=== PATIENT | male | born 1965 | race African-American/Black ===

== ENCOUNTER 2020-03-08 07:54 | Inpatient (IN) | payer OTHER ==
[~2020-03-08] VITALS: Ht 188 cm; Wt 72.5 kg
[2020-03-08] VITALS (10 sets, daily range): BP systolic 83–122; BP diastolic 55–94
--- NOTE | 2020-03-08 04:00 | NUR ---
WOUND CARE CONSULT 54 YO MALE HX OF TBI, UTI, HYPONATREMIA, DECUBITUS ULCER. PT ASSESSED IN ER HOLD; PT WILL BE TRANSFERED TO ICU. BARBARA 6 ON STRICT PUP STATUS AND INTERVENTIONS LABS: WBC- 19.61 HGB- 9.1 GLUCOSE 90 SKIN ASSESSMENT COMPLETE PATIENT PRESENTS WITH: 1) STAGE IV PRESSURE ULCER TO RIGHT AND LEFT SACRUM MEASURES 9.5CM X8CMX 2.5 CM AND 3.5 CM UNDERMAINING MEASURING 12OCLOCK TO 12 OCLOCK. BONE PALPABLE, 30 %NECROTIC TISSUE AND 45% YELLOW SLOUGH COVERING WOUND BASE AND 25% PINK GRANULATION TISSUE. RED SLOW BLANCHABLE ALSO MIXED DENUDED AREA R/T LOOSE STOOL; ODOR PRESENT. SEROSANGUINEOUS DRAINAGE PRESENT. 2)STAGE III PRESSURE ULCER TO LEFT LOWER BUTTOCK; 20% PINK GRANULATION PRESENT AND 80% YELLOW SLOUGH; ODOR PRESENT. SEROUSSANGUINEOUS DRAINAGE PRESENT. 3)STAGE IV PRESSURE ULCER TO LEFT LATERAL ANKLE, BONE PALPABLE; MEASURING 4CM X 3 CM X 0.8 CM; UNDERMINING PRESENT MEASURING 0.5 CM FROM 6 OCLOCK TO 11 OCLOCK. \ 4)RIGHT 5TH DORSAL METARSAL HEAD CALLUS MEASURING 2 CM X 2CM 5)RIGHT PROXIMAL LOWER LEG ABRASION; MEASURING 1 CM X 1 CM X 0.1 CM; 90 % RED GRANULATION 10 % HEALING SCAB. 6)RIGHT LATERAL LOWER LEG ABRASION; MEASURING 4 CM X 3CMX 0.1 CM; SKIN ABRATION; 100% PINK. 7)RIGHT DISTAL LATERAL LOWER LEG BLISTER; 2 CM X 1 CM FILLED WITH SEROUS FLUID. 8)LEFT MEDIAL LOWER LEG ABRASION MEASURING 1 CM X 1 CM X 0.1 CM; 100% PINK GRANULATION. 9)RED BLANCHABLE REDNESS PRESENT TO PERINEAL AREA. DURING ER HOLD THE FOLLOWING RECOMMEDATIONS WERE GIVEN TO SHORT ROOF PLUMBER; ORDER ANEROBIC AND AEROBIC CULTURE FOR RIGHT ANKLE AND TO ORDER ANEROBIC AND AEROBIC CULTURE FOR SACRUM; X-RAY TO SACRUM AREA TO R/O OSTEOMYELITIS. X-RAY TO LEFT ANKLE TO R/O OSTEOMYELITIS. INSTRUCTED BY Dr. White CONTINUE TO F/U WITH Dr. Henry. This nurse spoke to ROOF PLUMBER from Dr.Killam Butcher about recommendations; instructed continue with consults once pt is stable. RECOMMENDATIONS: X-RAY TO SACRUM AREA TO R/O OSTEOMYELITIS. X-RAY TO LEFT ANKLE TO R/O OSTEOMYELITIS. SURGICAL CONSULT FOR STAGE IV SACRUM ULCERATION TO REMOVE UNDERMINING AND POSSIBLE NEGATIVE PRESSURE THERAPY POST SURGICAL INTERVENTION; ONCE PATIENT IS STABLE; CONSULT WITH DR. RON BARCENAS. PODIATRY CONSULT FOR STAGE IV ULCER PRESET TO RIGHT ANKLE; ONCE PT IS STABLE. CONSULT WITH DR. RON BARCENAS. NURSING CLEAN STAGE IV ULCER TO RIGHT ANKLE WITH NORMAL SALINE, PAT DRY WITH 4X4 GAUZE, APPLY MAXORB AG, AND COVER WITH ALLEVYN FOAM DAILY. NURSING TO CLEAN STAGE IV SACRUM ULCER WITH NORMAL SALINE, PAT DRY WITH 4X4 GAUZE, APPLY SANTYL TO WOUND BASE, COVER WITH LIGHTLY MOISTENED SALINE GAUZE AND COVER WITH ALLEVYN FOAM DAILY. NURSING TO CLEAN STAGE III ULCER TO LEFT LOWER BUTTOCK WITH NORMAL SALINE, PAT DRY WITH 4X4 GAUZE, APPLY SANTYL AND COVER WITH ALLEVYN FOAM DAILY. NURSING TO OBTAIN ANEROBIC AND AEROBIC CULTURE FOR RIGHT ANKLE. NURSING TO OBTAIN ANEROBIC AND AEROBIC CULTURE FOR SACRUM. NURSING TO CLEAN RIGHT 5TH DORSAL METARSAL HEAD CALLUS WITH NORMAL SALINE, PAT DRY WITH 4X4 GAUZE AND PAINT WITH BETADINE; LEAVE OPEN TO AIR DAILY. NURSING TO CLEAN RIGHT PROXIMAL LOWER LEG ABRASION, RIGHT LATERAL LOWER LEG ABRASION, RIGHT DISTAL LATERAL LOWER LEG BLISTER AND LEFT MEDIAL LOWER LEG ABRASION WITH NORMAL SALINE, PAT DRY WITH 4X4 GAUZE, AND PAINT WITH BETADINE; LET IT DRY AND LEAVE OPEN TO AIR, DAILY. NURSING TO APPLY REMEDY CALAZIME OINTMENT TO PERINEAL AREA DAILY. NURSING TO CONTINUE TO MONITOR PATIENT AND KEEP SKIN CLEAN AND FREE FROM LOOSE STOOL OR IRRITATING MOISTURE AND CONTINUE TO FOLLOW STRICT PUP INTERVENTION DAILY. NURSING TO CONTINUE REPOSITION PT SIDE TO SIDE EVERY TWO HOURS. NURSING TO APPLY AN AIR PRESSURE MATTRESS. NURSING TO CONTINUE TO OFFLOAD FEET AND HEELS AT ALL TIMES WITH PILLOW SUSPENSION WHEN IN BED. NURSING TO APPLY BILATERAL HEEL PROTECTORS AT ALL TIMES WHILE IN BED. NURSIGN TO CONTINUE TO ASSIST PT NUTRITONAL SUPPLEMENTS TO ENSURE PROPER REQUIREMENTS FOR HEALING. NURSING TO RE- CONSULT WOUND CARE NEEDED. Addendum: 03/08/20 at 1956 by Soni Shine RN Amended: Links added.
[2020-03-08] MEDS ORDERED: SODIUM CHLORIDE 0.9% 1000ML 1,000 ML IV STA ×2 (08:05→08:42)
[2020-03-08] MEDS ORDERED: DIATRIZOATE MEGL/DIATRIZOA SOD 30 ML BTL PO ONE (08:31)
[2020-03-08] MEDS ORDERED: ACETAMINOPHEN 650 MG SUPP PR ONE (08:32)
[2020-03-08] MEDS ORDERED: SODIUM CHLORIDE 0.9% 1000ML 1,000 ML ONE ×2 (08:32→09:52)
--- NOTE | 2020-03-08 08:50 | NUR ---
PT MOVED TO ROOM ONE AND MASKED AND PLACED ON COVID PRECAUTIONS. SWAB OBTAINED PER PROTOCOL.
[2020-03-08 08:59] LABS: BASOPHILS # (AUTO) 0.1 (0.0-0.1); BASOPHILS % 0.3 % (0.0-1.0); EOSINOPHILS % 0.1 % (0.0-6.0); HEMATOCRIT 27.7 % (38.2-49.6); HEMOGLOBIN 9.1 g/dL (14.0-18.0); LYMPHOCYTES # (AUTO) 1.4 (1.0-3.2); MEAN CORPUSCULAR HEMOGLOBIN 25.9 pg (28-32); MEAN CORPUSCULAR HGB CONC 32.9 g/dL (31-35); MEAN CORPUSCULAR VOLUME 78.7 fL (81-99); MONOCYTES # (AUTO) 1.2 (0.2-0.8); MONOCYTES % 6.3 % (4.4-11.3); NEUTROPHILS # (AUTO) 16.7 (2.1-6.9); NEUTROPHILS % 84.8 % (38.7-80.0); PLATELET COUNT 487 x10e3/uL (140-360); RED BLOOD COUNT 3.52 x10e6/uL (4.3-5.7); RED CELL DISTRIBUTION WIDTH 17.2 % (11.7-14.4)
[2020-03-08] MEDS ORDERED: ONDANSETRON HCL INJ 2MG/ML 2ML 2 MG/ML VIAL IV STA (09:08)
[2020-03-08] MEDS ORDERED: ACETAMINOPHEN 325 MG SUPP PR ONE (09:15)
[2020-03-08] MEDS ORDERED: VANCOMYCIN 1GM/NS 250 ML 250 ML IV ONE (09:15)
--- NOTE | 2020-03-08 09:19 | NUR ---
PT ARRIVED WITH INDWELLING MACKEY WITH SEDIMENT AND DARK URINE/STRAW. PER MD ORDER, MACKEY REMOVED AND NEW FOLELY PLACED PER PROTOCOL/PROCEDURES WITHOUT INCIDENT. DRAINGING TO GRAVITY. TOLERATED FAIRLY WELL. NOT ENOUGH URINE TO OBTAIN SAMPLE AT TIME OF PLACEMENT, WILL MONITOR Q 1 HRS AND RE-EVALUATE. MD NOTIFIED.
[2020-03-08 09:20] LABS: B-TYPE NATRIURETIC PEPTIDE2 18.3 pg/mL (0-100)
[2020-03-08 09:22] LABS: ALANINE AMINOTRANSFERASE 17 IU/L (0-55); ALBUMIN 1.9 g/dL (3.5-5.0); ALBUMIN/GLOBULIN RATIO 0.3 (0.8-2.0); ALKALINE PHOSPHATASE 103 IU/L (40-150); ANION GAP 17.2 mmol/L (8-16); BLOOD UREA NITROGEN 39 mg/dL (7-26); BUN/CREATININE RATIO 30 (6-25); CARBON DIOXIDE 15 mmol/L (22-29); CHLORIDE 90 mmol/L (98-107); CREATININE, SERUM 1.32 mg/dL (0.72-1.25); EST GLOMERULAR FILTRATION RATE > 60 ML/MIN (60-); GLUCOSE 110 mg/dL (74-118); MAGNESIUM 1.8 MG/DL (1.3-2.1); POTASSIUM 4.2 mmol/L (3.5-5.1)
[2020-03-08 09:27] LABS: SODIUM 118 mmol/L (136-145)
[2020-03-08 09:29] LABS: INR 1.23; PROTHROMBIN TIME 16.3 seconds (11.9-14.5)
[2020-03-08 09:30] LABS: PARTIAL THROMBOPLASTIN TIME 32.9 seconds (23.8-35.5)
--- NOTE | 2020-03-08 09:34 | NUR ---
PT ARRIVED, PT WAS CLEANED, ALL SHELTER BELONGINGS BAGGED AND LABELLED, NEW GOWN, OLD LINEN REMOVED WELL. D/C'D INDWELLING MACKEY PT ARRIVED WITH ALL PER MD ORDER. PT IN FRESH, CLEAN GOWN, NEW MACKEY TO GRAVITY, BILATERAL EJ'S, EKG, RECTAL TEMP, MEDICATED ALL PER MD ORDERS. PT MORE AWAKE NOW ARE MOVING UPPER EXTREMITIES SOMEWHAT AND SPEAKS WITH UNDERSTANDABLE MINIMAL WORDS. ST/SR NO ECTOPY, ABG DONE BY RT LOPEZ PER MD, IVF'S RUNNING, PLACED INTO COVID ISOLATION R/O, WOUND CARE CONSULT BY MD FOR MULTIPLE BREAKDOWN ISSUES (EXCORIATED UNDER SCROTOM, BILATERAL FEET/ANKLES, SACRAL WOUND STAGE 4 AND LEFT CALF MEDIAL DIME SIZE STAGE 2)
[2020-03-08] MEDS ORDERED: ROPINIROLE HCL0.5 MG (09:40)
[2020-03-08] MEDS ORDERED: ENULOSE10 GM/15 M (09:40)
[2020-03-08] MEDS ORDERED: LIDOCAINE HCL20 ML (09:40)
[2020-03-08] MEDS ORDERED: QUETIAPINE FUM100 MG (09:40)
[2020-03-08] MEDS ORDERED: TIZANIDINE HCL2 M1 (09:40)
[2020-03-08] MEDS ORDERED: IPRAT-ALBUT 0.5-3 ML (09:40)
[2020-03-08] MEDS ORDERED: LOPRESSOR25 MG (09:40)
[2020-03-08] MEDS ORDERED: FAMOTIDINE20 MG (09:40)
[2020-03-08] MEDS ORDERED: DULOXETINE HCL40 MG (09:40)
[2020-03-08] MEDS ORDERED: LACTULOSE10 GM/151 (09:40)
[2020-03-08] MEDS ORDERED: BACLOFEN10 MG (09:40)
[2020-03-08] MEDS ORDERED: HYDROCODON-ACE1 EAC9 (09:40)
[2020-03-08] MEDS ORDERED: QUETIAPINE FUM200 MG (09:40)
[2020-03-08] MEDS ORDERED: KRISTALOSE20 GM (09:40)
[2020-03-08] MEDS ORDERED: CEFTRIAXONE1 GM (09:40)
[2020-03-08] MEDS ORDERED: TRAZODONE HCL50 MG (09:40)
[2020-03-08 09:54] LABS: CREATINE KINASE 58 IU/L (30-200)
[2020-03-08] MEDS: ONDANSETRON HCL INJ 2MG/ML 2ML 2 MG/ML VIAL IV PRN (10:00)
[2020-03-08] MEDS ORDERED: PIPER-TAZ 3.375 GM 50 ML IV ONE (10:00)
[2020-03-08] MEDS: SODIUM CHLORIDE 0.9% 1000ML 1,000 ML IV SCH ×2 (10:01→20:44)
--- NOTE | 2020-03-08 10:05 | NUR ---
GREEN SHEET ON CHART PER [facility] PROTOCOL. 2ND LACTIC DRAWN AND SENT TO LAB
--- NOTE | 2020-03-08 10:23 | NUR ---
BP DROP, MD NOTIFIED AND ORDERED NS 500CC BOLUS. BOLUS RUNNING. RADIOLOGY HERE FOR PT, NOTIFIED MD/PT TO WAIT FOR RADIOLOGY UNTIL BP UP. PICC LINE ORDERED. WILL BE EMERGENT.
--- OUTSIDE RECORDS SUMMARY | 2020-03-08 10:43 | XMS REPORT | Summary of Care ---
Author Author [facility] Organization [facility] Address Unknown Phone Unavailable Encounter HQ Kelsey(MAIDA) [id number] Date(s): 04/14/16 - 04/15/16 [facility] [address] provided by [employer] [place] [address]- Discharge Diagnosis: Suicidal ideation Discharge Disposition: Home Attending Physician: Yola Brambila MD Vital Signs 1 2 3 Most recent to oldest [Reference Range]: 182.88 cm (04/14/16 12:19 PM) Height 98.5 DegF (04/15/16 12:04 AM) 98.4 DegF (04/14/16 10:15 PM) 98 DegF (04/14/16 8:15 PM) Temperature Oral [96.4-99.1 DegF] 159/80 mmHg *HI* (04/15/16 2:00 AM) 141/94 mmHg *HI* (04/15/16 12:04 AM) 141/94 mmHg *HI* (04/14/16 10:15 PM) Blood Pressure [90-140/60-90 mmHg] 18 BRMIN (04/15/16 2:00 AM) 18 BRMIN (04/15/16 12:04 AM) 18 BRMIN (04/14/16 10:15 PM) Respiratory Rate [14-20 BRMIN] 65 bpm (04/15/16 2:00 AM) 57 bpm *LOW* (04/15/16 12:04 AM) 65 bpm (04/14/16 10:15 PM) Peripheral Pulse Rate [60-100 bpm] 100 kg (04/14/16 12:19 PM) Weight 29.9 m2 (04/14/16 12:19 PM) Body Mass Index Problem List Condition Effective Dates Status Health Status Informan t Bipolar(Confirmed) Resolved Depression(Confirmed Active ) Schizophrenia(Confir Resolved med) Allergies, Adverse Reactions, Alerts Substance Reaction Severity Status Haldol Active Prolixal Haldol Active Medications No data available for this section Results ELECTROLYTES Most recent to 1 oldest [Reference Range]: Sodium Lvl [135-145 144 mEq/L mEq/L] (04/14/16 12:30 PM) Potassium Lvl 3.7 mEq/L [3.5-5.1 mEq/L] (04/14/16 12:30 PM) Chloride Lvl [95-109 109 mEq/L mEq/L] (04/14/16 12:30 PM) CO2 [24-32 mEq/L] 27 mEq/L (04/14/16 12:30 PM) AGAP [10.0-20.0 11.7 mEq/L mEq/L] (04/14/16 12:30 PM) CHEM PANEL Most recent to 1 oldest [Reference Range]: Creatinine Lvl 1.04 mg/dL [0.50-1.40 mg/dL] (04/14/16 12:30 PM) eGFR 96 mL/min/1.73m2 1 *NA* (04/14/16 12:30 PM) BUN [7-22 mg/dL] 12 mg/dL (04/14/16 12:30 PM) Glucose Lvl [70-99 95 mg/dL mg/dL] (04/14/16 12:30 PM) Calcium Lvl 9.0 mg/dL [8.5-10.5 mg/dL] (04/14/16 12:30 PM) 1Result Comment: The eGFR is calculated using the CKD-EPI formula. In most young, healthy individuals the eGFR will be >90 mL/min/1.73m2. The eGFR declines with age. An eGFR of 60-89 may be normal in some populations, particularly the elderly, for whom the CKD-EPI formula has not been extensively validated. Use of the eGFR is not recommended in the following populations: Individuals with unstable creatinine concentrations, including patients and those with serious co-morbid conditions. Patients with extremes in muscle mass or diet. The data above are obtained from the National Kidney Disease Education Program ( NKDEP) which additionally recommends that when the eGFR is used in patients with extremes of body mass index for purposes of drug dosing, the eGFR should be mul tiplied by the estimated BMI. DRUG SCREEN Most recent to 1 oldest [Reference Range]: U Amph Scr Negative [Negative] *NA* (04/14/16 12:30 PM) U Dianelys Scr Negative [Negative] *NA* (04/14/16 12:30 PM) U Benzodia Scr Negative [Negative] *NA* (04/14/16 12:30 PM) U Cocaine Scr Negative [Negative] *NA* (04/14/16 12:30 PM) U Opiate Scr Negative [Negative] *NA* (04/14/16 12:30 PM) U Phencyc Scr Negative [Negative] *NA* (04/14/16 12:30 PM) U Cannab Scr Negative [Negative] *NA* (04/14/16 12:30 PM) UDS Note See Note *NA* (04/14/16 12:30 PM) TOXICOLOGY Most recent to 1 oldest [Reference Range]: Acetaminoph Lvl <2 [10-20] (04/14/16 12:30 PM) Salicylate Lvl 5.7 mg/dL [0.0-30.0 mg/dL] (04/14/16 12:30 PM) Etoh (%) <.003 % *NA* (04/14/16 12:30 PM) Ethanol Lvl <3 mg/dL *NA* (04/14/16 12:30 PM) URINE AND STOOL Most recent to 1 oldest [Reference Range]: UA Turbidity [Clear] Slight Cloudy (04/14/16 12:30 PM) UA Color [Yellow] Yellow *NA* (04/14/16 12:30 PM) UA pH [5.0-8.0] 6.0 (04/14/16 12:30 PM) UA Spec Grav 1.028 [<=1.030] (04/14/16 12:30 PM) UA Glucose Negative [Negative] (04/14/16 12:30 PM) UA Blood [Negative] Negative (04/14/16 12:30 PM) UA Ketones Negative [Negative] *NA* (04/14/16 12:30 PM) UA Protein Negative [Negative] (04/14/16 12:30 PM) UA Urobilinogen 0.2 EU/dL [0.1-1.0 EU/dL] (04/14/16 12:30 PM) UA Bili [Negative] Small *ABN* (04/14/16 12:30 PM) UA Leuk Est Negative [Negative] (04/14/16 12:30 PM) UA Nitrite Negative [Negative] (04/14/16 12:30 PM) UA WBC [None Seen 0-2 /HPF /HPF] (04/14/16 12:30 PM) UA RBC [0-2 /HPF] 3-5 /HPF *ABN* (04/14/16 12:30 PM) UA Bacteria [None Occasional /HPF Seen /HPF] (04/14/16 12:30 PM) UA Sq Epi [Few /LPF] Rare /LPF (04/14/16 12:30 PM) UA Mucus [None Seen Few /LPF /LPF] (04/14/16 12:30 PM) Micro? Performed (04/14/16 12:30 PM) HEMATOLOGY Most recent to 1 oldest [Reference Range]: WBC [3.7-10.4 K/CMM] 6.9 K/CMM (04/14/16 12:30 PM) RBC [4.70-6.10 4.61 M/CMM M/CMM] *LOW* (04/14/16 12:30 PM) Hgb [14.0-18.0 g/dL] 13.4 g/dL *LOW* (04/14/16 12:30 PM) Hct [42.0-54.0 %] 42.1 % (04/14/16 12:30 PM) MCV [80.0-94.0 fL] 91.3 fL (04/14/16 12:30 PM) MCH [27.0-31.0 pg] 29.1 pg (04/14/16 12:30 PM) MCHC [32.0-36.0 31.9 g/dL g/dL] *LOW* (04/14/16 12:30 PM) RDW [11.5-14.5 %] 15.4 % *HI* (04/14/16 12:30 PM) Platelet [133-450 286 K/CMM K/CMM] (04/14/16 12:30 PM) MPV [7.4-10.4 fL] 7.7 fL (04/14/16 12:30 PM) Segs [45.0-75.0 %] 65.4 % (04/14/16 12:30 PM) Lymphocytes 23.1 % [20.0-40.0 %] (04/14/16 12:30 PM) Monocytes [2.0-12.0 10.0 % %] (04/14/16 12:30 PM) Eosinophils [0.0-4.0 1.1 % %] (04/14/16 12:30 PM) Basophils [0.0-1.0 0.4 % %] (04/14/16 12:30 PM) Segs-Bands # 4.5 K/CMM [1.5-8.1 K/CMM] (04/14/16 12:30 PM) Lymphocytes # 1.6 K/CMM [1.0-5.5 K/CMM] (04/14/16 12:30 PM) Monocytes # [0.0-0.8 0.7 K/CMM K/CMM] (04/14/16 12:30 PM) Eosinophils # 0.1 K/CMM [0.0-0.5 K/CMM] (04/14/16 12:30 PM) PT [12.0-14.7 13.2 seconds seconds] (04/14/16 12:30 PM) INR [0.85-1.17] 0.97 (04/14/16 12:30 PM) PTT [22.9-35.8 30.2 seconds seconds] (04/14/16 12:30 PM) Immunizations No data available for this section Procedures Procedure Date Related Diagnosis Body Dye Blender up1 1metal plate in head Social History Social History Type Response Smoking Status Former smoker; Type: Cigare ttes; Exposure to Tobacco Smoke None; Cigarette Smoking Last 365 Days Yes; Reg Smoking Cessation Counseling No Assessment and Plan No data available for this section
--- OUTSIDE RECORDS SUMMARY | 2020-03-08 10:43 | XMS REPORT | Summary of Care ---
Author Author [facility] Organization [facility] Address Unknown Phone Unavailable Encounter MARCELL Cole(MAIDA) [id number] Date(s): 10/03/17 - 10/03/17 [facility] [address] provided by [employer] [place] [address]- Discharge Diagnosis: Visit for suture removal Discharge Disposition: Home or Self Care Attending Physician: Evan Matias MD Vital Signs Most recent to 1 oldest [Reference Range]: Height 182.88 cm (10/03/17 10:52 AM) Temperature Oral 98.6 DegF [96.4-99.1 DegF] (10/03/17 10:52 AM) Blood Pressure 135/88 mmHg [90-140/60-90 mmHg] (10/03/17 10:52 AM) Respiratory Rate 18 BRMIN [14-20 BRMIN] (10/03/17 10:52 AM) Peripheral Pulse 94 bpm Rate [60-100 bpm] (10/03/17 10:52 AM) Weight 90 kg (10/03/17 10:52 AM) Body Mass Index 26.91 m2 (10/03/17 10:52 AM) Problem List Condition Effective Dates Status Health Status Informan t Bipolar(Confirmed) Resolved Depression(Confirmed Active ) Schizophrenia(Confir Resolved med) Suicidal Resolved thoughts(Confirmed) Allergies, Adverse Reactions, Alerts Substance Reaction Severity Status Prolixal Haldol Active Haldol Active Medications No data available for this section Results No data available for this section Immunizations No data available for this section Procedures Procedure Date Related Diagnosis Body Quality Checker up1 1metal plate in head Social History Social History Type Response Smoking Status Current some day smoker; Ty pe: Cigarettes; Exposure to Tobacco Smoke None; Cigarette Smoking Last 365 Days Yes; Re g Smoking Cessation Counseling Yes Assessment and Plan No data available for this section
--- OUTSIDE RECORDS SUMMARY | 2020-03-08 10:43 | XMS REPORT ---
Author Author Tete, Claudio Rojas [facility] [place] [facility] [place] [address] [address] Phone Allergies, Adverse Reactions, Alerts Allergy Name Reaction Description Start Date Severity Status Pr ovidjosué FAROOQL Critical Active Marquis Shafer MD Conditions or Problems Problem Name Problem Code Onset Date Status Entry Date Provider Comment Standard Description Annotate Noncompliance with medications - opioid misuse V15.81 Active Marquis Sahfer MD Personal history of noncompliance with medical treatment, presenting hazards to health UDS neg for prescribed hydrocodone and positive for cocaine Nephrolithiasis 592.0 Active Marquis Shafer MD Calculus of kidney Colorectal screening V76.51 Active Marquis Cameron Screening for malignant neoplasms of colon Shoulder pain, left 719.41 Active Marquis Shafer MD Pain in joint involving shoulder region SEBORRHEIC DERMATITIS 690.10 Active Marquis Shafer MD Seborheic dermatitis, unspecified HYPERTENSION 401.1 Active Marquis Shafer MD Benign essential hypertension SCHIZOPHRENIA 295.90 Active Marquis Shafer MD Unspecified schizophrenia, unspecified state INFLUENZA, VACCINATION AGAINST V04.81 Active 08/20 Marquis Shafer MD Need for prophylactic vaccination and in oculation against influenza HEPATITIS C 070.51 Active Marquis Shafer MD Acute hepatitis C without mention of hepatic coma CHRONIC BACK PAIN 724.5 Active Marquis Shafer MD Backache, unspecified GERD 530.81 Active Marquis Shafer MD Eso phageal reflux History of NEPHROLITHIASIS 592.0 Active Marquis Ferreira MD Calculus of kidney TINEA CORPORIS 110.5 Active Marquis Shafer MD Dermatophytosis of the body Tobacco user 305.1 Active Moycalderon Garcia OJ Tobacco use disorder OBESITY ICD-278.00 Inactive Marquis Shafer MD 05/05 GENERAL PHYSICAL EXAM V70.0 Inactive Marquis Shafer MD Routine general medical examination at a health care facility GENERAL PHYSICAL EXAM ICD-V70.0 Inactive Marquis Shafer MD OBESITY 278.00 Resolved Marquis Shafer MD Ob esity, unspecified Medication List Medication Instructions Start Date Stop Date Generic Name NDC Status Provider Patient Instruction TRIAMCINOLONE ACETONIDE 0.1 % EXTERNAL CREAM apply to affected area three times a day as needed TRIAMCINOLONE ACETONIDE 20182712023 Active Marquis Shafer MD Active FLOMAX 0.4 MG ORAL CAPSULE 1 by mouth every day TAMSULOSIN HCL 87886087031 Active Marquis Shafer MD Active AMLODIPINE BESYLATE 5 MG ORAL TABLET 1 tab by mouth daily 3 AMLODIPINE BESYLATE 39960871883 Active Marquis Shafer MD Active KETOCONAZOLE 2 % EXTERNAL SHAMPOO apply to scalp in shower weekly 2 KETOCONAZOLE 98095744803 Active Marquis Shafer MD Active NORCO 10-325 MG ORAL TABLET 1 By Mouth every six hours as ne eded for pain HYDROCODONE-ACETAMINOPHEN 67260294449 Active Marquis Shafer MD Active AMBIEN TABLET ZOLPIDEM TARTRATE TABS 94989971 131 Active Marquis Shafer MD Active SEROQUEL TABLET QUETIAPINE FUMARATE TABS 0031 5718378 Active Marquis Shafer MD Active TOLNAFTATE 1 % EXTERNAL CREAM apply to affected area Twice a Day 13/10/27 TOLNAFTATE 57109336095 Active Marquis Shafer MD Active HYDROCORTISONE 2.5 % EXTERNAL CREAM apply to affected area t wice a day HYDROCORTISONE 75069655049 Active Marquis Shafer MD Active MICONAZOLE NITRATE 2 % EXTERNAL CREAM apply to affected area at bedtime MICONAZOLE NITRATE 81371238361 Active Marquis Shafer MD Active PEPCID 20 MG ORAL TABLET 1 By Mouth once a day FAMOTIDINE 22793225702 Active Marquis Shafer MD Active Advance Directives Directive Description Start Date DISCUSSED - NO DECISION MADE Immunizations Vaccine Administration Date Value Standard Aaron cription influenza immunization (Flu Vax) has been administered 0 given influenza virus vaccine, unspecified formulation influenza immunization (Flu Vax) has been administered 0 given influenza virus vaccine, unspecified formulation Vital Signs Date Name Value Unit Range Description blood pressure, diastolic 102 mm[Hg] BP beauchamp blood pressure, systolic 157 mm[Hg] BP sys height E&M 73 [in_us] Bdy height pulse rate E&M 92 /min Heart rate temperature E&M 96.5 [degF] Body temp erature weight E&M 198 [lb_av] Weight Measure d blood pressure, diastolic 77 mm[Hg] BP beauchamp blood pressure, systolic 125 mm[Hg] BP sys height E&M 73 [in_us] Bdy height pulse rate E&M 93 /min Heart rate temperature E&M 98.3 [degF] Body temp erature weight E&M 198 [lb_av] Weight Measure d blood pressure, diastolic 90 mm[Hg] BP beauchamp blood pressure, systolic 137 mm[Hg] BP sys height E&M 73 [in_us] Bdy height pulse rate E&M 80 /min Heart rate temperature E&M 97.7 [degF] Body temp erature weight E&M 200 [lb_av] Weight Measure d blood pressure, diastolic 95 mm[Hg] BP beauchamp blood pressure, systolic 134 mm[Hg] BP sys height E&M 73 [in_us] Bdy height pulse rate E&M 130 /min Heart rate temperature E&M 98.7 [degF] Body temp erature weight E&M 196 [lb_av] Weight Measure d blood pressure, diastolic 89 mm[Hg] BP beauchamp blood pressure, systolic 145 mm[Hg] BP sys height E&M 73 [in_us] Bdy height pulse rate E&M 76 /min Heart rate temperature E&M 98.7 [degF] Body temp erature weight E&M 202 [lb_av] Weight Measure d blood pressure, diastolic 82 mm[Hg] BP beauchamp blood pressure, systolic 139 mm[Hg] BP sys height E&M 73 [in_us] Bdy height pulse rate E&M 80 /min Heart rate temperature E&M 99.0 [degF] Body temp erature weight E&M 199 [lb_av] Weight Measure d Diagnostic Results Date Name Value Unit Range Description Lab Report: CBC With Differential/Platel et, Comp. Metabolic Panel (14), ... - Serology hepatitis C antibody, serum >11.0 0.0-0.9 Lab Report: CBC With Differential/Platel et, Comp. Metabolic Panel (14), ... - Hematology lymphocyte count, blood, automated 1.5 X10E3/UL 10*3/mm3 0.7-3.1 Lab Report: UA/M w/rflx Culture, Routine , Microscopic Examination, UA/M ... - Urinalysis epithelial cells, urine 0-10 /[LPF] 0 - 10 Lab Report: [id number] 8+Oxycodone+Technical Artist-Unbun d, Cocaine Metabolite (GC/MS), U ... - Urinalysis pH, urine, semiquantitative 5.8 4.5-8.9 Lab Report: CBC With Differential/Platel et, Comp. Metabolic Panel (14), ... - Chemistry urea nitrogen, blood 11 mg/dL 6-24 Lab Report: UA/M w/rflx Culture, Routine , Microscopic Examination, UA/M ... - Urinalysis bilirubin, urine Negative Negative Lab Report: Iron and TIBC, PT and PTT, R heumatoid Arthritis Factor, SWAPNA ... - Chemistry ferritin, serum 300 ng/mL 30-400 Lab Report: Iron and TIBC, PT and PTT, R heumatoid Arthritis Factor, SWAPNA ... - Serology rheumatoid factor 43.1 [iU]/mL 0.0-13.9 Lab Report: CBC With Differential/Platel et, Comp. Metabolic Panel (14), ... - Chemistry creatinine, serum 0.66 mg/dL 0.76-1.27 Lab Report: CBC With Differential/Platel et, Comp. Metabolic Panel (14), ... - Hematology mean corpuscular volume, RBC 89 fL 79-97 Lab Report: CBC With Differential/Platel et, Comp. Metabolic Panel (14), ... - Chemistry chloride, serum 104 mmol/L 96-106 triglyceride, serum, fasting 133 mg/dL 0-149 Lab Report: CBC With Differential/Platel et, Comp. Metabolic Panel (14), ... - Hematology erythrocyte (RBC) count 4.33 X10E6/UL 10*6/mm3 4.14-5.80 Lab Report: CBC With Differential/Platel et, Comp. Metabolic Panel (14), ... - Chemistry Estimated Glomerular Filtration Rate (calc) 111 mL/ min/1.73m2 >59 Lab Report: CBC With Differential/Platel et, Comp. Metabolic Panel (14), ... - Hematology platelet count 244 X10E3/UL 10*3/mm3 150-379 Lab Report: UA/M w/rflx Culture, Routine , Microscopic Examination, UA/M ... - Urinalysis appearance, urine Clear Clear Lab Report: CBC With Differential/Platel et, Comp. Metabolic Panel (14), ... - Serology HIV-1/HIV-2 Ab, serum Non Reactive Non Reactive Lab Report: CBC With Differential/Platel et, Comp. Metabolic Panel (14), ... - Hematology red blood cell distribution width 14.0 % 12 .3-15.4 Lab Report: HCV RNA by PCR, Qn Rfx Desirae, Hepatitis C Genotype - Serology Hepatitis C virus (HCV) RNA, PCR, quantitative [id number] [iU]/mL Lab Report: CBC With Differential/Platel et, Comp. Metabolic Panel (14), ... - Chemistry protein, total, serum 6.8 g/dL 6.0-8.5 HDL cholesterol, serum 34 mg/dL >39 Lab Report: Iron and TIBC, PT and PTT, R heumatoid Arthritis Factor, SWAPNA ... - Serology antinuclear antibody Negative Negative Lab Report: UA/M w/rflx Culture, Routine , Microscopic Examination, UA/M ... - Urinalysis mucus on urinalysis Present Not Estab. Lab Report: UA/M w/rflx Culture, Routine , Microscopic Examination, UA/M ... - Chemistry specific gravity, body fluid 1.029 1.005-1 .030 Lab Report: CBC With Differential/Platel et, Comp. Metabolic Panel (14), ... - Hematology eosinophils as percent of blood leukocytes 5 % Lab Report: UA/M w/rflx Culture, Routine , Microscopic Examination, UA/M ... - Urinalysis glucose, urine, semiquantitative Negative Neg ative Lab Report: CBC With Differential/Platel et, Comp. Metabolic Panel (14), ... - Chemistry albumin/globulin ratio, serum 1.7 1.1-2. 5 Absolute Neutrophils 2.3 X10E3/UL 10*3/uL 1.4-7.0 Lab Report: CBC With Differential/Platel et, Comp. Metabolic Panel (14), ... - Hematology basophil count, absolute 0.0 x10E3/uL 0.0-0.2 Lab Report: [id number] Drug-Bund, Hydrocod one + Metabolites, U - Toxicology amphetamine screen, urine Negative Iscyci=236 0 Lab Report: CBC With Differential/Platel et, Comp. Metabolic Panel (14), ... - Chemistry hepatitis B surface antigen Negative Negative Lab Report: Iron and TIBC, PT and PTT, R heumatoid Arthritis Factor, SWAPNA ... - Chemistry iron saturation percent, serum 27 % 15-55 Lab Report: CBC With Differential/Platel et, Comp. Metabolic Panel (14), ... - Chemistry alanine aminotransferase (SGPT), serum 26 U/L 0-44 LDL cholesterol, serum 88 mg/dL 0-99 Lab Report: CBC With Differential/Platel et, Comp. Metabolic Panel (14), ... - Hematology monocytes as percent of blood leukocytes 7 % Lab Report: [id number] Drug-Bund, Hydrocod one + Metabolites, U - Toxicology phencyclidine screen, urine Negative ng/mL Cutoff=2 5 opiate screen, urine Negative Wneegw=792 Lab Report: CBC With Differential/Platel et, Comp. Metabolic Panel (14), ... - Chemistry cholesterol, serum 149 mg/dL 100-199 Lab Report: UA/M w/rflx Culture, Routine , Microscopic Examination, UA/M ... - Basic Occult Blood, urine 3+ Negative Lab Report: CBC With Differential/Platel et, Comp. Metabolic Panel (14), ... - Hematology mean corpuscular hemoglobin concentration, RBC 33.2 G/DL % 31.5-35.7 hemoglobin, blood 12.7 g/dL 12.6-17.7 Lab Report: UA/M w/rflx Culture, Routine , Microscopic Examination, UA/M ... - Urinalysis leukocyte esterase, urine, by dipstick Negative Negative urinalysis, microscopic examination See below: Lab Report: CBC With Differential/Platel et, Comp. Metabolic Panel (14), ... - Hematology leukocyte count, blood 4.4 X10E3/UL 10*3/mm3 3.4-10.8 Lab Report: UA/M w/rflx Culture, Routine , Microscopic Examination, UA/M ... - Urinalysis protein, urine, semiquantitative (dipstick) Trace Negative/Trace Crystal Type, Urine Calcium Oxalate N/A Lab Report: CBC With Differential/Platel et, Comp. Metabolic Panel (14), ... - Hematology hematocrit, blood 38.3 % 37.5-51.0 Lab Report: CBC With Differential/Platel et, Comp. Metabolic Panel (14), ... - Chemistry globulin, serum 2.5 1.5-4.5 Lab Report: UA/M w/rflx Culture, Routine , Microscopic Examination, UA/M ... - Urinalysis bacteria, urine microscopy None seen None seen /Few Lab Report: [id number] 8+Oxycodone+Technical Artist-Unbun d, Cocaine Metabolite (GC/MS), U ... - Toxicology barbiturates screen, urine Negative Cutoff=30 0 Lab Report: UA/M w/rflx Culture, Routine , Microscopic Examination, UA/M ... - Urinalysis urine crystals, microscopic Present /[HPF] N/A Lab Report: CBC With Differential/Platel et, Comp. Metabolic Panel (14), ... - Chemistry thyroid stimulating hormone, serum 2.480 u[iU]/mL 0 .450-4.500 albumin, serum 4.3 g/dL 3.5-5.5 Lab Report: HCV RNA by PCR, Qn Rfx Desirae, Hepatitis C Genotype - Genetics/fertility Hepatitis C virus genotype, PCR (Polymerase Chain Reac tion) 3 See Note Internal Correspondence: Pre-Visit Plann ing/Confirmed - Other List of providers caring for patient Dr. Marquis Shafer, Vu Jorge PA, Tony West RN, Yue Rothman MA,Kelley Arechiga MA, Mally Smith MA, [facility], [place] GARSIA, Dr. Kennedy Lab Report: CBC With Differential/Platel et, Comp. Metabolic Panel (14), ... - Chemistry very low density lipoproteins 27 mg/dL 5-40 Lab Report: UA/M w/rflx Culture, Routine , Microscopic Examination, UA/M ... - Urinalysis urobilinogen, urine, semiquantitative (dipstick) 0.2 0.2-1.0 Lab Report: CBC With Differential/Platel et, Comp. Metabolic Panel (14), ... - Hematology basophils as percent of blood leukocytes 1 % Lab Report: CBC With Differential/Platel et, Comp. Metabolic Panel (14), ... - Chemistry calcium, serum 9.5 mg/dL 8.7-10.2 Lab Report: CBC With Differential/Platel et, Comp. Metabolic Panel (14), ... - Hematology monocyte count, blood, automated 0.3 X10E3/UL 10*3/uL 0 .1-0.9 Lab Report: CBC With Differential/Platel et, Comp. Metabolic Panel (14), ... - Chemistry immature granulocytes, percentage of total cells, blood 0 % urea nitrogen/creatinine ratio, serum 17 9-20 Lab Report: Iron and TIBC, PT and PTT, R heumatoid Arthritis Factor, SWAPNA ... - Chemistry iron, serum 98 ug/dL 40-155 Lab Report: CBC With Differential/Platel et, Comp. Metabolic Panel (14), ... - Genetics/fertility eGFR if 129 mL/min/1.73m2 >59 Lab Report: Iron and TIBC, PT and PTT, R heumatoid Arthritis Factor, SWAPNA ... - Chemistry iron binding capacity, total 362 ug/dL 250-450 Lab Report: UA/M w/rflx Culture, Routine , Microscopic Examination, UA/M ... - Urinalysis WBC urine on microscopy 0-5 /hpf {Cells}/[HPF] 0 - 5 Lab Report: CBC With Differential/Platel et, Comp. Metabolic Panel (14), ... - Hematology lymphocytes as percent of blood leukocytes 34 % Lab Report: UA/M w/rflx Culture, Routine , Microscopic Examination, UA/M ... - Chemistry RBC, Urine >30 /hpf /[HPF] 0 - 2 Lab Report: CBC With Differential/Platel et, Comp. Metabolic Panel (14), ... - Chemistry carbon dioxide, venous blood 26 mmol/L 18-29 Lab Report: CBC With Differential/Platel et, Comp. Metabolic Panel (14), ... - Serology rapid plasma reagin antibody, serum Non Reactive Non Reactive Lab Report: CBC With Differential/Platel et, Comp. Metabolic Panel (14), ... - Lab chlamydia DNA probe Negative Negative Lab Report: CBC With Differential/Platel et, Comp. Metabolic Panel (14), ... - Microbiology Neisseria gonorrhoeae DNA probe Negative Nega tive Lab Report: CBC With Differential/Platel et, Comp. Metabolic Panel (14), ... - Chemistry sodium, serum 144 mmol/L 134-144 Lab Report: Iron and TIBC, PT and PTT, R heumatoid Arthritis Factor, SWAPNA ... - Hematology activated partial thromboplastin time (aPTT) 32 s 24-33 erythrocyte sedimentation rate 31 mm/h 0-15 Lab Report: CBC With Differential/Platel et, Comp. Metabolic Panel (14), ... - Chemistry hemoglobin A1C, blood, as % of total hemoglobin 5.7 % 4.8-5.6 Lab Report: Iron and TIBC, PT and PTT, R heumatoid Arthritis Factor, SWAPNA ... - Chemistry iron binding capacity, unsaturated 264 ug/dL 1 50-375 Lab Report: CBC With Differential/Platel et, Comp. Metabolic Panel (14), ... - Chemistry alkaline phosphatase, serum 73 U/L 39-117 Lab Report: UA/M w/rflx Culture, Routine , Microscopic Examination, UA/M ... - Urinalysis ketones, urine, by test strip Negative Negati ve Lab Report: CBC With Differential/Platel et, Comp. Metabolic Panel (14), ... - Hematology Eosinophil Absolute Count 0.2 X10E3/UL 10*3/uL 0.0-0.4 Lab Report: Iron and TIBC, PT and PTT, R heumatoid Arthritis Factor, SWAPNA ... - Coagulation prothrombin time (patient) 11.2 s 9.1-12.0 Lab Report: [id number] Drug-Bund, Hydrocod one + Metabolites, U - Toxicology benzodiazepine screen, urine Negative Cutoff= 300 cannabinoid screen, urine Negative ng/mL Cutoff=50 Lab Report: CBC With Differential/Platel et, Comp. Metabolic Panel (14), ... - Hematology mean corpuscular hemoglobin, RBC 29.3 pg 26. 6-33.0 Lab Report: [id number] 8+Oxycodone+Technical Artist-Unbun d, Cocaine Metabolite (GC/MS), U ... - Chemistry creatinine, random, urine 27.4 mg/dL 20.0-300.0 Lab Report: CBC With Differential/Platel et, Comp. Metabolic Panel (14), ... - Chemistry bilirubin, serum, total <0.2 mg/dL mg/dL 0.0-1.2 Lab Report: CBC With Differential/Platel et, Comp. Metabolic Panel (14), ... - Hematology neutrophils as percent of blood leukocytes 53 % Lab Report: UA/M w/rflx Culture, Routine , Microscopic Examination, UA/M ... - Chemistry nitrate, urine Negative Negative Lab Report: Iron and TIBC, PT and PTT, R heumatoid Arthritis Factor, SWAPNA ... - Coagulation international normalized ratio (INR) 1.0 0.8-1.2 Lab Report: CBC With Differential/Platel et, Comp. Metabolic Panel (14), ... - Chemistry blood glucose, random 106 mg/dL 65-99 potassium, serum 3.9 mmol/L 3.5-5.2 aspartate aminotransferase (SGOT), serum 27 U/L 0-40 Lab Report: UA/M w/rflx Culture, Routine , Microscopic Examination, UA/M ... - Urinalysis urine color Yellow Yellow Encounters Date Encounter Provider Code Facility 10:56:10 [facility] [employer] Est Patient Exp Problem - 70677 Marquis maynard MD CPT-38131 [facility] [place] 11:11:27 CDT Est Patient Detailed - 79790 Marquis Shafer MD CPT-83414 [facility] [place] [facility] 14:49:44 CDT Est Patient Detailed - 07180 Marquis Shafer MD CPT-63108 [facility] [place] [facility] 13:58:34 CDT Est Patient Exp Problem - 53935 Marquis maynard MD CPT-41037 [facility] [place] [facility] 19:23:30 CDT Est Patient Detailed - 97120 Marquis Shafer MD CPT-04595 [facility] 14:32:40 CDT Est Patient Detailed - 35352 Marquis Shafer MD CPT-27119 [facility] 14:40:57 P[employer] ARTIST Est Patient Detailed - 81157 Marquis Shafer MD CPT-00492 [facility] [place] [facility] 10:34:25 P[employer] ARTIST Est Patient Detailed - 90889 Marquis Shafer MD CPT-79247 [facility] [place] [facility] 09:22:18 CDT Est Patient Detailed - 13408 Marquis Shafer MD CPT-04118 [facility] [place] [facility] 14:08:12 CDT Est Patient Exp Problem - 02439 Marquis maynard MD CPT-49360 [facility] [place] [facility] 08:30:50 P[employer] ARTIST Est Patient Exp Problem - 05117 Marquis maynard MD CPT-69905 [facility] [place] [facility] 09:30:08 CDT Est Patient Exp Problem - 17155 Marquis maynard MD CPT-89768 [facility] [place] [facility] [place] [facility] 09:34:46 CDT Est Patient Problem Focus - 73485 Jennyfer Garcia APRN CPT-[address] [facility] 09:26:12 CDT Ofc Vst, Est Level III Marquis Shafer MD CPT-9 9213 [facility] [place] [facility] 09:48:38 CDT Ofc Vst, Est Level III Marquis Shafer MD CPT-9 9213 [facility] 21:44:01 CDT Ofc Vst, Est Level III Marquis Shafer MD CPT-9 9213 [facility] 17:11:23 CDT Ofc Vst, Est Level IV Marquis Shafer MD CPT-99 214 [facility] 15:53:45 CDT Ofc Vst, Est Level III Marquis Shafer MD CPT-9 9213 [facility] 11:12:52 P[employer] ARTIST Ofc Vst, Est Level III Marquis Shafer MD CPT-9 9213 [facility] 09:38:30 CDT Ofc Vst, Est Level III Marquis Shafer MD CPT-9 9213 [facility] 11:03:54 CDT Ofc Vst, Est Level III Marquis Shafer MD CPT-9 9213 [facility] 11:27:11 CDT Ofc Vst, New Level II Marquis Shafer MD CPT-99 202 [facility] Procedures Code Procedure Name Date Entry Date Standard Desc ription CPT-71346 INFLUENZA VACCINE QUADRIVALENT 3 YRS PLUS IM 201 05/10/20 14:49:44 CDT CPT-70170 Admin of Vaccine - Injection - 1 14:49:44 C DT CPT-05346 Influenza - Adult - Injection 09:38:30 CD T CPT-31962 Venipuncture 11:27:11 CDT
--- OUTSIDE RECORDS SUMMARY | 2020-03-08 10:43 | XMS REPORT | Clinical Summary ---
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 Assessment: Cameron Wolff MD, Phone: [phone] Performing Organization Address [facility] one Number [facility] [address] [place] [address] * XRAY CHEST 1 VIEW (08/17/2019 1:50 AM CDT) Only the most recent of 6 results within the time period is included. Specimen Impressions Performed At IMPRESSION: SMS 1. Unchanged diffuse bilateral opacit ies which likely represent a combination of interstitial edema and a telectasis, although atypical pneumonia can have a similar appearance . 2. Enlarged cardiac silhouette. Dictated By: Nathanael Up MD, 08/17/20 19 7:17 AM I have reviewed the study and agree wit h the findings in this report. Signed By: Pardeep Carey MD, 08/17/2019 10:34 AM Narrative Performed At EXAMINATION: XRAY CHEST 1 VIEW SMS INDICATION: febrile, concern for pneumo maya COMPARISON: Chest radiograph 08/15/20 FINDINGS: TUBES and LINES: Stable LUE PICC with t ip projecting over the SVC. LUNGS: Lungs are well inflated. Diffu se interstitial and airspace opacities. PLEURA: No pleural effusion or pneumo thorax. HEART AND MEDIASTINUM: The cardiac si lhouette is borderline enlarged. BONES AND SOFT TISSUES: No acute osse ous lesion. Soft tissues are unremarkable. UPPER ABDOMEN: No free air under the di aphragm. Partially visualized distended loops of bowel. Procedure Note Interface, Rad/Mammog In - 08/17/2019 10:39 AM CDT EXAMINATION: XRAY CHEST 1 VIEW INDICATION: febrile, concern for pneumonia COMPARISON: Chest radiograph 08/15/2019 FINDINGS: TUBES and LINES: Stable LUE PICC with tip projecting over the SVC. LUNGS: Lungs are well inflated. Diffuse interstitial and airspace opacities. PLEURA: No pleural effusion or pneumothorax. HEART AND MEDIASTINUM: The cardiac silhouette is borderline enlarged. BONES AND SOFT TISSUES: No acute osseous lesion. Soft tissues are unremarkable. UPPER ABDOMEN: No free air under the diaphragm. Partially visualized distended loops of bowel. IMPRESSION IMPRESSION: 1. Unchanged diffuse bilateral opacitie s which likely represent a combination of interstitial edema and atelectasis, although atypical pneumonia can have a similar appearance. 2. Enlarged cardiac silhouette. Dictated By: Nathanael Up MD, 08/17/2019 7:17 AM I have reviewed the study and agree with the findings in this report. Signed By: Pardeep Carey MD, 08/17/2019 10:34 AM Performing Organization Address City/[facility] Ph one Number SMS * Blood Culture X2 - 2 non-specific sites (08/16/2019 9:42 PM CDT) Only the most recent of 2 results within the time period is included. Blood Culture No growth 5 days [facility] Specimen Blood - Arm, right Narrative Performed At The specimen volume collected is too low for optimal organism recovery. [facility] Suboptimal volume inoculation of bottle s can result in significant delays in organism recovery or false negative res ults. Performing Organization Address City/State/[facility] one Number [facility] [address] [place] [address] * Lower Respiratory Culture and Gram Stain (08/16/2019 9:18 PM CDT) Lower 4+ Normal mitzy [facility] Culture Gram Stain 1+ WBCs [facility] Gram Stain Mixed bacterial morphtypes [facility] seen [facility] Specimen Sputum - Induced Performing Organization Address [facility] one Number [facility] [address] [place] [address] [phone] * Urinalysis (08/16/2019 7:31 PM CDT) Only the most recent of 2 results within the time period is included. Color Straw Colorless, Straw, [facility] Yellow [facility] Clarity Clear Clear [facility] Spec [place], 1.009 1.001 - 1.035 [facility] pH, Ur 7.0 5.0 - 8.0 [facility] Protein, Ur Negative Negative mg/dL [facility] Glucose, Ur Negative Negative mg/dL [facility] Ketone, Ur Negative Negative mg/dL [facility] Bilirubin, Ur Negative Negative mg/dL [facility] Nitrite, Ur Negative Negative [facility] Leukocyte Negative Negative mg/dL [facility] Blood, Ur Negative Negative mg/dL [facility] Urobilinogen, <1.0 <1.0 EU/dL [facility] Specimen Urine Performing Organization Address [facility] one Number [facility] [address] [place] [address] * Urine Culture (08/16/2019 7:31 PM CDT) Only the most recent of 2 results within the time period is included. Urine Culture No growth 2 days [facility] Specimen Urine - Straight catheter Performing Organization Address [facility] one Number [facility] [address] [place], [place] [id number] * DUPLEX DOPPLER UPPER EXTREMITY VENOUS, BILATERAL (08/15/2019 4:52 PM CDT) Specimen Impressions Performed At IMPRESSION: SMS 1. No evidence of venous thrombosis o f the visualized bilateral upper extremities or subclavian veins. 2. Bilateral internal jugular veins n ot visualized due to overlying cervical collar. Dictated By: Nick Nolan MD, 08/15/2019 5:37 PM I have reviewed the study and agree wit h the findings in this report. Signed By: Akbar Hubbard, 08/15/2019 7:39 PM Narrative Performed At EXAM: Bilateral Upper Extremity Venous Duplex Ultraso und SMS INDICATION: chronic immobilization, fever work-up COMPARISON: None TECHNIQUE: Grayscale, color Doppler and spectral waveform analysis of the bilateral upper extremity venous sy stem and internal jugular vein were performed. FINDINGS: Suboptimal evaluation of the internal j ugular veins due to overlying cervical collar. Incomplete evaluation of the peripheral left brachial and basilic veins due to overlying band ages. Right Upper Extremity: Internal Jugular: Fully compressible with normal sp ontaneous waveforms Subclavian: Normal spontaneous waveforms Axillary: Fully compressible with normal sp ontaneous waveforms Brachial: Fully compressible with normal sp ontaneous waveforms Basilic: Fully compressible with normal sp ontaneous waveforms Cephalic: Fully compressible with normal sp ontaneous waveforms Left Upper Extremity: Internal Jugular: Fully compressible with normal sp ontaneous waveforms Subclavian: Normal spontaneous waveforms Axillary: Fully compressible with normal sp ontaneous waveforms Brachial: Fully compressible with normal sp ontaneous waveforms in the visualized portions. Basilic: Fully compressible with normal sp ontaneous waveforms in the visualized portions. Cephalic: Not seen. Procedure Note Interface, Rad/Mammog In - 08/15/2019 7:44 PM CDT EXAM: Bilateral Upper Extremity Venous Duplex Ultrasound INDICATION: chronic immobilization, fever work-up COMPARISON: None TECHNIQUE: Grayscale, color Doppler and spectral waveform analysis of the bilateral upper extremity venous system and internal jugular vein were performed. FINDINGS: Suboptimal evaluation of the internal jugular veins due to overlying cervical collar. Incomplete evaluation of the peripheral left brachial and basilic veins due to overlying bandages. Right Upper Extremity: Internal Jugular: Fully compressible with normal spontaneous waveforms Subclavian: Normal spontaneous waveforms Axillary: Fully compressible with normal spontaneous waveforms Brachial: Fully compressible with normal spontaneous waveforms Basilic: Fully compressible with normal spontaneous waveforms Cephalic: Fully compressible with normal spontaneous waveforms Left Upper Extremity: Internal Jugular: Fully compressible with normal spontaneous waveforms Subclavian: Normal spontaneous waveforms Axillary: Fully compressible with normal spontaneous waveforms Brachial: Fully compressible with normal spontaneous waveforms in the visualized portions. Basilic: Fully compressible with normal spontaneous waveforms in the visualized portions. Cephalic: Not seen. IMPRESSION IMPRESSION: 1. No evidence of venous thrombosis of the visualized bilateral upper extremities or subclavian veins. 2. Bilateral internal jugular veins not visualized due to overlying cervical collar. Dictated By: Nick Nolan MD, 08/15/2019 5:37 PM I have reviewed the study and agree with the findings in this report. Signed By: Akbar Hubbard, 08/15/2019 7:39 PM Performing Organization Address City/State/Zipcode Ph one Number SMS * DUPLEX DOPPLER LOWER EXTREMITY VENOUS, BILATERAL (08/15/2019 4:20 PM CDT) Specimen Impressions Performed At IMPRESSION: SMS No evidence of deep venous thrombosis a diann the calves. Dictated By: Nick Nolan MD, 08/15/2019 5:33 PM I have reviewed the study and agree wit h the findings in this report. Signed By: Akbar Hubbard, 08/15/2019 7:38 PM Narrative Performed At EXAM: Bilateral Lower Extremity Venous Duplex Ultraso und SMS INDICATION: chronic immobilization, fever work-up COMPARISON: None TECHNIQUE: Lemon scale, color Doppler an d spectral waveform analysis of the bilateral lower extremity deep veno us systems was performed. FINDINGS: Right Lower Extremity: Common Femoral: Fully compressible with normal sp ontaneous waveforms. Proximal Greater Saphenous: Fully compressible. Femoral: Fully compressible with normal sp ontaneous waveforms. Normal response to augmentation. Proximal Deep Femoral: Normal spontaneous waveforms. Popliteal: Fully compressible with normal sp ontaneous waveforms. Left Lower Extremity: Common Femoral: Fully compressible with normal sp ontaneous waveforms. Proximal Greater Saphenous: Fully compressible. Femoral: Fully compressible with normal spontaneous waveforms. Normal response to augmentation. Proximal Deep Femoral: Normal spontaneous waveforms. Popliteal: Fully compressible with normal spontaneous waveforms. Procedure Note Interface, Rad/Mammog In - 08/15/2019 7:43 PM CDT EXAM: Bilateral Lower Extremity Venous Duplex Ultrasound INDICATION: chronic immobilization, fever work-up COMPARISON: None TECHNIQUE: Lemon scale, color Doppler and spectral waveform analysis of the bilateral lower extremity deep venous systems was performed. FINDINGS: Right Lower Extremity: Common Femoral: Fully compressible with normal spontaneous waveforms. Proximal Greater Saphenous: Fully compressible. Femoral: Fully compressible with normal spontaneous waveforms. Normal response to augmentation. Proximal Deep Femoral: Normal spontaneous waveforms. Popliteal: Fully compressible with normal spontaneous waveforms. Left Lower Extremity: Common Femoral: Fully compressible with normal spontaneous waveforms. Proximal Greater Saphenous: Fully compressible. Femoral: Fully compressible with normal spontaneous waveforms. Normal response to augmentation. Proximal Deep Femoral: Normal spontaneous waveforms. Popliteal: Fully compressible with normal spontaneous waveforms. IMPRESSION IMPRESSION: No evidence of deep venous thrombosis above the calves. Dictated By: Nick Nolan MD, 08/15/2019 5:33 PM I have reviewed the study and agree with the findings in this report. Signed By: Akbar Hubbard, 08/15/2019 7:38 PM Performing Organization Address [facility] one Number SMS * POCT GLUCOSE POC docked device (08/14/2019 8:53 PM CDT) Only the most recent of 18 results within the time period is included. Pathologist [facility] [place] Glucose POC 103 74 - 106 mg/dL [facility] Specimen Blood Performing Organization Address [facility] one Number [facility] [address] [place] [address] * PT/INR/PTT (08/14/2019 8:47 AM CDT) Pathologist [facility] PT 13.8 11.8 - 15.0 Seconds [facility] INR 1.1 Refer to INR ranges [facility] Comment: LABORATORY 2.0 - 3.0 for moderate intensity anticoagulation 2.5 - 3.5 for high intensity anticoagulation PTT 28.8 23.6 - 36.4 Seconds [facility] Comment: LAB[facility] The recommended therapuetic range is an APTT 61-103 seconds which corresponds to 0.3-0.7 anti Xa u/ml. Specimen Blood Performing Organization Address [facility] one Number [facility] [address] [place] [address] * POCT ABG POC docked device (08/11/2019 12:59 AM CDT) Only the most recent of 2 results within the time period is included. pH, Art POC 7.45 7.35 - 7.45 [facility] pCO2, Arterial 34.5 32 - 45 mmHg [facility] pO2, Arterial 67 (L) 72 - 104 mmHg [facility] Base Excss Art 0 mmol/L [facility] HCO3, Arterial 24 22 - 26 mmol/L [facility] % Sat, Art POC 94 % [facility] TCO2, ART POC 25 21 - 32 mmol/L [facility] Lactic Acid POC 0.48 0.40 - 2.00 mmol/L [facility] Davey's Test SHERINE [facility] Sample Type IART [facility] Site [place] [facility] FiO2 21 [facility] O2 Delivery ROOMAIComment: --- [facility] Device [facility] ETCO2 [facility] Specimen Blood, arterial Performing Organization Address [facility] one Number [facility] [address] [place] [address] [phone] * PTT (08/10/2019 1:18 AM CDT) PTT 28.1 23.6 - 36.4 Seconds [facility] Comment: LABORAT[facility] The recommended therapuetic range is an APTT 61-103 seconds which corresponds to 0.3-0.7 anti Xa u/ml. Specimen Blood Performing Organization Address [facility] one Number [facility] [address] [place] [address] * PT/INR (08/10/2019 1:18 AM CDT) PT 14.1 11.8 - 15.0 Seconds [facility] INR 1.1 Refer to INR ranges [facility] Comment: LABORATORY 2.0 - 3.0 for moderate intensity anticoagulation 2.5 - 3.5 for high intensity anticoagulation Specimen Blood Performing Organization Address [facility] one Number [facility] [address] [place] [address] * Liver Profile (08/10/2019 1:18 AM CDT) Total Protein 6.7 6.0 - 8.3 g/dL [facility] Bilirubin, 0.6 0.2 - 1.2 mg/dL [facility] Total [facility] Alkaline 60 34 - 104 U/L [facility] Phosphatase [facility] AST 83 (H) 13 - 39 U/L [facility] Direct 0.2 0.0 - 0.2 mg/dL [facility] Bilirubin [facility] ALT 70 (H) 7 - 52 U/L [facility] Albumin 3.7 (L) 4.2 - 5.5 g/dL [facility] Specimen Blood Performing Organization Address [facility] one Number [facility] [address] [place] [address] * Type and Screen (08/10/2019 1:17 AM CDT) Specimen 08/13/2019 23:59 [facility] Expiration ABO/RH A POS [facility] Antibody Screen NEG [facility] Specimen Blood Performing Organization Address [facility] one Number [facility] [address] [place] [address] * ABO/RH CONFIRMATION (08/10/2019 1:17 AM CDT) ABO/RH A POS [facility] Specimen Blood Performing Organization Address [facility] one Number [facility] [address] [place] [address] * MRI CERVICAL SPINE W/O CONTRAST (08/09/2019 11:37 PM CDT) Specimen Impressions Performed At IMPRESSION: [facility] Cervical and thoracic spines: Exam limited by motion artifacts. In sp ite of limitations: 1. Cord contusion with cord edema fro m C4 to C6. Possible small cord hemorrhage at C4-C5. No significant can al stenosis. 2. Acute fractures : Anterior inferio r C2 endplate, bilateral C5 articular pillars and lamina, left C5 p ars interarticularis, and anterior superior C6 endplate. 3. Disrupted interspinous ligament at C5-C6 with interspinous edema from C3 to C5 edema, along the supraspi nous ligament from C2 to C6 and along the ligamentum flavum from C4 to C6 indicative of ligamentous injury. Traumatic capsular injury of the C5-C6 facet without facet dislocation. Evaluation of the ALL and PLL are limited by artifacts. 4. 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 Dictated By: Simone Osorio MD, 08/10/20 19 2:38 AM I have reviewed the study and agree wit h the findings in this report. Signed By: Adrien Greer MD, 08/10/2019 8:00 AM Narrative Performed At Exam: Cervical and thoracic spine MRIs without contra st [facility] History: C-spine trauma, high clinical risk (NEXUS/CCR) Comparison studies: C-spine CT dated 08/09/2019 Technique: Sagittal T1, T2, Gradient echo and inve rsion recovery, axial T2 and gradient echo. Thoracic: Sagittal and axial T2, Sagitt al T1 and IR, axial T2 Contrast: None Complications: None FINDINGS: Exam is moderately limited by artifact related to patient motion. Prevertebral soft tissues: Prevertebral soft tissue edema and flui d extending from C2 to T1. Dorsal paraspinal soft tissues. Edema present throughout the dorsal cer vical paraspinal soft tissues and left upper thoracic dorsal paraspinal s oft tissues. Fractures: Acute fractures which are better visual ized on the same day cervical spine CT include the following: * Nondisplaced avulsion fracture of t he anterior inferior C2 endplate. * Nondisplaced bilateral C5 articular pillar, lamina and left pars interarticularis fractures with widenin g of the C5-C6 facet joints. * Fracture through the anterior super ior C6 endplate with minimal depression of the endplate and anterior ly. Alignment: Mild cervical kyphosis. Normal thoracic kyphosis. Convex left thoracic curvature is nonsp ecific. The C5-C6 facet joints are widened and there is increased T2 signal within the facets indicative of capsula r injury without interfacet dislocation. Due to patient per signal changes at the adjacent facets are limited by artifacts. The interspin ous C4-C5 and C5-C6 interspinous spaces are also widened. Ligaments: The tectal membrane and cruciate comple x are grossly intact. Evaluation of the anterior longitudinal ligament a nd posterior longitudinal ligament are limited by motion artifact s. Increased signal within the ligamentum flavum from C4 to C6 indicat lizandro of ligamentous injury. Interspinous ligament disrupted at C5-C 6 and there is increased signal from the interspinous spaces from C3 to C5 indicative of intraspinous injury. Increased signal along the supr aspinous ligament and indicative of ligamentous injury from C2 to C6. In creased T2 signal also present between the posterior arches of C1 and C2. Cervicomedullary junction: Patent foramen magnum. No Chiari one ma lformation. Spinal canal:Patent. Spinal cord: Edematous cord with increased T2/STIR s ignal changes from C4 to C6 compatible indicative of cord contusion . Evaluation for cord hemorrhage is limited by artifacts. Focal decrease d T2/STIR signal in the cord at C4-C5 may be small intermittent hemorrh age or be artifactual. The remaining spinal cord is normal in size and signal intensity. The tip of the conus terminates at L1-L2. Cervical degenerative changes: Disc degeneration and, mild from C2 to C4, moderate at C5-C6 and C6-C7 and severe at C7-T1. The C4 and C5 disc space and vertebral bodies are fused and there is partial fusion of th e bilateral C4-C5 facets. No significant degenerative canal stenosis . Multilevel uncovertebral and facet arthrosis result in multilevel fo raminal stenosis, severe bilaterally at C3-C4 moderate left and mild right at C4-C5 severe right and moderate left at C5-C6, severe bila terally at C6-C7 and moderate bilaterally at C7-T1. Thoracic degenerative changes: Mild multilevel disc degeneration and w ithin the upper and mid thoracic spine. Small disc bulge at T8-T9 result s in mild bilateral frontal stenosis. No significant thoracic canal stenosis. Procedure Note Interface, Rad/Mammog In - 08/10/2019 8:05 AM CDT Exam: Cervical and thoracic spine MRIs without contrast History: C-spine trauma, high clinical risk (NEXUS/CCR) Comparison studies: C-spine CT dated 08/09/2019 Technique: Sagittal T1, T2, Gradient echo and inversion recovery, axial T2 and gradient echo. Thoracic: Sagittal and axial T2, Sagittal T1 and IR, axial T2 Contrast: None Complications: None FINDINGS: Exam is moderately limited by artifact related to patient motion. Prevertebral soft tissues: Prevertebral soft tissue edema and fluid extending from C2 to T1. Dorsal paraspinal soft tissues. Edema present throughout the dorsal cervical paraspinal soft tissues and left upper thoracic dorsal paraspinal soft tissues. Fractures: Acute fractures which are better visualized on the same day cervical spine CT include the following: * Nondisplaced avulsion fracture of the anterior inferior C2 endplate. * Nondisplaced bilateral C5 articular pillar, lamina and left pars interarticularis fractures with widening of the C5-C6 facet joints. * Fracture through the anterior superior C6 endplate with minimal depression of the endplate and anteriorly. Alignment: Mild cervical kyphosis. Normal thoracic kyphosis. Convex left thoracic curvature is nonspecific. The C5-C6 facet joints are widened and there is increased T2 signal within the facets indicative of capsular injury without interfacet dislocation. Due to patient per signal changes at the adjacent facets are limited by artifacts. The interspinous C4-C5 and C5-C6 interspinous spaces are also widened. Ligaments: The tectal membrane and cruciate complex are grossly intact. Evaluation of the anterior longitudinal ligament and posterior longitudinal ligament are limited by motion artifacts. Increased signal within the ligamentum flavum from C4 to C6 indicative of ligamentous injury. Interspinous ligament disrupted at C5-C6 and there is increased signal from the interspinous spaces from C3 to C5 indicative of intraspinous injury. Increased signal along the supraspinous ligament and indicative of ligamentous injury from C2 to C6. Increased T2 signal also present between the posterior arches of C1 and C2. Cervicomedullary junction: Patent foramen magnum. No Chiari one malformation. Spinal canal:Patent. Spinal cord: Edematous cord with increased T2/STIR signal changes from C4 to C6 compatible indicative of cord contusion. Evaluation for cord hemorrhage is limited by artifacts. Focal decreased T2/STIR signal in the cord at C4-C5 may be small intermittent hemorrhage or be artifactual. The remaining spinal cord is normal in size and signal intensity. The tip of the conus terminates at L1-L2. Cervical degenerative changes: Disc degeneration and, mild from C2 to C4, moderate at C5-C6 and C6-C7 and severe at C7-T1. The C4 and C5 disc space and vertebral bodies are fused and there is partial fusion of the bilateral C4-C5 facets. No significant degenerative canal stenosis. Multilevel uncovertebral and facet arthrosis result in multilevel foraminal stenosis, severe bilaterally at C3-C4 moderate left and mild right at C4-C5 severe right and moderate left at C5-C6, severe bilaterally at C6-C7 and moderate bilaterally at C7-T1. Thoracic degenerative changes: Mild multilevel disc degeneration and within the upper and mid thoracic spine. Small disc bulge at T8-T9 results in mild bilateral frontal stenosis. No significant thoracic canal stenosis. IMPRESSION IMPRESSION: Cervical and thoracic spines: Exam limited by motion artifacts. In spite of limitations: 1. Cord contusion with cord edema from C4 to C6. Possible small cord hemorrhage at C4-C5. No significant canal stenosis. 2. Acute fractures : Anterior inferior C2 endplate, bilateral C5 articular pillars and lamina, left C5 pars interarticularis, and anterior superior C6 endplate. 3. Disrupted interspinous ligament at C 5-C6 with interspinous edema from C3 to C5 edema, along the supraspinous ligament from C2 to C6 and along the ligamentum flavum from C4 to C6 indicative of ligamentous injury. Traumatic capsular injury of the C5-C6 facet without facet dislocation. Evaluation of the ALL and PLL are limited by artifacts. 4. Fused C4-C5 vertebrae and degenerati ve changes as described. Dictated By: Simone Osorio MD, 08/10/2019 2:38 AM I have reviewed the study and agree with the findings in this report. Signed By: Adrien Greer MD, 08/10/2019 8:00 AM Performing Organization Address City/State/Zipcode Ph one Number SMS * MRI THORACIC SPINE W/O CONTRAST (08/09/2019 11:36 PM CDT) Specimen Impressions Performed At IMPRESSION: [facility] [place] Cervical and thoracic spines: Exam limited by motion artifacts. In sp ite of limitations: 1. Cord contusion with cord edema fro m C4 to C6. Possible small cord hemorrhage at C4-C5. No significant can al stenosis. 2. Acute fractures : Anterior inferio r C2 endplate, bilateral C5 articular pillars and lamina, left C5 p ars interarticularis, and anterior superior C6 endplate. 3. Disrupted interspinous ligament at C5-C6 with interspinous edema from C3 to C5 edema, along the supraspi nous ligament from C2 to C6 and along the ligamentum flavum from C4 to C6 indicative of ligamentous injury. Traumatic capsular injury of the C5-C6 facet without facet dislocation. Evaluation of the ALL and PLL are limited by artifacts. 4. 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 Dictated By: Simone Osorio MD, 08/10/20 19 2:38 AM I have reviewed the study and agree wit h the findings in this report. Signed By: Adrien Greer MD, 08/10/2019 8:00 AM Narrative Performed At Exam: Cervical and thoracic spine MRIs without contra st [facility] [place] History: C-spine trauma, high clinical risk (NEXUS/CCR) Comparison studies: C-spine CT dated 08/09/2019 Technique: Sagittal T1, T2, Gradient echo and inve rsion recovery, axial T2 and gradient echo. Thoracic: Sagittal and axial T2, Sagitt al T1 and IR, axial T2 Contrast: None Complications: None FINDINGS: Exam is moderately limited by artifact related to patient motion. Prevertebral soft tissues: Prevertebral soft tissue edema and flui d extending from C2 to T1. Dorsal paraspinal soft tissues. Edema present throughout the dorsal cer vical paraspinal soft tissues and left upper thoracic dorsal paraspinal s oft tissues. Fractures: Acute fractures which are better visual ized on the same day cervical spine CT include the following: * Nondisplaced avulsion fracture of t he anterior inferior C2 endplate. * Nondisplaced bilateral C5 articular pillar, lamina and left pars interarticularis fractures with widenin g of the C5-C6 facet joints. * Fracture through the anterior super ior C6 endplate with minimal depression of the endplate and anterior ly. Alignment: Mild cervical kyphosis. Normal thoracic kyphosis. Convex left thoracic curvature is nonsp ecific. The C5-C6 facet joints are widened and there is increased T2 signal within the facets indicative of capsula r injury without interfacet dislocation. Due to patient per signal changes at the adjacent facets are limited by artifacts. The interspin ous C4-C5 and C5-C6 interspinous spaces are also widened. Ligaments: The tectal membrane and cruciate comple x are grossly intact. Evaluation of the anterior longitudinal ligament a nd posterior longitudinal ligament are limited by motion artifact s. Increased signal within the ligamentum flavum from C4 to C6 indicat lizandro of ligamentous injury. Interspinous ligament disrupted at C5-C 6 and there is increased signal from the interspinous spaces from C3 to C5 indicative of intraspinous injury. Increased signal along the supr aspinous ligament and indicative of ligamentous injury from C2 to C6. In creased T2 signal also present between the posterior arches of C1 and C2. Cervicomedullary junction: Patent foramen magnum. No Chiari one ma lformation. Spinal canal:Patent. Spinal cord: Edematous cord with increased T2/STIR s ignal changes from C4 to C6 compatible indicative of cord contusion . Evaluation for cord hemorrhage is limited by artifacts. Focal decrease d T2/STIR signal in the cord at C4-C5 may be small intermittent hemorrh age or be artifactual. The remaining spinal cord is normal in size and signal intensity. The tip of the conus terminates at L1-L2. Cervical degenerative changes: Disc degeneration and, mild from C2 to C4, moderate at C5-C6 and C6-C7 and severe at C7-T1. The C4 and C5 disc space and vertebral bodies are fused and there is partial fusion of th e bilateral C4-C5 facets. No significant degenerative canal stenosis . Multilevel uncovertebral and facet arthrosis result in multilevel fo raminal stenosis, severe bilaterally at C3-C4 moderate left and mild right at C4-C5 severe right and moderate left at C5-C6, severe bila terally at C6-C7 and moderate bilaterally at C7-T1. Thoracic degenerative changes: Mild multilevel disc degeneration and w ithin the upper and mid thoracic spine. Small disc bulge at T8-T9 result s in mild bilateral frontal stenosis. No significant thoracic canal stenosis. Procedure Note Interface, Rad/Mammog In - 08/10/2019 8:05 AM CDT Exam: Cervical and thoracic spine MRIs without contrast History: C-spine trauma, high clinical risk (NEXUS/CCR) Comparison studies: C-spine CT dated 08/09/2019 Technique: Sagittal T1, T2, Gradient echo and inversion recovery, axial T2 and gradient echo. Thoracic: Sagittal and axial T2, Sagittal T1 and IR, axial T2 Contrast: None Complications: None FINDINGS: Exam is moderately limited by artifact related to patient motion. Prevertebral soft tissues: Prevertebral soft tissue edema and fluid extending from C2 to T1. Dorsal paraspinal soft tissues. Edema present throughout the dorsal cervical paraspinal soft tissues and left upper thoracic dorsal paraspinal soft tissues. Fractures: Acute fractures which are better visualized on the same day cervical spine CT include the following: * Nondisplaced avulsion fracture of the anterior inferior C2 endplate. * Nondisplaced bilateral C5 articular pillar, lamina and left pars interarticularis fractures with widening of the C5-C6 facet joints. * Fracture through the anterior superior C6 endplate with minimal depression of the endplate and anteriorly. Alignment: Mild cervical kyphosis. Normal thoracic kyphosis. Convex left thoracic curvature is nonspecific. The C5-C6 facet joints are widened and there is increased T2 signal within the facets indicative of capsular injury without interfacet dislocation. Due to patient per signal changes at the adjacent facets are limited by artifacts. The interspinous C4-C5 and C5-C6 interspinous spaces are also widened. Ligaments: The tectal membrane and cruciate complex are grossly intact. Evaluation of the anterior longitudinal ligament and posterior longitudinal ligament are limited by motion artifacts. Increased signal within the ligamentum flavum from C4 to C6 indicative of ligamentous injury. Interspinous ligament disrupted at C5-C6 and there is increased signal from the interspinous spaces from C3 to C5 indicative of intraspinous injury. Increased signal along the supraspinous ligament and indicative of ligamentous injury from C2 to C6. Increased T2 signal also present between the posterior arches of C1 and C2. Cervicomedullary junction: Patent foramen magnum. No Chiari one malformation. Spinal canal:Patent. Spinal cord: Edematous cord with increased T2/STIR signal changes from C4 to C6 compatible indicative of cord contusion. Evaluation for cord hemorrhage is limited by artifacts. Focal decreased T2/STIR signal in the cord at C4-C5 may be small intermittent hemorrhage or be artifactual. The remaining spinal cord is normal in size and signal intensity. The tip of the conus terminates at L1-L2. Cervical degenerative changes: Disc degeneration and, mild from C2 to C4, moderate at C5-C6 and C6-C7 and severe at C7-T1. The C4 and C5 disc space and vertebral bodies are fused and there is partial fusion of the bilateral C4-C5 facets. No significant degenerative canal stenosis. Multilevel uncovertebral and facet arthrosis result in multilevel foraminal stenosis, severe bilaterally at C3-C4 moderate left and mild right at C4-C5 severe right and moderate left at C5-C6, severe bilaterally at C6-C7 and moderate bilaterally at C7-T1. Thoracic degenerative changes: Mild multilevel disc degeneration and within the upper and mid thoracic spine. Small disc bulge at T8-T9 results in mild bilateral frontal stenosis. No significant thoracic canal stenosis. IMPRESSION IMPRESSION: Cervical and thoracic spines: Exam limited by motion artifacts. In spite of limitations: 1. Cord contusion with cord edema from C4 to C6. Possible small cord hemorrhage at C4-C5. No significant canal stenosis. 2. Acute fractures : Anterior inferior C2 endplate, bilateral C5 articular pillars and lamina, left C5 pars interarticularis, and anterior superior C6 endplate. 3. Disrupted interspinous ligament at C 5-C6 with interspinous edema from C3 to C5 edema, along the supraspinous ligament from C2 to C6 and along the ligamentum flavum from C4 to C6 indicative of ligamentous injury. Traumatic capsular injury of the C5-C6 facet without facet dislocation. Evaluation of the ALL and PLL are limited by artifacts. 4. Fused C4-C5 vertebrae and degenerati ve changes as described. Dictated By: Simone Osorio MD, 08/10/2019 2:38 AM I have reviewed the study and agree with the findings in this report. Signed By: Adrien Greer MD, 08/10/2019 8:00 AM Performing Organization Address City/State/[facility] Ph one Number SMS * 12 LEAD EKG (08/09/2019 9:20 PM CDT) [address] 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 Measurements Intervals [place] Rate: 50 P: 81 [place]: 187 QRS: 70 QRSD: 104 T: 75 QT: 542 QTc: 498 Interpretive Statements SINUS BRADYCARDIA PROLONGED QT INTERVAL Electronically Signed On 08-10-2019 3:55:47 CDT by Serge Diaz M.D. Specimen Performing Organization Address [facility] one Number [facility] [place] * POCT TROPONIN I POC docked device (08/09/2019 9:10 PM CDT) Troponin POC 0.00 0.00 - 0.08 ng/mL [facility] Specimen Blood, venous Performing Organization Address [facility] one Number [facility] [address] [place] [address] * POCT VBG POC docked device (08/09/2019 9:06 PM CDT) pH, Kemar POC 7.34 7.33 - 7.43 [facility] HCO3, Kemar POC 27 (H) 22 - 26 mmol/L [facility] TCO2 POC 29 21 - 32 mmol/L [facility] PO2, Venous POC 49 (L) 50 - 75 mm Hg [facility] ([facility] pCO2,Kemar POC 50.4 (H) 38 - 50 mmHg [facility] Base Excess Kemar 1 mmol/L [facility] Sample Type IVENComment: Physician [facility] TRUJILL[facility] Notified [facility] Lactic Acid POC 0.76 0.40 - 2.00 mmol/L [facility] % Sat, Kemar POC 81 % [facility] Specimen Blood, venous Performing Organization Address [facility] one Number [facility] [address] [place] [address] [phone] * POCT BMP POC docked device (08/09/2019 9:06 PM CDT) Sodium POC 139 136 - 145 mmol/L [facility] Potassium POC 4.1 3.5 - 5.1 mmol/L [facility] Chloride POC 104 98 - 107 mmol/L [facility] TCO2 POC 27 21 - 32 mmol/L [facility] Urea Nitrogen 17 7 - 18 mg/dL [facility] Creatinine POC 0.5 (L) 0.6 - 1.3 mg/dL [facility] Glucose POC 91 74 - 106 mg/dL [facility] Ionized Calcium 1.13 (L) 1.15 - 1.29 mmol/L [facility] eGFR If Africn >90 >=90 mL/min/1.73 m2 [facility] GFR, Estimated >90 >=90 mL/min/1.73 m2 [facility] Hemoglobin POC 15.0Comment: Physician 12 - 16 g/dL [facility] B [facility] Hematocrit POC 44.0 37.0 - 47.0 % [facility] Specimen Blood, venous Performing Organization Address [facility] one Number [facility] [address] [place] [address] [phone] * Urine Drug Screen (08/09/2019 8:57 PM CDT) Opiate, Ur Negative Negative [facility] Comment: [facility] Calibrated Standard: Morphine Positive if urine level > or = 300 ng/dL Amphetamine Negative Negative [facility] Comment: [facility] Calibrated Standard: D-Methamphetamine Positive if urine level > or = 1000 ng/mL Barbiturate Negative Negative [facility] Comment: [facility] Calibrated Standard: Secobarbital Positive if urine level is > or = 200 ng/mL Benzodiazepine Negative Negative [facility] Comment: [facility] Calibrated Standard: Lormethazepam Positive if urine level is > or = 200 ng/mL Cocaine Negative Negative [facility] Comment: [facility] Calibrated Standard: Benzoylecgonine Positive if urine level > or = 300 ng/dL PCP Negative Negative [facility] Comment: [facility] Calibrated Standard: Phencyclidine Positive if urine level > or = 25 ng/dL Cannabinoid Negative Negative [facility] Comment: [facility] Calibrated Standard: 11 nor-delta(9)-THC carboxylic acid Positive if urine level > or = 50 ng/mL Specimen Urine - Voided, urine Performing Organization Address [facility] one Number [facility] [address] [place] [address] [phone] * Salicylate (08/09/2019 8:57 PM CDT) Salicylate <2.5 (L) 2.8 - 30 mg/dL [facility] Specimen Blood Performing Organization Address [facility] one Number [facility] [address] [place] [address] * Alcohol, Medical Use Only (08/09/2019 8:57 PM CDT) ALCOHOL, SERUM <0.01 <0.10 g/dL [facility] ([facility] Specimen Blood Performing Organization Address [facility] one Number [facility] [address] [place] [address] * Acetaminophen (08/09/2019 8:57 PM CDT) Acetaminophen <10.00 (L) 10.00 - 30.00 ug/mL [facility] Comment: [facility] Please refer to acetaminophen nomogram. Specimen Blood Performing Organization Address [facility] one Number [facility] [address] [place] [address] * CT CHEST W/O CONTRAST ROUTINE (08/09/2019 8:22 PM CDT) Specimen Impressions Performed At IMPRESSION: [facility] 1. Right lower lobe patchy consolidat ion, likely aspiration in the setting of trauma. 2. Otherwise, no acute findings in e chest, abdomen and pelvis. 3. Chronic, healed fractures of the r ibs. 4. Cardiomegaly. Dictated By: Simone Osorio MD, 9 9:22 PM I have reviewed the study and agree wit h the findings in this report. Signed By: Dougie Wilson MD, 08/10/2019 1:05 AM Narrative Performed At EXAM: CT Chest, Abdomen and Pelvis WITHOUT contrast SMS INDICATION: Abd trauma, blunt, stable COMPARISON: None available TECHNIQUE: Chest, abdomen and pelvis we re scanned utilizing a multidetector helical scanner from the lung apex to the pubic symphysis without administration of IV contrast. Absence of intravenous contrast decreases sensitivity for detection of focal lesions and vascular pathology. Coronal and sagittal reforma tions were obtained. Routine protocol was performed. IV CONTRAST: None ORAL CONTRAST: None COMPLICATIONS: None RADIATION DOSE: Total DLP: 622 mGy*cm Estimated effective dose: (DLP x 0.015 x size factor) mSv CTDIvol has been reviewed. It is below the limits set by the Radiation Protocol Committee (RPC). FINDINGS: LINES and TUBES: Kim catheter is in p lace within the urinary bladder. LUNGS AND AIRWAYS: Paraseptal and nicho trilobular emphysema in both lung apices. Patchy nodular opacities in the subpleural right lower lung, likely aspiration. Airways are normal. PLEURA: The pleural spaces are clear. HEART AND MEDIASTINUM: The thyroid glan d is normal. No mediastinal, hilar or axillary lymphadenopathy. Th e heart is enlarged. There are atherosclerotic calcifications of the l eft anterior descending coronary artery.. There is no pericardial effusi on. HEPATOBILIARY: No focal hepatic lesions. No biliary ductal dilation. GALLBLADDER: No radio-opaque stones or sludge. No wall thickening. SPLEEN: No splenomegaly. PANCREAS: No focal masses or ductal dil atation. ADRENALS: No adrenal nodules KIDNEYS/URETERS: No hydronephrosis. 1.2 cm cyst in the inferior pole of the right kidney and interpolar region of the left kidney. No stones. GI TRACT: No abnormal distention, wall thickening, or evidence of bowel obstruction. The appendix is n ot definitely identified. PELVIC ORGANS/BLADDER: The bladder is c ollapsed around a Kim catheter. LYMPH NODES: No lymphadenopathy. VESSELS: Scattered atherosclerotic calc ifications of the abdominal aorta and branch vessels. PERITONEUM / RETROPERITONEUM: No free a ir or fluid. BONES: Healed fracture of the third rig ht anterior rib, the left posterior 10th through 12th ribs. Scatt ered degenerative changes of the thoracic lumbar spine. No acute fractur es are identified in the chest, abdomen, or pelvis. Please see separate CT neck report for discussion of cervical findings. SOFT TISSUES: Diffuse subcutaneous gabriel a is present. Procedure Note Interface, Rad/Mammog In - 08/10/2019 1:10 AM CDT EXAM: CT Chest, Abdomen and Pelvis WITHOUT contrast INDICATION: Abd trauma, blunt, stable COMPARISON: None available TECHNIQUE: Chest, abdomen and pelvis were scanned utilizing a multidetector helical scanner from the lung apex to the pubic symphysis without administration of IV contrast. Absence of intravenous contrast decreases sensitivity for detection of focal lesions and vascular pathology. Coronal and sagittal reformations were obtained. Routine protocol was performed. IV CONTRAST: None ORAL CONTRAST: None COMPLICATIONS: None RADIATION DOSE: Total DLP: 622 mGy*cm Estimated effective dose: (DLP x 0.015 x size factor) mSv CTDIvol has been reviewed. It is below the limits set by the Radiation Protocol Committee (RPC). FINDINGS: LINES and TUBES: Kim catheter is in place within the urinary bladder. LUNGS AND AIRWAYS: Paraseptal and centrilobular emphysema in both lung apices. Patchy nodular opacities in the subpleural right lower lung, likely aspiration. Airways are normal. PLEURA: The pleural spaces are clear. HEART AND MEDIASTINUM: The thyroid gland is normal. No mediastinal, hilar or axillary lymphadenopathy. The heart is enlarged. There are atherosclerotic calcifications of the left anterior descending coronary artery.. There is no pericardial effusion. HEPATOBILIARY: No focal hepatic lesions. No biliary ductal dilation. GALLBLADDER: No radio-opaque stones or sludge. No wall thickening. SPLEEN: No splenomegaly. PANCREAS: No focal masses or ductal dilatation. ADRENALS: No adrenal nodules KIDNEYS/URETERS: No hydronephrosis. 1.2 cm cyst in the inferior pole of the right kidney and interpolar region of the left kidney. No stones. GI TRACT: No abnormal distention, wall thickening, or evidence of bowel obstruction. The appendix is not definitely identified. PELVIC ORGANS/BLADDER: The bladder is collapsed around a Kim catheter. LYMPH NODES: No lymphadenopathy. VESSELS: Scattered atherosclerotic calcifications of the abdominal aorta and branch vessels. PERITONEUM / RETROPERITONEUM: No free air or fluid. BONES: Healed fracture of the third right anterior rib, the left posterior 10th through 12th ribs. Scattered degenerative changes of the thoracic lumbar spine. No acute fractures are identified in the chest, abdomen, or pelvis. Please see separate CT neck report for discussion of cervical findings. SOFT TISSUES: Diffuse subcutaneous edema is present. IMPRESSION IMPRESSION: 1. Right lower lobe patchy consolidatio n, likely aspiration in the setting of trauma. 2. Otherwise, no acute findings in the chest, abdomen and pelvis. 3. Chronic, healed fractures of the rib s. 4. Cardiomegaly. Dictated By: Simone Osorio MD, 08/09/2019 9:22 PM I have reviewed the study and agree with the findings in this report. Signed By: Dougie Wilson MD, 08/10/2019 1:05 AM Performing Organization Address City/State/Zipcode Ph one Number SMS * COMPUTED TOMOGRAPHY ABDOMEN AND PELVIS WITHOUT CONTRAST (08/09/2019 8:22 PM CDT) Specimen Impressions Performed At IMPRESSION: [facility] 1. Right lower lobe patchy consolidat ion, likely aspiration in the setting of trauma. 2. Otherwise, no acute findings in th e chest, abdomen and pelvis. 3. Chronic, healed fractures of the r ibs. 4. Cardiomegaly. Dictated By: Simone Osorio MD, 9 9:22 PM I have reviewed the study and agree wit h the findings in this report. Signed By: Dougie Wilson MD, 08/10/2019 1:05 AM Narrative Performed At EXAM: CT Chest, Abdomen and Pelvis WITHOUT contrast SMS INDICATION: Abd trauma, blunt, stable COMPARISON: None available TECHNIQUE: Chest, abdomen and pelvis we re scanned utilizing a multidetector helical scanner from the lung apex to the pubic symphysis without administration of IV contrast. Absence of intravenous contrast decreases sensitivity for detection of focal lesions and vascular pathology. Coronal and sagittal reforma tions were obtained. Routine protocol was performed. IV CONTRAST: None ORAL CONTRAST: None COMPLICATIONS: None RADIATION DOSE: Total DLP: 622 mGy*cm Estimated effective dose: (DLP x 0.015 x size factor) mSv CTDIvol has been reviewed. It is below the limits set by the Radiation Protocol Committee (RPC). FINDINGS: LINES and TUBES: Kim catheter is in p lace within the urinary bladder. LUNGS AND AIRWAYS: Paraseptal and nicho trilobular emphysema in both lung apices. Patchy nodular opacities in the subpleural right lower lung, likely aspiration. Airways are normal. PLEURA: The pleural spaces are clear. HEART AND MEDIASTINUM: The thyroid glan d is normal. No mediastinal, hilar or axillary lymphadenopathy. Th e heart is enlarged. There are atherosclerotic calcifications of the l eft anterior descending coronary artery.. There is no pericardial effusi on. HEPATOBILIARY: No focal hepatic lesions. No biliary ductal dilation. GALLBLADDER: No radio-opaque stones or sludge. No wall thickening. SPLEEN: No splenomegaly. PANCREAS: No focal masses or ductal dil atation. ADRENALS: No adrenal nodules KIDNEYS/URETERS: No hydronephrosis. 1.2 cm cyst in the inferior pole of the right kidney and interpolar region of the left kidney. No stones. GI TRACT: No abnormal distention, wall thickening, or evidence of bowel obstruction. The appendix is n ot definitely identified. PELVIC ORGANS/BLADDER: The bladder is c ollapsed around a Kim catheter. LYMPH NODES: No lymphadenopathy. VESSELS: Scattered atherosclerotic calc ifications of the abdominal aorta and branch vessels. PERITONEUM / RETROPERITONEUM: No free a ir or fluid. BONES: Healed fracture of the third rig ht anterior rib, the left posterior 10th through 12th ribs. Scatt ered degenerative changes of the thoracic lumbar spine. No acute fractur es are identified in the chest, abdomen, or pelvis. Please see separate CT neck report for discussion of cervical findings. SOFT TISSUES: Diffuse subcutaneous gabriel a is present. Procedure Note Interface, Rad/Mammog In - 08/10/2019 1:10 AM CDT EXAM: CT Chest, Abdomen and Pelvis WITHOUT contrast INDICATION: Abd trauma, blunt, stable COMPARISON: None available TECHNIQUE: Chest, abdomen and pelvis were scanned utilizing a multidetector helical scanner from the lung apex to the pubic symphysis without administration of IV contrast. Absence of intravenous contrast decreases sensitivity for detection of focal lesions and vascular pathology. Coronal and sagittal reformations were obtained. Routine protocol was performed. IV CONTRAST: None ORAL CONTRAST: None COMPLICATIONS: None RADIATION DOSE: Total DLP: 622 mGy*cm Estimated effective dose: (DLP x 0.015 x size factor) mSv CTDIvol has been reviewed. It is below the limits set by the Radiation Protocol Committee (RPC). FINDINGS: LINES and TUBES: Kim catheter is in place within the urinary bladder. LUNGS AND AIRWAYS: Paraseptal and centrilobular emphysema in both lung apices. Patchy nodular opacities in the subpleural right lower lung, likely aspiration. Airways are normal. PLEURA: The pleural spaces are clear. HEART AND MEDIASTINUM: The thyroid gland is normal. No mediastinal, hilar or axillary lymphadenopathy. The heart is enlarged. There are atherosclerotic calcifications of the left anterior descending coronary artery.. There is no pericardial effusion. HEPATOBILIARY: No focal hepatic lesions. No biliary ductal dilation. GALLBLADDER: No radio-opaque stones or sludge. No wall thickening. SPLEEN: No splenomegaly. PANCREAS: No focal masses or ductal dilatation. ADRENALS: No adrenal nodules KIDNEYS/URETERS: No hydronephrosis. 1.2 cm cyst in the inferior pole of the right kidney and interpolar region of the left kidney. No stones. GI TRACT: No abnormal distention, wall thickening, or evidence of bowel obstruction. The appendix is not definitely identified. PELVIC ORGANS/BLADDER: The bladder is collapsed around a Kim catheter. LYMPH NODES: No lymphadenopathy. VESSELS: Scattered atherosclerotic calcifications of the abdominal aorta and branch vessels. PERITONEUM / RETROPERITONEUM: No free air or fluid. BONES: Healed fracture of the third right anterior rib, the left posterior 10th through 12th ribs. Scattered degenerative changes of the thoracic lumbar spine. No acute fractures are identified in the chest, abdomen, or pelvis. Please see separate CT neck report for discussion of cervical findings. SOFT TISSUES: Diffuse subcutaneous edema is present. IMPRESSION IMPRESSION: 1. Right lower lobe patchy consolidatio n, likely aspiration in the setting of trauma. 2. Otherwise, no acute findings in the chest, abdomen and pelvis. 3. Chronic, healed fractures of the rib s. 4. Cardiomegaly. Dictated By: Simone Osorio MD, 08/09/2019 9:22 PM I have reviewed the study and agree with the findings in this report. Signed By: Dougie Wilson MD, 08/10/2019 1:05 AM Performing Organization Address City/State/Zipcode Ph one Number SMS * CT C-SPINE W/O CONTRAST (08/09/2019 8:22 PM CDT) Specimen Impressions Performed At IMPRESSION: [facility] [place] Head CT: No acute intracranial abnormalities. Cervical Spine: 1. Acute corner fractures of the C2 and C6 vertebral bodies. Age-indeterminate C7 corner fracture vs anterior osteophyte fracture. 2. Acute bilateral C5 inferior articula r pillar fractures that extend to the laminae, facet and spinous process. 3. Abnormal alignment with widening of interspinous space at level C5-C6, left C5-C6 facet joint space and right C4-C5 interfacet joint space. Recommend cervical spine MRI for furthe r evaluation. 4. Ligament, spinal cord and/or vascula r abnormalities cannot be excluded on the basis of this examinati on. Findings discussed with Dr. Robbins by Dr. Cassidy on 08/09/2019 9:25 PM via telephone. Dictated By: Anu Cassidy DO, 08/09/20 9:29 PM I have reviewed the study and agree wit h the findings in this report. Signed By: Gladis Syed MD, 10:37 PM Narrative Performed At Exam: Head and Cervical Spine CT's without contrast SMS History: Head trauma, minor, GCS>=13, h igh clinical risk, initial exam Comparison studies: Head CT 01/05/2017. Technique: Axial scans obtained from skull base to the vertex, face and cervical regions. Coronal and sagittal reconstructions ob tained from the axial data. IV Contrast: None Complications: None Radiation Dose: Total DLP: 1962 mGy*cm FINDINGS: Head CT: Scalp/Skull: Status post plate and screw fixation of right inferior orbital rim. Chronic fracture deformity of left zygo matic arch. Brain sulci: Appropriate for patient's age. Ventricles: Normal in size and configur ation. No hydrocephalus. Extra-axial spaces: No masses or fluid collections. Parenchyma: No abnormal densities. No masses, hemorrhage or acute or chron ic cortical insults Dural sinuses: No abnormal densities. Sellar/Suprasellar region: Intact. Skull base and Craniocervical junction: Intact . Cervical spine CT: Fractures: Acute anterior inferior corner fracture of the C2 vertebral body (series 11, image 47). Acute bilateral C5 inferior articular p illar fractures, which extend to the laminae, facets and spinous process (series 3, images 120 through 132). Acute anterior and posterior superior c orner fractures of the C6 vertebral body (series 11, image 47 and 50). Craniocervical junction: Patent foramen magnum. No Chiari 1 malformation. Alignment:Abnormal alignment with widen ing of the left C5-C6 and right C4-C5 interfacet joint spaces. No ely d or jumped facet. Mild asymmetric widening of interspinous dis tance at level C5-C6, raises concern for underlying ligament injury. .No scoliosis.No subluxations. Posterior longitudinal ligament: Not os sified. Soft tissues: Marked prevertebral soft tissue swelling Vertebrae: No infection or neoplasm . Diffuse osseous demineralization. Degenerative changes: Partial fusion of the C4-C5 vertebral b odies. Osseous fragment at the superior anteri or endplate of the C7 vertebral body, likely an age-indeterminate anter ior vertebral osteophyte fracture; an acute corner fracture is a less likely possibility. C3-C4: Posterior disc osteophyte comple x results in mild canal stenosis. Severe bilateral foraminal stenosis due to facet and uncovertebral arthrosis. C4-C5: Mild bilateral foraminal stenosi s due to uncovertebral arthrosis. C5-C6: Posterior disc osteophyte comple x results in mild canal stenosis. Severe right and moderate left foramina l stenosis due to facet and uncovertebral arthrosis. C6-C7: Severe degenerative disc disease . Posterior disc osteophyte complex resul ts in mild canal stenosis. Severe bilateral foraminal stenosis due to facet and uncovertebral arthrosis. C7-T1: Severe degenerative disc disease . Severe bilateral foraminal stenosis fac et and uncovertebral arthrosis.. Procedure Note Interface, Rad/Mammog In - 08/09/2019 10:42 PM CDT Exam: Head and Cervical Spine CT's without contrast History: Head trauma, minor, GCS>=13, high clinical risk, initial exam Comparison studies: Head CT 01/05/2017. Technique: Axial scans obtained from skull base to the vertex, face and cervical regions. Coronal and sagittal reconstructions obtained from the axial data. IV Contrast: None Complications: None Radiation Dose: Total DLP: 1962 mGy*cm FINDINGS: Head CT: Scalp/Skull: Status post plate and screw fixation of right inferior orbital rim. Chronic fracture deformity of left zygomatic arch. Brain sulci: Appropriate for patient's age. Ventricles: Normal in size and configuration. No hydrocephalus. Extra-axial spaces: No masses or fluid collections. Parenchyma: No abnormal densities. No masses, hemorrhage or acute or chronic cortical insults Dural sinuses: No abnormal densities. Sellar/Suprasellar region: Intact. Skull base and Craniocervical junction: Intact . Cervical spine CT: Fractures: Acute anterior inferior corner fracture of the C2 vertebral body (series 11, image 47). Acute bilateral C5 inferior articular pillar fractures, which extend to the laminae, facets and spinous process (series 3, images 120 through 132). Acute anterior and posterior superior corner fractures of the C6 vertebral body (series 11, image 47 and 50). Craniocervical junction: Patent foramen magnum. No Chiari 1 malformation. Alignment:Abnormal alignment with widening of the left C5-C6 and right C4-C5 interfacet joint spaces. No locked or jumped facet. Mild asymmetric widening of interspinous distance at level C5-C6, raises concern for underlying ligament injury. .No scoliosis.No subluxations. Posterior longitudinal ligament: Not ossified. Soft tissues: Marked prevertebral soft tissue swelling Vertebrae: No infection or neoplasm . Diffuse osseous demineralization. Degenerative changes: Partial fusion of the C4-C5 vertebral bodies. Osseous fragment at the superior anterior endplate of the C7 vertebral body, likely an age-indeterminate anterior vertebral osteophyte fracture; an acute corner fracture is a less likely possibility. C3-C4: Posterior disc osteophyte complex results in mild canal stenosis. Severe bilateral foraminal stenosis due to facet and uncovertebral arthrosis. C4-C5: Mild bilateral foraminal stenosis due to uncovertebral arthrosis. C5-C6: Posterior disc osteophyte complex results in mild canal stenosis. Severe right and moderate left foraminal stenosis due to facet and uncovertebral arthrosis. C6-C7: Severe degenerative disc disease. Posterior disc osteophyte complex results in mild canal stenosis. Severe bilateral foraminal stenosis due to facet and uncovertebral arthrosis. C7-T1: Severe degenerative disc disease. Severe bilateral foraminal stenosis facet and uncovertebral arthrosis.. IMPRESSION IMPRESSION: Head CT: No acute intracranial abnormalities. Cervical Spine: 1. Acute corner fractures of the C2 and C6 vertebral bodies. Age-indeterminate C7 corner fracture vs anterior osteophyte fracture. 2. Acute bilateral C5 inferior articular pillar fractures that extend to the laminae, facet and spinous process. 3. Abnormal alignment with widening of i nterspinous space at level C5-C6, left C5-C6 facet joint space and right C4-C5 interfacet joint space. Recommend cervical spine MRI for further evaluation. 4. Ligament, spinal cord and/or vascular abnormalities cannot be excluded on the basis of this examination. Findings discussed with Dr. Robbins by Dr. Cassidy on 08/09/2019 9:25 PM via telephone. Dictated By: Anu Cassidy DO, 08/09/2019 9:29 PM I have reviewed the study and agree with the findings in this report. Signed By: Gladis Syed MD, 08/09/2019 10:37 PM Performing Organization Address City/State/Zipcode Ph one Number SMS * CT HEAD W/O CONTRAST (08/09/2019 8:22 PM CDT) Specimen Impressions Performed At IMPRESSION: [facility] [place] Head CT: No acute intracranial abnormalities. Cervical Spine: 1. Acute corner fractures of the C2 and C6 vertebral bodies. Age-indeterminate C7 corner fracture vs anterior osteophyte fracture. 2. Acute bilateral C5 inferior articula r pillar fractures that extend to the laminae, facet and spinous process. 3. Abnormal alignment with widening of interspinous space at level C5-C6, left C5-C6 facet joint space and right C4-C5 interfacet joint space. Recommend cervical spine MRI for furthe r evaluation. 4. Ligament, spinal cord and/or vascula r abnormalities cannot be excluded on the basis of this examinati on. Findings discussed with Dr. Robbins by Dr. Cassidy on 08/09/2019 9:25 PM via telephone. Dictated By: Anu Cassidy DO, 08/09/20 9:29 PM I have reviewed the study and agree wit h the findings in this report. Signed By: Gladis Syed MD, 10:37 PM Narrative Performed At Exam: Head and Cervical Spine CT's without contrast SMS History: Head trauma, minor, GCS>=13, h igh clinical risk, initial exam Comparison studies: Head CT 01/05/2017. Technique: Axial scans obtained from skull base to the vertex, face and cervical regions. Coronal and sagittal reconstructions ob tained from the axial data. IV Contrast: None Complications: None Radiation Dose: Total DLP: 1962 mGy*cm FINDINGS: Head CT: Scalp/Skull: Status post plate and screw fixation of right inferior orbital rim. Chronic fracture deformity of left zygo matic arch. Brain sulci: Appropriate for patient's age. Ventricles: Normal in size and configur ation. No hydrocephalus. Extra-axial spaces: No masses or fluid collections. Parenchyma: No abnormal densities. No masses, hemorrhage or acute or chron ic cortical insults Dural sinuses: No abnormal densities. Sellar/Suprasellar region: Intact. Skull base and Craniocervical junction: Intact . Cervical spine CT: Fractures: Acute anterior inferior corner fracture of the C2 vertebral body (series 11, image 47). Acute bilateral C5 inferior articular p illar fractures, which extend to the laminae, facets and spinous process (series 3, images 120 through 132). Acute anterior and posterior superior c orner fractures of the C6 vertebral body (series 11, image 47 and 50). Craniocervical junction: Patent foramen magnum. No Chiari 1 malformation. Alignment:Abnormal alignment with widen ing of the left C5-C6 and right C4-C5 interfacet joint spaces. No ely d or jumped facet. Mild asymmetric widening of interspinous dis tance at level C5-C6, raises concern for underlying ligament injury. .No scoliosis.No subluxations. Posterior longitudinal ligament: Not os sified. Soft tissues: Marked prevertebral soft tissue swelling Vertebrae: No infection or neoplasm . Diffuse osseous demineralization. Degenerative changes: Partial fusion of the C4-C5 vertebral b odies. Osseous fragment at the superior anteri or endplate of the C7 vertebral body, likely an age-indeterminate anter ior vertebral osteophyte fracture; an acute corner fracture is a less likely possibility. C3-C4: Posterior disc osteophyte comple x results in mild canal stenosis. Severe bilateral foraminal stenosis due to facet and uncovertebral arthrosis. C4-C5: Mild bilateral foraminal stenosi s due to uncovertebral arthrosis. C5-C6: Posterior disc osteophyte comple x results in mild canal stenosis. Severe right and moderate left foramina l stenosis due to facet and uncovertebral arthrosis. C6-C7: Severe degenerative disc disease . Posterior disc osteophyte complex resul ts in mild canal stenosis. Severe bilateral foraminal stenosis due to facet and uncovertebral arthrosis. C7-T1: Severe degenerative disc disease . Severe bilateral foraminal stenosis fac et and uncovertebral arthrosis.. Procedure Note Interface, Rad/Mammog In - 08/09/2019 10:42 PM CDT Exam: Head and Cervical Spine CT's without contrast History: Head trauma, minor, GCS>=13, high clinical risk, initial exam Comparison studies: Head CT 01/05/2017. Technique: Axial scans obtained from skull base to the vertex, face and cervical regions. Coronal and sagittal reconstructions obtained from the axial data. IV Contrast: None Complications: None Radiation Dose: Total DLP: 1962 mGy*cm FINDINGS: Head CT: Scalp/Skull: Status post plate and screw fixation of right inferior orbital rim. Chronic fracture deformity of left zygomatic arch. Brain sulci: Appropriate for patient's age. Ventricles: Normal in size and configuration. No hydrocephalus. Extra-axial spaces: No masses or fluid collections. Parenchyma: No abnormal densities. No masses, hemorrhage or acute or chronic cortical insults Dural sinuses: No abnormal densities. Sellar/Suprasellar region: Intact. Skull base and Craniocervical junction: Intact . Cervical spine CT: Fractures: Acute anterior inferior corner fracture of the C2 vertebral body (series 11, image 47). Acute bilateral C5 inferior articular pillar fractures, which extend to the laminae, facets and spinous process (series 3, images 120 through 132). Acute anterior and posterior superior corner fractures of the C6 vertebral body (series 11, image 47 and 50). Craniocervical junction: Patent foramen magnum. No Chiari 1 malformation. Alignment:Abnormal alignment with widening of the left C5-C6 and right C4-C5 interfacet joint spaces. No locked or jumped facet. Mild asymmetric widening of interspinous distance at level C5-C6, raises concern for underlying ligament injury. .No scoliosis.No subluxations. Posterior longitudinal ligament: Not ossified. Soft tissues: Marked prevertebral soft tissue swelling Vertebrae: No infection or neoplasm . Diffuse osseous demineralization. Degenerative changes: Partial fusion of the C4-C5 vertebral bodies. Osseous fragment at the superior anterior endplate of the C7 vertebral body, likely an age-indeterminate anterior vertebral osteophyte fracture; an acute corner fracture is a less likely possibility. C3-C4: Posterior disc osteophyte complex results in mild canal stenosis. Severe bilateral foraminal stenosis due to facet and uncovertebral arthrosis. C4-C5: Mild bilateral foraminal stenosis due to uncovertebral arthrosis. C5-C6: Posterior disc osteophyte complex results in mild canal stenosis. Severe right and moderate left foraminal stenosis due to facet and uncovertebral arthrosis. C6-C7: Severe degenerative disc disease. Posterior disc osteophyte complex results in mild canal stenosis. Severe bilateral foraminal stenosis due to facet and uncovertebral arthrosis. C7-T1: Severe degenerative disc disease. Severe bilateral foraminal stenosis facet and uncovertebral arthrosis.. IMPRESSION IMPRESSION: Head CT: No acute intracranial abnormalities. Cervical Spine: 1. Acute corner fractures of the C2 and C6 vertebral bodies. Age-indeterminate C7 corner fracture vs anterior osteophyte fracture. 2. Acute bilateral C5 inferior articular pillar fractures that extend to the laminae, facet and spinous process. 3. Abnormal alignment with widening of i nterspinous space at level C5-C6, left C5-C6 facet joint space and right C4-C5 interfacet joint space. Recommend cervical spine MRI for further evaluation. 4. Ligament, spinal cord and/or vascular abnormalities cannot be excluded on the basis of this examination. Findings discussed with Dr. Robbins by Dr. Cassidy on 08/09/2019 9:25 PM via telephone. Dictated By: Anu Cassidy DO, 08/09/2019 9:29 PM I have reviewed the study and agree with the findings in this report. Signed By: Gladis Syed MD, 08/09/2019 10:37 PM Performing Organization Address City/State/Zipcode Ph one Number SMS after 03/08/2019 Insurance Type Payer Benefit Subscriber ID Effective Phone Address Plan / Dates Group [employer] HMO [employer] xxxxxxxxx 2013-P [address] [id number] [place] [address] Guarantor Name Account Relation to Date of Phone Billin g Address Type Patient Maxim Swartz Personal/F Self [address] (Home) [place] [address] [employer] Personal/F Self 1965 [address] (Home) [place] [address] Maxim Swartz Psych Self [id number] (Home) [place] [address] Advance Directives Date Inactivated Comments Code Status Date Activated 08/25/2019 11:12 PM Full Code 08/10/2019 1:01 AM
--- OUTSIDE RECORDS SUMMARY | 2020-03-08 10:43 | XMS REPORT | Continuity of Care Document ---
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 SUICIDAL IDEATION Active 10/09/[address] [facility] BLADDER PAIN Active 07/12/[address] [facility] Encounter for removal of sutures 10/03/2017 10/06/[address] [facility] SUTURE REMOVE Active 10/03/[address] [facility] Discharge Diagnosis: Schizophrenia 08/18/2016 08/21/2016 [facility] Discharge Diagnosis: Suicidal thoughts 08/18/2016 08/21/2016 [facility] MENTAL STATE Active 08/18/2016 [facility] Discharge Diagnosis: Suicidal ideation 04/15/2016 04/18/[address] [facility] Bipolar (qualifier value) Reso lved Problem 04/2017 [facility] Depression - motion (qualifier value) Active Problem 04/2017 [facility] Schizophrenia (disorder) Resol theo Problem 04/2017 [facility] [place] Suicidal thoughts (finding) Re solved Problem 04/2017 [facility] Medications No Data Provided for This Section Allergies, Adverse Reactions, Alerts Substance Category Reaction Severity Reaction type Status Date Reported Comments Source Prolixal Assertion Haldol Allergy to substance Active [facility] Haldol Assertion Drug allergy Active [facility] Immunizations No Data Provided for This Section Results Order Name Results Value Reference Range Date Interpretation Comments Source CHEM PANEL eGFR 122 08/18/2016 Result Comment: The eGFR is calculated using the [...] from the National Kidney Disease Education Program (NKDEP) which additionally recommends that when the eGFR is used in patients with extremes of body mass index for purposes of drug dosing, the eGFR should be multiplied by the estimated BMI. [facility] CHEM PANEL Bili Total 0.3 0.2 - 1.3 08/18/2016 [facility] CHEM PANEL Alk Phos 62 39 - 136 08/18/2016 [facility] CHEM PANEL Calcium Lvl 8.7 8.5 - 10.5 08/18/2016 [facility] CHEM PANEL Total Protein 7.5 6.4 - 8.4 08/18/2016 [facility] CHEM PANEL Chloride Lvl 106 95 - 109 08/18/2016 [facility] CHEM PANEL CO2 32 24 - 32 08/18/2016 [facility] CHEM PANEL Potassium Lvl 4.0 3.5 - 5.1 08/18/2016 [facility] CHEM PANEL Creatinine Lvl 0.77 0.50 - 1.40 08/18/2016 [facility] CHEM PANEL Sodium Lvl 141 135 - 145 08/18/2016 [facility] CHEM PANEL AST 29 0 - 37 08/18/2016 [facility] CHEM PANEL ALT 32 0 - 65 08/18/2016 [facility] CHEM PANEL Albumin Lvl 3.4 3.5 - 5.0 08/18/2016 [facility] CHEM PANEL BUN 13 7 - 22 08/18/2016 [facility] CHEM PANEL Glucose Lvl 80 70 - 99 08/18/2016 [facility] CHEM PANEL Globulin 4.1 2.7 - 4.2 08/18/2016 [facility] CHEM PANEL A/G Ratio 0.8 0.7 - 1.6 08/18/2016 [facility] CHEM PANEL B/C Ratio 17 6 - 25 08/18/2016 [facility] CHEM PANEL AGAP 7.0 10.0 - 20.0 08/18/2016 [facility] DRUG SCREEN U Benzodia Scr Nega tive *NA* (08/18/16 3:58 PM) Negative 08/18/2016 [facility] DRUG SCREEN U Dianelys Scr Nega tive *NA* (08/18/16 3:58 PM) Negative 08/18/2016 [facility] DRUG SCREEN U Amph Scr Nega tive *NA* (08/18/16 3:58 PM) Negative 08/18/2016 [facility] DRUG SCREEN U Phencyc Scr Nega tive *NA* (08/18/16 3:58 PM) Negative 08/18/2016 [facility] DRUG SCREEN UDS Note See Note (08/18/16 3:58 PM) 08/18/2016 [facility] DRUG SCREEN U Cannab Scr Nega tive *NA* (08/18/16 3:58 PM) Negative 08/18/2016 [facility] DRUG SCREEN U Opiate Scr Nega tive *NA* (08/18/16 3:58 PM) Negative 08/18/2016 [facility] DRUG SCREEN U Cocaine Scr Nega tive *NA* (08/18/16 3:58 PM) Negative 08/18/2016 [facility] HEMATOLOGY Segs 72.0 45.0 - 75.0 08/18/2016 [facility] Monocytes # 0.4 0.0 - 0.8 08/18/2016 [facility] HEMATOLOGY Bands 0.0 0.0 - 11.0 08/18/2016 [facility] Segs-Bands # 3.9 1.5 - 8.1 08/18/2016 [facility] Lymphocytes # 1.1 1.0 - 5.5 08/18/2016 [facility] Monocytes 8.0 2.0 - 12.0 08/18/2016 [facility] Lymphocytes 20.0 20.0 - 40.0 08/18/2016 [facility] Plt Morph Moraima l (08/18/16 3:58 PM) 08/18/2016 [facility] RBC Morph Moraima l (08/18/16 3:58 PM) 08/18/2016 [facility] Atypical Lymphs 0.0 <=0.0 % 08/18/2016 [facility] Platelet 200 133 - 450 08/18/2016 [facility] RDW 14.7 11.5 - 14.5 08/18/2016 [facility] MPV 8.0 7.4 - 10.4 08/18/2016 [facility] MCHC 32.0 32.0 - 36.0 08/18/2016 [facility] Hct 37.3 42.0 - 54.0 08/18/2016 [facility] MCH 28.8 27.0 - 31.0 08/18/2016 [facility] HEMATOLOGY MCV 90.0 80.0 - 94.0 08/18/2016 [facility] HEMATOLOGY Hgb 12.0 14.0 - 18.0 08/18/2016 [facility] HEMATOLOGY RBC 4.15 4.70 - 6.10 08/18/2016 [facility] HEMATOLOGY WBC 5.4 3.7 - 10.4 08/18/2016 [facility] METAL [place] Lvl <0.20 0.50 - 1.50 08/18/2016 [facility] TOXICOLOGY Acetaminoph Lvl <2 10 - 20 08/18/2016 [facility] TOXICOLOGY Ethanol Lvl <3 08/18/2016 [facility] TOXICOLOGY Etoh (%) <0.003 08/18/2016 [facility] TOXICOLOGY Salicylate Lvl 5.0 0.0 - 30.0 08/18/2016 [facility] CHEM PANEL eGFR 96 04/14/2016 Result Comment: The eGFR is calculated using the [...] from the National Kidney Disease Education Program (NKDEP) which additionally recommends that when the eGFR is used in patients with extremes of body mass index for purposes of drug dosing, the eGFR should be multiplied by the estimated BMI. [facility] CHEM PANEL Chloride Lvl 109 95 - 109 04/14/[address] [facility] CHEM PANEL Potassium Lvl 3.7 3.5 - 5.1 04/14/[address] [facility] CHEM PANEL Sodium Lvl 144 135 - 145 04/14/[address] [facility] CHEM PANEL Creatinine Lvl 1.04 0.50 - 1.40 04/14/[address] [facility] CHEM PANEL CO2 27 24 - 32 04/14/[address] [facility] CHEM PANEL Calcium Lvl 9.0 8.5 - 10.5 04/14/[address] [facility] CHEM PANEL Glucose Lvl 95 70 - 99 04/14/[address] [facility] CHEM PANEL BUN 12 7 - 22 04/14/[address] [facility] CHEM PANEL AGAP 11.7 10.0 - 20.0 04/14/[address] [facility] DRUG SCREEN UDS Note See Note *NA* (04/14/16 12:30 PM) 04/14/[address] [facility] DRUG SCREEN U Opiate Scr Nega tive *NA* (04/14/16 12:30 PM) Negative 04/14/[address] [facility] DRUG SCREEN U Phencyc Scr Nega tive *NA* (04/14/16 12:30 PM) Negative 04/14/[address] [facility] DRUG SCREEN U Cocaine Scr Nega tive *NA* (04/14/16 12:30 PM) Negative 04/14/[address] [facility] DRUG SCREEN U Benzodia Scr Nega tive *NA* (04/14/16 12:30 PM) Negative 04/14/[address] [facility] DRUG SCREEN U Amph Scr Nega tive *NA* (04/14/16 12:30 PM) Negative 04/14/[address] [facility] DRUG SCREEN U Dianelys Scr Nega tive *NA* (04/14/16 12:30 PM) Negative 04/14/[address] [facility] DRUG SCREEN U Cannab Scr Nega tive *NA* (04/14/16 12:30 PM) Negative 04/14/[address] [facility] HEMATOLOGY INR 0.97 0.85 - 1.17 04/14/[address] [facility] HEMATOLOGY PT 13.2 12.0 - 14.7 04/14/[address] [facility] HEMATOLOGY PTT 30.2 22.9 - 35.8 04/14/[address] [facility] HEMATOLOGY Segs 65.4 45.0 - 75.0 04/14/[address] [facility] HEMATOLOGY Monocytes # 0.7 0.0 - 0.8 04/14/[address] [facility] HEMATOLOGY Eosinophils # 0.1 0.0 - 0.5 04/14/[address] [facility] HEMATOLOGY Eosinophils 1.1 0.0 - 4.0 04/14/[address] [facility] HEMATOLOGY Lymphocytes 23.1 20.0 - 40.0 04/14/[address] [facility] HEMATOLOGY Monocytes 10.0 2.0 - 12.0 04/14/[address] [facility] HEMATOLOGY Lymphocytes # 1.6 1.0 - 5.5 04/14/[address] [facility] HEMATOLOGY Basophils 0.4 0.0 - 1.0 04/14/[address] [facility] HEMATOLOGY Segs-Bands # 4.5 1.5 - 8.1 04/14/[address] [facility] HEMATOLOGY Hgb 13.4 14.0 - 18.0 04/14/[address] [facility] HEMATOLOGY MCHC 31.9 32.0 - 36.0 04/14/[address] [facility] HEMATOLOGY Platelet 286 133 - 450 04/14/[address] [facility] HEMATOLOGY MPV 7.7 7.4 - 10.4 04/14/[address] [facility] HEMATOLOGY MCH 29.1 27.0 - 31.0 04/14/[address] [facility] HEMATOLOGY MCV 91.3 80.0 - 94.0 04/14/[address] [facility] HEMATOLOGY RDW 15.4 11.5 - 14.5 04/14/[address] [facility] HEMATOLOGY WBC 6.9 3.7 - 10.4 04/14/[address] [facility] HEMATOLOGY RBC 4.61 4.70 - 6.10 04/14/[address] [facility] HEMATOLOGY Hct 42.1 42.0 - 54.0 04/14/[address] [facility] TOXICOLOGY Salicylate Lvl 5.7 0.0 - 30.0 04/14/[address] [facility] TOXICOLOGY Acetaminoph Lvl <2 (04/14/16 12:30 PM) 10 - 20 04/14/[address] [facility] TOXICOLOGY Ethanol Lvl <3 04/14/[address] [facility] TOXICOLOGY Etoh (%) <0.003 04/14/[address] [facility] URINE AND STOOL UA WBC 0-2 /HPF None Seen /HPF 04/14/[address] [facility] URINE AND STOOL UA RBC 3-5 /HPF 0 - 2 04/14/[address] [facility] URINE AND STOOL UA Mucus Few /LPF None Seen /LPF 04/14/[address] [facility] URINE AND STOOL UA Bacteria Occasional /HPF None Seen /HPF 04/14/2016 [facility] URINE AND STOOL Micro? Performed (04/14/16 12:30 PM) 04/14/[address] [facility] URINE AND STOOL UA Sq Epi Rare /LPF Few /LPF 04/14/[address] [facility] URINE AND STOOL UA Leuk Est Negative (04/14/16 12:30 PM) Negative 04/14/[address] [facility] URINE AND STOOL UA Urobilinogen 0.2 0.1 - 1.0 04/14/[address] [facility] URINE AND STOOL UA Nitrite Negative (04/14/16 12:30 PM) Negative 04/14/[address] [facility] URINE AND STOOL UA Bili Small *ABN* (04/14/16 12:30 PM) Negative 04/14/[address] [facility] URINE AND STOOL UA Blood Negative (04/14/16 12:30 PM) Negative 04/14/[address] [facility] URINE AND STOOL UA Glucose Negative (04/14/16 12:30 PM) Negative 04/14/[address] [facility] URINE AND STOOL UA Ketones Negative *NA* (04/14/16 12:30 PM) Negative 04/14/[address] [facility] URINE AND STOOL UA pH 6.0 5.0 - 8.0 04/14/[address] [facility] URINE AND STOOL UA Protein Negative (04/14/16 12:30 PM) Negative 04/14/[address] [facility] URINE AND STOOL UA Spec Grav 1.028 <=1.030 04/14/[address] [facility] URINE AND STOOL UA Color Yellow *NA* (04/14/16 12:30 PM) Yellow 04/14/[address] [facility] URINE AND STOOL UA Turbidity Slight Cloudy (04/14/16 12:30 PM) Clear 04/14/[address] [facility] Pathology Reports No Data Provided for This Section Diagnostic Reports Report Value Date Source Chest 2 views DX EXAM: XR CHES T 2 VIEWS DATE: 07/12/2018 4:35 PM CDT INDICATION: - weight loss, night sweats COMPARISON: None. [place] SECTION: ER TECHNIQUE: PA and lateral chest radiographs. FINDINGS: Lines, tubes and hardware: None. Lungs and pleura: Bullous or cystic lesion seen in the right upper lobe. Bilateral nipple shadows do not represent nodules. The lungs are otherwise clear. No pleural effusion or pneumothorax. Heart and mediastinum: The heart size is normal. The mediastinal contours are normal. Pulmonary vascularity is normal. Bones: No acute abnormality. IMPRESSION: Right upper lobe bullae or air cyst. Lungs are otherwise clear. 07/12/[address] [facility] Consultation Notes No Data Provided for This Section Discharge Summaries No Data Provided for This Section History and Physicals No Data Provided for This Section Vital Signs Vital Sign Value Date Comments Source BMI Calculated 26.91 10/03/[address] [facility] Weight 90 1 12/04/[address] [facility] Height 182.88 cm 10/03/[address] [facility] Temperature Oral (F) 98.6 F 10/03/2017 [facility] Systolic (mm Hg) 135 10/03/2017 [facility] Diastolic (mm Hg) 88 10/03/[address] [facility] Heart Rate 94 10/03/[address] [facility] Respitory Rate 18 10/03/[address] [facility] Systolic (mm Hg) 118 08/18/2016 [facility] Diastolic (mm Hg) 74 08/18/2016 [facility] Temperature Oral (F) 97.4 F 08/18/2016 [facility] Heart Rate 62 08/18/2016 [facility] Respitory Rate 18 08/18/2016 [facility] Temperature Oral (F) 97.4 F 08/18/2016 [facility] Systolic (mm Hg) 118 08/18/2016 [facility] Diastolic (mm Hg) 72 08/18/2016 [facility] Heart Rate 51 08/18/2016 [facility] Weight 90 1 [facility] Height 193.04 cm 08/18/2016 [facility] BMI Calculated 24.15 08/18/2016 [facility] Systolic (mm Hg) 159 04/15/[address] [facility] Diastolic (mm Hg) 80 04/15/[address] [facility] Respitory Rate 18 04/15/[address] [facility] Heart Rate 65 04/15/2016 [facility] Systolic (mm Hg) 141 04/15/2016 [facility] Diastolic (mm Hg) 94 04/15/[address] [facility] Temperature Oral (F) 98.5 F 04/15/[address] [facility] Heart Rate 57 04/15/[address] [facility] Respitory Rate 18 04/15/[address] [facility] Temperature Oral (F) 98.4 F 04/15/2016 [facility] Systolic (mm Hg) 141 04/15/2016 [facility] Diastolic (mm Hg) 94 04/15/[address] [facility] Respitory Rate 18 04/15/[address] [facility] Heart Rate 65 04/15/[address] [facility] Temperature Oral (F) 98 F 04/15/[address] [facility] Weight 100 04/14/[address] [facility] BMI Calculated 29.9 04/14/[address] [facility] Height 182.88 cm 04/14/[address] [facility] Encounters Location Location Details Encounter Type Encounter Number Reason For Visit Attending Provider ADM Date DC Date Status Source [facility] [id number] Yola Lopezyousif 04/14/2016 04/15/2016 [facility] Emergency [id number] Sami Robin 08/18/2016 08/18/2016 [facility] Emergency [id number] Evan Kanhi 10/03/2017 10/03/[address] [facility] Outpatient [id number] DOREEN WELLER 07/13/2018 Active [facility] Procedures Procedure Code Date Perfomer Comments Source Head up<sup>1</sup> [id number] metal plate in head [facility] Assessment and Plan No Data Provided for This Section Plan of Care No Data Provided for This Section Social History Social History Date Source Social History TypeResponse Smoking Status Current some day smoker; Type: Cigarettes; Exposure to Tobacco Smoke None; Cigarette Smoking Last 365 Days Yes; Reg Smoking Cessation Counseling Yes 10/03/[address] [facility] Social History TypeResponse Smoking Status Current some day smoker; Type: Cigarettes; Exposure to Tobacco Smoke None; Cigarette Smoking Last 365 Days Yes; Reg Smoking Cessation Counseling No 08/18/2016 [facility] Family History No Data Provided for This Section Advance Directives No Data Provided for This Section Functional Status No Data Provided for This Section
--- OUTSIDE RECORDS SUMMARY | 2020-03-08 10:43 | XMS REPORT | Clinical Summary ---
Author Author [employer] [facility] [employer] [facility] Address Unknown Phone Unavailable Care Team Providers Care Product Control And Logistics Analyst Name Role Phone Marquis Shafer MD PCP Allergies Comments Active Allergy Reactions Severity Noted Date Haloperidol 03/24/2016 Fluphenazine Hcl 03/24/2016 Medications End Date Status Medication Sig Dispensed Refills Start Date Active amLODIPine (NORVASC) 5 MG Take 5 mg by 0 /0 tablet mouth daily. 6 Active Problems Problem Noted Date Suicidal intent 03/25/2016 Schizophrenia 03/25/2016 Immunizations Name Administration Dates Next Due Tdap 08/27/2017 Family History Medical History Relation Name Comments Schizophrenia Brother Alcohol abuse Father Depression Father Drug abuse Father Alcohol abuse Mother Anxiety disorder Mother Bipolar disorder Mother Depression Mother Depression Sister Relation Name Status Comments Brother Father Mother Sister Social History Date Tobacco Use Types Packs/Day Years Used Current Every Day Smoker Cigarettes 1 20 Tobacco Cessation: Ready to Quit: No; Co unseling Given: No Comments: not wanting to quit Drinks/Week oz/Week Comments Alcohol Use No Sex Assigned at Date Recorded Not on file Industry Job Start Date Occupation Not on file Not on file Not on file Travel End Travel History Travel Start No recent travel history available. Last Filed Vital Signs Not on file Plan of Treatment Health Maintenance Due Date Last Done Comments COLONOSCOPY SCREENING 2014 SHINGLES VACCINES (#1) 2014 INFLUENZA VACCINE 06/01/2020 Results Not on fileafter 03/08/2019 Insurance Type Payer Benefit Subscriber ID Effective Phone Address Plan / Dates Group Medicaid MEDICAID MEDICAID xxxxxxxxx [id number] resent HMO [employer] AMER[employer] xxxxxxxxx [id number] STAR+PLUS resent [employer] Advance Directives For more information, please contact: [phone] Patient Human Resources Receptionist Explanation Type Date Recorded Advance Directives, 08/30/2017 5:09 AM Living Will and Medical Power of Mine Safety Engineer
--- OUTSIDE RECORDS SUMMARY | 2020-03-08 10:43 | XMS REPORT | Summary of Care ---
Author Author [facility] Organization [facility] Address Unknown Phone Unavailable Encounter MARCELL Cole(MAIDA) [phone] Date(s): 08/18/16 - 08/18/16 [facility] [address] [place] [address]- [phone] Discharge Diagnosis: Schizophrenia Discharge Diagnosis: Suicidal thoughts Discharge Disposition: Home or Self Care Attending Physician: Sami Robin MD Vital Signs Most recent to 1 2 oldest [Reference Range]: Height 193.04 cm (08/18/16 1:58 PM) Temperature Oral 97.4 DegF 97.4 DegF [96.4-99.1 DegF] (08/18/16 5:26 PM) (08/18/16 1:58 PM) Blood Pressure 118/74 mmHg 118/72 mmHg [90-140/60-90 mmHg] (08/18/16 5:26 PM) (08/18/16 1:58 PM) Respiratory Rate 18 BRMIN [14-20 BRMIN] (08/18/16 1:58 PM) Peripheral Pulse 62 bpm 51 bpm Rate [60-100 bpm] (08/18/16 5:26 PM) *LOW* (08/18/16 1:58 PM) Weight 90 kg (08/18/16 1:58 PM) Body Mass Index 24.15 m2 (08/18/16 1:58 PM) Problem List Condition Effective Dates Status Health Status Informan t Bipolar(Confirmed) Resolved Depression(Confirmed Active ) Schizophrenia(Confir Resolved med) Suicidal Resolved thoughts(Confirmed) Allergies, Adverse Reactions, Alerts Substance Reaction Severity Status Haldol Active Prolixal Haldol Active Medications No data available for this section Results ELECTROLYTES Most recent to 1 oldest [Reference Range]: Sodium Lvl [135-145 141 mEq/L mEq/L] (08/18/16 3:58 PM) Potassium Lvl 4.0 mEq/L [3.5-5.1 mEq/L] (08/18/16 3:58 PM) Chloride Lvl [95-109 106 mEq/L mEq/L] (08/18/16 3:58 PM) CO2 [24-32 mEq/L] 32 mEq/L (08/18/16 3:58 PM) AGAP [10.0-20.0 7.0 mEq/L mEq/L] *LOW* (08/18/16 3:58 PM) CHEM PANEL Most recent to 1 oldest [Reference Range]: Creatinine Lvl 0.77 mg/dL [0.50-1.40 mg/dL] (08/18/16 3:58 PM) eGFR 122 mL/min/1.73m2 1 *NA* (08/18/16 3:58 PM) BUN [7-22 mg/dL] 13 mg/dL (08/18/16 3:58 PM) B/C Ratio [6-25] 17 (08/18/16 3:58 PM) Glucose Lvl [70-99 80 mg/dL mg/dL] (08/18/16 3:58 PM) Total Protein 7.5 g/dL [6.4-8.4 g/dL] (08/18/16 3:58 PM) Albumin Lvl [3.5-5.0 3.4 g/dL g/dL] *LOW* (08/18/16 3:58 PM) Globulin [2.7-4.2 4.1 g/dL g/dL] (08/18/16 3:58 PM) A/G Ratio [0.7-1.6] 0.8 (08/18/16 3:58 PM) Calcium Lvl 8.7 mg/dL [8.5-10.5 mg/dL] (08/18/16 3:58 PM) ALT [0-65 unit/L] 32 unit/L (08/18/16 3:58 PM) AST [0-37 unit/L] 29 unit/L (08/18/16 3:58 PM) Alk Phos [39-136 62 unit/L unit/L] (08/18/16 3:58 PM) Bili Total [0.2-1.3 0.3 mg/dL mg/dL] (08/18/16 3:58 PM) 1Result Comment: The eGFR is calculated [...] Range]: U Amph Scr Negative [Negative] *NA* (08/18/16 3:58 PM) U Dianelys Scr Negative [Negative] *NA* (08/18/16 3:58 PM) U Benzodia Scr Negative [Negative] *NA* (08/18/16 3:58 PM) U Cocaine Scr Negative [Negative] *NA* (08/18/16 3:58 PM) U Opiate Scr Negative [Negative] *NA* (08/18/16 3:58 PM) U Phencyc Scr Negative [Negative] *NA* (08/18/16 3:58 PM) U Cannab Scr Negative [Negative] *NA* (08/18/16 3:58 PM) UDS Note See Note (08/18/16 3:58 PM) TOXICOLOGY Most recent to 1 oldest [Reference Range]: Acetaminoph Lvl <2 ug/ml [10-20 ug/ml] *LOW* (08/18/16 3:58 PM) Salicylate Lvl 5.0 mg/dL [0.0-30.0 mg/dL] (08/18/16 3:58 PM) Etoh (%) <.003 % *NA* (08/18/16 3:58 PM) Ethanol Lvl <3 mg/dL *NA* (08/18/16 3:58 PM) METAL Most recent to 1 oldest [Reference Range]: [place] Lvl <0.20 mEq/L [0.50-1.50 mEq/L] *LOW* (08/18/16 3:58 PM) HEMATOLOGY Most recent to 1 oldest [Reference Range]: WBC [3.7-10.4 K/CMM] 5.4 K/CMM (08/18/16 3:58 PM) RBC [4.70-6.10 4.15 M/CMM M/CMM] *LOW* (08/18/16 3:58 PM) Hgb [14.0-18.0 g/dL] 12.0 g/dL *LOW* (08/18/16 3:58 PM) Hct [42.0-54.0 %] 37.3 % *LOW* (08/18/16 3:58 PM) MCV [80.0-94.0 fL] 90.0 fL (08/18/16 3:58 PM) MCH [27.0-31.0 pg] 28.8 pg (08/18/16 3:58 PM) MCHC [32.0-36.0 32.0 g/dL g/dL] (08/18/16 3:58 PM) RDW [11.5-14.5 %] 14.7 % *HI* (08/18/16 3:58 PM) Platelet [133-450 200 K/CMM K/CMM] (08/18/16 3:58 PM) MPV [7.4-10.4 fL] 8.0 fL (08/18/16 3:58 PM) Segs [45.0-75.0 %] 72.0 % (08/18/16 3:58 PM) Bands [0.0-11.0 %] 0.0 % (08/18/16 3:58 PM) Lymphocytes 20.0 % [20.0-40.0 %] (08/18/16 3:58 PM) Atypical Lymphs 0.0 % [<=0.0 %] (08/18/16 3:58 PM) Monocytes [2.0-12.0 8.0 % %] (08/18/16 3:58 PM) Segs-Bands # 3.9 K/CMM [1.5-8.1 K/CMM] (10/18/16 3:58 PM) Lymphocytes # 1.1 K/CMM [1.0-5.5 K/CMM] (08/18/16 3:58 PM) Monocytes # [0.0-0.8 0.4 K/CMM K/CMM] (08/18/16 3:58 PM) RBC Morph Normal (08/18/16 3:58 PM) Plt Morph Normal (08/18/16 3:58 PM) Immunizations No data available for this section Procedures Procedure Date Related Diagnosis Body Implementation Coordinator up1 1metal plate in head Social History Social History Type Response Smoking Status Current some day smoker; Ty pe: Cigarettes; Exposure to Tobacco Smoke None; Cigarette Smoking Last 365 Days Yes; Re g Smoking Cessation Counseling No Assessment and Plan No data available for this section
--- OUTSIDE RECORDS SUMMARY | 2020-03-08 10:44 | XMS REPORT ---
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 Allergies, Adverse Reactions, Alerts Allergy Name Allergy Type Status Severity Reaction(s) Onset Date Inacti ve Date Treating Clinician Comments fluphenazine DA Active SV 2020-01-23 00:00:00 haloperidol DA Active SV 2020-01-23 00:00:00 escitalopram DA Active SV 2020-01-23 00:00:00 fluphenazine DA Active SV 2020-01-22 00:00:00 haloperidol DA Active SV 2020-01-22 00:00:00 escitalopram DA Active SV 2020-01-22 00:00:00 fluphenazine DA Active SV 2019-09-07 00:00:00 haloperidol DA Active SV 2019-09-07 00:00:00 escitalopram DA Active SV 2019-09-07 00:00:00 Medications This patient has no known medications. Encounters Start Date/Time End Date/Time Encounter Type Admission Type [facility] Care Department Encounter ID 2019-07-09 00:41:00 2019-07-09 00:41:00 Emergency E [facility] [id number] 2019-02-20 00:00:00 2019-02-20 00:00:00 Outpatient [facility] [id number] 2019-02-20 00:00:00 2019-02-20 00:00:00 Outpatient [facility] [id number] 2019-01-09 10:53:28 2019-01-09 10:53:28 Emergency [facility] [id number] 2018-12-01 00:00:00 2018-12-01 00:00:00 Outpatient [facility] [id number] 2018-11-22 01:23:32 2018-11-22 01:23:32 Emergency [facility] [id number] 2018-11-21 18:28:39 2018-11-21 18:28:39 Emergency [facility] [id number] 2018-08-06 23:13:21 2018-08-06 23:13:21 Emergency [facility] [id number] 2018-07-18 09:49:00 2018-07-18 09:49:00 [facility] [id number] Results Test Description Test Time Test Comments Text Results Atomic Results Result Comments BASIC METABOLIC PANEL 2020-02-22 15:34:00 SODIUM (test code = NA) 143 mmol/L 136-145 POTASSIUM (test code = K) 4.2 mmol/L 3.5-5.1 CHLORIDE (test code = CL) 111.0 mmol/L 98-107 CARBON DIOXIDE (test code = CO2) 25.0 mmol/L 21-32 ANION GAP (test code = GAP) 11.2 10-20 GLUCOSE (test code = GLU) 115 mg/dL 74-106 BLOOD UREA NITROGEN (test code = BUN) 15 mg/dL 7-18 GLOMERULAR FILTRATION RATE (test code = GFR) > 60 mL/min >=6 0 Estimated GFR by using Modified MDRD formula.Chronic kidney disease is defined as either kidney damageor GFR <60 mL/min/1.73 m2 for >3 months. CREATININE (test code = CREAT) 0.80 mg/dL 0.7-1.3 BUN/CREATININE RATIO (test code = BUN/CREA) 18.8 10-2 0 CALCIUM (test code = CA) 8.3 mg/dL 8.5-10.1 [id number] 15:34:00* Test Item Value Reference Range Comments MAGNESIUM (test code = MAG) 1.4 mg/dL 1.8-2.4 C REACTIVE [id number] 15:34:00* Test Item Value Reference Range Comments C REACTIVE PROTEIN (test code = CRP) 5.48 mg/dL 0-0.3 BASIC METABOLIC [id number] 15:20:00* Test Item Value Reference Range Comments SODIUM (test code = NA) 143 mmol/L 136-145 POTASSIUM (test code = K) 4.2 mmol/L 3.5-5.1 CHLORIDE (test code = CL) 111.0 mmol/L 98-107 CARBON DIOXIDE (test code = CO2) mmol/L 21-32 ANION GAP (test code = GAP) 10-20 GLUCOSE (test code = GLU) mg/dL 74-106 BLOOD UREA NITROGEN (test code = BUN) mg/dL 7-18 GLOMERULAR FILTRATION RATE (test code = GFR) mL/min >=6 0 CREATININE (test code = CREAT) mg/dL 0.7-1.3 BUN/CREATININE RATIO (test code = BUN/CREA) 10-2 0 CALCIUM (test code = CA) mg/dL 8.5-10.1 [id number] 15:20:00* Test Item Value Reference Range Comments MAGNESIUM (test code = MAG) mg/dL 1.8-2.4 CBC W/AUTO [id number] 15:08:00* Test Item Value Reference Range Comments WHITE BLOOD CELL (test code = WBC) 10.7 K/mm3 4.5-12.5 RED BLOOD CELL (test code = RBC) 2.88 mill/mm3 4.0-5.8 HEMOGLOBIN (test code = HGB) 7.4 gram/dL 13.0-17.5 HEMATOCRIT (test code = HCT) 24.4 % 42.0-52.0 MEAN CELL VOLUME (test code = MCV) 84.7 fL 80-98 MEAN CELL HGB (test code = MCH) 25.7 picogram 27.0-33.0 MEAN CELL HGB CONCETRATION (test code = MCHC) 30.3 gram/dL 33 .0-36.0 RED CELL DISTRIBUTION WIDTH (test code = RDW) 18.5 % 11 .6-16.2 RED CELL DISTRIBUTION WIDTH SD (test code = RDW-SD) 56.9 fL 37.0-51.0 PLATELET COUNT (test code = PLT) 283 K/mm3 150-450 MEAN PLATELET VOLUME (test code = MPV) 10.0 fL 6.7-11.0 NEUTROPHIL % (test code = NT%) 65.5 % 39.0-69.0 IMMATURE GRANULOCYTE % (test code = IG%) 0.5 % 0.0-5.0 LYMPHOCYTE % (test code = LY%) 20.4 % 25.0-55.0 MONOCYTE % (test code = MO%) 9.3 % 0.0-10.0 EOSINOPHIL % (test code = EO%) 4.1 % 0.0-5.0 BASOPHIL % (test code = BA%) 0.2 % 0.0-1.0 NUCLEATED RBC % (test code = NRBC%) 0.0 % 0-0 NEUTROPHIL # (test code = NT#) 7.02 K/mm3 1.8-7.7 IMMATURE GRANULOCYTE # (test code = IG#) 0.05 x10 3/uL 0-0.03 LYMPHOCYTE # (test code = LY#) 2.19 K/mm3 1.0-5.0 MONOCYTE # (test code = MO#) 1.00 K/mm3 0-0.8 EOSINOPHIL # (test code = EO#) 0.44 K/mm3 0.0-0.5 BASOPHIL # (test code = BA#) 0.02 K/mm3 0.0-0.2 NUCLEATED RBC # (test code = NRBC#) 0.00 K/mm3 0.0-0.1 URINALYSIS [id number] 05:56:00* Test Item Value Reference Range Comments UA COLOR (test code = COLU) COLORLESS YELLOW UA APPEARANCE (test code = APPU) CLEAR CLEAR UA GLUCOSE DIPSTICK (test code = DGLUU) NEGATIVE mg/dL NEGATIVE UA BILIRUBIN DIPSTICK (test code = BILU) NEGATIVE mg/dL NEGATIV E UA KETONE DIPSTICK (test code = KETU) NEGATIVE mg/dL NEGATIVE UA SPECIFIC GRAVITY (test code = SGU) 1.011 1.001-1.03 5 UA BLOOD DIPSTICK (test code = GILBERTO) Negative mg/dL NEGATIVE UA PH DIPSTICK (test code = PAUL) 7.0 5.0-8.0 UA PROTEIN DIPSTICK (test code = PROU) 10 (Trace) mg/dL NEGATIVE UA UROBILINIOGEN DIPSTICK (test code = URO) Normal mg/dL NEGA TIVE UA NITRITE DIPSTICK (test code = VEE) NEGATIVE NEGATIVE UA LEUKOCYTE ESTERASE W REFLEX (test code = LEUUR) 75 Ramírez/uL (1+) Ramírez/uL NEGATIVE UA WBC (test code = WBCU) 3-5 per HPF 0-5 UA RBC (test code = RBCU) 0-2 per HPF 0-5 UA EPITHELIAL CELLS (test code = EPIU) Few (2-5/hpf) per HPF Few UA BACTERIA (test code = BACU) TRACE per HPF NONE UA MUCUS (test code = MUCU) FEW per LPF NONE-FEW Urine Source? CatheterURINALYSIS [id number] 05:28:00* Test Item Value Reference Range Comments UA COLOR (test code = COLU) COLORLESS YELLOW UA APPEARANCE (test code = APPU) CLEAR CLEAR UA GLUCOSE DIPSTICK (test code = DGLUU) NEGATIVE mg/dL NEGATIVE UA BILIRUBIN DIPSTICK (test code = BILU) NEGATIVE mg/dL NEGATIV E UA KETONE DIPSTICK (test code = KETU) NEGATIVE mg/dL NEGATIVE UA SPECIFIC GRAVITY (test code = SGU) 1.011 1.001-1.03 5 UA BLOOD DIPSTICK (test code = GILBERTO) Negative mg/dL NEGATIVE UA PH DIPSTICK (test code = PAUL) 7.0 5.0-8.0 UA PROTEIN DIPSTICK (test code = PROU) 10 (Trace) mg/dL NEGATIVE UA UROBILINIOGEN DIPSTICK (test code = URO) Normal mg/dL NEGA TIVE UA NITRITE DIPSTICK (test code = VEE) NEGATIVE NEGATIVE UA LEUKOCYTE ESTERASE W REFLEX (test code = LEUUR) 75 Ramírez/uL (1+) Ramírez/uL NEGATIVE UA WBC (test code = WBCU) per HPF 0-5 UA RBC (test code = RBCU) per HPF 0-5 UA EPITHELIAL CELLS (test code = EPIU) per HPF Few UA BACTERIA (test code = BACU) per HPF NONE Urine Source? [id number] 11:46:00* Test Item Value Reference Range Comments MAGNESIUM (test code = MAG) 1.5 mg/dL 1.8-2.4 COME BACK LATERV.LAB. 02/20/20 0558PT REFUSED [id number] NOTIFIEDV.LAB. 0 0913FE W/TOTAL IRON BINDING CAP.2020-02-20 11:46:00* Test Item Value Reference Range Comments SERUM IRON (test code = IRON) 54 ug/dL 50-175 TOTAL IRON BINDING CAPACITY (test code = TIBC) 164 mcg/dL 2 50-450 IRON SATURATION (test code = FESAT) 32.93 % 13-45 COME BACK LATERV.LAB. 02/20/20 0558PT REFUSED [id number] NOTIFIEDV.LAB. 0 [id number] 11:41:00* Test Item Value Reference Range Comments MAGNESIUM (test code = MAG) 1.5 mg/dL 1.8-2.4 COME BACK LATERV.LAB. 02/20/20 0558PT REFUSED [id number] NOTIFIEDV.LAB. 0 0913FE W/TOTAL IRON BINDING CAP.2020-02-20 11:41:00* Test Item Value Reference Range Comments SERUM IRON (test code = IRON) ug/dL 50-175 TOTAL IRON BINDING CAPACITY (test code = TIBC) mcg/dL 2 50-450 IRON SATURATION (test code = FESAT) % 13-45 COME BACK LATERV.LAB. 02/20/20 0558PT REFUSED [id number] NOTIFIEDV.LAB. 0 0913BASIC METABOLIC [id number] 11:40:00* Test Item Value Reference Range Comments SODIUM (test code = NA) 143 mmol/L 136-145 POTASSIUM (test code = K) 3.5 mmol/L 3.5-5.1 CHLORIDE (test code = CL) 111.0 mmol/L 98-107 CARBON DIOXIDE (test code = CO2) 23.0 mmol/L 21-32 ANION GAP (test code = GAP) 12.5 10-20 GLUCOSE (test code = GLU) 206 mg/dL 74-106 BLOOD UREA NITROGEN (test code = BUN) 27 mg/dL 7-18 GLOMERULAR FILTRATION RATE (test code = GFR) > 60 mL/min >=6 0 Estimated GFR by using Modified MDRD formula.Chronic kidney disease is defined as either kidney damageor GFR <60 mL/min/1.73 m2 for >3 months. CREATININE (test code = CREAT) 1.20 mg/dL 0.7-1.3 BUN/CREATININE RATIO (test code = BUN/CREA) 22.5 10-2 0 CALCIUM (test code = CA) 8.2 mg/dL 8.5-10.1 PER RN [id number] COME BACK IN [facility].LAB. 02/20/20 0557WENT BACK PT REFUSED RN EI [id number] NOTIFIEDV.LAB. BASIC METABOLIC [id number] 11:34:00* Test Item Value Reference Range Comments SODIUM (test code = NA) 143 mmol/L 136-145 POTASSIUM (test code = K) 3.5 mmol/L 3.5-5.1 CHLORIDE (test code = CL) 111.0 mmol/L 98-107 CARBON DIOXIDE (test code = CO2) mmol/L 21-32 ANION GAP (test code = GAP) 10-20 GLUCOSE (test code = GLU) mg/dL 74-106 BLOOD UREA NITROGEN (test code = BUN) mg/dL 7-18 GLOMERULAR FILTRATION RATE (test code = GFR) mL/min >=6 0 CREATININE (test code = CREAT) mg/dL 0.7-1.3 BUN/CREATININE RATIO (test code = BUN/CREA) 10-2 0 CALCIUM (test code = CA) mg/dL 8.5-10.1 PER RN [id number] COME BACK IN PAINV.LAB. 02/20/20 0557WENT BACK PT REFUSED RN EI [id number] NOTIFIEDV.LAB. CBC W/AUTO [id number] 10:57:00* Test Item Value Reference Range Comments WHITE BLOOD CELL (test code = WBC) 6.0 K/mm3 4.5-12.5 RED BLOOD CELL (test code = RBC) 2.87 mill/mm3 4.0-5.8 HEMOGLOBIN (test code = HGB) 7.4 gram/dL 13.0-17.5 HEMATOCRIT (test code = HCT) 23.7 % 42.0-52.0 MEAN CELL VOLUME (test code = MCV) 82.6 fL 80-98 MEAN CELL HGB (test code = MCH) 25.8 picogram 27.0-33.0 MEAN CELL HGB CONCETRATION (test code = MCHC) 31.2 gram/dL 33 .0-36.0 RED CELL DISTRIBUTION WIDTH (test code = RDW) 18.2 % 11 .6-16.2 RED CELL DISTRIBUTION WIDTH SD (test code = RDW-SD) 55.6 fL 37.0-51.0 PLATELET COUNT (test code = PLT) 303 K/mm3 150-450 MEAN PLATELET VOLUME (test code = MPV) 9.7 fL 6.7-11.0 NEUTROPHIL % (test code = NT%) 66.9 % 39.0-69.0 IMMATURE GRANULOCYTE % (test code = IG%) 0.5 % 0.0-5.0 LYMPHOCYTE % (test code = LY%) 21.1 % 25.0-55.0 MONOCYTE % (test code = MO%) 8.3 % 0.0-10.0 EOSINOPHIL % (test code = EO%) 3.0 % 0.0-5.0 BASOPHIL % (test code = BA%) 0.2 % 0.0-1.0 NUCLEATED RBC % (test code = NRBC%) 0.0 % 0-0 NEUTROPHIL # (test code = NT#) 4.02 K/mm3 1.8-7.7 IMMATURE GRANULOCYTE # (test code = IG#) 0.03 x10 3/uL 0-0.03 LYMPHOCYTE # (test code = LY#) 1.27 K/mm3 1.0-5.0 MONOCYTE # (test code = MO#) 0.50 K/mm3 0-0.8 EOSINOPHIL # (test code = EO#) 0.18 K/mm3 0.0-0.5 BASOPHIL # (test code = BA#) 0.01 K/mm3 0.0-0.2 NUCLEATED RBC # (test code = NRBC#) 0.00 K/mm3 0.0-0.1 MANUAL DIFF REQUIRED (test code = MDIFF) NO COME BACK LATER IN PAINV.LAB. 02/20/20 [id number] 16:44:00* Test Item Value Reference Range Comments GLUBED (test code = GLUBED) 85 mg/dL 74-106 Perf ormed by certified printing press machine operator at [facility] [id number] 14:25:00* Test Item Value Reference Range Comments TROPONIN-I (test code = TROPI) <0.015 ng/mL 0-0.045 COMMENTS TO WIRED MUSIC OPERATOR: COLLECT 3 HOURS AFTER PREVIOUS [id number] 10:25:00* Test Item Value Reference Range Comments MAGNESIUM (test code = MAG) 1.7 mg/dL 1.8-2.4 [id number] 10:13:00* Test Item Value Reference Range Comments AMMONIA (test code = AMM) 17 umol/L 11-32 REDRRAW OF HEMOLYSED SPECIMEN [id number] 09:34:00* Test Item Value Reference Range Comments UA COLOR (test code = COLU) Light-Yellow YELLOW UA APPEARANCE (test code = APPU) CLEAR CLEAR UA GLUCOSE DIPSTICK (test code = DGLUU) NEGATIVE mg/dL NEGATIVE UA BILIRUBIN DIPSTICK (test code = BILU) NEGATIVE mg/dL NEGATIV E UA KETONE DIPSTICK (test code = KETU) NEGATIVE mg/dL NEGATIVE UA SPECIFIC GRAVITY (test code = SGU) 1.010 1.001-1.03 5 UA BLOOD DIPSTICK (test code = GILBERTO) 0.1 mg/dL (1+) mg/dL NEGATIV E UA PH DIPSTICK (test code = PAUL) 6.0 5.0-8.0 UA PROTEIN DIPSTICK (test code = PROU) 30 (1+) mg/dL NEGATIVE UA UROBILINIOGEN DIPSTICK (test code = URO) Normal mg/dL NEGA TIVE UA NITRITE DIPSTICK (test code = VEE) NEGATIVE NEGATIVE UA LEUKOCYTE ESTERASE W REFLEX (test code = LEUUR) 500 Ramírez/u L (3+) Ramírez/uL NEGATIVE UA WBC (test code = WBCU) 51-100 per HPF 0-5 UA RBC (test code = RBCU) 21-50 #/HPF 0-5 UA WBC CLUMPS (test code = WBCUCL) 3-6 /HPF NONE UA EPITHELIAL CELLS (test code = EPIU) None seen per HPF FEW UA BACTERIA (test code = BACU) FEW #/HPF NONE UA MUCUS (test code = MUCU) FEW #/LPF FEW Urine Source? Clean CatchURINALYSIS [id number] 09:26:00* Test Item Value Reference Range Comments UA COLOR (test code = COLU) Light-Yellow YELLOW UA APPEARANCE (test code = APPU) CLEAR CLEAR UA GLUCOSE DIPSTICK (test code = DGLUU) NEGATIVE mg/dL NEGATIVE UA BILIRUBIN DIPSTICK (test code = BILU) NEGATIVE mg/dL NEGATIV E UA KETONE DIPSTICK (test code = KETU) NEGATIVE mg/dL NEGATIVE UA SPECIFIC GRAVITY (test code = SGU) 1.010 1.001-1.03 5 UA BLOOD DIPSTICK (test code = GILBERTO) 0.1 mg/dL (1+) mg/dL NEGATIV E UA PH DIPSTICK (test code = PAUL) 6.0 5.0-8.0 UA PROTEIN DIPSTICK (test code = PROU) 30 (1+) mg/dL NEGATIVE UA UROBILINIOGEN DIPSTICK (test code = URO) Normal mg/dL NEGA TIVE UA NITRITE DIPSTICK (test code = VEE) NEGATIVE NEGATIVE UA LEUKOCYTE ESTERASE W REFLEX (test code = LEUUR) 500 Ramírez/u L (3+) Ramírez/uL NEGATIVE UA WBC (test code = WBCU) per HPF 0-5 UA RBC (test code = RBCU) per HPF 0-5 UA EPITHELIAL CELLS (test code = EPIU) per HPF Few UA BACTERIA (test code = BACU) per HPF NONE Urine Source? Clean CatchBASIC METABOLIC [id number] 09:13:00* Test Item Value Reference Range Comments SODIUM (test code = NA) 141 mmol/L 136-145 POTASSIUM (test code = K) 3.9 mmol/L 3.5-5.1 CHLORIDE (test code = CL) 107.0 mmol/L 98-107 CARBON DIOXIDE (test code = CO2) 25.0 mmol/L 21-32 ANION GAP (test code = GAP) 12.9 10-20 GLUCOSE (test code = GLU) 94 mg/dL 74-106 BLOOD UREA NITROGEN (test code = BUN) 53 mg/dL 7-18 GLOMERULAR FILTRATION RATE (test code = GFR) 36 mL/min >=6 0 Estimated GFR by using Modified MDRD formula.Chronic kidney disease is defined as either kidney damageor GFR <60 mL/min/1.73 m2 for >3 months. CREATININE (test code = CREAT) 2.30 mg/dL 0.7-1.3 BUN/CREATININE RATIO (test code = BUN/CREA) 23.0 10-2 0 CALCIUM (test code = CA) 9.1 mg/dL 8.5-10.1 HEPATIC FUNCTION [id number] 09:13:00* Test Item Value Reference Range Comments TOTAL PROTEIN (test code = PROT) 8.3 gram/dL 6.4-8.2 ALBUMIN (test code = ALB) 2.3 g/dL 3.4-5.0 GLOBULIN (test code = GLOB) 6.0 gram/dL 2.7-4.2 ALBUMIN/GLOBULIN RATIO (test code = A/G) 0.4 0.75-1. 50 BILIRUBIN TOTAL (test code = BILT) 0.20 mg/dL 0.0-1.0 BILIRUBIN DIRECT (test code = BILD) 0.09 mg/dL 0.0-0.20 SGOT/AST (test code = AST) 20 IUnit/L 15-37 SGPT/ALT (test code = ALT) 16 IUnit/L 12-78 ALKALINE PHOSPHATASE TOTAL (test code = ALKP) 82 IUnit/L 45 -117 Note change in reference range due to change in reagent. [id number] 09:13:00* Test Item Value Reference Range Comments TROPONIN-I (test code = TROPI) <0.015 ng/mL 0-0.045 LACTIC [id number] 09:09:00* Test Item Value Reference Range Comments LACTIC ACID (test code = LACT) 0.9 mmol/L 0.4-1.9 PROTHROMBIN [id number] 09:01:00* Test Item Value Reference Range Comments PROTHROMBIN TIME PATIENT (test code = PTP) 13.7 seconds 9.0-1 4.0 INTERNATIONAL NORMAL RATIO (test code = INR) 1.2 0.8 -1.2 The therapeutic range for oral anticoagulant therapy formost indications is an international normalized ratio (INR)of between 2.0 and 3.0. The recommended therapeutic INRrange for various clinical situations is listed below: Clinical Situation INR range Pulmonary e mbolism treatment (2.0-3.0)Venous thrombosis treatmentVenous thrombosis prophylaxis (high risk surgery)Prevention of systemic embolism from: Acute myocardial infarction Valvular heart disease Atrial fibrillation Mechanical prosthetic heart valves (2.5-3.5) IS PATIENT ON ANTICOAGULANTS? NTHROMBOPLASTIN TIME [id number] 09:01:00* Test Item Value Reference Range Comments THROMBOPLASTIN TIME PARTIAL (test code = PTT) 30.7 seconds 25 .0-36.5 IS PATIENT ON ANTICOAGULANTS? NBASIC METABOLIC [id number] 09:01:00* Test Item Value Reference Range Comments SODIUM (test code = NA) 141 mmol/L 136-145 POTASSIUM (test code = K) 3.9 mmol/L 3.5-5.1 CHLORIDE (test code = CL) 107.0 mmol/L 98-107 CARBON DIOXIDE (test code = CO2) mmol/L 21-32 ANION GAP (test code = GAP) 10-20 GLUCOSE (test code = GLU) mg/dL 74-106 BLOOD UREA NITROGEN (test code = BUN) mg/dL 7-18 GLOMERULAR FILTRATION RATE (test code = GFR) mL/min >=6 0 CREATININE (test code = CREAT) mg/dL 0.7-1.3 BUN/CREATININE RATIO (test code = BUN/CREA) 10-2 0 CALCIUM (test code = CA) mg/dL 8.5-10.1 HEPATIC FUNCTION [id number] 09:01:00* Test Item Value Reference Range Comments TOTAL PROTEIN (test code = PROT) gram/dL 6.4-8.2 ALBUMIN (test code = ALB) g/dL 3.4-5.0 GLOBULIN (test code = GLOB) gram/dL 2.7-4.2 ALBUMIN/GLOBULIN RATIO (test code = A/G) 0.75-1. 50 BILIRUBIN TOTAL (test code = BILT) mg/dL 0.0-1.0 BILIRUBIN DIRECT (test code = BILD) mg/dL 0.0-0.20 SGOT/AST (test code = AST) IUnit/L 15-37 SGPT/ALT (test code = ALT) IUnit/L 12-78 ALKALINE PHOSPHATASE TOTAL (test code = ALKP) IUnit/L 45 -117 [id number] 09:01:00* Test Item Value Reference Range Comments TROPONIN-I (test code = TROPI) ng/mL 0-0.045 CBC W/AUTO [id number] 08:49:00* Test Item Value Reference Range Comments WHITE BLOOD CELL (test code = WBC) 6.4 K/mm3 4.5-12.5 RED BLOOD CELL (test code = RBC) 3.33 mill/mm3 4.0-5.8 HEMOGLOBIN (test code = HGB) 8.6 gram/dL 13.0-17.5 HEMATOCRIT (test code = HCT) 27.6 % 42.0-52.0 MEAN CELL VOLUME (test code = MCV) 82.9 fL 80-98 MEAN CELL HGB (test code = MCH) 25.8 picogram 27.0-33.0 MEAN CELL HGB CONCETRATION (test code = MCHC) 31.2 gram/dL 33 .0-36.0 RED CELL DISTRIBUTION WIDTH (test code = RDW) 18.4 % 11 .6-16.2 RED CELL DISTRIBUTION WIDTH SD (test code = RDW-SD) 55.3 fL 37.0-51.0 PLATELET COUNT (test code = PLT) 330 K/mm3 150-450 MEAN PLATELET VOLUME (test code = MPV) 9.7 fL 6.7-11.0 NEUTROPHIL % (test code = NT%) 63.1 % 39.0-69.0 IMMATURE GRANULOCYTE % (test code = IG%) 0.5 % 0.0-5.0 LYMPHOCYTE % (test code = LY%) 25.0 % 25.0-55.0 MONOCYTE % (test code = MO%) 8.8 % 0.0-10.0 EOSINOPHIL % (test code = EO%) 2.4 % 0.0-5.0 BASOPHIL % (test code = BA%) 0.2 % 0.0-1.0 NUCLEATED RBC % (test code = NRBC%) 0.0 % 0-0 NEUTROPHIL # (test code = NT#) 4.01 K/mm3 1.8-7.7 IMMATURE GRANULOCYTE # (test code = IG#) 0.03 x10 3/uL 0-0.03 LYMPHOCYTE # (test code = LY#) 1.59 K/mm3 1.0-5.0 MONOCYTE # (test code = MO#) 0.56 K/mm3 0-0.8 EOSINOPHIL # (test code = EO#) 0.15 K/mm3 0.0-0.5 BASOPHIL # (test code = BA#) 0.01 K/mm3 0.0-0.2 NUCLEATED RBC # (test code = NRBC#) 0.00 K/mm3 0.0-0.1 - XR CHEST 1 [id number] 08:34:00 FAX: Blair Borges MD [phone] [place]: St: REG FAX: Luis Antonio Bautista MD [phone] Name: SIS SWARTZORE [facility] : 1965 Age/S: 54/M [address] [facility] Unit #: [id number] Loc: [place] [address] Phys: Luis Antonio Bautista MD Acct: [id number] Dis Date: Status: REG ER PHONE #: [phone] Exam Date: 02/19/2020 0843 FAX #: [phone] Reason: Altered Mental Status EXAMS: CPT CODE: [id number] XR CHEST 1 V 53009 HISTORY: Altered Mental Status TECHNIQUE: AP chest x-ray COMPARISON: 02/02/20 FINDINGS: Low lung volumes. No airspace consolidation or pleural effusion. Right upper lobe scarring. Mild cardiomegaly. Mediastinal silhouette is unremarkable. Degenerative changes of the spine and shoulders. IMPRESSION: No radiographic evidence of acute cardiopulmonary process. LOCATION: at 0834 Reported and signed by: Naye Cassidy D.O. CC: Blair Borges MD; Luis Antonio Bautista MD Technologist: Leana Sabillon, RT(R); Aide Terrell RT(R) Trnlard Date/Time/By: 02/19/2020 (0834) : By: J [email or web address] Orig Print D/T: S: 02/19/2020 (0844) PAGE 1 Signed Report - CT HEAD/BRAIN W/O [id number] 08:03:00 Name: MAXIM SWARTZ [facility] : 1965 Age/S: 54 / M [address] [facility] Unit #: [id number] Loc: [place] [address] Phys: Luis Antonio Bautista MD Acct: [id number] Dis Date: Status: REG ER PHONE #: [phone] Exam Date: 02/19/2020 0758 FAX #: [phone] Reason: Altered Mental Status EXAMS: CPT CODE: [id number] CT HEAD/BRAIN W/O CONT 63808 HISTORY: Altered Mental Status TECHNIQUE: Noncontrast 2.[address] of the head. Examination acquired within 24 hours of arrival. Automated exposure control for dose reduction; DLP: 1747 mGy-cm. COMPARISON: 01/22/20 FINDINGS: No acute hemorrhage. No CT evidence of acute infarct. No intracranial mass or mass effect. Mild parenchymal atrophy. No hydrocephalus. No extra-axial fluid collection. Atherosclerotic vascular calcification of the carotid siphons. Trace right sphenoid sinus fluid. Mastoid air cells and middle ear cavities are clear. Orbital contents are unremarkable. Degenerative changes of the left temporomandibular joint. Calvarium and skull base are intact. Mild posterior scalp swelling. IMPRESSION: No acute intracranial process. LOCATION: [place] at 0803 Reported and signed by: Naye Cassidy D.O. CC: Blair Borges MD; Luis Antonio Bautista MD Technologist:Angel Tejeda RT(R),(MR),(CT); CTDI: DLP: Trnscb Date/Time: 02/19/2020 (0803) J [email or web address] Orig Print D/T: S: 02/19/2020 (0807) PAGE 1 Signed Report BASIC METABOLIC [id number] 06:42:00* Test Item Value Reference Range Comments SODIUM (test code = NA) 140 mmol/L 136-145 POTASSIUM (test code = K) 4.3 mmol/L 3.5-5.1 CHLORIDE (test code = CL) 104.0 mmol/L 98-107 CARBON DIOXIDE (test code = CO2) 31.0 mmol/L 21-32 ANION GAP (test code = GAP) 9.3 10-20 GLUCOSE (test code = GLU) 85 mg/dL 74-106 BLOOD UREA NITROGEN (test code = BUN) 16 mg/dL 7-18 GLOMERULAR FILTRATION RATE (test code = GFR) > 60 mL/min >=6 0 Estimated GFR by using Modified MDRD formula.Chronic kidney disease is defined as either kidney damageor GFR <60 mL/min/1.73 m2 for >3 months. CREATININE (test code = CREAT) 0.60 mg/dL 0.7-1.3 BUN/CREATININE RATIO (test code = BUN/CREA) 26.7 10-2 0 CALCIUM (test code = CA) 8.9 mg/dL 8.5-10.1 HEPATIC FUNCTION [id number] 06:42:00* Test Item Value Reference Range Comments TOTAL PROTEIN (test code = PROT) 8.3 gram/dL 6.4-8.2 ALBUMIN (test code = ALB) 1.9 g/dL 3.4-5.0 GLOBULIN (test code = GLOB) 6.4 gram/dL 2.7-4.2 ALBUMIN/GLOBULIN RATIO (test code = A/G) 0.3 0.75-1. 50 BILIRUBIN TOTAL (test code = BILT) 0.30 mg/dL 0.0-1.0 BILIRUBIN DIRECT (test code = BILD) 0.10 mg/dL 0.0-0.20 SGOT/AST (test code = AST) 27 IUnit/L 15-37 SGPT/ALT (test code = ALT) 24 IUnit/L 12-78 ALKALINE PHOSPHATASE TOTAL (test code = ALKP) 101 IUnit/L 45 -117 Note change in reference range due to change in reagent. [id number] 06:42:00* Test Item Value Reference Range Comments LIPASE (test code = LIP) 71 U/L 73.0-393.0 [id number] 06:42:00* Test Item Value Reference Range Comments MAGNESIUM (test code = MAG) 1.9 mg/dL 1.8-2.4 THYROID STIMULATING [id number] 06:42:00* Test Item Value Reference Range Comments THYROID STIMULATING HORMONE (test code = TSH) 2.410 uIU/mL 0. 36-3.74 TSH REFERENCE RANGES: EUTHYROID: 0.35 - 4.3 mIU/mL HYPO : > 5.5 mIU/mL HYPER : < 0.35 mIU/mL BASIC METABOLIC [id number] 06:24:00* Test Item Value Reference Range Comments SODIUM (test code = NA) 140 mmol/L 136-145 POTASSIUM (test code = K) 4.3 mmol/L 3.5-5.1 CHLORIDE (test code = CL) 104.0 mmol/L 98-107 CARBON DIOXIDE (test code = CO2) mmol/L 21-32 ANION GAP (test code = GAP) 10-20 GLUCOSE (test code = GLU) mg/dL 74-106 BLOOD UREA NITROGEN (test code = BUN) mg/dL 7-18 GLOMERULAR FILTRATION RATE (test code = GFR) mL/min >=6 0 CREATININE (test code = CREAT) mg/dL 0.7-1.3 BUN/CREATININE RATIO (test code = BUN/CREA) 10-2 0 CALCIUM (test code = CA) mg/dL 8.5-10.1 HEPATIC FUNCTION [id number] 06:24:00* Test Item Value Reference Range Comments TOTAL PROTEIN (test code = PROT) gram/dL 6.4-8.2 ALBUMIN (test code = ALB) g/dL 3.4-5.0 GLOBULIN (test code = GLOB) gram/dL 2.7-4.2 ALBUMIN/GLOBULIN RATIO (test code = A/G) 0.75-1. 50 BILIRUBIN TOTAL (test code = BILT) mg/dL 0.0-1.0 BILIRUBIN DIRECT (test code = BILD) mg/dL 0.0-0.20 SGOT/AST (test code = AST) IUnit/L 15-37 SGPT/ALT (test code = ALT) IUnit/L 12-78 ALKALINE PHOSPHATASE TOTAL (test code = ALKP) IUnit/L 45 -117 [id number] 06:24:00* Test Item Value Reference Range Comments LIPASE (test code = LIP) U/L 73.0-393.0 [id number] 06:24:00* Test Item Value Reference Range Comments MAGNESIUM (test code = MAG) mg/dL 1.8-2.4 THYROID STIMULATING [id number] 06:24:00* Test Item Value Reference Range Comments THYROID STIMULATING HORMONE (test code = TSH) uIU/mL 0. 36-3.74 CBC W/AUTO [id number] 06:14:00* Test Item Value Reference Range Comments WHITE BLOOD CELL (test code = WBC) 13.4 K/mm3 4.5-12.5 RED BLOOD CELL (test code = RBC) 2.78 mill/mm3 4.0-5.8 HEMOGLOBIN (test code = HGB) 7.3 gram/dL 13.0-17.5 HEMATOCRIT (test code = HCT) 23.8 % 42.0-52.0 MEAN CELL VOLUME (test code = MCV) 85.6 fL 80-98 MEAN CELL HGB (test code = MCH) 26.3 picogram 27.0-33.0 MEAN CELL HGB CONCETRATION (test code = MCHC) 30.7 gram/dL 33 .0-36.0 RED CELL DISTRIBUTION WIDTH (test code = RDW) 19.2 % 11 .6-16.2 RED CELL DISTRIBUTION WIDTH SD (test code = RDW-SD) 59.2 fL 37.0-51.0 PLATELET COUNT (test code = PLT) 463 K/mm3 150-450 MEAN PLATELET VOLUME (test code = MPV) 10.3 fL 6.7-11.0 NEUTROPHIL % (test code = NT%) 71.6 % 39.0-69.0 IMMATURE GRANULOCYTE % (test code = IG%) 1.0 % 0.0-5.0 LYMPHOCYTE % (test code = LY%) 17.1 % 25.0-55.0 MONOCYTE % (test code = MO%) 8.7 % 0.0-10.0 EOSINOPHIL % (test code = EO%) 1.3 % 0.0-5.0 BASOPHIL % (test code = BA%) 0.3 % 0.0-1.0 NUCLEATED RBC % (test code = NRBC%) 0.0 % 0-0 NEUTROPHIL # (test code = NT#) 9.60 K/mm3 1.8-7.7 IMMATURE GRANULOCYTE # (test code = IG#) 0.14 x10 3/uL 0-0.03 LYMPHOCYTE # (test code = LY#) 2.29 K/mm3 1.0-5.0 MONOCYTE # (test code = MO#) 1.17 K/mm3 0-0.8 EOSINOPHIL # (test code = EO#) 0.18 K/mm3 0.0-0.5 BASOPHIL # (test code = BA#) 0.04 K/mm3 0.0-0.2 NUCLEATED RBC # (test code = NRBC#) 0.00 K/mm3 0.0-0.1 - XR ABDOMEN AP 1 [id number] 10:38:00 FAX: Blair Borges MD [phone] [place]: St: [facility] FAX: Mariana Ryan MD Name: MAXIM SWARTZ [facility] : 1965 Age/S: 54/M [address] [facility] Unit #: [id number] Loc: V.[address] [place] [address] Phys: Mariana Long MD Acct: [id number] Dis Date: Status: ADM IN PHONE #: [phone] Exam Date: 02/02/2020 1005 FAX #: [phone] Reason: fever EXAMS: CPT CODE: [id number] XR ABDOMEN AP 1 V [id number] HISTORY: Fever. COMPARISON: January 24, 2020. Location: [facility]. Single view chest: No acute i nfiltrates, effusion or congestion. Scarring and COPD. Mild cardiomegaly. IMPRESSION: No acute infiltrates, effusion or congestion. COPD. Single view abdomen: Moderate diffuse distention of the large bowel. Moderate distention of the small bowel as well. Large amount fecal material in the colon. T hese findings suggest ileus. No pathologic calcifications are noted. DJD of the lumbar spine. IMPRESSION: Large and small bowel distention especially the large bowel. Constipation. at 1038 Reported and signed by: Grayson Brown M.D. CC: Blair Borges MD; Mariana Long MD Technologist: Roxi Dye( R); Aide FRAUSTO(R) Trnscrd Date/Time/By: 02/02/2020 (1038) : B y: [email or web address] Orig Print D/T: S: 02/02/2020 (3973) PAGE 1 Signed Report - XR CHEST 1 [id number] 10:38:00 FAX: Blair Borges MD [phone] [place]: St: [facility] FAX: Mariana Ryan MD Name: MAXIM SWARTZ [facility] : 1965 Age/S: 54/M [address] [facility] Unit #: [id number] Loc: V.[address] [place] [address] Phys: Mariana Long MD Acct: [id number] Dis Date: Status: ADM IN PHONE #: [phone] Exam Date: 02/02/2020 1005 FAX #: [phone] Reason: fever EXAMS: CPT CODE: [id number] XR CHEST 1 V 86849 HISTORY: Fever. COMPARISON: January 24, 2020. Location: [facility]. Single view chest: No acute infiltrates, effusion or congestion. Scarring and COPD. Mild cardiomegaly. IMPRESSION: No acute infiltrates, effusion or congestion. COPD. Single view abdomen: Moderate diffuse distention of the large bowel. Moderate distention of the small bowel as well. Large amount fecal material in the colon. These findings suggest ileus. No pathologic calcifications are noted. DJD of the lumbar spine. IMPRESSION: Large and small bowel distention especially the large bowel. Constipation. at 1038 Reported and signed by: Grayson Brown M.D. CC: Blair Borges MD; Mariana Long MD Technologist: Roxi Dye( R); Aide FRAUSTO(R) Trnscrd Date/Time/By: 02/02/2020 (1038) : B y: [email or web address] Orig Print D/T: S: 02/02/2020 (6500) PAGE 1 Signed Report BASIC METABOLIC [id number] 12:09:00* Test Item Value Reference Range Comments SODIUM (test code = NA) 140 mmol/L 136-145 POTASSIUM (test code = K) 3.9 mmol/L 3.5-5.1 CHLORIDE (test code = CL) 104.0 mmol/L 98-107 CARBON DIOXIDE (test code = CO2) 30.0 mmol/L 21-32 ANION GAP (test code = GAP) 9.9 10-20 GLUCOSE (test code = GLU) 157 mg/dL 74-106 BLOOD UREA NITROGEN (test code = BUN) 13 mg/dL 7-18 GLOMERULAR FILTRATION RATE (test code = GFR) > 60 mL/min >=6 0 Estimated GFR by using Modified MDRD formula.Chronic kidney disease is defined as either kidney damageor GFR <60 mL/min/1.73 m2 for >3 months. CREATININE (test code = CREAT) 0.60 mg/dL 0.7-1.3 BUN/CREATININE RATIO (test code = BUN/CREA) 21.7 10-2 0 CALCIUM (test code = CA) 8.4 mg/dL 8.5-10.1 .[facility] 01/31/20546 [id number] 12:09:00* Test Item Value Reference Range Comments MAGNESIUM (test code = MAG) 1.8 mg/dL 1.8-2.4 .[facility] 01/31/20546 BASIC METABOLIC [id number] 12:02:00* Test Item Value Reference Range Comments SODIUM (test code = NA) 140 mmol/L 136-145 POTASSIUM (test code = K) 3.9 mmol/L 3.5-5.1 CHLORIDE (test code = CL) 104.0 mmol/L 98-107 CARBON DIOXIDE (test code = CO2) mmol/L 21-32 ANION GAP (test code = GAP) 10-20 GLUCOSE (test code = GLU) mg/dL 74-106 BLOOD UREA NITROGEN (test code = BUN) mg/dL 7-18 GLOMERULAR FILTRATION RATE (test code = GFR) mL/min >=6 0 CREATININE (test code = CREAT) mg/dL 0.7-1.3 BUN/CREATININE RATIO (test code = BUN/CREA) 10-2 0 CALCIUM (test code = CA) mg/dL 8.5-10.1 [facility] 01/31/20546 [id number] 12:02:00* Test Item Value Reference Range Comments MAGNESIUM (test code = MAG) mg/dL 1.8-2.4 [facility] 01/31/20546 CBC W/AUTO [id number] 11:52:00* Test Item Value Reference Range Comments WHITE BLOOD CELL (test code = WBC) 12.0 K/mm3 4.5-12.5 RED BLOOD CELL (test code = RBC) 2.92 mill/mm3 4.0-5.8 HEMOGLOBIN (test code = HGB) 7.5 gram/dL 13.0-17.5 HEMATOCRIT (test code = HCT) 24.6 % 42.0-52.0 MEAN CELL VOLUME (test code = MCV) 84.2 fL 80-98 MEAN CELL HGB (test code = MCH) 25.7 picogram 27.0-33.0 MEAN CELL HGB CONCETRATION (test code = MCHC) 30.5 gram/dL 33 .0-36.0 RED CELL DISTRIBUTION WIDTH (test code = RDW) 19.5 % 11 .6-16.2 RED CELL DISTRIBUTION WIDTH SD (test code = RDW-SD) 58.4 fL 37.0-51.0 PLATELET COUNT (test code = PLT) 404 K/mm3 150-450 MEAN PLATELET VOLUME (test code = MPV) 10.2 fL 6.7-11.0 NEUTROPHIL % (test code = NT%) 79.2 % 39.0-69.0 IMMATURE GRANULOCYTE % (test code = IG%) 1.4 % 0.0-5.0 LYMPHOCYTE % (test code = LY%) 11.9 % 25.0-55.0 MONOCYTE % (test code = MO%) 4.9 % 0.0-10.0 EOSINOPHIL % (test code = EO%) 2.3 % 0.0-5.0 BASOPHIL % (test code = BA%) 0.3 % 0.0-1.0 NUCLEATED RBC % (test code = NRBC%) 0.0 % 0-0 NEUTROPHIL # (test code = NT#) 9.47 K/mm3 1.8-7.7 IMMATURE GRANULOCYTE # (test code = IG#) 0.17 x10 3/uL 0-0.03 LYMPHOCYTE # (test code = LY#) 1.42 K/mm3 1.0-5.0 MONOCYTE # (test code = MO#) 0.59 K/mm3 0-0.8 EOSINOPHIL # (test code = EO#) 0.27 K/mm3 0.0-0.5 BASOPHIL # (test code = BA#) 0.03 K/mm3 0.0-0.2 NUCLEATED RBC # (test code = NRBC#) 0.00 K/mm3 0.0-0.1 MANUAL DIFF REQUIRED (test code = MDIFF) NO WORK-V.LAB.[facility] 01/31/20 [id number] 12:58:00* Test Item Value Reference Range Comments MAGNESIUM (test code = MAG) 1.7 mg/dL 1.8-2.4 [id number] 12:40:00* Test Item Value Reference Range Comments HEMOGLOBIN (test code = HGB) 6.7 gram/dL 13.0-17.5 [id number] 19:06:00* Test Item Value Reference Range Comments HEMOGLOBIN (test code = HGB) 7.0 gram/dL 13.0-17.5 PT REFUSED. LEFT SUPPLY FOR RN:MARIANO DU.LAB.01/28/20 1849BASIC METABOLIC [id number] 12:37:00* Test Item Value Reference Range Comments SODIUM (test code = NA) 142 mmol/L 136-145 POTASSIUM (test code = K) 4.4 mmol/L 3.5-5.1 CHLORIDE (test code = CL) 109.0 mmol/L 98-107 CARBON DIOXIDE (test code = CO2) 30.0 mmol/L 21-32 ANION GAP (test code = GAP) 7.4 10-20 GLUCOSE (test code = GLU) 104 mg/dL 74-106 BLOOD UREA NITROGEN (test code = BUN) 16 mg/dL 7-18 GLOMERULAR FILTRATION RATE (test code = GFR) > 60 mL/min >=6 0 Estimated GFR by using Modified MDRD formula.Chronic kidney disease is defined as either kidney damageor GFR <60 mL/min/1.73 m2 for >3 months. CREATININE (test code = CREAT) 0.60 mg/dL 0.7-1.3 BUN/CREATININE RATIO (test code = BUN/CREA) 26.7 10-2 0 CALCIUM (test code = CA) 8.2 mg/dL 8.5-10.1 LUIS QUINTANA WILL COLLECT BLOOD [id number] 12:37:00* Test Item Value Reference Range Comments MAGNESIUM (test code = MAG) 1.5 mg/dL 1.8-2.4 LUIS QUINTANA WILL COLLECT BLOOD BASIC METABOLIC [id number] 12:35:00* Test Item Value Reference Range Comments SODIUM (test code = NA) 142 mmol/L 136-145 POTASSIUM (test code = K) 4.4 mmol/L 3.5-5.1 CHLORIDE (test code = CL) 109.0 mmol/L 98-107 CARBON DIOXIDE (test code = CO2) mmol/L 21-32 ANION GAP (test code = GAP) 10-20 GLUCOSE (test code = GLU) mg/dL 74-106 BLOOD UREA NITROGEN (test code = BUN) mg/dL 7-18 GLOMERULAR FILTRATION RATE (test code = GFR) mL/min >=6 0 CREATININE (test code = CREAT) mg/dL 0.7-1.3 BUN/CREATININE RATIO (test code = BUN/CREA) 10-2 0 CALCIUM (test code = CA) 8.2 mg/dL 8.5-10.1 LUIS QUINTANA WILL COLLECT BLOOD [id number] 12:35:00* Test Item Value Reference Range Comments MAGNESIUM (test code = MAG) mg/dL 1.8-2.4 LUIS QUINTANA WILL COLLECT BLOOD CBC W/AUTO [id number] 12:23:00* Test Item Value Reference Range Comments WHITE BLOOD CELL (test code = WBC) 11.4 K/mm3 4.5-12.5 RED BLOOD CELL (test code = RBC) 2.64 mill/mm3 4.0-5.8 HEMOGLOBIN (test code = HGB) 6.9 gram/dL 13.0-17.5 HEMATOCRIT (test code = HCT) 22.2 % 42.0-52.0 MEAN CELL VOLUME (test code = MCV) 84.1 fL 80-98 MEAN CELL HGB (test code = MCH) 26.1 picogram 27.0-33.0 MEAN CELL HGB CONCETRATION (test code = MCHC) 31.1 gram/dL 33 .0-36.0 RED CELL DISTRIBUTION WIDTH (test code = RDW) 17.6 % 11 .6-16.2 RED CELL DISTRIBUTION WIDTH SD (test code = RDW-SD) 54.2 fL 37.0-51.0 PLATELET COUNT (test code = PLT) 255 K/mm3 150-450 MEAN PLATELET VOLUME (test code = MPV) 10.7 fL 6.7-11.0 NEUTROPHIL % (test code = NT%) 73.9 % 39.0-69.0 IMMATURE GRANULOCYTE % (test code = IG%) 1.6 % 0.0-5.0 LYMPHOCYTE % (test code = LY%) 14.9 % 25.0-55.0 MONOCYTE % (test code = MO%) 7.0 % 0.0-10.0 EOSINOPHIL % (test code = EO%) 2.4 % 0.0-5.0 BASOPHIL % (test code = BA%) 0.2 % 0.0-1.0 NUCLEATED RBC % (test code = NRBC%) 0.0 % 0-0 NEUTROPHIL # (test code = NT#) 8.46 K/mm3 1.8-7.7 IMMATURE GRANULOCYTE # (test code = IG#) 0.18 x10 3/uL 0-0.03 LYMPHOCYTE # (test code = LY#) 1.70 K/mm3 1.0-5.0 MONOCYTE # (test code = MO#) 0.80 K/mm3 0-0.8 EOSINOPHIL # (test code = EO#) 0.27 K/mm3 0.0-0.5 BASOPHIL # (test code = BA#) 0.02 K/mm3 0.0-0.2 NUCLEATED RBC # (test code = NRBC#) 0.00 K/mm3 0.0-0.1 - XR ABDOMEN AP 1 [id number] 15:26:00 FAX: Blair Borges MD [phone] [place]: B St: ADM FAX: Mariana Ryan MD Name: MAXIM SWARTZ [facility] : 1965 Age/S: 54/M [address] [facility] Unit #: [id number] Loc: V.[address] [place] [address] Phys: Mariana Long MD Acct: [id number] Dis Date: Status: ADM IN PHONE #: [phone] Exam Date: 01/27/2020 1522 FAX #: [phone] Reason: MEGACOLOM EXAMS: CPT CODE: [id number] XR ABDOMEN AP 1 V 33246 HISTORY: Megacolon TECHNIQUE: AP abdomen x-ray COMPARISON: 01/24/20 FINDINGS: Persistent gaseous di stention of the colon. No dilated small bowel is observed. No intra-abdomi nal mass effect. No abnormal calcifications are observed. Kim catheter. Degenerative changes of the spine and hips. IMPRESSION: Persistent gaseous distention of the colon. LOCATION: [facility] at 1526 Reported and signed by: Naye Cassidy D.O. CC: Blair Borges MD; Mariana Long MD Technologist: Blanka Douglas RT(R); GRACE HERNANDEZ IN RT(R) Trnscrd Date/Time/By: 01/27/2020 (1526) : By: [email or web address] Orig Print D/T: S: 01/27/2020 (1529) PAGE 1 Signed Report BASIC METABOLIC PANEL 2020-01-27 04:36:00* Test Item Value Reference Range Comments SODIUM (test code = NA) 142 mmol/L 136-145 POTASSIUM (test code = K) 4.0 mmol/L 3.5-5.1 CHLORIDE (test code = CL) 110.0 mmol/L 98-107 CARBON DIOXIDE (test code = CO2) 26.0 mmol/L 21-32 ANION GAP (test code = GAP) 10.0 10-20 GLUCOSE (test code = GLU) 102 mg/dL 74-106 BLOOD UREA NITROGEN (test code = BUN) 18 mg/dL 7-18 GLOMERULAR FILTRATION RATE (test code = GFR) > 60 mL/min >=6 0 Estimated GFR by using Modified MDRD formula.Chronic kidney disease is defined as either kidney damageor GFR <60 mL/min/1.73 m2 for >3 months. CREATININE (test code = CREAT) 0.70 mg/dL 0.7-1.3 BUN/CREATININE RATIO (test code = BUN/CREA) 25.7 10-2 0 CALCIUM (test code = CA) 8.1 mg/dL 8.5-10.1 [id number] 04:36:00* Test Item Value Reference Range Comments MAGNESIUM (test code = MAG) 1.5 mg/dL 1.8-2.4 BASIC METABOLIC [id number] 04:28:00* Test Item Value Reference Range Comments SODIUM (test code = NA) 142 mmol/L 136-145 POTASSIUM (test code = K) 4.0 mmol/L 3.5-5.1 CHLORIDE (test code = CL) 110.0 mmol/L 98-107 CARBON DIOXIDE (test code = CO2) mmol/L 21-32 ANION GAP (test code = GAP) 10-20 GLUCOSE (test code = GLU) mg/dL 74-106 BLOOD UREA NITROGEN (test code = BUN) mg/dL 7-18 GLOMERULAR FILTRATION RATE (test code = GFR) mL/min >=6 0 CREATININE (test code = CREAT) mg/dL 0.7-1.3 BUN/CREATININE RATIO (test code = BUN/CREA) 10-2 0 CALCIUM (test code = CA) mg/dL 8.5-10.1 [id number] 04:28:00* Test Item Value Reference Range Comments MAGNESIUM (test code = MAG) mg/dL 1.8-2.4 CBC W/AUTO [id number] 04:03:00* Test Item Value Reference Range Comments WHITE BLOOD CELL (test code = WBC) 13.9 K/mm3 4.5-12.5 RED BLOOD CELL (test code = RBC) 2.89 mill/mm3 4.0-5.8 HEMOGLOBIN (test code = HGB) 7.6 gram/dL 13.0-17.5 HEMATOCRIT (test code = HCT) 23.6 % 42.0-52.0 MEAN CELL VOLUME (test code = MCV) 81.7 fL 80-98 MEAN CELL HGB (test code = MCH) 26.3 picogram 27.0-33.0 MEAN CELL HGB CONCETRATION (test code = MCHC) 32.2 gram/dL 33 .0-36.0 RED CELL DISTRIBUTION WIDTH (test code = RDW) 17.6 % 11 .6-16.2 RED CELL DISTRIBUTION WIDTH SD (test code = RDW-SD) 51.8 fL 37.0-51.0 PLATELET COUNT (test code = PLT) 248 K/mm3 150-450 MEAN PLATELET VOLUME (test code = MPV) 10.6 fL 6.7-11.0 NEUTROPHIL % (test code = NT%) 74.8 % 39.0-69.0 IMMATURE GRANULOCYTE % (test code = IG%) 1.5 % 0.0-5.0 LYMPHOCYTE % (test code = LY%) 13.5 % 25.0-55.0 MONOCYTE % (test code = MO%) 8.9 % 0.0-10.0 EOSINOPHIL % (test code = EO%) 1.1 % 0.0-5.0 BASOPHIL % (test code = BA%) 0.2 % 0.0-1.0 NUCLEATED RBC % (test code = NRBC%) 0.0 % 0-0 NEUTROPHIL # (test code = NT#) 10.40 K/mm3 1.8-7.7 IMMATURE GRANULOCYTE # (test code = IG#) 0.21 x10 3/uL 0-0.03 LYMPHOCYTE # (test code = LY#) 1.87 K/mm3 1.0-5.0 MONOCYTE # (test code = MO#) 1.23 K/mm3 0-0.8 EOSINOPHIL # (test code = EO#) 0.15 K/mm3 0.0-0.5 BASOPHIL # (test code = BA#) 0.03 K/mm3 0.0-0.2 NUCLEATED RBC # (test code = NRBC#) 0.00 K/mm3 0.0-0.1 MANUAL DIFF REQUIRED (test code = MDIFF) NO CBC W/MANUAL [id number] 06:32:00* Test Item Value Reference Range Comments WHITE BLOOD CELL (test code = WBC) 10.8 K/mm3 4.5-12.5 RED BLOOD CELL (test code = RBC) 2.83 mill/mm3 4.0-5.8 HEMOGLOBIN (test code = HGB) 7.3 gram/dL 13.0-17.5 HEMATOCRIT (test code = HCT) 23.3 % 42.0-52.0 MEAN CELL VOLUME (test code = MCV) 82.3 fL 80-98 MEAN CELL HGB (test code = MCH) 25.8 picogram 27.0-33.0 MEAN CELL HGB CONCETRATION (test code = MCHC) 31.3 gram/dL 33 .0-36.0 RED CELL DISTRIBUTION WIDTH (test code = RDW) 17.6 % 11 .6-16.2 RED CELL DISTRIBUTION WIDTH SD (test code = RDW-SD) 51.6 fL 37.0-51.0 PLATELET COUNT (test code = PLT) 237 K/mm3 150-450 MEAN PLATELET VOLUME (test code = MPV) 10.5 fL 6.7-11.0 IMMATURE GRANULOCYTE % (test code = IG%) 1.0 % 0.0-5.0 NUCLEATED RBC % (test code = NRBC%) 0.0 % 0-0 NEUTROPHIL # (test code = NT#) 8.48 K/mm3 1.8-7.7 IMMATURE GRANULOCYTE # (test code = IG#) 0.11 x10 3/uL 0-0.03 LYMPHOCYTE # (test code = LY#) 1.30 K/mm3 1.0-5.0 MONOCYTE # (test code = MO#) 0.86 K/mm3 0-0.8 EOSINOPHIL # (test code = EO#) 0.07 K/mm3 0.0-0.5 BASOPHIL # (test code = BA#) 0.01 K/mm3 0.0-0.2 NUCLEATED RBC # (test code = NRBC#) 0.00 K/mm3 0.0-0.1 MANUAL DIFF REQUIRED (test code = MDIFF) YES STAIN ACCEPTABILITY (test code = STN ACCEPTABLE) STAIN ACCEPTABL E TOTAL CELLS COUNTED (test code = TCC) 113 #CELLS SEGMENTED NEUTROPHILS (test code = SEG) 85.8 % 39-69 BAND NEUTROPHIL (test code = BAND) 0 % 0-10 LYMPHOCYTE (test code = LYMPH) 8.0 % 25-55 REACTIVE LYMPH (test code = RELYMPH) 0.9 % MONOCYTE (test code = MON) 4.4 % 0-10 EOSINOPHIL (test code = EOS) 0.9 % 0.0-5.0 BASOPHIL (test code = BASO) 0 % 0-1.0 METAMYELOCYTE (test code = META) 0 % 0-0 MYELOCYTE (test code = MYELO) 0 % 0.0-0.0 PROMYELOCYTE (test code = PROM) 0 % 0-0 HYPOCHROMIA (test code = HYPO) 1+ POIKILOCYTOSIS (test code = POIK) 2+ ANISOCYTOSIS (test code = ANISO) 1+ MICROCYTOSIS (test code = MICR) 1+ TARGET CELLS (test code = TGT) 1+ TEAR DROP CELLS (test code = TEAR) 1+ CECILIO CELLS (test code = CECILIO) 1+ NONE PLATELET ESTIMATE (test code = PLTEST) ADEQUATE PLATELET MORPHOLOGY (test code = PLTMORPH) NORMAL IMMATURE FORMS (test code = IMMAT) 0 % 0-0 BASIC METABOLIC [id number] 06:23:00* Test Item Value Reference Range Comments SODIUM (test code = NA) 142 mmol/L 136-145 POTASSIUM (test code = K) 3.4 mmol/L 3.5-5.1 CHLORIDE (test code = CL) 111.0 mmol/L 98-107 CARBON DIOXIDE (test code = CO2) 23.0 mmol/L 21-32 ANION GAP (test code = GAP) 11.4 10-20 GLUCOSE (test code = GLU) 126 mg/dL 74-106 BLOOD UREA NITROGEN (test code = BUN) 23 mg/dL 7-18 GLOMERULAR FILTRATION RATE (test code = GFR) > 60 mL/min >=6 0 Estimated GFR by using Modified MDRD formula.Chronic kidney disease is defined as either kidney damageor GFR <60 mL/min/1.73 m2 for >3 months. CREATININE (test code = CREAT) 0.80 mg/dL 0.7-1.3 BUN/CREATININE RATIO (test code = BUN/CREA) 28.8 10-2 0 CALCIUM (test code = CA) 8.2 mg/dL 8.5-10.1 [id number] 06:23:00* Test Item Value Reference Range Comments MAGNESIUM (test code = MAG) 1.5 mg/dL 1.8-2.4 BASIC METABOLIC [id number] 06:18:00* Test Item Value Reference Range Comments SODIUM (test code = NA) 142 mmol/L 136-145 POTASSIUM (test code = K) 3.4 mmol/L 3.5-5.1 CHLORIDE (test code = CL) 111.0 mmol/L 98-107 CARBON DIOXIDE (test code = CO2) mmol/L 21-32 ANION GAP (test code = GAP) 10-20 GLUCOSE (test code = GLU) mg/dL 74-106 BLOOD UREA NITROGEN (test code = BUN) mg/dL 7-18 GLOMERULAR FILTRATION RATE (test code = GFR) mL/min >=6 0 CREATININE (test code = CREAT) mg/dL 0.7-1.3 BUN/CREATININE RATIO (test code = BUN/CREA) 10-2 0 CALCIUM (test code = CA) mg/dL 8.5-10.1 [id number] 06:18:00* Test Item Value Reference Range Comments MAGNESIUM (test code = MAG) mg/dL 1.8-2.4 CBC W/MANUAL [id number] 06:08:00* Test Item Value Reference Range Comments WHITE BLOOD CELL (test code = WBC) 10.8 K/mm3 4.5-12.5 RED BLOOD CELL (test code = RBC) 2.83 mill/mm3 4.0-5.8 HEMOGLOBIN (test code = HGB) 7.3 gram/dL 13.0-17.5 HEMATOCRIT (test code = HCT) 23.3 % 42.0-52.0 MEAN CELL VOLUME (test code = MCV) 82.3 fL 80-98 MEAN CELL HGB (test code = MCH) 25.8 picogram 27.0-33.0 MEAN CELL HGB CONCETRATION (test code = MCHC) 31.3 gram/dL 33 .0-36.0 RED CELL DISTRIBUTION WIDTH (test code = RDW) 17.6 % 11 .6-16.2 RED CELL DISTRIBUTION WIDTH SD (test code = RDW-SD) 51.6 fL 37.0-51.0 PLATELET COUNT (test code = PLT) 237 K/mm3 150-450 MEAN PLATELET VOLUME (test code = MPV) 10.5 fL 6.7-11.0 IMMATURE GRANULOCYTE % (test code = IG%) 1.0 % 0.0-5.0 NUCLEATED RBC % (test code = NRBC%) 0.0 % 0-0 NEUTROPHIL # (test code = NT#) 8.48 K/mm3 1.8-7.7 IMMATURE GRANULOCYTE # (test code = IG#) 0.11 x10 3/uL 0-0.03 LYMPHOCYTE # (test code = LY#) 1.30 K/mm3 1.0-5.0 MONOCYTE # (test code = MO#) 0.86 K/mm3 0-0.8 EOSINOPHIL # (test code = EO#) 0.07 K/mm3 0.0-0.5 BASOPHIL # (test code = BA#) 0.01 K/mm3 0.0-0.2 NUCLEATED RBC # (test code = NRBC#) 0.00 K/mm3 0.0-0.1 MANUAL DIFF REQUIRED (test code = MDIFF) YES STAIN ACCEPTABILITY (test code = STN ACCEPTABLE) TOTAL CELLS COUNTED (test code = TCC) #CELLS SEGMENTED NEUTROPHILS (test code = SEG) % 39-69 LYMPHOCYTE (test code = LYMPH) % 25-55 MONOCYTE (test code = MON) % 0-10 MORPHOLOGY COMMENT (test code = MOC) PLATELET ESTIMATE (test code = PLTEST) PLATELET MORPHOLOGY (test code = PLTMORPH) CBC W/MANUAL [id number] 06:06:00* Test Item Value Reference Range Comments WHITE BLOOD CELL (test code = WBC) 10.8 K/mm3 4.5-12.5 RED BLOOD CELL (test code = RBC) 2.83 mill/mm3 4.0-5.8 HEMOGLOBIN (test code = HGB) 7.3 gram/dL 13.0-17.5 HEMATOCRIT (test code = HCT) 23.3 % 42.0-52.0 MEAN CELL VOLUME (test code = MCV) 82.3 fL 80-98 MEAN CELL HGB (test code = MCH) 25.8 picogram 27.0-33.0 MEAN CELL HGB CONCETRATION (test code = MCHC) 31.3 gram/dL 33 .0-36.0 RED CELL DISTRIBUTION WIDTH (test code = RDW) 17.6 % 11 .6-16.2 RED CELL DISTRIBUTION WIDTH SD (test code = RDW-SD) 51.6 fL 37.0-51.0 PLATELET COUNT (test code = PLT) 237 K/mm3 150-450 MEAN PLATELET VOLUME (test code = MPV) 10.5 fL 6.7-11.0 IMMATURE GRANULOCYTE % (test code = IG%) 1.0 % 0.0-5.0 NUCLEATED RBC % (test code = NRBC%) 0.0 % 0-0 NEUTROPHIL # (test code = NT#) 8.48 K/mm3 1.8-7.7 IMMATURE GRANULOCYTE # (test code = IG#) 0.11 x10 3/uL 0-0.03 LYMPHOCYTE # (test code = LY#) 1.30 K/mm3 1.0-5.0 MONOCYTE # (test code = MO#) 0.86 K/mm3 0-0.8 EOSINOPHIL # (test code = EO#) 0.07 K/mm3 0.0-0.5 BASOPHIL # (test code = BA#) 0.01 K/mm3 0.0-0.2 NUCLEATED RBC # (test code = NRBC#) 0.00 K/mm3 0.0-0.1 MANUAL DIFF REQUIRED (test code = MDIFF) YES STAIN ACCEPTABILITY (test code = STN ACCEPTABLE) TOTAL CELLS COUNTED (test code = TCC) #CELLS SEGMENTED NEUTROPHILS (test code = SEG) % 39-69 LYMPHOCYTE (test code = LYMPH) % 25-55 MONOCYTE (test code = MON) % 0-10 EOSINOPHIL (test code = EOS) % 0.0-5.0 CABOT RINGS (test code = CAB) MORPHOLOGY COMMENT (test code = MOC) PLATELET ESTIMATE (test code = PLTEST) PLATELET MORPHOLOGY (test code = PLTMORPH) CBC W/MANUAL [id number] 06:06:00* Test Item Value Reference Range Comments WHITE BLOOD CELL (test code = WBC) 10.8 K/mm3 4.5-12.5 RED BLOOD CELL (test code = RBC) 2.83 mill/mm3 4.0-5.8 HEMOGLOBIN (test code = HGB) 7.3 gram/dL 13.0-17.5 HEMATOCRIT (test code = HCT) 23.3 % 42.0-52.0 MEAN CELL VOLUME (test code = MCV) 82.3 fL 80-98 MEAN CELL HGB (test code = MCH) 25.8 picogram 27.0-33.0 MEAN CELL HGB CONCETRATION (test code = MCHC) 31.3 gram/dL 33 .0-36.0 RED CELL DISTRIBUTION WIDTH (test code = RDW) 17.6 % 11 .6-16.2 RED CELL DISTRIBUTION WIDTH SD (test code = RDW-SD) 51.6 fL 37.0-51.0 PLATELET COUNT (test code = PLT) 237 K/mm3 150-450 MEAN PLATELET VOLUME (test code = MPV) 10.5 fL 6.7-11.0 IMMATURE GRANULOCYTE % (test code = IG%) 1.0 % 0.0-5.0 NUCLEATED RBC % (test code = NRBC%) 0.0 % 0-0 NEUTROPHIL # (test code = NT#) 8.48 K/mm3 1.8-7.7 IMMATURE GRANULOCYTE # (test code = IG#) 0.11 x10 3/uL 0-0.03 LYMPHOCYTE # (test code = LY#) 1.30 K/mm3 1.0-5.0 MONOCYTE # (test code = MO#) 0.86 K/mm3 0-0.8 EOSINOPHIL # (test code = EO#) 0.07 K/mm3 0.0-0.5 BASOPHIL # (test code = BA#) 0.01 K/mm3 0.0-0.2 NUCLEATED RBC # (test code = NRBC#) 0.00 K/mm3 0.0-0.1 MANUAL DIFF REQUIRED (test code = MDIFF) YES STAIN ACCEPTABILITY (test code = STN ACCEPTABLE) TOTAL CELLS COUNTED (test code = TCC) #CELLS SEGMENTED NEUTROPHILS (test code = SEG) % 39-69 LYMPHOCYTE (test code = LYMPH) % 25-55 MONOCYTE (test code = MON) % 0-10 EOSINOPHIL (test code = EOS) % 0.0-5.0 CABOT RINGS (test code = CAB) MORPHOLOGY COMMENT (test code = MOC) PLATELET ESTIMATE (test code = PLTEST) PLATELET MORPHOLOGY (test code = PLTMORPH) CBC W/MANUAL [id number] 06:06:00* Test Item Value Reference Range Comments WHITE BLOOD CELL (test code = WBC) 10.8 K/mm3 4.5-12.5 RED BLOOD CELL (test code = RBC) 2.83 mill/mm3 4.0-5.8 HEMOGLOBIN (test code = HGB) 7.3 gram/dL 13.0-17.5 HEMATOCRIT (test code = HCT) 23.3 % 42.0-52.0 MEAN CELL VOLUME (test code = MCV) 82.3 fL 80-98 MEAN CELL HGB (test code = MCH) 25.8 picogram 27.0-33.0 MEAN CELL HGB CONCETRATION (test code = MCHC) 31.3 gram/dL 33 .0-36.0 RED CELL DISTRIBUTION WIDTH (test code = RDW) 17.6 % 11 .6-16.2 RED CELL DISTRIBUTION WIDTH SD (test code = RDW-SD) 51.6 fL 37.0-51.0 PLATELET COUNT (test code = PLT) 237 K/mm3 150-450 MEAN PLATELET VOLUME (test code = MPV) 10.5 fL 6.7-11.0 IMMATURE GRANULOCYTE % (test code = IG%) 1.0 % 0.0-5.0 NUCLEATED RBC % (test code = NRBC%) 0.0 % 0-0 NEUTROPHIL # (test code = NT#) 8.48 K/mm3 1.8-7.7 IMMATURE GRANULOCYTE # (test code = IG#) 0.11 x10 3/uL 0-0.03 LYMPHOCYTE # (test code = LY#) 1.30 K/mm3 1.0-5.0 MONOCYTE # (test code = MO#) 0.86 K/mm3 0-0.8 EOSINOPHIL # (test code = EO#) 0.07 K/mm3 0.0-0.5 BASOPHIL # (test code = BA#) 0.01 K/mm3 0.0-0.2 NUCLEATED RBC # (test code = NRBC#) 0.00 K/mm3 0.0-0.1 MANUAL DIFF REQUIRED (test code = MDIFF) YES STAIN ACCEPTABILITY (test code = STN ACCEPTABLE) TOTAL CELLS COUNTED (test code = TCC) #CELLS SEGMENTED NEUTROPHILS (test code = SEG) % 39-69 LYMPHOCYTE (test code = LYMPH) % 25-55 MONOCYTE (test code = MON) % 0-10 EOSINOPHIL (test code = EOS) % 0.0-5.0 MORPHOLOGY COMMENT (test code = MOC) PLATELET ESTIMATE (test code = PLTEST) PLATELET MORPHOLOGY (test code = PLTMORPH) CBC W/MANUAL [id number] 06:06:00* Test Item Value Reference Range Comments WHITE BLOOD CELL (test code = WBC) 10.8 K/mm3 4.5-12.5 RED BLOOD CELL (test code = RBC) 2.83 mill/mm3 4.0-5.8 HEMOGLOBIN (test code = HGB) 7.3 gram/dL 13.0-17.5 HEMATOCRIT (test code = HCT) 23.3 % 42.0-52.0 MEAN CELL VOLUME (test code = MCV) 82.3 fL 80-98 MEAN CELL HGB (test code = MCH) 25.8 picogram 27.0-33.0 MEAN CELL HGB CONCETRATION (test code = MCHC) 31.3 gram/dL 33 .0-36.0 RED CELL DISTRIBUTION WIDTH (test code = RDW) 17.6 % 11 .6-16.2 RED CELL DISTRIBUTION WIDTH SD (test code = RDW-SD) 51.6 fL 37.0-51.0 PLATELET COUNT (test code = PLT) 237 K/mm3 150-450 MEAN PLATELET VOLUME (test code = MPV) 10.5 fL 6.7-11.0 IMMATURE GRANULOCYTE % (test code = IG%) 1.0 % 0.0-5.0 NUCLEATED RBC % (test code = NRBC%) 0.0 % 0-0 NEUTROPHIL # (test code = NT#) 8.48 K/mm3 1.8-7.7 IMMATURE GRANULOCYTE # (test code = IG#) 0.11 x10 3/uL 0-0.03 LYMPHOCYTE # (test code = LY#) 1.30 K/mm3 1.0-5.0 MONOCYTE # (test code = MO#) 0.86 K/mm3 0-0.8 EOSINOPHIL # (test code = EO#) 0.07 K/mm3 0.0-0.5 BASOPHIL # (test code = BA#) 0.01 K/mm3 0.0-0.2 NUCLEATED RBC # (test code = NRBC#) 0.00 K/mm3 0.0-0.1 MANUAL DIFF REQUIRED (test code = MDIFF) YES STAIN ACCEPTABILITY (test code = STN ACCEPTABLE) TOTAL CELLS COUNTED (test code = TCC) #CELLS SEGMENTED NEUTROPHILS (test code = SEG) % 39-69 LYMPHOCYTE (test code = LYMPH) % 25-55 MONOCYTE (test code = MON) % 0-10 EOSINOPHIL (test code = EOS) % 0.0-5.0 CABOT RINGS (test code = CAB) MORPHOLOGY COMMENT (test code = MOC) PLATELET ESTIMATE (test code = PLTEST) PLATELET MORPHOLOGY (test code = PLTMORPH) CBC W/MANUAL [id number] 04:46:00* Test Item Value Reference Range Comments WHITE BLOOD CELL (test code = WBC) 8.0 K/mm3 4.5-12.5 RED BLOOD CELL (test code = RBC) 2.81 mill/mm3 4.0-5.8 HEMOGLOBIN (test code = HGB) 7.2 gram/dL 13.0-17.5 HEMATOCRIT (test code = HCT) 23.1 % 42.0-52.0 MEAN CELL VOLUME (test code = MCV) 82.2 fL 80-98 MEAN CELL HGB (test code = MCH) 25.6 picogram 27.0-33.0 MEAN CELL HGB CONCETRATION (test code = MCHC) 31.2 gram/dL 33 .0-36.0 RED CELL DISTRIBUTION WIDTH (test code = RDW) 17.0 % 11 .6-16.2 RED CELL DISTRIBUTION WIDTH SD (test code = RDW-SD) 51.4 fL 37.0-51.0 PLATELET COUNT (test code = PLT) 241 K/mm3 150-450 MEAN PLATELET VOLUME (test code = MPV) 9.8 fL 6.7-11.0 NEUTROPHIL % (test code = NT%) 85.3 % 39.0-69.0 IMMATURE GRANULOCYTE % (test code = IG%) 0.8 % 0.0-5.0 LYMPHOCYTE % (test code = LY%) 7.2 % 25.0-55.0 MONOCYTE % (test code = MO%) 6.1 % 0.0-10.0 EOSINOPHIL % (test code = EO%) 0.5 % 0.0-5.0 BASOPHIL % (test code = BA%) 0.1 % 0.0-1.0 NUCLEATED RBC % (test code = NRBC%) 0.0 % 0-0 NEUTROPHIL # (test code = NT#) 6.80 K/mm3 1.8-7.7 IMMATURE GRANULOCYTE # (test code = IG#) 0.06 x10 3/uL 0-0.03 LYMPHOCYTE # (test code = LY#) 0.57 K/mm3 1.0-5.0 MONOCYTE # (test code = MO#) 0.49 K/mm3 0-0.8 EOSINOPHIL # (test code = EO#) 0.04 K/mm3 0.0-0.5 BASOPHIL # (test code = BA#) 0.01 K/mm3 0.0-0.2 NUCLEATED RBC # (test code = NRBC#) 0.00 K/mm3 0.0-0.1 MANUAL DIFF REQUIRED (test code = MDIFF) DIFF NEEDED STAIN ACCEPTABILITY (test code = STN ACCEPTABLE) STAIN ACCEPTABL E TOTAL CELLS COUNTED (test code = TCC) 114 #CELLS SEGMENTED NEUTROPHILS (test code = SEG) 93.9 % 39-69 BAND NEUTROPHIL (test code = BAND) 0 % 0-10 LYMPHOCYTE (test code = LYMPH) 6.1 % 25-55 REACTIVE LYMPH (test code = RELYMPH) 0 % MONOCYTE (test code = MON) 0 % 0-10 EOSINOPHIL (test code = EOS) 0 % 0.0-5.0 BASOPHIL (test code = BASO) 0 % 0-1.0 METAMYELOCYTE (test code = META) 0 % 0-0 MYELOCYTE (test code = MYELO) 0 % 0.0-0.0 PROMYELOCYTE (test code = PROM) 0 % 0-0 HYPOCHROMIA (test code = HYPO) 2+ POIKILOCYTOSIS (test code = POIK) 2+ ANISOCYTOSIS (test code = ANISO) 3+ MACROCYTOSIS (test code = MACR) 3+ TARGET CELLS (test code = TGT) 1+ CECILIO CELLS (test code = CECILIO) 1+ NONE ACANTHOCYTES (test code = ACAN) 1+ NONE MORPHOLOGY COMMENT (test code = MOC) TEST NOT PERFORMED PLATELET ESTIMATE (test code = PLTEST) ADEQUATE PLATELET MORPHOLOGY (test code = PLTMORPH) NORMAL IMMATURE FORMS (test code = IMMAT) 0 % 0-0 BASIC METABOLIC [id number] 04:33:00* Test Item Value Reference Range Comments SODIUM (test code = NA) 145 mmol/L 136-145 POTASSIUM (test code = K) 3.0 mmol/L 3.5-5.1 CHLORIDE (test code = CL) 115.0 mmol/L 98-107 CARBON DIOXIDE (test code = CO2) 24.0 mmol/L 21-32 ANION GAP (test code = GAP) 9.0 10-20 GLUCOSE (test code = GLU) 144 mg/dL 74-106 BLOOD UREA NITROGEN (test code = BUN) 27 mg/dL 7-18 GLOMERULAR FILTRATION RATE (test code = GFR) > 60 mL/min >=6 0 Estimated GFR by using Modified MDRD formula.Chronic kidney disease is defined as either kidney damageor GFR <60 mL/min/1.73 m2 for >3 months. CREATININE (test code = CREAT) 0.80 mg/dL 0.7-1.3 BUN/CREATININE RATIO (test code = BUN/CREA) 33.8 10-2 0 CALCIUM (test code = CA) 8.1 mg/dL 8.5-10.1 [id number] 04:33:00* Test Item Value Reference Range Comments MAGNESIUM (test code = MAG) 1.5 mg/dL 1.8-2.4 BASIC METABOLIC [id number] 04:32:00* Test Item Value Reference Range Comments SODIUM (test code = NA) 145 mmol/L 136-145 POTASSIUM (test code = K) 3.0 mmol/L 3.5-5.1 CHLORIDE (test code = CL) 115.0 mmol/L 98-107 CARBON DIOXIDE (test code = CO2) mmol/L 21-32 ANION GAP (test code = GAP) 10-20 GLUCOSE (test code = GLU) mg/dL 74-106 BLOOD UREA NITROGEN (test code = BUN) mg/dL 7-18 GLOMERULAR FILTRATION RATE (test code = GFR) mL/min >=6 0 CREATININE (test code = CREAT) mg/dL 0.7-1.3 BUN/CREATININE RATIO (test code = BUN/CREA) 10-2 0 CALCIUM (test code = CA) mg/dL 8.5-10.1 [id number] 04:32:00* Test Item Value Reference Range Comments MAGNESIUM (test code = MAG) mg/dL 1.8-2.4 CBC W/MANUAL [id number] 04:13:00* Test Item Value Reference Range Comments WHITE BLOOD CELL (test code = WBC) 8.0 K/mm3 4.5-12.5 RED BLOOD CELL (test code = RBC) 2.81 mill/mm3 4.0-5.8 HEMOGLOBIN (test code = HGB) 7.2 gram/dL 13.0-17.5 HEMATOCRIT (test code = HCT) 23.1 % 42.0-52.0 MEAN CELL VOLUME (test code = MCV) 82.2 fL 80-98 MEAN CELL HGB (test code = MCH) 25.6 picogram 27.0-33.0 MEAN CELL HGB CONCETRATION (test code = MCHC) 31.2 gram/dL 33 .0-36.0 RED CELL DISTRIBUTION WIDTH (test code = RDW) 17.0 % 11 .6-16.2 RED CELL DISTRIBUTION WIDTH SD (test code = RDW-SD) 51.4 fL 37.0-51.0 PLATELET COUNT (test code = PLT) 241 K/mm3 150-450 MEAN PLATELET VOLUME (test code = MPV) 9.8 fL 6.7-11.0 NEUTROPHIL % (test code = NT%) 85.3 % 39.0-69.0 IMMATURE GRANULOCYTE % (test code = IG%) 0.8 % 0.0-5.0 LYMPHOCYTE % (test code = LY%) 7.2 % 25.0-55.0 MONOCYTE % (test code = MO%) 6.1 % 0.0-10.0 EOSINOPHIL % (test code = EO%) 0.5 % 0.0-5.0 BASOPHIL % (test code = BA%) 0.1 % 0.0-1.0 NUCLEATED RBC % (test code = NRBC%) 0.0 % 0-0 NEUTROPHIL # (test code = NT#) 6.80 K/mm3 1.8-7.7 IMMATURE GRANULOCYTE # (test code = IG#) 0.06 x10 3/uL 0-0.03 LYMPHOCYTE # (test code = LY#) 0.57 K/mm3 1.0-5.0 MONOCYTE # (test code = MO#) 0.49 K/mm3 0-0.8 EOSINOPHIL # (test code = EO#) 0.04 K/mm3 0.0-0.5 BASOPHIL # (test code = BA#) 0.01 K/mm3 0.0-0.2 NUCLEATED RBC # (test code = NRBC#) 0.00 K/mm3 0.0-0.1 MANUAL DIFF REQUIRED (test code = MDIFF) DIFF NEEDED STAIN ACCEPTABILITY (test code = STN ACCEPTABLE) TOTAL CELLS COUNTED (test code = TCC) #CELLS SEGMENTED NEUTROPHILS (test code = SEG) % 39-69 LYMPHOCYTE (test code = LYMPH) % 25-55 MONOCYTE (test code = MON) % 0-10 EOSINOPHIL (test code = EOS) % 0.0-5.0 CABOT RINGS (test code = CAB) MORPHOLOGY COMMENT (test code = MOC) PLATELET ESTIMATE (test code = PLTEST) PLATELET MORPHOLOGY (test code = PLTMORPH) CBC W/MANUAL [id number] 04:13:00* Test Item Value Reference Range Comments WHITE BLOOD CELL (test code = WBC) 8.0 K/mm3 4.5-12.5 RED BLOOD CELL (test code = RBC) 2.81 mill/mm3 4.0-5.8 HEMOGLOBIN (test code = HGB) 7.2 gram/dL 13.0-17.5 HEMATOCRIT (test code = HCT) 23.1 % 42.0-52.0 MEAN CELL VOLUME (test code = MCV) 82.2 fL 80-98 MEAN CELL HGB (test code = MCH) 25.6 picogram 27.0-33.0 MEAN CELL HGB CONCETRATION (test code = MCHC) 31.2 gram/dL 33 .0-36.0 RED CELL DISTRIBUTION WIDTH (test code = RDW) 17.0 % 11 .6-16.2 RED CELL DISTRIBUTION WIDTH SD (test code = RDW-SD) 51.4 fL 37.0-51.0 PLATELET COUNT (test code = PLT) 241 K/mm3 150-450 MEAN PLATELET VOLUME (test code = MPV) 9.8 fL 6.7-11.0 NEUTROPHIL % (test code = NT%) 85.3 % 39.0-69.0 IMMATURE GRANULOCYTE % (test code = IG%) 0.8 % 0.0-5.0 LYMPHOCYTE % (test code = LY%) 7.2 % 25.0-55.0 MONOCYTE % (test code = MO%) 6.1 % 0.0-10.0 EOSINOPHIL % (test code = EO%) 0.5 % 0.0-5.0 BASOPHIL % (test code = BA%) 0.1 % 0.0-1.0 NUCLEATED RBC % (test code = NRBC%) 0.0 % 0-0 NEUTROPHIL # (test code = NT#) 6.80 K/mm3 1.8-7.7 IMMATURE GRANULOCYTE # (test code = IG#) 0.06 x10 3/uL 0-0.03 LYMPHOCYTE # (test code = LY#) 0.57 K/mm3 1.0-5.0 MONOCYTE # (test code = MO#) 0.49 K/mm3 0-0.8 EOSINOPHIL # (test code = EO#) 0.04 K/mm3 0.0-0.5 BASOPHIL # (test code = BA#) 0.01 K/mm3 0.0-0.2 NUCLEATED RBC # (test code = NRBC#) 0.00 K/mm3 0.0-0.1 MANUAL DIFF REQUIRED (test code = MDIFF) DIFF NEEDED STAIN ACCEPTABILITY (test code = STN ACCEPTABLE) TOTAL CELLS COUNTED (test code = TCC) #CELLS SEGMENTED NEUTROPHILS (test code = SEG) % 39-69 LYMPHOCYTE (test code = LYMPH) % 25-55 MONOCYTE (test code = MON) % 0-10 EOSINOPHIL (test code = EOS) % 0.0-5.0 MORPHOLOGY COMMENT (test code = MOC) PLATELET ESTIMATE (test code = PLTEST) PLATELET MORPHOLOGY (test code = PLTMORPH) CBC W/MANUAL [id number] 04:13:00* Test Item Value Reference Range Comments WHITE BLOOD CELL (test code = WBC) 8.0 K/mm3 4.5-12.5 RED BLOOD CELL (test code = RBC) 2.81 mill/mm3 4.0-5.8 HEMOGLOBIN (test code = HGB) 7.2 gram/dL 13.0-17.5 HEMATOCRIT (test code = HCT) 23.1 % 42.0-52.0 MEAN CELL VOLUME (test code = MCV) 82.2 fL 80-98 MEAN CELL HGB (test code = MCH) 25.6 picogram 27.0-33.0 MEAN CELL HGB CONCETRATION (test code = MCHC) 31.2 gram/dL 33 .0-36.0 RED CELL DISTRIBUTION WIDTH (test code = RDW) 17.0 % 11 .6-16.2 RED CELL DISTRIBUTION WIDTH SD (test code = RDW-SD) 51.4 fL 37.0-51.0 PLATELET COUNT (test code = PLT) 241 K/mm3 150-450 MEAN PLATELET VOLUME (test code = MPV) 9.8 fL 6.7-11.0 NEUTROPHIL % (test code = NT%) 85.3 % 39.0-69.0 IMMATURE GRANULOCYTE % (test code = IG%) 0.8 % 0.0-5.0 LYMPHOCYTE % (test code = LY%) 7.2 % 25.0-55.0 MONOCYTE % (test code = MO%) 6.1 % 0.0-10.0 EOSINOPHIL % (test code = EO%) 0.5 % 0.0-5.0 BASOPHIL % (test code = BA%) 0.1 % 0.0-1.0 NUCLEATED RBC % (test code = NRBC%) 0.0 % 0-0 NEUTROPHIL # (test code = NT#) 6.80 K/mm3 1.8-7.7 IMMATURE GRANULOCYTE # (test code = IG#) 0.06 x10 3/uL 0-0.03 LYMPHOCYTE # (test code = LY#) 0.57 K/mm3 1.0-5.0 MONOCYTE # (test code = MO#) 0.49 K/mm3 0-0.8 EOSINOPHIL # (test code = EO#) 0.04 K/mm3 0.0-0.5 BASOPHIL # (test code = BA#) 0.01 K/mm3 0.0-0.2 NUCLEATED RBC # (test code = NRBC#) 0.00 K/mm3 0.0-0.1 MANUAL DIFF REQUIRED (test code = MDIFF) DIFF NEEDED STAIN ACCEPTABILITY (test code = STN ACCEPTABLE) TOTAL CELLS COUNTED (test code = TCC) #CELLS SEGMENTED NEUTROPHILS (test code = SEG) % 39-69 LYMPHOCYTE (test code = LYMPH) % 25-55 MONOCYTE (test code = MON) % 0-10 MORPHOLOGY COMMENT (test code = MOC) PLATELET ESTIMATE (test code = PLTEST) PLATELET MORPHOLOGY (test code = PLTMORPH) CBC W/MANUAL [id number] 04:12:00* Test Item Value Reference Range Comments WHITE BLOOD CELL (test code = WBC) 8.0 K/mm3 4.5-12.5 RED BLOOD CELL (test code = RBC) 2.81 mill/mm3 4.0-5.8 HEMOGLOBIN (test code = HGB) 7.2 gram/dL 13.0-17.5 HEMATOCRIT (test code = HCT) 23.1 % 42.0-52.0 MEAN CELL VOLUME (test code = MCV) 82.2 fL 80-98 MEAN CELL HGB (test code = MCH) 25.6 picogram 27.0-33.0 MEAN CELL HGB CONCETRATION (test code = MCHC) 31.2 gram/dL 33 .0-36.0 RED CELL DISTRIBUTION WIDTH (test code = RDW) 17.0 % 11 .6-16.2 RED CELL DISTRIBUTION WIDTH SD (test code = RDW-SD) 51.4 fL 37.0-51.0 PLATELET COUNT (test code = PLT) 241 K/mm3 150-450 MEAN PLATELET VOLUME (test code = MPV) 9.8 fL 6.7-11.0 NEUTROPHIL % (test code = NT%) 85.3 % 39.0-69.0 IMMATURE GRANULOCYTE % (test code = IG%) 0.8 % 0.0-5.0 LYMPHOCYTE % (test code = LY%) 7.2 % 25.0-55.0 MONOCYTE % (test code = MO%) 6.1 % 0.0-10.0 EOSINOPHIL % (test code = EO%) 0.5 % 0.0-5.0 BASOPHIL % (test code = BA%) 0.1 % 0.0-1.0 NUCLEATED RBC % (test code = NRBC%) 0.0 % 0-0 NEUTROPHIL # (test code = NT#) 6.80 K/mm3 1.8-7.7 IMMATURE GRANULOCYTE # (test code = IG#) 0.06 x10 3/uL 0-0.03 LYMPHOCYTE # (test code = LY#) 0.57 K/mm3 1.0-5.0 MONOCYTE # (test code = MO#) 0.49 K/mm3 0-0.8 EOSINOPHIL # (test code = EO#) 0.04 K/mm3 0.0-0.5 BASOPHIL # (test code = BA#) 0.01 K/mm3 0.0-0.2 NUCLEATED RBC # (test code = NRBC#) 0.00 K/mm3 0.0-0.1 MANUAL DIFF REQUIRED (test code = MDIFF) DIFF NEEDED STAIN ACCEPTABILITY (test code = STN ACCEPTABLE) TOTAL CELLS COUNTED (test code = TCC) #CELLS SEGMENTED NEUTROPHILS (test code = SEG) % 39-69 LYMPHOCYTE (test code = LYMPH) % 25-55 MONOCYTE (test code = MON) % 0-10 EOSINOPHIL (test code = EOS) % 0.0-5.0 CABOT RINGS (test code = CAB) MORPHOLOGY COMMENT (test code = MOC) PLATELET ESTIMATE (test code = PLTEST) PLATELET MORPHOLOGY (test code = PLTMORPH) CBC W/MANUAL [id number] 04:12:00* Test Item Value Reference Range Comments WHITE BLOOD CELL (test code = WBC) 8.0 K/mm3 4.5-12.5 RED BLOOD CELL (test code = RBC) 2.81 mill/mm3 4.0-5.8 HEMOGLOBIN (test code = HGB) 7.2 gram/dL 13.0-17.5 HEMATOCRIT (test code = HCT) 23.1 % 42.0-52.0 MEAN CELL VOLUME (test code = MCV) 82.2 fL 80-98 MEAN CELL HGB (test code = MCH) 25.6 picogram 27.0-33.0 MEAN CELL HGB CONCETRATION (test code = MCHC) 31.2 gram/dL 33 .0-36.0 RED CELL DISTRIBUTION WIDTH (test code = RDW) 17.0 % 11 .6-16.2 RED CELL DISTRIBUTION WIDTH SD (test code = RDW-SD) 51.4 fL 37.0-51.0 PLATELET COUNT (test code = PLT) 241 K/mm3 150-450 MEAN PLATELET VOLUME (test code = MPV) 9.8 fL 6.7-11.0 NEUTROPHIL % (test code = NT%) 85.3 % 39.0-69.0 IMMATURE GRANULOCYTE % (test code = IG%) 0.8 % 0.0-5.0 LYMPHOCYTE % (test code = LY%) 7.2 % 25.0-55.0 MONOCYTE % (test code = MO%) 6.1 % 0.0-10.0 EOSINOPHIL % (test code = EO%) 0.5 % 0.0-5.0 BASOPHIL % (test code = BA%) 0.1 % 0.0-1.0 NUCLEATED RBC % (test code = NRBC%) 0.0 % 0-0 NEUTROPHIL # (test code = NT#) 6.80 K/mm3 1.8-7.7 IMMATURE GRANULOCYTE # (test code = IG#) 0.06 x10 3/uL 0-0.03 LYMPHOCYTE # (test code = LY#) 0.57 K/mm3 1.0-5.0 MONOCYTE # (test code = MO#) 0.49 K/mm3 0-0.8 EOSINOPHIL # (test code = EO#) 0.04 K/mm3 0.0-0.5 BASOPHIL # (test code = BA#) 0.01 K/mm3 0.0-0.2 NUCLEATED RBC # (test code = NRBC#) 0.00 K/mm3 0.0-0.1 MANUAL DIFF REQUIRED (test code = MDIFF) DIFF NEEDED STAIN ACCEPTABILITY (test code = STN ACCEPTABLE) TOTAL CELLS COUNTED (test code = TCC) #CELLS SEGMENTED NEUTROPHILS (test code = SEG) % 39-69 LYMPHOCYTE (test code = LYMPH) % 25-55 MONOCYTE (test code = MON) % 0-10 EOSINOPHIL (test code = EOS) % 0.0-5.0 CABOT RINGS (test code = CAB) MORPHOLOGY COMMENT (test code = MOC) PLATELET ESTIMATE (test code = PLTEST) PLATELET MORPHOLOGY (test code = PLTMORPH) - XR ABDOMEN AP 1 [id number] 08:29:00 FAX: Blair Borges MD [phone] [place]: B St: [facility] FAX: Mariana Ryan MD Name: MAXIM SWARTZ [facility] : 1965 Age/S: 54/M [address] [facility] Unit #: [id number] Loc: V.[address] [place] [address] Phys: Mariana Long MD Acct: [id number] Dis Date: Status: ADM IN PHONE #: [phone] Exam Date: 01/24/2020 0757 FAX #: [phone] Reason: megacolon EXAMS: CPT CODE: [id number] XR ABDOMEN AP 1 V [id number] HISTORY: megacolon TECHNIQUE: AP abdomen x-ray COMPARISON: Abdominal radiograph the previous morning FINDINGS: Marked gaseous distention of the small and large bowel is redemonstrated and appears similar to the prior exam. No abnormal intra-abdominal calcifications or mass effect. Mild degenerative changes are present in the hips and spine. IMPRESSION: Persistent gaseous distention of the small and large bowel. Location: [facility] at 0829 Reported and signed by: Arvin Zaragoza MD CC: Blair Borges MD; Mariana Long MD Technologist: HENNA MCCORD JR Trnscrd D ate/Time/By: 01/24/2020 (828) : By: [email or web address] Orig Print D/T: S: 12/31 (3108) PAGE 1 Signed Repor t - XR CHEST 1 [id number] 08:22:00 FAX: Mora Martinez MD [phone] [place]: B St: ADM FAX: Blair Borges MD [phone] FAX: Mariana Ryan MD --------- Name: MAXIM SWARTZ [facility] : 1965 Age/S: 54/M [address] #: [id number] Loc: [id number].[address] [place] [address] Phys: Mora March MD Acct: [id number] Dis Date: Status: ADM IN [facility] #: [phone] Exam Date: 01/24/2020 0757 FAX #: [phone] Reason: to eval bowel distension for follow up. EXAMS: CPT CODE: [id number] XR CHEST 1 V [id number] REASON FOR EXAM: to eval bowel distension for follow up. Exam Order Date: 01/24/2020 5:00 AM Ordering M.D.: Mora March MD PROCEDURE: - XR CHEST 1 V COMPARISON: Chest x-ray the previous morning FINDINGS: Bullous in the periphery of the right u pper lobe is unchanged from the previous exam. There is also mild subsegme ntal atelectasis in the infrahilar right lung that appears similar to the prior exam. There is also a patchy opacity in the left lower lobe which ma y represent atelectasis versus developing infection which also is unchange d from the previous exam. Upper lungs are clear. Cardiomedia stinal silhouette is prominent but stable in size. Right IJ central line i s unchanged in position. Musculoskeletal structures are within nor mal limits. Visualized upper abdomen is better evaluated on the co ncurrent abdominal radiograph. IMPRESSION: No significant change from prior exam. Location: [facility] at 0822 Reported and signed by: Arvin Zaragoza MD CC: Mora March MD; Blair Warren MD; Mariana Long MD Technologist: HENNA MCCORD JR Trnscrd Date/Time/By: 01/24/2020 (821) : By: [email or web address] Orig Print D/T: S: 01/24/2020 (825) PAGE 1 Signed Report C REACTIVE PROTEIN 2020-01-24 06:31:00* Test Item Value Reference Range Comments C REACTIVE PROTEIN (test code = CRP) 22.90 mg/dL 0-0.3 CBC W/MANUAL [id number] 06:30:00* Test Item Value Reference Range Comments WHITE BLOOD CELL (test code = WBC) 10.4 K/mm3 4.5-12.5 RED BLOOD CELL (test code = RBC) 2.85 mill/mm3 4.0-5.8 HEMOGLOBIN (test code = HGB) 7.4 gram/dL 13.0-17.5 HEMATOCRIT (test code = HCT) 23.6 % 42.0-52.0 MEAN CELL VOLUME (test code = MCV) 82.8 fL 80-98 MEAN CELL HGB (test code = MCH) 26.0 picogram 27.0-33.0 MEAN CELL HGB CONCETRATION (test code = MCHC) 31.4 gram/dL 33 .0-36.0 RED CELL DISTRIBUTION WIDTH (test code = RDW) 17.1 % 11 .6-16.2 RED CELL DISTRIBUTION WIDTH SD (test code = RDW-SD) 51.2 fL 37.0-51.0 PLATELET COUNT (test code = PLT) 267 K/mm3 150-450 MEAN PLATELET VOLUME (test code = MPV) 9.7 fL 6.7-11.0 NEUTROPHIL % (test code = NT%) 87.4 % 39.0-69.0 IMMATURE GRANULOCYTE % (test code = IG%) 2.1 % 0.0-5.0 LYMPHOCYTE % (test code = LY%) 6.0 % 25.0-55.0 MONOCYTE % (test code = MO%) 4.4 % 0.0-10.0 EOSINOPHIL % (test code = EO%) 0.0 % 0.0-5.0 BASOPHIL % (test code = BA%) 0.1 % 0.0-1.0 NUCLEATED RBC % (test code = NRBC%) 0.0 % 0-0 NEUTROPHIL # (test code = NT#) 9.09 K/mm3 1.8-7.7 IMMATURE GRANULOCYTE # (test code = IG#) 0.22 x10 3/uL 0-0.03 LYMPHOCYTE # (test code = LY#) 0.62 K/mm3 1.0-5.0 MONOCYTE # (test code = MO#) 0.46 K/mm3 0-0.8 EOSINOPHIL # (test code = EO#) 0.00 K/mm3 0.0-0.5 BASOPHIL # (test code = BA#) 0.01 K/mm3 0.0-0.2 NUCLEATED RBC # (test code = NRBC#) 0.00 K/mm3 0.0-0.1 MANUAL DIFF REQUIRED (test code = MDIFF) DIFF NEEDED STAIN ACCEPTABILITY (test code = STN ACCEPTABLE) STAIN ACCEPTABL E TOTAL CELLS COUNTED (test code = TCC) 114 #CELLS SEGMENTED NEUTROPHILS (test code = SEG) 88.6 % 39-69 BAND NEUTROPHIL (test code = BAND) 4.4 % 0-10 LYMPHOCYTE (test code = LYMPH) 3.5 % 25-55 REACTIVE LYMPH (test code = RELYMPH) 0 % MONOCYTE (test code = MON) 3.5 % 0-10 EOSINOPHIL (test code = EOS) 0 % 0.0-5.0 BASOPHIL (test code = BASO) 0 % 0-1.0 METAMYELOCYTE (test code = META) 0 % 0-0 MYELOCYTE (test code = MYELO) 0 % 0.0-0.0 PROMYELOCYTE (test code = PROM) 0 % 0-0 POIKILOCYTOSIS (test code = POIK) 2+ ANISOCYTOSIS (test code = ANISO) 3+ MICROCYTOSIS (test code = MICR) 1+ TARGET CELLS (test code = TGT) 1+ MORPHOLOGY COMMENT (test code = MOC) TEST NOT PERFORMED PLATELET ESTIMATE (test code = PLTEST) ADEQUATE PLATELET MORPHOLOGY (test code = PLTMORPH) NORMAL IMMATURE FORMS (test code = IMMAT) 0 % 0-0 BASIC METABOLIC [id number] 06:27:00* Test Item Value Reference Range Comments SODIUM (test code = NA) 147 mmol/L 136-145 RESULT V ERIFIED BY REPEAT ANALYSIS POTASSIUM (test code = K) 3.2 mmol/L 3.5-5.1 CHLORIDE (test code = CL) 118.0 mmol/L 98-107 CARBON DIOXIDE (test code = CO2) 20.0 mmol/L 21-32 ANION GAP (test code = GAP) 12.2 10-20 GLUCOSE (test code = GLU) 94 mg/dL 74-106 BLOOD UREA NITROGEN (test code = BUN) 31 mg/dL 7-18 GLOMERULAR FILTRATION RATE (test code = GFR) > 60 mL/min >=6 0 Estimated GFR by using Modified MDRD formula.Chronic kidney disease is defined as either kidney damageor GFR <60 mL/min/1.73 m2 for >3 months. CREATININE (test code = CREAT) 0.90 mg/dL 0.7-1.3 BUN/CREATININE RATIO (test code = BUN/CREA) 34.4 10-2 0 CALCIUM (test code = CA) 8.9 mg/dL 8.5-10.1 HEPATIC FUNCTION [id number] 06:27:00* Test Item Value Reference Range Comments TOTAL PROTEIN (test code = PROT) 7.9 gram/dL 6.4-8.2 ALBUMIN (test code = ALB) 1.9 g/dL 3.4-5.0 GLOBULIN (test code = GLOB) 6.0 gram/dL 2.7-4.2 ALBUMIN/GLOBULIN RATIO (test code = A/G) 0.3 0.75-1. 50 BILIRUBIN TOTAL (test code = BILT) 0.30 mg/dL 0.0-1.0 BILIRUBIN DIRECT (test code = BILD) 0.14 mg/dL 0.0-0.20 SGOT/AST (test code = AST) 33 IUnit/L 15-37 SGPT/ALT (test code = ALT) 16 IUnit/L 12-78 ALKALINE PHOSPHATASE TOTAL (test code = ALKP) 76 IUnit/L 45 -117 Note change in reference range due to change in reagent. [id number] 06:27:00* Test Item Value Reference Range Comments MAGNESIUM (test code = MAG) 1.2 mg/dL 1.8-2.4 FE W/TOTAL IRON BINDING CAP.2020-01-24 06:27:00* Test Item Value Reference Range Comments SERUM IRON (test code = IRON) 11 ug/dL 50-175 TOTAL IRON BINDING CAPACITY (test code = TIBC) 144 mcg/dL 2 50-450 IRON SATURATION (test code = FESAT) 7.64 % 13-45 PROTHROMBIN [id number] 06:25:00* Test Item Value Reference Range Comments PROTHROMBIN TIME PATIENT (test code = PTP) 17.6 seconds 9.0-1 4.0 INTERNATIONAL NORMAL RATIO (test code = INR) 1.5 0.8 -1.2 The therapeutic range for oral anticoagulant therapy formost indications is an international normalized ratio (INR)of between 2.0 and 3.0. The recommended therapeutic INRrange for various clinical situations is listed below: Clinical Situation INR range Pulmonary e mbolism treatment (2.0-3.0)Venous thrombosis treatmentVenous thrombosis prophylaxis (high risk surgery)Prevention of systemic embolism from: Acute myocardial infarction Valvular heart disease Atrial fibrillation Mechanical prosthetic heart valves (2.5-3.5) IS PATIENT ON ANTICOAGULANTS? NTHROMBOPLASTIN TIME [id number] 06:25:00* Test Item Value Reference Range Comments THROMBOPLASTIN TIME PARTIAL (test code = PTT) 31.1 seconds 25 .0-36.5 IS PATIENT ON ANTICOAGULANTS? NCBC W/MANUAL [id number] 06:15:00* Test Item Value Reference Range Comments WHITE BLOOD CELL (test code = WBC) 10.4 K/mm3 4.5-12.5 RED BLOOD CELL (test code = RBC) 2.85 mill/mm3 4.0-5.8 HEMOGLOBIN (test code = HGB) 7.4 gram/dL 13.0-17.5 HEMATOCRIT (test code = HCT) 23.6 % 42.0-52.0 MEAN CELL VOLUME (test code = MCV) 82.8 fL 80-98 MEAN CELL HGB (test code = MCH) 26.0 picogram 27.0-33.0 MEAN CELL HGB CONCETRATION (test code = MCHC) 31.4 gram/dL 33 .0-36.0 RED CELL DISTRIBUTION WIDTH (test code = RDW) 17.1 % 11 .6-16.2 RED CELL DISTRIBUTION WIDTH SD (test code = RDW-SD) 51.2 fL 37.0-51.0 PLATELET COUNT (test code = PLT) 267 K/mm3 150-450 MEAN PLATELET VOLUME (test code = MPV) 9.7 fL 6.7-11.0 NEUTROPHIL % (test code = NT%) 87.4 % 39.0-69.0 IMMATURE GRANULOCYTE % (test code = IG%) 2.1 % 0.0-5.0 LYMPHOCYTE % (test code = LY%) 6.0 % 25.0-55.0 MONOCYTE % (test code = MO%) 4.4 % 0.0-10.0 EOSINOPHIL % (test code = EO%) 0.0 % 0.0-5.0 BASOPHIL % (test code = BA%) 0.1 % 0.0-1.0 NUCLEATED RBC % (test code = NRBC%) 0.0 % 0-0 NEUTROPHIL # (test code = NT#) 9.09 K/mm3 1.8-7.7 IMMATURE GRANULOCYTE # (test code = IG#) 0.22 x10 3/uL 0-0.03 LYMPHOCYTE # (test code = LY#) 0.62 K/mm3 1.0-5.0 MONOCYTE # (test code = MO#) 0.46 K/mm3 0-0.8 EOSINOPHIL # (test code = EO#) 0.00 K/mm3 0.0-0.5 BASOPHIL # (test code = BA#) 0.01 K/mm3 0.0-0.2 NUCLEATED RBC # (test code = NRBC#) 0.00 K/mm3 0.0-0.1 MANUAL DIFF REQUIRED (test code = MDIFF) DIFF NEEDED STAIN ACCEPTABILITY (test code = STN ACCEPTABLE) TOTAL CELLS COUNTED (test code = TCC) #CELLS SEGMENTED NEUTROPHILS (test code = SEG) % 39-69 LYMPHOCYTE (test code = LYMPH) % 25-55 MONOCYTE (test code = MON) % 0-10 MORPHOLOGY COMMENT (test code = MOC) PLATELET ESTIMATE (test code = PLTEST) PLATELET MORPHOLOGY (test code = PLTMORPH) CBC W/MANUAL [id number] 06:03:00* Test Item Value Reference Range Comments WHITE BLOOD CELL (test code = WBC) 10.4 K/mm3 4.5-12.5 RED BLOOD CELL (test code = RBC) 2.85 mill/mm3 4.0-5.8 HEMOGLOBIN (test code = HGB) 7.4 gram/dL 13.0-17.5 HEMATOCRIT (test code = HCT) 23.6 % 42.0-52.0 MEAN CELL VOLUME (test code = MCV) 82.8 fL 80-98 MEAN CELL HGB (test code = MCH) 26.0 picogram 27.0-33.0 MEAN CELL HGB CONCETRATION (test code = MCHC) 31.4 gram/dL 33 .0-36.0 RED CELL DISTRIBUTION WIDTH (test code = RDW) 17.1 % 11 .6-16.2 RED CELL DISTRIBUTION WIDTH SD (test code = RDW-SD) 51.2 fL 37.0-51.0 PLATELET COUNT (test code = PLT) 267 K/mm3 150-450 MEAN PLATELET VOLUME (test code = MPV) 9.7 fL 6.7-11.0 NEUTROPHIL % (test code = NT%) 87.4 % 39.0-69.0 IMMATURE GRANULOCYTE % (test code = IG%) 2.1 % 0.0-5.0 LYMPHOCYTE % (test code = LY%) 6.0 % 25.0-55.0 MONOCYTE % (test code = MO%) 4.4 % 0.0-10.0 EOSINOPHIL % (test code = EO%) 0.0 % 0.0-5.0 BASOPHIL % (test code = BA%) 0.1 % 0.0-1.0 NUCLEATED RBC % (test code = NRBC%) 0.0 % 0-0 NEUTROPHIL # (test code = NT#) 9.09 K/mm3 1.8-7.7 IMMATURE GRANULOCYTE # (test code = IG#) 0.22 x10 3/uL 0-0.03 LYMPHOCYTE # (test code = LY#) 0.62 K/mm3 1.0-5.0 MONOCYTE # (test code = MO#) 0.46 K/mm3 0-0.8 EOSINOPHIL # (test code = EO#) 0.00 K/mm3 0.0-0.5 BASOPHIL # (test code = BA#) 0.01 K/mm3 0.0-0.2 NUCLEATED RBC # (test code = NRBC#) 0.00 K/mm3 0.0-0.1 MANUAL DIFF REQUIRED (test code = MDIFF) DIFF NEEDED STAIN ACCEPTABILITY (test code = STN ACCEPTABLE) TOTAL CELLS COUNTED (test code = TCC) #CELLS SEGMENTED NEUTROPHILS (test code = SEG) % 39-69 LYMPHOCYTE (test code = LYMPH) % 25-55 MONOCYTE (test code = MON) % 0-10 EOSINOPHIL (test code = EOS) % 0.0-5.0 CABOT RINGS (test code = CAB) MORPHOLOGY COMMENT (test code = MOC) PLATELET ESTIMATE (test code = PLTEST) PLATELET MORPHOLOGY (test code = PLTMORPH) CBC W/MANUAL [id number] 06:03:00* Test Item Value Reference Range Comments WHITE BLOOD CELL (test code = WBC) 10.4 K/mm3 4.5-12.5 RED BLOOD CELL (test code = RBC) 2.85 mill/mm3 4.0-5.8 HEMOGLOBIN (test code = HGB) 7.4 gram/dL 13.0-17.5 HEMATOCRIT (test code = HCT) 23.6 % 42.0-52.0 MEAN CELL VOLUME (test code = MCV) 82.8 fL 80-98 MEAN CELL HGB (test code = MCH) 26.0 picogram 27.0-33.0 MEAN CELL HGB CONCETRATION (test code = MCHC) 31.4 gram/dL 33 .0-36.0 RED CELL DISTRIBUTION WIDTH (test code = RDW) 17.1 % 11 .6-16.2 RED CELL DISTRIBUTION WIDTH SD (test code = RDW-SD) 51.2 fL 37.0-51.0 PLATELET COUNT (test code = PLT) 267 K/mm3 150-450 MEAN PLATELET VOLUME (test code = MPV) 9.7 fL 6.7-11.0 NEUTROPHIL % (test code = NT%) 87.4 % 39.0-69.0 IMMATURE GRANULOCYTE % (test code = IG%) 2.1 % 0.0-5.0 LYMPHOCYTE % (test code = LY%) 6.0 % 25.0-55.0 MONOCYTE % (test code = MO%) 4.4 % 0.0-10.0 EOSINOPHIL % (test code = EO%) 0.0 % 0.0-5.0 BASOPHIL % (test code = BA%) 0.1 % 0.0-1.0 NUCLEATED RBC % (test code = NRBC%) 0.0 % 0-0 NEUTROPHIL # (test code = NT#) 9.09 K/mm3 1.8-7.7 IMMATURE GRANULOCYTE # (test code = IG#) 0.22 x10 3/uL 0-0.03 LYMPHOCYTE # (test code = LY#) 0.62 K/mm3 1.0-5.0 MONOCYTE # (test code = MO#) 0.46 K/mm3 0-0.8 EOSINOPHIL # (test code = EO#) 0.00 K/mm3 0.0-0.5 BASOPHIL # (test code = BA#) 0.01 K/mm3 0.0-0.2 NUCLEATED RBC # (test code = NRBC#) 0.00 K/mm3 0.0-0.1 MANUAL DIFF REQUIRED (test code = MDIFF) DIFF NEEDED STAIN ACCEPTABILITY (test code = STN ACCEPTABLE) TOTAL CELLS COUNTED (test code = TCC) #CELLS SEGMENTED NEUTROPHILS (test code = SEG) % 39-69 LYMPHOCYTE (test code = LYMPH) % 25-55 MONOCYTE (test code = MON) % 0-10 EOSINOPHIL (test code = EOS) % 0.0-5.0 CABOT RINGS (test code = CAB) MORPHOLOGY COMMENT (test code = MOC) PLATELET ESTIMATE (test code = PLTEST) PLATELET MORPHOLOGY (test code = PLTMORPH) CBC W/MANUAL [id number] 06:03:00* Test Item Value Reference Range Comments WHITE BLOOD CELL (test code = WBC) 10.4 K/mm3 4.5-12.5 RED BLOOD CELL (test code = RBC) 2.85 mill/mm3 4.0-5.8 HEMOGLOBIN (test code = HGB) 7.4 gram/dL 13.0-17.5 HEMATOCRIT (test code = HCT) 23.6 % 42.0-52.0 MEAN CELL VOLUME (test code = MCV) 82.8 fL 80-98 MEAN CELL HGB (test code = MCH) 26.0 picogram 27.0-33.0 MEAN CELL HGB CONCETRATION (test code = MCHC) 31.4 gram/dL 33 .0-36.0 RED CELL DISTRIBUTION WIDTH (test code = RDW) 17.1 % 11 .6-16.2 RED CELL DISTRIBUTION WIDTH SD (test code = RDW-SD) 51.2 fL 37.0-51.0 PLATELET COUNT (test code = PLT) 267 K/mm3 150-450 MEAN PLATELET VOLUME (test code = MPV) 9.7 fL 6.7-11.0 NEUTROPHIL % (test code = NT%) 87.4 % 39.0-69.0 IMMATURE GRANULOCYTE % (test code = IG%) 2.1 % 0.0-5.0 LYMPHOCYTE % (test code = LY%) 6.0 % 25.0-55.0 MONOCYTE % (test code = MO%) 4.4 % 0.0-10.0 EOSINOPHIL % (test code = EO%) 0.0 % 0.0-5.0 BASOPHIL % (test code = BA%) 0.1 % 0.0-1.0 NUCLEATED RBC % (test code = NRBC%) 0.0 % 0-0 NEUTROPHIL # (test code = NT#) 9.09 K/mm3 1.8-7.7 IMMATURE GRANULOCYTE # (test code = IG#) 0.22 x10 3/uL 0-0.03 LYMPHOCYTE # (test code = LY#) 0.62 K/mm3 1.0-5.0 MONOCYTE # (test code = MO#) 0.46 K/mm3 0-0.8 EOSINOPHIL # (test code = EO#) 0.00 K/mm3 0.0-0.5 BASOPHIL # (test code = BA#) 0.01 K/mm3 0.0-0.2 NUCLEATED RBC # (test code = NRBC#) 0.00 K/mm3 0.0-0.1 MANUAL DIFF REQUIRED (test code = MDIFF) DIFF NEEDED STAIN ACCEPTABILITY (test code = STN ACCEPTABLE) TOTAL CELLS COUNTED (test code = TCC) #CELLS SEGMENTED NEUTROPHILS (test code = SEG) % 39-69 LYMPHOCYTE (test code = LYMPH) % 25-55 MONOCYTE (test code = MON) % 0-10 EOSINOPHIL (test code = EOS) % 0.0-5.0 MORPHOLOGY COMMENT (test code = MOC) PLATELET ESTIMATE (test code = PLTEST) PLATELET MORPHOLOGY (test code = PLTMORPH) CBC W/MANUAL [id number] 06:03:00* Test Item Value Reference Range Comments WHITE BLOOD CELL (test code = WBC) 10.4 K/mm3 4.5-12.5 RED BLOOD CELL (test code = RBC) 2.85 mill/mm3 4.0-5.8 HEMOGLOBIN (test code = HGB) 7.4 gram/dL 13.0-17.5 HEMATOCRIT (test code = HCT) 23.6 % 42.0-52.0 MEAN CELL VOLUME (test code = MCV) 82.8 fL 80-98 MEAN CELL HGB (test code = MCH) 26.0 picogram 27.0-33.0 MEAN CELL HGB CONCETRATION (test code = MCHC) 31.4 gram/dL 33 .0-36.0 RED CELL DISTRIBUTION WIDTH (test code = RDW) 17.1 % 11 .6-16.2 RED CELL DISTRIBUTION WIDTH SD (test code = RDW-SD) 51.2 fL 37.0-51.0 PLATELET COUNT (test code = PLT) 267 K/mm3 150-450 MEAN PLATELET VOLUME (test code = MPV) 9.7 fL 6.7-11.0 NEUTROPHIL % (test code = NT%) 87.4 % 39.0-69.0 IMMATURE GRANULOCYTE % (test code = IG%) 2.1 % 0.0-5.0 LYMPHOCYTE % (test code = LY%) 6.0 % 25.0-55.0 MONOCYTE % (test code = MO%) 4.4 % 0.0-10.0 EOSINOPHIL % (test code = EO%) 0.0 % 0.0-5.0 BASOPHIL % (test code = BA%) 0.1 % 0.0-1.0 NUCLEATED RBC % (test code = NRBC%) 0.0 % 0-0 NEUTROPHIL # (test code = NT#) 9.09 K/mm3 1.8-7.7 IMMATURE GRANULOCYTE # (test code = IG#) 0.22 x10 3/uL 0-0.03 LYMPHOCYTE # (test code = LY#) 0.62 K/mm3 1.0-5.0 MONOCYTE # (test code = MO#) 0.46 K/mm3 0-0.8 EOSINOPHIL # (test code = EO#) 0.00 K/mm3 0.0-0.5 BASOPHIL # (test code = BA#) 0.01 K/mm3 0.0-0.2 NUCLEATED RBC # (test code = NRBC#) 0.00 K/mm3 0.0-0.1 MANUAL DIFF REQUIRED (test code = MDIFF) DIFF NEEDED STAIN ACCEPTABILITY (test code = STN ACCEPTABLE) TOTAL CELLS COUNTED (test code = TCC) #CELLS SEGMENTED NEUTROPHILS (test code = SEG) % 39-69 LYMPHOCYTE (test code = LYMPH) % 25-55 MONOCYTE (test code = MON) % 0-10 EOSINOPHIL (test code = EOS) % 0.0-5.0 CABOT RINGS (test code = CAB) MORPHOLOGY COMMENT (test code = MOC) PLATELET ESTIMATE (test code = PLTEST) PLATELET MORPHOLOGY (test code = PLTMORPH) - CT ABD PELVIS W/O [id number] 16:26:00 Name: SIS SWARTZORE CALEB [facility] : 1965 Age/S: 54 / M [address] Unit #: [id number] Loc: [place] [address] Phys: Mariana Long MD Acct: [id number] Dis Date: Status: ADM IN PHONE #: [phone] Exam Date: 01/23/2020 1600 FAX #: [phone] Reason: distention EXAMS: CPT CODE: [id number] CT ABD PELVIS W/O CONT 46772 HISTORY: Distention. COMPARISON: None available. Location: . CT abdomen and pelvis: Stone protocol. Automated exposure control CT ABDOMEN: Note: Study is markedly limited due to motion and beam hardening artifacts. Lung bases demonstrating dependent changes. Vague infiltrate on the right. The liver is extensively obscured by overlying patient's arms with beam hardening artifact. Marked hepatomegaly at 26 cm in length. No architectural distortion or mass visible on this noncontrast exam. Gallbladder is poorly visible. Unremarkable noncontrast spleen. The stomach is collapsed and limited in evaluation. Noncontrast pancreas is normal. Hyperplastic left adrenal right adrenal is unremarkable. Kidneys are free from hydroureteronephrosis. No calyceal stones. No pathologic eddie nopathy. Mild atherosclerotic change of the unopacified vasculature Severe distention with air of the large bowel. The widest diameter measuring up to 11.5 cm suggesting toxic megacolon. Small bowel loops are unremarkable. CT PELVIS: Severe distention of th e entire colon including the redundant sigmoid colon. Appendix is not vis ible with however no inflammatory changes. Mild nonspecific presacral and precoccygeal thickening and inflammation. Decompressed urin annika bladder with Kim catheter is nondiagnostic. Prostatomegaly at 5.5 c m. No free fluid or free air. No pelvic PAGE 1 Sign ed Report (CONTINUED) Name: MAXIM SWARTZ [facility] : 1965 Age/S: 54 / M [address] Unit #: [id number] Loc: [place] [address] Phys: Mariana Long MD Acct: [id number] Dis Date: Status: ADM IN PHONE #: [phone] Exam Date: 01/23/2020 1600 FAX #: [phone] Reason: distention EXAMS: CPT CODE: [id number] CT ABD PELVIS W/O CONT 78384 <Continued> pathologic adenopathy. Subcutaneous tissues demonstrating mild edema especially in the pelvis. No lytic or blastic lesions are noted within the bony skeleton. IMPRESSION: Patchy right lower lobe vague infiltrate. Severe air distention of the entire colon suggestive of toxic megacolon measuring up to 11.5 cm in width. Mild nonspecific presacral and precoccygeal inflammatory changes but no wall thickening of the rectum or the anus. Small bowel loops are unremarkable. Appendix is not seen with certainty but no inflammation. No free fluid or free air. Markedly motion limited study. at 1626 Reported and signed by: Grayson Brown M.D. CC: Blair Borges MD; Mariana Long MD Technologist:Earnestine Nair RT(R),CT; CTDI: DLP: Trnscb Date/Time: 01/23/2020 (1625) t.[email or web address] Orig Print D/T: S: 01/23/2020 (6525) PAGE 2 Signed Report BASIC METABOLIC [id number] 14:06:00* Test Item Value Reference Range Comments SODIUM (test code = NA) 142 mmol/L 136-145 RESULT V ERIFIED BY REPEAT ANALYSIS POTASSIUM (test code = K) 3.1 mmol/L 3.5-5.1 CHLORIDE (test code = CL) 112.0 mmol/L 98-107 CARBON DIOXIDE (test code = CO2) 19.0 mmol/L 21-32 ANION GAP (test code = GAP) 14.1 10-20 GLUCOSE (test code = GLU) 101 mg/dL 74-106 BLOOD UREA NITROGEN (test code = BUN) 33 mg/dL 7-18 RESULT VERIFIED BY REPEAT ANALYSIS GLOMERULAR FILTRATION RATE (test code = GFR) > 60 mL/min >=6 0 Estimated GFR by using Modified MDRD formula.Chronic kidney disease is defined as either kidney damageor GFR <60 mL/min/1.73 m2 for >3 months. CREATININE (test code = CREAT) 1.30 mg/dL 0.7-1.3 BUN/CREATININE RATIO (test code = BUN/CREA) 25.4 10-2 0 CALCIUM (test code = CA) 8.8 mg/dL 8.5-10.1 - XR ABDOMEN AP 1 [id number] 12:03:00 FAX: Blair Borges MD [phone] [place]: B St: ADM FAX: Mariana Ryan MD Name: MXAIM SWARTZ [facility] : 1965 Age[facility]S: 54/[facility] [address] [facility]: [id number] Loc: [address] [place] [address] Phys: Mariana Long MD Acct: [id number] Dis Date: Status: ADM IN PHONE #: [phone] Exam Date: 01/23/2020 1155 FAX #: [phone] Reason: SEPSIS, ABDOMINAL DIS TENSION EXAMS: CPT CODE: [id number] XR ABDOMEN AP 1 V 27501 HISTORY: SEPSIS, ABDOMINAL DISTENSION TECHNIQUE: AP abdomen x-ray COMPARISON: None FINDINGS: Gaseous distention of both the small and large bowel may represent an il eus. No abnormal intra-abdominal calcifications or mass effect is apparent . Mild degenerative changes are present in the lower lumbar spine. IMPRESSION: Findings suggest ileus. Location: [facility] at 1203 Reported and signed by: Arvin Cameron CC: Blair Borges MD; Mariana Long MD Technologist: Roxi Dye(R); Aide FRAUSTO(R) Trnscrd Rakesh ate/Time/By: 01/23/2020 (4813) : By: [email or web address] Orig Print D/T: S: 12/31 (7392) PAGE 1 Signed Repor t - XR CHEST 1 [id number] 12:02:00 FAX: Blair Borges MD [phone] [place]: B St: ADM FAX: Mariana Ryan MD Name: MAXIM SWARTZ [facility] : 1965 Age/S: 54/M [address] Unit #: [id number] Loc: V.[address] [place] [address] Phys: Mariana Long MD Acct: [id number] Dis Date: Status: ADM IN PHONE #: [phone] Exam Date: 01/23/2020 1155 FAX #: [phone] Reason: r/o pna EXAMS: CPT CODE: [id number] XR CHEST 1 V 73490 REASON FOR EXAM: r/o pna Exam Order Date: 01/23/2020 11:33 AM Ordering M.D.: Mariana Long MD PROCEDURE: - XR CHEST 1 V COMPAR[facility] FINDINGS: There is mild subsegmental atelectasis in th e lung bases. Lungs are otherwise clear. There appears to be a bulla in th e periphery of the right upper lobe that is unchanged from the previous ex am. Cardiomediastinal silhouette is mildly prominent but stable in size. Right IJ central line is stable in position. No acute musculoskeletal abnormality. There is gaseous distention of the visualized GI tract. IMPRESSION: No acute cardiopulmonary process. Gaseous distention of the visualized GI tract is better described on the concurrent abdominal radiograph. Location: [facility] at 1202 Reported and signed by: Arvin Zaragoza MD CC: Blair Borges MD; Mariana Long MD Technologist: Roxi Dye(R); Aide Terrell RT(R) Trnscrd Date/Time/By: 01/23/2020 (1202) : By: [email or web address] Orig Print D/T: S: 01/23/2020 (3424) P AGE 1 Signed Report [id number] 09:23:00* Test Item Value Reference Range Comments TROPONIN-I (test code = TROPI) <0.015 ng/mL 0-0.045 COMMENTS TO WIRED MUSIC OPERATOR: COLLECT 3 HOURS AFTER PREVIOUS [id number] 03:27:00* Test Item Value Reference Range Comments TROPONIN-I (test code = TROPI) 0.019 ng/mL 0-0.045 COMMENTS TO WIRED MUSIC OPERATOR: COLLECT 3 HOURS AFTER PREVIOUS SAMPLE- CT HEAD/BRAIN W/O [id number] 21:00:00 Name: MAXIM SWARTZ [facility] : 1965 Age/S: 54 / M [address] [employer] Unit #: [id number] Loc: [place] [address] Phys: Wendy Duncan MD Acct: [id number] Dis Date: Status: REG ER PHONE #: [phone] Exam Date: 01/22/20202049 FAX #: [phone] Reason: CODE SEPSIS EXAMS: CPT CODE: [id number] CT HEAD/BRAIN W/O CONT 96347 HISTORY: Sepsis. No prior films available for comparison. CT brain without contrast: Automated exposure control. Location: [facility]. Note: Motion limited exam. No acute intracranial bleeds or extra-axial collections are noted. No acute territorial vascular infarction is noted. The sulci, gyri, ventricles and subarachnoid spaces and the basilar cisterns are normal for patient's age. No herniation or hydrocephalus or midline shift is noted. Mild periventricular ischemic gliosis is noted. Age-appropriate atrophy is noted as well. Portions of the visualized paranasal sinuses demonstrated air-fluid level within the right maxillary sinus and polyp within the right sphenoid sinus. No obvious bony calvarial defect is noted. Metallic plate stabilizing the anterior right maxillary sinus wall. IMPRESSION: No acute intracranial bleeds or extra-axial collections. No acute territorial vascular infarction. No herniation or hydrocephalus or midline shift. Chronic white matter ischemic disease and atrophy . at 2100 Reported and signed by: Grayson Brown M.D. PAGE 1 Signed Report (CONTINUED) Name: MAXIM SWARTZ [facility] : 1965 Age[facility]S: 54 [facility] [address] [facility] Unit #: [id number] Loc: [place] [address] Phys: Wendy Duncan MD Acct: [id number] Dis Date: Status: REG ER PHONE #: [phone] Exam Date: 01/22/20202049 FAX #: [phone] Reason: CODE SEPSIS EXAMS: CPT CODE: [id number] CT HEAD/BRAIN W/O CONT 32035 <Continued> CC: Blair Borges MD; Wendy Duncan MD Technologist:PARKER DOMINGO CT; May CTDI: DLP: Trnscb Date/Time: 01/22/2020 (2099) t.SDR.TH4 Orig Print D/T: S: 01/22/2020 (2102) PAGE 2 Signed Report - XR CHEST 1 [id number] 20:33:00 FAX: Blair Borges MD [phone] [place]: St: REG FAX: Y Wendy Duncan [phone] Name: MAXIM SWARTZ [facility] : 1965 Age[facility]S: 54[facility] [address] [facility] Unit #: [id number] Loc: [place] [address] Phys: Wendy Duncan MD Acct: [id number] Dis Date: Status: REG ER PHONE #: [phone] Exam Date: 01/22/20202019 FAX #: [phone] Reason: CODE SEPSIS EXAMS: CPT CODE: [id number] XR CHEST 1 V 75748 HISTORY: Sepsis and distended abdomen. COMPARISON: None available. Location: [facility]. No acute infiltrates, effusion or congestion is noted. Suboptimal inspiration. Right jugular central line with the tip projected over the SVC. Moderate cardiomegaly. IMPRESSION: No acute infiltrates, effusion or congestion. at 2032 Reported and signed by: Grayson Brown M.D. CC: Blair Borges MD; Wendy Duncan MD Technologist: TIANA CHATMAN; Emily Whyte Trnscrd Date/Time/By: 01/22/2020 (2032) : By: [email or web address] Orig Print D/T: S: 01/22/2020 (2035) PAGE 1 Signed Report B-TYPE NATRIURETIC [id number] 20:32:00* Test Item Value Reference Range Comments B-TYPE NATRIURETIC PEPTIDE (test code = BNP) 151.20 pgram/mL 0-1 00 CBC W/MANUAL [id number] 20:32:00* Test Item Value Reference Range Comments WHITE BLOOD CELL (test code = WBC) 12.8 K/mm3 4.5-12.5 RED BLOOD CELL (test code = RBC) 3.11 mill/mm3 4.0-5.8 HEMOGLOBIN (test code = HGB) 8.1 gram/dL 13.0-17.5 HEMATOCRIT (test code = HCT) 26.4 % 42.0-52.0 MEAN CELL VOLUME (test code = MCV) 84.9 fL 80-98 MEAN CELL HGB (test code = MCH) 26.0 picogram 27.0-33.0 MEAN CELL HGB CONCETRATION (test code = MCHC) 30.7 gram/dL 33 .0-36.0 RED CELL DISTRIBUTION WIDTH (test code = RDW) 17.2 % 11 .6-16.2 RED CELL DISTRIBUTION WIDTH SD (test code = RDW-SD) 53.5 fL 37.0-51.0 PLATELET COUNT (test code = PLT) 384 K/mm3 150-450 MEAN PLATELET VOLUME (test code = MPV) 9.5 fL 6.7-11.0 IMMATURE GRANULOCYTE % (test code = IG%) 0.4 % 0.0-5.0 NUCLEATED RBC % (test code = NRBC%) 0.0 % 0-0 NEUTROPHIL # (test code = NT#) 11.47 K/mm3 1.8-7.7 IMMATURE GRANULOCYTE # (test code = IG#) 0.05 x10 3/uL 0-0.03 LYMPHOCYTE # (test code = LY#) 0.73 K/mm3 1.0-5.0 MONOCYTE # (test code = MO#) 0.47 K/mm3 0-0.8 EOSINOPHIL # (test code = EO#) 0.00 K/mm3 0.0-0.5 BASOPHIL # (test code = BA#) 0.03 K/mm3 0.0-0.2 NUCLEATED RBC # (test code = NRBC#) 0.00 K/mm3 0.0-0.1 MANUAL DIFF REQUIRED (test code = MDIFF) YES STAIN ACCEPTABILITY (test code = STN ACCEPTABLE) STAIN ACCEPTABL E TOTAL CELLS COUNTED (test code = TCC) 115 #CELLS SEGMENTED NEUTROPHILS (test code = SEG) 79.1 % 39-69 BAND NEUTROPHIL (test code = BAND) 10.4 % 0-10 LYMPHOCYTE (test code = LYMPH) 5.2 % 25-55 REACTIVE LYMPH (test code = RELYMPH) 1.8 % MONOCYTE (test code = MON) 2.6 % 0-10 EOSINOPHIL (test code = EOS) 0.9 % 0.0-5.0 BASOPHIL (test code = BASO) 0 % 0-1.0 METAMYELOCYTE (test code = META) 0 % 0-0 MYELOCYTE (test code = MYELO) 0 % 0.0-0.0 PROMYELOCYTE (test code = PROM) 0 % 0-0 HYPOCHROMIA (test code = HYPO) 1+ POIKILOCYTOSIS (test code = POIK) 1+ ANISOCYTOSIS (test code = ANISO) 2+ MACROCYTOSIS (test code = MACR) 1+ PLATELET ESTIMATE (test code = PLTEST) ADEQUATE PLATELET MORPHOLOGY (test code = PLTMORPH) NORMAL IMMATURE FORMS (test code = IMMAT) 0 % 0-0 LACTIC [id number] 20:23:00* Test Item Value Reference Range Comments LACTIC ACID (test code = LACT) 1.3 mmol/L 0.4-1.9 BASIC METABOLIC [id number] 20:23:00* Test Item Value Reference Range Comments SODIUM (test code = NA) 135 mmol/L 136-145 POTASSIUM (test code = K) 4.0 mmol/L 3.5-5.1 CHLORIDE (test code = CL) 104.0 mmol/L 98-107 CARBON DIOXIDE (test code = CO2) 20.0 mmol/L 21-32 ANION GAP (test code = GAP) 15.0 10-20 GLUCOSE (test code = GLU) 106 mg/dL 74-106 BLOOD UREA NITROGEN (test code = BUN) 42 mg/dL 7-18 GLOMERULAR FILTRATION RATE (test code = GFR) 34 mL/min >=6 0 Estimated GFR by using Modified MDRD formula.Chronic kidney disease is defined as either kidney damageor GFR <60 mL/min/1.73 m2 for >3 months. CREATININE (test code = CREAT) 2.40 mg/dL 0.7-1.3 BUN/CREATININE RATIO (test code = BUN/CREA) 17.5 10-2 0 CALCIUM (test code = CA) 9.0 mg/dL 8.5-10.1 HEPATIC FUNCTION [id number] 20:23:00* Test Item Value Reference Range Comments TOTAL PROTEIN (test code = PROT) 9.0 gram/dL 6.4-8.2 ALBUMIN (test code = ALB) 2.1 g/dL 3.4-5.0 GLOBULIN (test code = GLOB) 6.9 gram/dL 2.7-4.2 ALBUMIN/GLOBULIN RATIO (test code = A/G) 0.3 0.75-1. 50 BILIRUBIN TOTAL (test code = BILT) 0.30 mg/dL 0.0-1.0 BILIRUBIN DIRECT (test code = BILD) 0.15 mg/dL 0.0-0.20 SGOT/AST (test code = AST) 20 IUnit/L 15-37 SGPT/ALT (test code = ALT) 11 IUnit/L 12-78 ALKALINE PHOSPHATASE TOTAL (test code = ALKP) 80 IUnit/L 45 -117 Note change in reference range due to change in reagent. [id number] 20:23:00* Test Item Value Reference Range Comments LIPASE (test code = LIP) 18 U/L 73.0-393.0 [id number] 20:23:00* Test Item Value Reference Range Comments TROPONIN-I (test code = TROPI) <0.015 ng/mL 0-0.045 PROTHROMBIN [id number] 20:16:00* Test Item Value Reference Range Comments PROTHROMBIN TIME PATIENT (test code = PTP) 15.4 seconds 9.0-1 4.0 INTERNATIONAL NORMAL RATIO (test code = INR) 1.3 0.8 -1.2 The therapeutic range for oral anticoagulant therapy [facility] is an international normalized ratio (INR)of between 2.0 and 3.0. The recommended therapeutic INRrange for various clinical situations is listed below: Clinical Situation INR range Pulmonary e mbolism treatment (2.0-3.0)Venous thrombosis treatmentVenous thrombosis prophylaxis (high risk surgery)Prevention of systemic embolism from: Acute myocardial infarction Valvular heart disease Atrial fibrillation Mechanical prosthetic heart valves (2.5-3.5) IS PATIENT ON ANTICOAGULANTS? NTHROMBOPLASTIN TIME [id number] 20:16:00* Test Item Value Reference Range Comments THROMBOPLASTIN TIME PARTIAL (test code = PTT) 32.4 seconds 25 .0-36.5 IS PATIENT ON ANTICOAGULANTS? NBASIC METABOLIC [id number] 20:15:00* Test Item Value Reference Range Comments SODIUM (test code = NA) 135 mmol/L 136-145 POTASSIUM (test code = K) 4.0 mmol/L 3.5-5.1 CHLORIDE (test code = CL) 104.0 mmol/L 98-107 CARBON DIOXIDE (test code = CO2) mmol/L 21-32 ANION GAP (test code = GAP) 10-20 GLUCOSE (test code = GLU) mg/dL 74-106 BLOOD UREA NITROGEN (test code = BUN) mg/dL 7-18 GLOMERULAR FILTRATION RATE (test code = GFR) mL/min >=6 0 CREATININE (test code = CREAT) mg/dL 0.7-1.3 BUN/CREATININE RATIO (test code = BUN/CREA) 10-2 0 CALCIUM (test code = CA) mg/dL 8.5-10.1 HEPATIC FUNCTION [id number] 20:15:00* Test Item Value Reference Range Comments TOTAL PROTEIN (test code = PROT) gram/dL 6.4-8.2 ALBUMIN (test code = ALB) g/dL 3.4-5.0 GLOBULIN (test code = GLOB) gram/dL 2.7-4.2 ALBUMIN/GLOBULIN RATIO (test code = A/G) 0.75-1. 50 BILIRUBIN TOTAL (test code = BILT) mg/dL 0.0-1.0 BILIRUBIN DIRECT (test code = BILD) mg/dL 0.0-0.20 SGOT/AST (test code = AST) IUnit/L 15-37 SGPT/ALT (test code = ALT) IUnit/L 12-78 ALKALINE PHOSPHATASE TOTAL (test code = ALKP) IUnit/L 45 -117 [id number] 20:15:00* Test Item Value Reference Range Comments LIPASE (test code = LIP) U/L 73.0-393.0 [id number] 20:15:00* Test Item Value Reference Range Comments TROPONIN-I (test code = TROPI) ng/mL 0-0.045 URINALYSIS [id number] 20:12:00* Test Item Value Reference Range Comments UA COLOR (test code = COLU) LIGHT YELLOW YELLOW MILK Y LIGHT YELLOW CONSISTENCY.V.LAB.GA 01/22/202008 UA APPEARANCE (test code = APPU) OPAQUE CLEAR UA GLUCOSE DIPSTICK (test code = DGLUU) NEGATIVE mg/dL NEGATIVE UA BILIRUBIN DIPSTICK (test code = BILU) NEGATIVE NEGATIV E UA KETONE DIPSTICK (test code = KETU) NEGATIVE mg/dL NEGATIVE UA SPECIFIC GRAVITY (test code = SGU) 1.010 1.001-1.03 5 UA BLOOD DIPSTICK (test code = GILBERTO) 1+ (Small) NEGATIVE UA PH DIPSTICK (test code = PAUL) 8.5 5.0-8.0 UA PROTEIN DIPSTICK (test code = PROU) 100 (2+) mg/dL Neg-15 UA UROBILINIOGEN DIPSTICK (test code = URO) 0.2 mg/dL 0.0- 0.2 UA NITRITE DIPSTICK (test code = VEE) POSITIVE NEGATIVE UA LEUKOCYTE ESTERASE W REFLEX (test code = LEUUR) 2+ NEGATIVE UA WBC (test code = WBCU) 40-50 per HPF 0-5 UA RBC (test code = RBCU) 3-5 per HPF 0-5 UA EPITHELIAL CELLS (test code = EPIU) None seen per HPF Few UA BACTERIA (test code = BACU) MODERATE per HPF NONE UA TRIPLE PHOSPHATE CRYSTALS (test code = TRPHOSU) MODERATE per LPF NONE UA AMORPHOUS SEDIMENT (test code = AMORU) MODERATE per LPF NONE Urine Source? Clean CatchURINALYSIS [id number] 20:09:00* Test Item Value Reference Range Comments UA COLOR (test code = COLU) LIGHT YELLOW YELLOW MILK Y LIGHT YELLOW CONSISTENCY.V.LAB.GA 01/22/202008 UA APPEARANCE (test code = APPU) O[place]QUE CLEAR UA GLUCOSE DIPSTICK (test code = DGLUU) NEGATIVE mg/dL NEGATIVE UA BILIRUBIN DIPSTICK (test code = BILU) NEGATIVE NEGATIV E UA KETONE DIPSTICK (test code = KETU) NEGATIVE mg/dL NEGATIVE UA SPECIFIC GRAVITY (test code = SGU) 1.010 1.001-1.03 5 UA BLOOD DIPSTICK (test code = GILBERTO) 1+ (Small) NEGATIVE UA PH DIPSTICK (test code = PAUL) 8.5 5.0-8.0 UA PROTEIN DIPSTICK (test code = PROU) 100 (2+) mg/dL Neg-15 UA UROBILINIOGEN DIPSTICK (test code = URO) 0.2 mg/dL 0.0- 0.2 UA NITRITE DIPSTICK (test code = VEE) POSITIVE NEGATIVE UA LEUKOCYTE ESTERASE W REFLEX (test code = LEUUR) 2+ NEGATIVE UA WBC (test code = WBCU) per HPF 0-5 UA RBC (test code = RBCU) per HPF 0-5 UA EPITHELIAL CELLS (test code = EPIU) per HPF Few UA BACTERIA (test code = BACU) per HPF NONE Urine Source? Clean CatchCBC W/MANUAL [id number] 20:06:00* Test Item Value Reference Range Comments WHITE BLOOD CELL (test code = WBC) 12.8 K/mm3 4.5-12.5 RED BLOOD CELL (test code = RBC) 3.11 mill/mm3 4.0-5.8 HEMOGLOBIN (test code = HGB) 8.1 gram/dL 13.0-17.5 HEMATOCRIT (test code = HCT) 26.4 % 42.0-52.0 MEAN CELL VOLUME (test code = MCV) 84.9 fL 80-98 MEAN CELL HGB (test code = MCH) 26.0 picogram 27.0-33.0 MEAN CELL HGB CONCETRATION (test code = MCHC) 30.7 gram/dL 33 .0-36.0 RED CELL DISTRIBUTION WIDTH (test code = RDW) 17.2 % 11 .6-16.2 RED CELL DISTRIBUTION WIDTH SD (test code = RDW-SD) 53.5 fL 37.0-51.0 PLATELET COUNT (test code = PLT) 384 K/mm3 150-450 MEAN PLATELET VOLUME (test code = MPV) 9.5 fL 6.7-11.0 IMMATURE GRANULOCYTE % (test code = IG%) 0.4 % 0.0-5.0 NUCLEATED RBC % (test code = NRBC%) 0.0 % 0-0 NEUTROPHIL # (test code = NT#) 11.47 K/mm3 1.8-7.7 IMMATURE GRANULOCYTE # (test code = IG#) 0.05 x10 3/uL 0-0.03 LYMPHOCYTE # (test code = LY#) 0.73 K/mm3 1.0-5.0 MONOCYTE # (test code = MO#) 0.47 K/mm3 0-0.8 EOSINOPHIL # (test code = EO#) 0.00 K/mm3 0.0-0.5 BASOPHIL # (test code = BA#) 0.03 K/mm3 0.0-0.2 NUCLEATED RBC # (test code = NRBC#) 0.00 K/mm3 0.0-0.1 MANUAL DIFF REQUIRED (test code = MDIFF) YES STAIN ACCEPTABILITY (test code = STN ACCEPTABLE) TOTAL CELLS COUNTED (test code = TCC) #CELLS SEGMENTED NEUTROPHILS (test code = SEG) % 39-69 LYMPHOCYTE (test code = LYMPH) % 25-55 MONOCYTE (test code = MON) % 0-10 MORPHOLOGY COMMENT (test code = MOC) PLATELET ESTIMATE (test code = PLTEST) PLATELET MORPHOLOGY (test code = PLTMORPH) CBC W/MANUAL [id number] 20:05:00* Test Item Value Reference Range Comments WHITE BLOOD CELL (test code = WBC) 12.8 K/mm3 4.5-12.5 RED BLOOD CELL (test code = RBC) 3.11 mill/mm3 4.0-5.8 HEMOGLOBIN (test code = HGB) 8.1 gram/dL 13.0-17.5 HEMATOCRIT (test code = HCT) 26.4 % 42.0-52.0 MEAN CELL VOLUME (test code = MCV) 84.9 fL 80-98 MEAN CELL HGB (test code = MCH) 26.0 picogram 27.0-33.0 MEAN CELL HGB CONCETRATION (test code = MCHC) 30.7 gram/dL 33 .0-36.0 RED CELL DISTRIBUTION WIDTH (test code = RDW) 17.2 % 11 .6-16.2 RED CELL DISTRIBUTION WIDTH SD (test code = RDW-SD) 53.5 fL 37.0-51.0 PLATELET COUNT (test code = PLT) 384 K/mm3 150-450 MEAN PLATELET VOLUME (test code = MPV) 9.5 fL 6.7-11.0 IMMATURE GRANULOCYTE % (test code = IG%) 0.4 % 0.0-5.0 NUCLEATED RBC % (test code = NRBC%) 0.0 % 0-0 NEUTROPHIL # (test code = NT#) 11.47 K/mm3 1.8-7.7 IMMATURE GRANULOCYTE # (test code = IG#) 0.05 x10 3/uL 0-0.03 LYMPHOCYTE # (test code = LY#) 0.73 K/mm3 1.0-5.0 MONOCYTE # (test code = MO#) 0.47 K/mm3 0-0.8 EOSINOPHIL # (test code = EO#) 0.00 K/mm3 0.0-0.5 BASOPHIL # (test code = BA#) 0.03 K/mm3 0.0-0.2 NUCLEATED RBC # (test code = NRBC#) 0.00 K/mm3 0.0-0.1 MANUAL DIFF REQUIRED (test code = MDIFF) YES STAIN ACCEPTABILITY (test code = STN ACCEPTABLE) TOTAL CELLS COUNTED (test code = TCC) #CELLS SEGMENTED NEUTROPHILS (test code = SEG) % 39-69 LYMPHOCYTE (test code = LYMPH) % 25-55 MONOCYTE (test code = MON) % 0-10 EOSINOPHIL (test code = EOS) % 0.0-5.0 CABOT RINGS (test code = CAB) MORPHOLOGY COMMENT (test code = MOC) PLATELET ESTIMATE (test code = PLTEST) PLATELET MORPHOLOGY (test code = PLTMORPH) CBC W/MANUAL [id number] 20:05:00* Test Item Value Reference Range Comments WHITE BLOOD CELL (test code = WBC) 12.8 K/mm3 4.5-12.5 RED BLOOD CELL (test code = RBC) 3.11 mill/mm3 4.0-5.8 HEMOGLOBIN (test code = HGB) 8.1 gram/dL 13.0-17.5 HEMATOCRIT (test code = HCT) 26.4 % 42.0-52.0 MEAN CELL VOLUME (test code = MCV) 84.9 fL 80-98 MEAN CELL HGB (test code = MCH) 26.0 picogram 27.0-33.0 MEAN CELL HGB CONCETRATION (test code = MCHC) 30.7 gram/dL 33 .0-36.0 RED CELL DISTRIBUTION WIDTH (test code = RDW) 17.2 % 11 .6-16.2 RED CELL DISTRIBUTION WIDTH SD (test code = RDW-SD) 53.5 fL 37.0-51.0 PLATELET COUNT (test code = PLT) 384 K/mm3 150-450 MEAN PLATELET VOLUME (test code = MPV) 9.5 fL 6.7-11.0 IMMATURE GRANULOCYTE % (test code = IG%) 0.4 % 0.0-5.0 NUCLEATED RBC % (test code = NRBC%) 0.0 % 0-0 NEUTROPHIL # (test code = NT#) 11.47 K/mm3 1.8-7.7 IMMATURE GRANULOCYTE # (test code = IG#) 0.05 x10 3/uL 0-0.03 LYMPHOCYTE # (test code = LY#) 0.73 K/mm3 1.0-5.0 MONOCYTE # (test code = MO#) 0.47 K/mm3 0-0.8 EOSINOPHIL # (test code = EO#) 0.00 K/mm3 0.0-0.5 BASOPHIL # (test code = BA#) 0.03 K/mm3 0.0-0.2 NUCLEATED RBC # (test code = NRBC#) 0.00 K/mm3 0.0-0.1 MANUAL DIFF REQUIRED (test code = MDIFF) YES STAIN ACCEPTABILITY (test code = STN ACCEPTABLE) TOTAL CELLS COUNTED (test code = TCC) #CELLS SEGMENTED NEUTROPHILS (test code = SEG) % 39-69 LYMPHOCYTE (test code = LYMPH) % 25-55 MONOCYTE (test code = MON) % 0-10 EOSINOPHIL (test code = EOS) % 0.0-5.0 CABOT RINGS (test code = CAB) MORPHOLOGY COMMENT (test code = MOC) PLATELET ESTIMATE (test code = PLTEST) PLATELET MORPHOLOGY (test code = PLTMORPH) CBC W/MANUAL [id number] 20:05:00* Test Item Value Reference Range Comments WHITE BLOOD CELL (test code = WBC) 12.8 K/mm3 4.5-12.5 RED BLOOD CELL (test code = RBC) 3.11 mill/mm3 4.0-5.8 HEMOGLOBIN (test code = HGB) 8.1 gram/dL 13.0-17.5 HEMATOCRIT (test code = HCT) 26.4 % 42.0-52.0 MEAN CELL VOLUME (test code = MCV) 84.9 fL 80-98 MEAN CELL HGB (test code = MCH) 26.0 picogram 27.0-33.0 MEAN CELL HGB CONCETRATION (test code = MCHC) 30.7 gram/dL 33 .0-36.0 RED CELL DISTRIBUTION WIDTH (test code = RDW) 17.2 % 11 .6-16.2 RED CELL DISTRIBUTION WIDTH SD (test code = RDW-SD) 53.5 fL 37.0-51.0 PLATELET COUNT (test code = PLT) 384 K/mm3 150-450 MEAN PLATELET VOLUME (test code = MPV) 9.5 fL 6.7-11.0 IMMATURE GRANULOCYTE % (test code = IG%) 0.4 % 0.0-5.0 NUCLEATED RBC % (test code = NRBC%) 0.0 % 0-0 NEUTROPHIL # (test code = NT#) 11.47 K/mm3 1.8-7.7 IMMATURE GRANULOCYTE # (test code = IG#) 0.05 x10 3/uL 0-0.03 LYMPHOCYTE # (test code = LY#) 0.73 K/mm3 1.0-5.0 MONOCYTE # (test code = MO#) 0.47 K/mm3 0-0.8 EOSINOPHIL # (test code = EO#) 0.00 K/mm3 0.0-0.5 BASOPHIL # (test code = BA#) 0.03 K/mm3 0.0-0.2 NUCLEATED RBC # (test code = NRBC#) 0.00 K/mm3 0.0-0.1 MANUAL DIFF REQUIRED (test code = MDIFF) YES STAIN ACCEPTABILITY (test code = STN ACCEPTABLE) TOTAL CELLS COUNTED (test code = TCC) #CELLS SEGMENTED NEUTROPHILS (test code = SEG) % 39-69 LYMPHOCYTE (test code = LYMPH) % 25-55 MONOCYTE (test code = MON) % 0-10 EOSINOPHIL (test code = EOS) % 0.0-5.0 MORPHOLOGY COMMENT (test code = MOC) PLATELET ESTIMATE (test code = PLTEST) PLATELET MORPHOLOGY (test code = PLTMORPH) CBC W/MANUAL [id number] 20:05:00* Test Item Value Reference Range Comments WHITE BLOOD CELL (test code = WBC) 12.8 K/mm3 4.5-12.5 RED BLOOD CELL (test code = RBC) 3.11 mill/mm3 4.0-5.8 HEMOGLOBIN (test code = HGB) 8.1 gram/dL 13.0-17.5 HEMATOCRIT (test code = HCT) 26.4 % 42.0-52.0 MEAN CELL VOLUME (test code = MCV) 84.9 fL 80-98 MEAN CELL HGB (test code = MCH) 26.0 picogram 27.0-33.0 MEAN CELL HGB CONCETRATION (test code = MCHC) 30.7 gram/dL 33 .0-36.0 RED CELL DISTRIBUTION WIDTH (test code = RDW) 17.2 % 11 .6-16.2 RED CELL DISTRIBUTION WIDTH SD (test code = RDW-SD) 53.5 fL 37.0-51.0 PLATELET COUNT (test code = PLT) 384 K/mm3 150-450 MEAN PLATELET VOLUME (test code = MPV) 9.5 fL 6.7-11.0 IMMATURE GRANULOCYTE % (test code = IG%) 0.4 % 0.0-5.0 NUCLEATED RBC % (test code = NRBC%) 0.0 % 0-0 NEUTROPHIL # (test code = NT#) 11.47 K/mm3 1.8-7.7 IMMATURE GRANULOCYTE # (test code = IG#) 0.05 x10 3/uL 0-0.03 LYMPHOCYTE # (test code = LY#) 0.73 K/mm3 1.0-5.0 MONOCYTE # (test code = MO#) 0.47 K/mm3 0-0.8 EOSINOPHIL # (test code = EO#) 0.00 K/mm3 0.0-0.5 BASOPHIL # (test code = BA#) 0.03 K/mm3 0.0-0.2 NUCLEATED RBC # (test code = NRBC#) 0.00 K/mm3 0.0-0.1 MANUAL DIFF REQUIRED (test code = MDIFF) YES STAIN ACCEPTABILITY (test code = STN ACCEPTABLE) TOTAL CELLS COUNTED (test code = TCC) #CELLS SEGMENTED NEUTROPHILS (test code = SEG) % 39-69 LYMPHOCYTE (test code = LYMPH) % 25-55 MONOCYTE (test code = MON) % 0-10 EOSINOPHIL (test code = EOS) % 0.0-5.0 CABOT RINGS (test code = CAB) MORPHOLOGY COMMENT (test code = MOC) PLATELET ESTIMATE (test code = PLTEST) PLATELET MORPHOLOGY (test code = PLTMORPH) BASIC METABOLIC [id number] 21:17:00* Test Item Value Reference Range Comments SODIUM (test code = NA) 144 mmol/L 136-145 POTASSIUM (test code = K) 4.1 mmol/L 3.5-5.1 CHLORIDE (test code = CL) 108.0 mmol/L 98-107 CARBON DIOXIDE (test code = CO2) 29.0 mmol/L 21-32 ANION GAP (test code = GAP) 11.1 10-20 GLUCOSE (test code = GLU) 98 mg/dL 74-106 BLOOD UREA NITROGEN (test code = BUN) 12 mg/dL 7-18 GLOMERULAR FILTRATION RATE (test code = GFR) > 60 mL/min >=6 0 Estimated GFR by using Modified MDRD formula.Chronic kidney disease is defined as either kidney damageor GFR <60 mL/min/1.73 m2 for >3 months. CREATININE (test code = CREAT) 0.50 mg/dL 0.7-1.3 BUN/CREATININE RATIO (test code = BUN/CREA) 26.0 10-2 0 CALCIUM (test code = CA) 9.0 mg/dL 8.5-10.1 BASIC METABOLIC [id number] 21:12:00* Test Item Value Reference Range Comments SODIUM (test code = NA) 144 mmol/L 136-145 POTASSIUM (test code = K) 4.1 mmol/L 3.5-5.1 CHLORIDE (test code = CL) 108.0 mmol/L 98-107 CARBON DIOXIDE (test code = CO2) mmol/L 21-32 ANION GAP (test code = GAP) 10-20 GLUCOSE (test code = GLU) mg/dL 74-106 BLOOD UREA NITROGEN (test code = BUN) mg/dL 7-18 GLOMERULAR FILTRATION RATE (test code = GFR) mL/min >=6 0 CREATININE (test code = CREAT) mg/dL 0.7-1.3 BUN/CREATININE RATIO (test code = BUN/CREA) 10-2 0 CALCIUM (test code = CA) mg/dL 8.5-10.1 CBC W/O [id number] 20:59:00* Test Item Value Reference Range Comments WHITE BLOOD CELL (test code = WBC) 6.2 K/mm3 4.5-12.5 RED BLOOD CELL (test code = RBC) 3.80 mill/mm3 4.0-5.8 HEMOGLOBIN (test code = HGB) 11.4 gram/dL 13.0-17.5 HEMATOCRIT (test code = HCT) 34.1 % 42.0-52.0 MEAN CELL VOLUME (test code = MCV) 89.7 fL 80-98 MEAN CELL HGB (test code = MCH) 30.0 picogram 27.0-33.0 MEAN CELL HGB CONCETRATION (test code = MCHC) 33.4 gram/dL 33 .0-36.0 RED CELL DISTRIBUTION WIDTH (test code = RDW) 12.8 % 11 .6-16.2 PLATELET COUNT (test code = PLT) 247 K/mm3 150-450 MEAN PLATELET VOLUME (test code = MPV) 9.9 fL 6.7-11.0 Urine Drug [id number] 18:50:07* Test Item Value Reference Range Comments Amphetamine Screen Ur (test code = Amphetamine Screen Ur) Negati ve Negative Barbiturate Screen Ur (test code = Barbiturate Screen Ur) Negati ve Negative Benzodiazepines Ur (test code = Benzodiazepines Ur) Negative Negative Cocaine Screen Ur (test code = Cocaine Screen Ur) Negative Negative U Methadone Scr (test code = U Methadone Scr) Negative Ne gative Opiate Screen Ur (test code = Opiate Screen Ur) Negative Negative U PCP Scrn (test code = U PCP Scrn) Negative Negative Cannabinoid Screen Ur (test code = Cannabinoid Screen Ur) Negati ve Negative U TCA (test code = U TCA) POSITIVE Negative The re sults of all drug screen tests are only preliminary. Clinical consideration and professional judgment should be applied to any drug of abuse test result, particularly when preliminary positive results are obtained. Please order a separate confirmatory test if desired. CT Maxillofacial w/o [id number] 17:27:41Patient: MAXIM SWARTZ Jr Date/Time08/09/2019 15:56 CDTReason for ExamTraumaReportLocation: T18CT head, conducted on 08/09/2019COMPARISON EXAMS:CT examination of the facial bones conducted at the same time.TECHNIQUE: CT examination of the brain was performed without contrast on a helical scanner. Scanning conducted from skull base to vertex in the axial plane acquiring contiguous 5mm slice thickness . The examination was performed on a [facility] at helical CT scanner utilizing low-dose radiation technique. Automatic exposure control timing was utilized to minimize radiation dose. CLINICAL HISTORY: Trauma, cervical spine fractureFINDINGS:Unfortunately images p rovided are somewhat limited secondary to motion patient positioning. Findings o f concern for a very small acute subdural hematoma collection anteriorly over th e left frontal region on image #10 possibly artifactual. If real this finding me asures approximately 2.2 mm in AP breath by approximately 9.7 mm in transverse s ize. This finding is seen on image #10 of axial imaging. It is only well seen on a single slice and again medial may be artifactual. No other definite areas of acute parenchymal hemorrhage. No pneumocephalus or definite acute skull fracture . Further assessment of the facial bones achieved on dedicated exam.There is no midline shift or definite subarachnoid hemorrhage identified. No acute territori al infarction.Impression:Technically limited exam with possible very thin in stu ath left subdural hematoma collection anteriorly over the left frontal region. F ollow-up examination be advised for further assessment of this finding. No defin ite intraparenchymal hemorrhage or definite subarachnoid hemorrhage or other def inite traumatic injuryLocation: T 18CT examination of the face 08/09/2019CLINICAL HISTORY: Trauma to the face. Assess for fracture.Comparison exam: 05/17/2019 CT examination of the facial bones.TECHNIQUE:A CT examination of the face conducted on a helical scanner with acquisition 1.25 mm slice thickness. Scanning condu cted contiguously from the frontal lobes of the oral pharyngeal region. No cont rast was administered. 2-D sagittal and coronal reformat imaging acquired. Thi s was acquired using MPR software. The examination was performed utilizing low- dose radiation technique on a uptake at helical CT scanner. Automatic exposure control was utilized to reduce radiation dose.Exam Date/Time08/09/2019 15:56 CDTR eportFINDINGS:No acute fracture is seen. Metallic plate over the anterior aspec t of the right maxilla. This was also seen on the prior study performed in May. Chronic appearing deformity of the lateral wall the right maxillary sinus and a nterior wall. Chronic deformity of the lateral wall of left maxillary sinus. No definite acute facial fracture identified with chronic deformity of the left zyg omatic arch. Pterygoid plates appear intact. Mandible appears intact. No orbital emphysema is identified in this patient. No compromise of the orbital apices. S kull base appears intact.IMPRESSION:No definite acute facial fracture with multi ple old fractures seen as noted above postoperative changesFindings have been di scussed with Dr. Strange in the emergency room on 08/09/2019 at 5:27 PM Final Dictated by: MD Alejandra, Haritha ANTHONYictated DT/TM: 08/09/2019 5: 20 pmSigned by: MD Alejandra, Haritha MSigned (Electronic Signature): 5:27 pmCT Brain/Head w/o [id number] 17:27:41Patient: MAXIM SWARTZ Jr Date/Time08/09/2019 15:56 CDTReason for ExamTraumaReportLocation: T18CT head, conducted on 08/09/2019COMPARISON EXAMS:CT examination of the facial bones conduc mil at the same time.TECHNIQUE: CT examination of the brain was performed withou t contrast on a helical scanner. Scanning conducted from skull base to vertex in the axial plane acquiring contiguous 5mm slice thickness . The examination was performed on a uptake at helical CT scanner utilizing low-dose radiation techni que. Automatic exposure control timing was utilized to minimize radiation dose. CLINICAL HISTORY: Trauma, cervical spine fractureFINDINGS:Unfortunately images p rovided are somewhat limited secondary to motion patient positioning. Findings o f concern for a very small acute subdural hematoma collection anteriorly over th e left frontal region on image #10 possibly artifactual. If real this finding me asures approximately 2.2 mm in AP breath by approximately 9.7 mm in transverse s ize. This finding is seen on image #10 of axial imaging. It is only well seen on a single slice and again medial may be artifactual. No other definite areas of acute parenchymal hemorrhage. No pneumocephalus or definite acute skull fracture . Further assessment of the facial bones achieved on dedicated exam.There is no midline shift or definite subarachnoid hemorrhage identified. No acute territori al infarction.Impression:Technically limited exam with possible very thin in stu ath left subdural hematoma collection anteriorly over the left frontal region. F ollow-up examination be advised for further assessment of this finding. No defin ite intraparenchymal hemorrhage or definite subarachnoid hemorrhage or other def inite traumatic injuryLocation: T 18CT examination of the face 08/09/2019CLINICAL HISTORY: Trauma to the face. Assess for fracture.Comparison exam: 05/17/2019 CT examination of the facial bones.TECHNIQUE:A CT examination of the face conducted on a helical scanner with acquisition 1.25 mm slice thickness. Scanning condu cted contiguously from the frontal lobes of the oral pharyngeal region. No cont rast was administered. 2-D sagittal and coronal reformat imaging acquired. Thi s was acquired using MPR software. The examination was performed utilizing low- dose radiation technique on a [facility] helical CT scanner. Automatic exposure control was utilized to reduce radiation dose.Exam Date/Time08/09/2019 15:56 CDTR eportFINDINGS:No acute fracture is seen. Metallic plate over the anterior aspec t of the right maxilla. This was also seen on the prior study performed in May. Chronic appearing deformity of the lateral wall the right maxillary sinus and a nterior wall. Chronic deformity of the lateral wall of left maxillary sinus. No definite acute facial fracture identified with chronic deformity of the left zyg omatic arch. Pterygoid plates appear intact. Mandible appears intact. No orbital emphysema is identified in this patient. No compromise of the orbital apices. S kull base appears intact.IMPRESSION:No definite acute facial fracture with multi ple old fractures seen as noted above postoperative changesFindings have been di scussed with Dr. Strange in the emergency room on 08/09/2019 at 5:27 PM Final Dictated by: MD Alejandra, Haritha ANTHONYictated DT/TM: 08/09/2019 5: 20 pmSigned by: MD Roberts Deborah MSigned (Electronic Signature): 5:27 pmCT Spine Cervical w/o [id number] 17:17:36Patient: MAXIM SWARTZ Jr Date/Time08/09/2019 15:56 CDTReason for ExamTraumaReportLocation: T 18CT cervical spine, conducted on 08/09/2019TECHNIQUE: CT examination of the cervical spine without contrast was performed on a helical scanner without contrast with peter nal and sagittal reformatted imaging obtained. This was acquired with 2D reform atted acquired using MPR software on CT workstation. Scanning conducted in axia l plane from skull base down to upper thoracic spine. 1.25mm contiguous slice thickness acquired . The examination was performed with low radiation dose tech nique. Automatic exposure control was utilized to reduce radiation dose. [place] conducted on updated helical CT scannerCLINICAL HISTORY: Neck pain. Ishaan beltre , patient presenting to the emergency roomComparison exam: CT examination of the cervical spine 7 07/18/2019FINDINGS:There is presence of an fusion across the disc space at C4-C5. Acute fracture through the left lamina at C5 with extension through the base of the left-sided facet joint at this level and extending thr ough the inferior aspect of the facet joint on the left side at this level. Jose tional fracture line transversing through the right lamina near the transverse p rocess appearing nondisplaced. Given constellation of findings, neurosurgical co nsultation is advised and consideration of MRI imaging. These fractures were not identified on the CT exam performed in May.Additionally seen is a acute appear ing teardrop type fracture at the base of C2 best seen on sagittal imaging not i dentified previously. This appears relatively acute seen on sagittal imaging on images #28 and 27. There may be associated ligamentous injury. Mild widening of the anterior aspect of the disc space at this level of concern for traumatic fan cole of the disc space. Tiny possible fracture even arising from the posterior superior margin at C5-6 There is chronic appearing subluxation with partial fusi on across the facet joint on the left-sided C4-C5 unchanged to the prior examina tion. No malalignment of the spinal lines otherwise is seen. Multilevel degenera tive disc changes posterior bony ridging at C5-C6 and with foraminal narrowing a t this level and with significant foraminal narrowing at C6-C7.Fracture line panfilo n now identified through the anterior osteophyte superiorly at C6 not identified previously which soft tissue swelling in this area of concern for injury to the anterior longitudinal ligament.Impression:Acute fractures through the lamina bi laterally at C5 and extending through the base of the left-sided facet joint at the C5 and into the inferior aspect of the left facet joint at C6.Significant so ft tissue swelling with findings of concern for acute fracture through an anteri or osteophyte at C6. This is of concern for injury to the anterior longitudinal ligament complex. MRI imaging is advised and neurosurgical consultation.. There is fanning of the anterior aspect of the disc space at C5-C6 and with possible tiny acute fracture arising from the posterior superior endplate of [id number] appe aring teardrop type fracture through the base of the anterior aspect of C2 with associated soft tissue swelling not identified previously.Exam Date/Time 9 15:56 CDTReportI have reviewed the findings with Dr. Strange on 08/09/2019 at 5: 15 PM. Neurosurgical consultation advisedFOR INTERNAL CODING PURPOSES ONLYRESULT CODE: CVRMD Final Dictated by: MD Alejandra, Haritha ANTHONYictated DT/TM: 08/09/2019 5:05 pmSigned by: Hoa Singh MD, Haritha Welchgned (Electronic Signature): 08/09/2019 5:17 pm Comprehensive Metabolic [id number] 16:10:59* Test Item Value Reference Range Comments Sodium Level (test code = Sodium Level) 140.0 mmol/L 135.0-14 5.0 Potassium Level (test code = Potassium Level) 4.1 mmol/L 3. 5-5.1 Chloride Level (test code = Chloride Level) 102 mmol/L 98-1 05 CO2 (test code = CO2) 25 mmol/L 22-29 Anion Gap (test code = Anion Gap) 13 mmol/L 7-16 BUN (test code = BUN) 12.60 mg/dL 6.00-20.00 Creatinine Level (test code = Creatinine Level) 0.80 mg/dL 0.70-1.20 BUN/Creat Ratio (test code = BUN/Creat Ratio) 16 Glucose Level (test code = Glucose Level) 89 mg/dL 70-115 Calcium Level (test code = Calcium Level) 8.9 mg/dL 8.3-10 .5 Alk Phos (test code = Alk Phos) 69 U/L 40-129 Bilirubin Total (test code = Bilirubin Total) 0.2 mg/dL 0. 1-0.9 Albumin Level (test code = Albumin Level) 3.8 g/dL 3.5-5. 2 Protein Total (test code = Protein Total) 7.1 g/dL 6.4-8. 3 ALT (test code = ALT) 72 U/L 1-41 AST (test code = AST) 81 U/L 1-40 Globulin (test code = Globulin) 3.3 g/dL 2.9-3.1 A/G Ratio (test code = A/G Ratio) 1.2 ratio eGFR AA (test code = eGFR AA) >60 mL/min/1.73 m2 eGFR (estimated Glomerular Filtration Rate) is an estimated value, calculated from the patient's serum creatinine using the MDRD equation. It is NOT the patient's actual GFR. The eGFR provides a more clinically useful measure of kidney disease than serum creatinine alone.This calculation takes sex and race into account, if the information is provided. If the race is not provided, and the patient is -Vietnamese, multiply by 1.212. If sex is not provided, and the patient is female, multiply by 0.742. Results for patients <18 years of age have not been validated by the MDRD study and should be interpreted with caution. eGFR Result Interpretation:eGFR > or = 60 is in the Normal RangeeGFR < 60 may mean kidney diseaseeGFR < 15 may mean kidney failure Ranges recommended by the National Kidney Foundation, http://nkdep.nih.gov Comprehensive Metabolic [id number] 16:10:59* Test Item Value Reference Range Comments Sodium Level (test code = Sodium Level) 140.0 mmol/L 135.0-14 5.0 Potassium Level (test code = Potassium Level) 4.1 mmol/L 3. 5-5.1 Chloride Level (test code = Chloride Level) 102 mmol/L 98-1 05 CO2 (test code = CO2) 25 mmol/L 22-29 Anion Gap (test code = Anion Gap) 13 mmol/L 7-16 BUN (test code = BUN) 12.60 mg/dL 6.00-20.00 Creatinine Level (test code = Creatinine Level) 0.80 mg/dL 0.70-1.20 BUN/Creat Ratio (test code = BUN/Creat Ratio) 16 Glucose Level (test code = Glucose Level) 89 mg/dL 70-115 Calcium Level (test code = Calcium Level) 8.9 mg/dL 8.3-10 .5 Alk Phos (test code = Alk Phos) 69 U/L 40-129 Bilirubin Total (test code = Bilirubin Total) 0.2 mg/dL 0. 1-0.9 Albumin Level (test code = Albumin Level) 3.8 g/dL 3.5-5. 2 Protein Total (test code = Protein Total) 7.1 g/dL 6.4-8. 3 ALT (test code = ALT) 72 U/L 1-41 AST (test code = AST) 81 U/L 1-40 Globulin (test code = Globulin) 3.3 g/dL 2.9-3.1 A/G Ratio (test code = A/G Ratio) 1.2 ratio eGFR AA (test code = eGFR AA) >60 mL/min/1.73 m2 eGFR (estimated Glomerular Filtration Rate) is an estimated value, calculated from the patient's serum creatinine using the MDRD equation. It is NOT the patient's actual GFR. The eGFR provides a more clinically useful measure of kidney disease than serum creatinine alone.This calculation takes sex and race into account, if the information is provided. If the race is not provided, and the patient is -Vietnamese, multiply by 1.212. If sex is not provided, and the patient is female, multiply by 0.742. Results for patients <18 years of age have not been validated by the MDRD study and should be interpreted with caution. eGFR Result Interpretation:eGFR > or = 60 is in the Normal RangeeGFR < 60 may mean kidney diseaseeGFR < 15 may mean kidney failure Ranges recommended by the National Kidney Foundation, http://nkdep.nih.gov Alcohol [id number] 16:10:59* Test Item Value Reference Range Comments Ethanol Level (test code = Ethanol Level) 0.09 g/dL 0.00-0 .01 Intoxicated 0.080 g/dL or more Ethanol Inst (test code = Ethanol Inst) 86 Comprehensive Metabolic [id number] 16:10:59* Test Item Value Reference Range Comments Sodium Level (test code = Sodium Level) 140.0 mmol/L 135.0-14 5.0 Potassium Level (test code = Potassium Level) 4.1 mmol/L 3. 5-5.1 Chloride Level (test code = Chloride Level) 102 mmol/L 98-1 05 CO2 (test code = CO2) 25 mmol/L 22-29 Anion Gap (test code = Anion Gap) 13 mmol/L 7-16 BUN (test code = BUN) 12.60 mg/dL 6.00-20.00 Creatinine Level (test code = Creatinine Level) 0.80 mg/dL 0.70-1.20 BUN/Creat Ratio (test code = BUN/Creat Ratio) 16 Glucose Level (test code = Glucose Level) 89 mg/dL 70-115 Calcium Level (test code = Calcium Level) 8.9 mg/dL 8.3-10 .5 Alk Phos (test code = Alk Phos) 69 U/L 40-129 Bilirubin Total (test code = Bilirubin Total) 0.2 mg/dL 0. 1-0.9 Albumin Level (test code = Albumin Level) 3.8 g/dL 3.5-5. 2 Protein Total (test code = Protein Total) 7.1 g/dL 6.4-8. 3 ALT (test code = ALT) 72 U/L 1-41 AST (test code = AST) 81 U/L 1-40 Globulin (test code = Globulin) 3.3 g/dL 2.9-3.1 A/G Ratio (test code = A/G Ratio) 1.2 ratio eGFR AA (test code = eGFR AA) >60 mL/min/1.73 m2 eGFR (estimated Glomerular Filtration Rate) is an estimated value, calculated from the patient's serum creatinine using the MDRD equation. It is NOT the patient's actual GFR. The eGFR provides a more clinically useful measure of kidney disease than serum creatinine alone.This calculation takes sex and race into account, if the information is provided. If the race is not provided, and the patient is -Vietnamese, multiply by 1.212. If sex is not provided, and the patient is female, multiply by 0.742. Results for patients <18 years of age have not been validated by the MDRD study and should be interpreted with caution. eGFR Result Interpretation:eGFR > or = 60 is in the Normal RangeeGFR < 60 may mean kidney diseaseeGFR < 15 may mean kidney failure Ranges recommended by the National Kidney Foundation, http://nkdep.nih.gov eGFR Non-AA (test code = eGFR Non-AA) >60.00 mL/min/1.73 m2 eGFR (estimated Glomerular Filtration Rate) is an estimated value, calculated from the patient's serum creatinine using the MDRD equation. It is NOT the patient's actual GFR. The eGFR provides a more clinically useful measure of kidney disease than serum creatinine alone.This calculation takes sex and race into account, if the information is provided. If the race is not provided, and the patient is -Vietnamese, multiply by 1.212. If sex is not provided, and the patient is female, multiply by 0.742. Results for patients <18 years of age have not been validated by the MDRD study and should be interpreted with caution. eGFR Result Interpretation:eGFR > or = 60 is in the Normal RangeeGFR < 60 may mean kidney diseaseeGFR < 15 may mean kidney failure Ranges recommended by the National Kidney Foundation, http://nkdep.nih.gov Automated [id number] 16:01:20* Test Item Value Reference Range Comments Neutro Auto (test code = Neutro Auto) 66.3 % 36.0-70.0 Lymph Auto (test code = Lymph Auto) 24.6 % 12.0-44.0 Yolo Auto (test code = Yolo Auto) 7.4 % 0.0-11.0 Eos, Auto (test code = Eos, Auto) 1.1 % 0.0-7.0 Basophil Auto (test code = Basophil Auto) 0.2 % 0.0-2. 0 Neutro Absolute (test code = Neutro Absolute) 3.0 x10 1. 6-7.4 Lymph Absolute (test code = Lymph Absolute) 1.10 x10 .50- 4.60 Yolo Absolute (test code = Yolo Absolute) .33 x10 .00-1. 20 Eos Absolute (test code = Eos Absolute) 0.05 x10 0.00-0.7 4 Baso Absolute (test code = Baso Absolute) 0.01 x10 0.00-0 .21 IG [id number] 16:01:20* Test Item Value Reference Range Comments IG (test code = IG) 0.4 % 0.0-5.0 IG Abs (test code = IG Abs) 0 x10 Complete Blood Count with [id number] 16:01:19* Test Item Value Reference Range Comments WBC (test code = WBC) 4.5 x10 4.4-10.5 RBC (test code = RBC) 4.06 x10 4.10-5.70 Hgb (test code = Hgb) 12.3 g/dL 13.4-17.4 MCV (test code = MCV) 92.10 fL 80.00-100.00 Hct (test code = Hct) 37.4 % 38.7-52.0 MCHC (test code = MCHC) 32.90 g/dL 32.00-37.50 RDW CV (test code = RDW CV) 13.9 % 11.5-14.5 MCH (test code = MCH) 30.3 pg 27.0-32.5 Platelets (test code = Platelets) 182.0 x10 140.0-440.0 MPV (test code = MPV) 9.9 fL Slide Review (test code = Slide Review) Auto Auto Result created by [email or web address] nRBC (test code = nRBC) 0 NRBC Abs (test code = NRBC Abs) 0.00 x10 IPF (test code = IPF) 0 % Basic Metabolic [id number] 08:21:49* Test Item Value Reference Range Comments Sodium Level (test code = Sodium Level) 139.0 mmol/L 135.0-14 5.0 Potassium Level (test code = Potassium Level) 4.1 mmol/L 3. 5-5.1 Chloride Level (test code = Chloride Level) 103 mmol/L 98-1 05 CO2 (test code = CO2) 26 mmol/L 22-29 Anion Gap (test code = Anion Gap) 10 mmol/L 7-16 BUN (test code = BUN) 10.50 mg/dL 6.00-20.00 Creatinine Level (test code = Creatinine Level) 0.90 mg/dL 0.70-1.20 BUN/Creat Ratio (test code = BUN/Creat Ratio) 12 Glucose Level (test code = Glucose Level) 93 mg/dL 70-115 Calcium Level (test code = Calcium Level) 9.9 mg/dL 8.3-10 .5 [id number] 08:21:49* Test Item Value Reference Range Comments Amylase Level (test code = Amylase Level) 61 28-100 Basic Metabolic [id number] 08:21:49* Test Item Value Reference Range Comments Sodium Level (test code = Sodium Level) 139.0 mmol/L 135.0-14 5.0 Potassium Level (test code = Potassium Level) 4.1 mmol/L 3. 5-5.1 Chloride Level (test code = Chloride Level) 103 mmol/L 98-1 05 CO2 (test code = CO2) 26 mmol/L 22-29 Anion Gap (test code = Anion Gap) 10 mmol/L 7-16 BUN (test code = BUN) 10.50 mg/dL 6.00-20.00 Creatinine Level (test code = Creatinine Level) 0.90 mg/dL 0.70-1.20 BUN/Creat Ratio (test code = BUN/Creat Ratio) 12 Glucose Level (test code = Glucose Level) 93 mg/dL 70-115 Calcium Level (test code = Calcium Level) 9.9 mg/dL 8.3-10 .5 eGFR AA (test code = eGFR AA) >60 mL/min/1.73 m2 eGFR (estimated Glomerular Filtration Rate) is an estimated value, calculated from the patient's serum creatinine using the MDRD equation. It is NOT the patient's actual GFR. The eGFR provides a more clinically useful measure of kidney disease than serum creatinine alone.This calculation takes sex and race into account, if the information is provided. If the race is not provided, and the patient is -Vietnamese, multiply by 1.212. If sex is not provided, and the patient is female, multiply by 0.742. Results for patients <18 years of age have not been validated by the MDRD study and should be interpreted with caution. eGFR Result Interpretation:eGFR > or = 60 is in the Normal RangeeGFR < 60 may mean kidney diseaseeGFR < 15 may mean kidney failure Ranges recommended by the National Kidney Foundation, http://nkdep.nih.gov Basic Metabolic [id number] 08:21:49* Test Item Value Reference Range Comments Sodium Level (test code = Sodium Level) 139.0 mmol/L 135.0-14 5.0 Potassium Level (test code = Potassium Level) 4.1 mmol/L 3. 5-5.1 Chloride Level (test code = Chloride Level) 103 mmol/L 98-1 05 CO2 (test code = CO2) 26 mmol/L 22-29 Anion Gap (test code = Anion Gap) 10 mmol/L 7-16 BUN (test code = BUN) 10.50 mg/dL 6.00-20.00 Creatinine Level (test code = Creatinine Level) 0.90 mg/dL 0.70-1.20 BUN/Creat Ratio (test code = BUN/Creat Ratio) 12 Glucose Level (test code = Glucose Level) 93 mg/dL 70-115 Calcium Level (test code = Calcium Level) 9.9 mg/dL 8.3-10 .5 eGFR AA (test code = eGFR AA) >60 mL/min/1.73 m2 eGFR (estimated Glomerular Filtration Rate) is an estimated value, calculated from the patient's serum creatinine using the MDRD equation. It is NOT the patient's actual GFR. The eGFR provides a more clinically useful measure of kidney disease than serum creatinine alone.This calculation takes sex and race into account, if the information is provided. If the race is not provided, and the patient is -Vietnamese, multiply by 1.212. If sex is not provided, and the patient is female, multiply by 0.742. Results for patients <18 years of age have not been validated by the MDRD study and should be interpreted with caution. eGFR Result Interpretation:eGFR > or = 60 is in the Normal RangeeGFR < 60 may mean kidney diseaseeGFR < 15 may mean kidney failure Ranges recommended by the National Kidney Foundation, http://nkdep.nih.gov eGFR Non-AA (test code = eGFR Non-AA) >60.00 mL/min/1.73 m2 eGFR (estimated Glomerular Filtration Rate) is an estimated value, calculated from the patient's serum creatinine using the MDRD equation. It is NOT the patient's actual GFR. The eGFR provides a more clinically useful measure of kidney disease than serum creatinine alone.This calculation takes sex and race into account, if the information is provided. If the race is not provided, and the patient is -Vietnamese, multiply by 1.212. If sex is not provided, and the patient is female, multiply by 0.742. Results for patients <18 years of age have not been validated by the MDRD study and should be interpreted with caution. eGFR Result Interpretation:eGFR > or = 60 is in the Normal RangeeGFR < 60 may mean kidney diseaseeGFR < 15 may mean kidney failure Ranges recommended by the National Kidney Foundation, http://nkdep.nih.gov Automated [id number] 07:58:14* Test Item Value Reference Range Comments Neutro Auto (test code = Neutro Auto) 65.2 % 36.0-70.0 Lymph Auto (test code = Lymph Auto) 23.1 % 12.0-44.0 Yolo Auto (test code = Yolo Auto) 10.9 % 0.0-11.0 Eos, Auto (test code = Eos, Auto) 0.3 % 0.0-7.0 Basophil Auto (test code = Basophil Auto) 0.1 % 0.0-2. 0 Neutro Absolute (test code = Neutro Absolute) 6.2 x10 1. 6-7.4 Lymph Absolute (test code = Lymph Absolute) 2.18 x10 .50- 4.60 Yolo Absolute (test code = Yolo Absolute) 1.03 x10 .00-1. 20 Eos Absolute (test code = Eos Absolute) 0.03 x10 0.00-0.7 4 Baso Absolute (test code = Baso Absolute) 0.01 x10 0.00-0 .21 IG [id number] 07:58:14* Test Item Value Reference Range Comments IG (test code = IG) 0.4 % 0.0-5.0 IG Abs (test code = IG Abs) 0 x10 Complete Blood Count with [id number] 07:58:13* Test Item Value Reference Range Comments WBC (test code = WBC) 9.4 x10 4.4-10.5 RBC (test code = RBC) 4.98 x10 4.10-5.70 Hgb (test code = Hgb) 14.9 g/dL 13.4-17.4 Hct (test code = Hct) 44.6 % 38.7-52.0 MCV (test code = MCV) 89.60 fL 80.00-100.00 MCHC (test code = MCHC) 33.40 g/dL 32.00-37.50 RDW CV (test code = RDW CV) 14.3 % 11.5-14.5 MCH (test code = MCH) 29.9 pg 27.0-32.5 Platelets (test code = Platelets) 230.0 x10 140.0-440.0 MPV (test code = MPV) 10.2 fL Slide Review (test code = Slide Review) Auto Auto Result created by [email or web address] nRBC (test code = nRBC) 0 NRBC Abs (test code = NRBC Abs) 0.00 x10 IPF (test code = IPF) 0 % Troponin [id number] 00:48:07* Test Item Value Reference Range Comments Troponin-T (test code = Troponin-T) 10.800 ng/L 0.000-22.000 The CV of the assay at 99th percentile for both male and female patient population is < 10%. A rise and fall in JJ with at least one value above the 99th percentile with clinical evidence of myocardial ischemia would support a diagnosis of AMI. A delta of at least 20% is recommended to access acute changes in results above the 99th percentile in serial measurements. Stable JJ levels (<20%) delta above the 99th percentile URL would support a diagnosis of chronic myocardial injury. Basic Metabolic [id number] 00:46:35* Test Item Value Reference Range Comments Sodium Level (test code = Sodium Level) 143.0 mmol/L 135.0-14 5.0 Potassium Level (test code = Potassium Level) 3.6 mmol/L 3. 5-5.1 Chloride Level (test code = Chloride Level) 105 mmol/L 98-1 05 CO2 (test code = CO2) 25 mmol/L 22-29 Anion Gap (test code = Anion Gap) 13 mmol/L 7-16 BUN (test code = BUN) 11.40 mg/dL 6.00-20.00 Creatinine Level (test code = Creatinine Level) 0.70 mg/dL 0.70-1.20 BUN/Creat Ratio (test code = BUN/Creat Ratio) 16 Glucose Level (test code = Glucose Level) 138 mg/dL 70-115 Calcium Level (test code = Calcium Level) 9.3 mg/dL 8.3-10 .5 Basic Metabolic [id number] 00:46:35* Test Item Value Reference Range Comments Sodium Level (test code = Sodium Level) 143.0 mmol/L 135.0-14 5.0 Potassium Level (test code = Potassium Level) 3.6 mmol/L 3. 5-5.1 Chloride Level (test code = Chloride Level) 105 mmol/L 98-1 05 CO2 (test code = CO2) 25 mmol/L 22-29 Anion Gap (test code = Anion Gap) 13 mmol/L 7-16 BUN (test code = BUN) 11.40 mg/dL 6.00-20.00 Creatinine Level (test code = Creatinine Level) 0.70 mg/dL 0.70-1.20 BUN/Creat Ratio (test code = BUN/Creat Ratio) 16 Glucose Level (test code = Glucose Level) 138 mg/dL 70-115 Calcium Level (test code = Calcium Level) 9.3 mg/dL 8.3-10 .5 eGFR AA (test code = eGFR AA) >60 mL/min/1.73 m2 eGFR (estimated Glomerular Filtration Rate) is an estimated value, calculated from the patient's serum creatinine using the MDRD equation. It is NOT the patient's actual GFR. The eGFR provides a more clinically useful measure of kidney disease than serum creatinine alone.This calculation takes sex and race into account, if the information is provided. If the race is not provided, and the patient is -Vietnamese, multiply by 1.212. If sex is not provided, and the patient is female, multiply by 0.742. Results for patients <18 years of age have not been validated by the MDRD study and should be interpreted with caution. eGFR Result Interpretation:eGFR > or = 60 is in the Normal RangeeGFR < 60 may mean kidney diseaseeGFR < 15 may mean kidney failure Ranges recommended by the National Kidney Foundation, http://nkdep.nih.gov Hepatic Function [id number] 00:46:35* Test Item Value Reference Range Comments Protein Total (test code = Protein Total) 7.6 g/dL 6.4-8. 3 Albumin Level (test code = Albumin Level) 4.3 g/dL 3.5-5. 2 Bilirubin Total (test code = Bilirubin Total) 0.5 mg/dL 0. 1-0.9 Bilirubin Direct (test code = Bilirubin Direct) <0.2 mg/dL 0.0-0.3 Direct Bilirubin methodology may be affected by hemolysis. Bilirubin Indirect (test code = Bilirubin Indirect) >0.30 mg/dL Alk Phos (test code = Alk Phos) 65 U/L 40-129 AST (test code = AST) 112 U/L 1-40 ALT (test code = ALT) 95 U/L 1-41 A/G Ratio (test code = A/G Ratio) 1.3 ratio Globulin (test code = Globulin) 3.3 g/dL 2.9-3.1 Basic Metabolic [id number] 00:46:35* Test Item Value Reference Range Comments Sodium Level (test code = Sodium Level) 143.0 mmol/L 135.0-14 5.0 Potassium Level (test code = Potassium Level) 3.6 mmol/L 3. 5-5.1 Chloride Level (test code = Chloride Level) 105 mmol/L 98-1 05 CO2 (test code = CO2) 25 mmol/L 22-29 Anion Gap (test code = Anion Gap) 13 mmol/L 7-16 BUN (test code = BUN) 11.40 mg/dL 6.00-20.00 Creatinine Level (test code = Creatinine Level) 0.70 mg/dL 0.70-1.20 BUN/Creat Ratio (test code = BUN/Creat Ratio) 16 Glucose Level (test code = Glucose Level) 138 mg/dL 70-115 Calcium Level (test code = Calcium Level) 9.3 mg/dL 8.3-10 .5 eGFR AA (test code = eGFR AA) >60 mL/min/1.73 m2 eGFR (estimated Glomerular Filtration Rate) is an estimated value, calculated from the patient's serum creatinine using the MDRD equation. It is NOT the patient's actual GFR. The eGFR provides a more clinically useful measure of kidney disease than serum creatinine alone.This calculation takes sex and race into account, if the information is provided. If the race is not provided, and the patient is -Vietnamese, multiply by 1.212. If sex is not provided, and the patient is female, multiply by 0.742. Results for patients <18 years of age have not been validated by the MDRD study and should be interpreted with caution. eGFR Result Interpretation:eGFR > or = 60 is in the Normal RangeeGFR < 60 may mean kidney diseaseeGFR < 15 may mean kidney failure Ranges recommended by the National Kidney Foundation, http://nkdep.nih.gov eGFR Non-AA (test code = eGFR Non-AA) >60.00 mL/min/1.73 m2 eGFR (estimated Glomerular Filtration Rate) is an estimated value, calculated from the patient's serum creatinine using the MDRD equation. It is NOT the patient's actual GFR. The eGFR provides a more clinically useful measure of kidney disease than serum creatinine alone.This calculation takes sex and race into account, if the information is provided. If the race is not provided, and the patient is -Vietnamese, multiply by 1.212. If sex is not provided, and the patient is female, multiply by 0.742. Results for patients <18 years of age have not been validated by the MDRD study and should be interpreted with caution. eGFR Result Interpretation:eGFR > or = 60 is in the Normal RangeeGFR < 60 may mean kidney diseaseeGFR < 15 may mean kidney failure Ranges recommended by the National Kidney Foundation, http://nkdep.nih.gov Prothrombin Time and [id number] 00:29:44* Test Item Value Reference Range Comments Prothrombin Time (test code = Prothrombin Time) 12.0 seconds 9.8-13.4 INR (test code = INR) 1.0 ratio 0.6-1.2 Complete Blood Count without [id number] 00:20:49* Test Item Value Reference Range Comments WBC (test code = WBC) 6.6 x10 4.4-10.5 RBC (test code = RBC) 4.66 x10 4.10-5.70 Hgb (test code = Hgb) 14.1 g/dL 13.4-17.4 Hct (test code = Hct) 41.8 % 38.7-52.0 MCV (test code = MCV) 89.70 fL 80.00-100.00 MCH (test code = MCH) 30.3 pg 27.0-32.5 MCHC (test code = MCHC) 33.70 g/dL 32.00-37.50 RDW CV (test code = RDW CV) 14.2 % 11.5-14.5 Platelets (test code = Platelets) 212.0 x10 140.0-440.0 MPV (test code = MPV) 10.4 fL nRBC (test code = nRBC) 0 NRBC Abs (test code = NRBC Abs) 0.00 x10 IPF (test code = IPF) 0 % POC [id number] 23:28:29* Test Item Value Reference Range Comments Glucose POC (test code = Glucose POC) 187 mg/dL 70-115 If you consider your patient critically ill, the Chana-Accu Check Infrom II meter should not be used for Glucose determination. Draw a venous Glucose and send to the main Lab for analysis. Comprehensive Metabolic [id number] 18:00:03* Test Item Value Reference Range Comments Sodium Level (test code = Sodium Level) 142.0 mmol/L 135.0-14 5.0 Potassium Level (test code = Potassium Level) 4.1 mmol/L 3. 5-5.1 Chloride Level (test code = Chloride Level) 104 mmol/L 98-1 05 CO2 (test code = CO2) 21 mmol/L 22-29 Anion Gap (test code = Anion Gap) 17 mmol/L 7-16 BUN (test code = BUN) 10.70 mg/dL 6.00-20.00 Creatinine Level (test code = Creatinine Level) 0.80 mg/dL 0.70-1.20 BUN/Creat Ratio (test code = BUN/Creat Ratio) 13 Glucose Level (test code = Glucose Level) 78 mg/dL 70-115 Calcium Level (test code = Calcium Level) 9.3 mg/dL 8.3-10 .5 Alk Phos (test code = Alk Phos) 69 U/L 40-129 Bilirubin Total (test code = Bilirubin Total) 0.4 mg/dL 0. 1-0.9 Albumin Level (test code = Albumin Level) 4.5 g/dL 3.5-5. 2 Protein Total (test code = Protein Total) 8.2 g/dL 6.4-8. 3 ALT (test code = ALT) 102 U/L 1-41 AST (test code = AST) 117 U/L 1-40 Specimen h emolyzed. Globulin (test code = Globulin) 3.7 g/dL 2.9-3.1 A/G Ratio (test code = A/G Ratio) 1.2 ratio eGFR AA (test code = eGFR AA) >60 mL/min/1.73 m2 eGFR (estimated Glomerular Filtration Rate) is an estimated value, calculated from the patient's serum creatinine using the MDRD equation. It is NOT the patient's actual GFR. The eGFR provides a more clinically useful measure of kidney disease than serum creatinine alone.This calculation takes sex and race into account, if the information is provided. If the race is not provided, and the patient is -Vietnamese, multiply by 1.212. If sex is not provided, and the patient is female, multiply by 0.742. Results for patients <18 years of age have not been validated by the MDRD study and should be interpreted with caution. eGFR Result Interpretation:eGFR > or = 60 is in the Normal RangeeGFR < 60 may mean kidney diseaseeGFR < 15 may mean kidney failure Ranges recommended by the National Kidney Foundation, http://nkdep.nih.gov eGFR Non-AA (test code = eGFR Non-AA) >60.00 mL/min/1.73 m2 eGFR (estimated Glomerular Filtration Rate) is an estimated value, calculated from the patient's serum creatinine using the MDRD equation. It is NOT the patient's actual GFR. The eGFR provides a more clinically useful measure of kidney disease than serum creatinine alone.This calculation takes sex and race into account, if the information is provided. If the race is not provided, and the patient is -Vietnamese, multiply by 1.212. If sex is not provided, and the patient is female, multiply by 0.742. Results for patients <18 years of age have not been validated by the MDRD study and should be interpreted with caution. eGFR Result Interpretation:eGFR > or = 60 is in the Normal RangeeGFR < 60 may mean kidney diseaseeGFR < 15 may mean kidney failure Ranges recommended by the National Kidney Foundation, http://nkdep.nih.gov CT Spine Cervical w/o [id number] 16:28:14Patient: MAXIM SWARTZ Jr Date/Time05/17/2019 15:26 CDTReason for ExamTraumaReportEXAM: CT CERVICAL SPINE WITHOUT CONTRASTINDICATION: TraumaCOMPARISON: None availableTECHNIQUE: Axial CT imaging of the cervical spine was obtained without intravenous contrast. Coronal and sagittal reformatted images were submitted for review. IV contrast: NoneD ISCUSSION:No acute fracture or dislocation is identified. The atlantoaxial and a tlantooccipital articulations are normal. There is osseous fusion of the C4 and C5 vertebral bodies and posterior elements. The vertebral bodies are normal in h eight and density. There is straightening of the normal cervical lordosis. The f acet joints and spinous processes are normal in alignment. There is diffuse face t joint arthropathy. There is loss of intervertebral disc height throughout the cervical spine.No spinal canal stenosis. Nxhg-mj-xnjfjsws neural foraminal steno sis throughout the cervical spine.The prevertebral and posterior paraspinal soft tissues are normal.IMPRESSION:1. No acute abnormality of the cervical spine.2. 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 Raop-hm-qasjybpe neuroforaminal stenosis noted throughout the cervical spi ne.LOCATION: [id number] CT exam was performed according to our departmental dose op timization program, which includes automated exposure control, adjustment of the mA and/or kV according to the patient size and/or use of iterative reconstructi ve technique. Final Dictated by: MD Umanzor Melanie CDictated DT/T M: 05/17/2019 4:26 pmSigned by: MD Umanzor Melanie CSigned (Electronic Signatu re): 05/17/2019 4:28 pmAlcohol [id number] 15:32:58* Test Item Value Reference Range Comments Ethanol Level (test code = Ethanol Level) 0.14 g/dL 0.00-0 .01 Intoxicated 0.080 g/dL or more Ethanol Inst (test code = Ethanol Inst) 140 CT Maxillofacial w/o [id number] 15:31:44Patient: MAXIM SWARTZ Jr Date/Time05/17/2019 15:26 CDTReason for ExamTraumaReportEXAM: CT FACIAL BONES WITHOUT CONTRASTINDICATION: TraumaCOMPARISON: None availableTECHNIQUE: Axial CT imaging of the facial bones without contrast. Axial, coronal and sagittal reconstructions.IV contrast: NoneDLP: 1828.8 mGy-cmDISCUSSION:No facial bone fracture is identified. There are chronic appearing fractures of the left zygomatic arch, lateral wall of the left maxillary sinus, and lateral wall of the left orbit. There are postsurgical changes involving the right anterior maxilla.The mandible and temporomandibular joints are normal.The paranasal sinuses and mastoid air cells are clear. The nasal cavity and nasal bones are normal.The orbits and globes are intact. The extraocular muscles are symmetrical. There is no intraconal hematoma.There is soft tissue edema overlying the right jaw as well as the right face including the right periorbital soft tissues. No radiopaque foreign body is i dentified.IMPRESSION:1. No acute fracture is identified.2. Soft tissue edema overlying the right jaw as well as of the right face including the right perior bital soft tissues.3. Chronic fractures of the left zygomatic arch, lateral wa ll of the left maxillary sinus and lateral wall of the left orbit.LOCATION: R16T his CT exam was performed according to our departmental dose optimization progra m, which includes automated exposure control, adjustment of the mA and/or kV acc ording to the patient size and/or use of iterative reconstructive technique. * Final Dictated by: MD Umanzor Melanie CDictated DT/TM: 05/17/2019 3:2 8 pmSigned by: MD Umanzor Melanie CSigned (Electronic Signature): 05/17/2019 3:31 pmComplete Blood Count with [id number] 15:30:27* Test Item Value Reference Range Comments WBC (test code = WBC) 5.7 x10 4.4-10.5 RBC (test code = RBC) 4.63 x10 4.10-5.70 Hgb (test code = Hgb) 14.0 g/dL 13.4-17.4 MCV (test code = MCV) 91.10 fL 80.00-100.00 Hct (test code = Hct) 42.2 % 38.7-52.0 MCHC (test code = MCHC) 33.20 g/dL 32.00-37.50 MCH (test code = MCH) 30.2 pg 27.0-32.5 RDW CV (test code = RDW CV) 14.4 % 11.5-14.5 Platelets (test code = Platelets) 229.0 x10 140.0-440.0 MPV (test code = MPV) 10.2 fL Slide Review (test code = Slide Review) Auto Auto Result created by [email or web address] nRBC (test code = nRBC) 0 NRBC Abs (test code = NRBC Abs) 0.00 x10 IPF (test code = IPF) 0 % Automated [id number] 15:30:27* Test Item Value Reference Range Comments Neutro Auto (test code = Neutro Auto) 61.9 % 36.0-70.0 Lymph Auto (test code = Lymph Auto) 26.5 % 12.0-44.0 Yolo Auto (test code = Yolo Auto) 9.0 % 0.0-11.0 Eos, Auto (test code = Eos, Auto) 1.8 % 0.0-7.0 Basophil Auto (test code = Basophil Auto) 0.4 % 0.0-2. 0 Neutro Absolute (test code = Neutro Absolute) 3.5 x10 1. 6-7.4 Lymph Absolute (test code = Lymph Absolute) 1.50 x10 .50- 4.60 Yolo Absolute (test code = Yolo Absolute) .51 x10 .00-1. 20 Eos Absolute (test code = Eos Absolute) 0.10 x10 0.00-0.7 4 Baso Absolute (test code = Baso Absolute) 0.02 x10 0.00-0 .21 IG [id number] 15:30:27* Test Item Value Reference Range Comments IG (test code = IG) 0.4 % 0.0-5.0 IG Abs (test code = IG Abs) [address] Brain/Head w/o [id number] 15:28:33Patient: MAXIM SWARTZ Jr Date/Time05/17/2019 15:26 CDTReason for ExamTraumaReportEXAM: CT BRAIN WITHOUT CONTRASTINDICATION: TraumaCOMPARISON: None availableTECHNIQUE: Routine axial noncontrast CT images of the brain were obtained.IV contrast: None.FINDINGS:No intra-axial or extra- axial fluid collections are identified. No acute hemorrhage.There is normal differentiation of the treviño and white matter. The ventricles and sulci are normal in size and shape with no midline shift or mass effect. The basal cisterns are patent. The posterior fossa and fourth ventricle are normal.The p aranasal sinuses and mastoid air cells are clear. No calvarial lesions. Skull ba se is intact. Orbits and globes are unremarkable.IMPRESSION:No acute intracrania l abnormality. No intracranial hemorrhage.LOCATION: [id number] CT exam was performe d according to our departmental dose optimization program, which includes automa mil exposure control, adjustment of the mA and/or kV according to the patient si ze and/or use of iterative reconstructive technique. Final Dictated by : MD Umanzor Melanie CDictated DT/TM: 05/17/2019 3:28 pmSigned by: Mich Umanzor Melanie CSigned (Electronic Signature): 05/17/2019 3:28 pmComprehensive Metabolic [id number] 02:22:00* Test Item Value Reference Range Comments Sodium (test code = NA) 138 mmol/L 135-145 Potassium (test code = K) 3.6 mmol/L 3.5-5.1 Chloride (test code = CL) 100 mmol/L 98-105 Carbon Dioxide (test code = CO2) 26 mmol/L 22-29 Glucose (test code = GLU) 124 mg/dL 70-115 Blood Urea Nitrogen (test code = BUN) 8 mg/dL 6-20 Creatinine (test code = CREAT) 0.8 mg/dL 0.7-1.2 Calcium (test code = CA) 9.1 mg/dL 8.3-10.5 Prot Total (test code = TP) 7.5 g/dL 6.4-8.3 Albumin (test code = ALB) 4.2 g/dL 3.5-5.2 A/G Ratio (test code = AGRATIO) 1.3 Ratio Globulin (test code = GLOB) 3.3 2.9-3.1 Bili Total (test code = TBIL) 0.3 mg/dL 0.1-0.9 Alk Phos (test code = APHOS) 60 U/L 40-129 AST (test code = AST) 36 U/L 1-40 ALT (test code = ALT) 43 U/L 1-41 BUN/Creatinine Ratio (test code = BCRATIO) 10.0 Anion Gap (test code = AGAP) 12 mmol/L 7-16 Estimated GFR (test code = GFR) >60 mL/min/1.73m2 eGFR (estimated Glomerular Filtration Rate) is an estimated value,calculated from the patient's serum creatinine using the MDRD equation.It is NOT the patient's actual GFR. The eGFR provides a more clinicallyuseful measure of kidney disease than serum creatinine alone.This calculation takes sex and race into account, if the informationis provided. If the race is not provided, and the patient isAfrican-Vietnamese, multiply by 1.212. If sex is not provided, and thepatient is female, multiply by 0.742. Results for patients <18 years ofage have not been validated by the MDRD study and should be interpretedwith caution.eGFR Result Interpretation:eGFR > or = 60 is in the Normal RangeeGFR < 60 may mean kidney diseaseeGFR < 15 may mean kidney failureRanges recommended by the National Kidney Found ation,http://nkdep.nih.gov CBC with [id number] 02:05:00* Test Item Value Reference Range Comments WBC (test code = WBC) 5.6 K/cumm 4.4-10.5 RBC (test code = RBC) 4.39 M/cumm 4.10-5.70 Hemoglobin (test code = HGB) 12.9 gm/dL 13.4-17.4 Hematocrit (test code = HCT) 39.7 % 38.7-52.0 MCV (test code = MCV) 90.3 fL 80-100 MCH (test code = MCH) 29.4 pg 27.0-32.5 MCHC (test code = MCHC) 32.5 g/dL 32.0-37.5 RDW (test code = RDW) 13.6 % 11.5-14.5 Platelet Count (test code = PLTCT) 197 K/cumm 140-440 MPV (test code = MPV) 7.7 fL Diff Method (test code = DIFFM) Auto Neutrophil (test code = NEUT) 59.9 % 36-70 Lymphocyte (test code = LYMPH) 33.2 % 12-44 Monocyte (test code = MONO) 5.5 % 0-11 Eosinophil (test code = EOS) 1.2 % 0-7 Basophil (test code = BASO) 0.3 % 0-2 Neutro Abs (test code = ANEUT) 3.4 K/cumm 1.6-7.4 Lymph Abs (test code = ALYMPH) 1.9 K/cumm 0.5-4.6 Yolo Abs (test code = AMONO) 0.3 K/cumm 0.0-1.2 Eos Abs (test code = AEOS) 0.07 K/cumm 0.00-0.74 Baso Abs (test code = ABASO) 0.0 K/cumm 0.00-0.21 [id number] 02:00:00* Test Item Value Reference Range Comments NT ProBnp (test code = PBNP) 91 pg/mL 0-124 [id number] 01:53:00* Test Item Value Reference Range Comments Amphetamine (test code = AMPH) Negative Negative F or diagnostic purposes only, positive results should always be assessedin conjunctionwith the patient's medical history,clinical examination and otherfindings.To fulfill legal requirements, a more specific alternate chemical methodmust be used inorder to obtain a Confirmed analytical result. GC/MS is the preferred confirmatory method. Barbiturates (test code = AMANDA) Negative Negative Benzodiazepine (test code = ELMA) Negative Negative Cocaine (test code = COCA) Negative Negative Methadone (test code = MTHD) Negative Negative Opiates (test code = OPIA) Negative Negative PCP (test code = PCP) Negative Negative Propoxyphene (test code = PROPOX) Negative Negative THC (test code = THC) Negative Negative Alcohol, Urine (test code = ETOHU) <0.01 g/dL 0.00-0.01 RPR, [id number] 02:55:00* Test Item Value Reference Range Comments RPR (test code = RPR) Non-Reactive Non-Reactive Thyroid Stimulating Hormone (TSH)2017-06-12 17:05:00* Test Item Value Reference Range Comments TSH (test code = TSH) 0.55 mIU/mL 0.270-4.200 Lipid [id number] 14:55:00* Test Item Value Reference Range Comments Cholesterol (test code = CHOL) 177 mg/dL 0-200 Triglycerides (test code = TRIG) 103 mg/dL 9-200 HDL (test code = HDL) 38 mg/dL 40-60 Chol/HDL (test code = CHOLPHDL) 4.7 Ratio 0.0-5.0 LDL, Calculated (test code = LDLC) 118 mg/dL 0-130 (NOTE)RISK OF HEART DISEASEPublished by Vietnamese Heart AssociationAnalyte Optimal Boderline Increased RiskCHOL <200 200-239 >240TRIG <150 150-199 >200HDL Male: >60 <40HDL Female: >60 <50LDL <100 130-159 >160LDL NEAR OPTIMAL IS 100-129 VLDL (test code = VLDL) 21 mg/dL 5-40 LDL/HDL (test code = LDLPHDL) 3 [id number] 23:52:00* Test Item Value Reference Range Comments Amphetamine (test code = AMPH) Negative Negative F or diagnostic purposes only, positive results should always be assessedin conjunctionwith the patient's medical history,clinical examination and otherfindings.To fulfill legal requirements, a more specific alternate chemical methodmust be used inorder to obtain a Confirmed analytical result. GC/MS is the preferred confirmatory method. Barbiturates (test code = AMANDA) Negative Negative Benzodiazepine (test code = ELMA) Negative Negative Cocaine (test code = COCA) POSITIVE Negative Methadone (test code = MTHD) Negative Negative Opiates (test code = OPIA) Negative Negative PCP (test code = PCP) Negative Negative Propoxyphene (test code = PROPOX) Negative Negative THC (test code = THC) Negative Negative Urinalysis [id number] 23:41:00* Test Item Value Reference Range Comments Color (test code = COLOR) Yellow Yellow,Straw,Pl yellow Clarity (test code = CLAR) Clear Clear Specific Marion (test code = SPGR) 1.008 1.001-1.035 pH (test code = PH) 5.0 5.0-9.0 Ketone (test code = KET) Negative mg/dL Negative Glucose (test code = GLUCUR) Negative mg/dL Negative Protein (test code = PROT) Negative mg/dL Negative Bilirubin (test code = BILI) Negative mg/dL Negative Occult Blood (test code = UDOB) Negative Negative Urobilinogen (test code = UROB) 0.2 mg/dL 0.2-1.0 Nitrite (test code = NIT) Negative Negative Leuk Esterase (test code = LEUK) Negative Negative Micros Exam (test code = MEXAM) Not indicated Comprehensive Metabolic [id number] 23:26:00* Test Item Value Reference Range Comments Sodium (test code = NA) 141 mmol/L 135-145 Potassium (test code = K) 3.7 mmol/L 3.5-5.1 Chloride (test code = CL) 105 mmol/L 98-105 Carbon Dioxide (test code = CO2) 25 mmol/L 22-29 Glucose (test code = GLU) 110 mg/dL 70-115 Blood Urea Nitrogen (test code = BUN) 15 mg/dL 6-20 Creatinine (test code = CREAT) 0.9 mg/dL 0.7-1.2 Calcium (test code = CA) 9.4 mg/dL 8.3-10.5 Prot Total (test code = TP) 7.6 g/dL 6.4-8.3 Albumin (test code = ALB) 4.2 g/dL 3.5-5.2 A/G Ratio (test code = AGRATIO) 1.2 Ratio Globulin (test code = GLOB) 3.4 2.9-3.1 Bili Total (test code = TBIL) <0.1 mg/dL 0.1-0.9 Alk Phos (test code = APHOS) 67 U/L 40-129 AST (test code = AST) 49 U/L 1-40 ALT (test code = ALT) 73 U/L 1-41 BUN/Creatinine Ratio (test code = BCRATIO) 16.7 Anion Gap (test code = AGAP) 11 mmol/L 7-16 Estimated GFR (test code = GFR) >60 mL/min/1.73m2 eGFR (estimated Glomerular Filtration Rate) is an estimated value,calculated from the patient's serum creatinine using the MDRD equation.It is NOT the patient's actual GFR. The eGFR provides a more clinicallyuseful measure of kidney disease than serum creatinine alone.This calculation takes sex and race into account, if the informationis provided. If the race is not provided, and the patient isAfrican-Vietnamese, multiply by 1.212. If sex is not provided, and thepatient is female, multiply by 0.742. Results for patients <18 years ofage have not been validated by the MDRD study and should be interpretedwith caution.eGFR Result Interpretation:eGFR > or = 60 is in the Normal RangeeGFR < 60 may mean kidney diseaseeGFR < 15 may mean kidney failureRanges recommended by the National Kidney Found ation,http://nkdep.nih.gov CBC with [id number] 23:10:00* Test Item Value Reference Range Comments WBC (test code = WBC) 5.0 K/cumm 4.4-10.5 RBC (test code = RBC) 4.63 M/cumm 4.10-5.70 Hemoglobin (test code = HGB) 13.1 gm/dL 13.4-17.4 Hematocrit (test code = HCT) 43.2 % 38.7-52.0 MCV (test code = MCV) 93.5 fL 80-100 MCH (test code = MCH) 28.3 pg 27.0-32.5 MCHC (test code = MCHC) 30.3 g/dL 32.0-37.5 RDW (test code = RDW) 15.8 % 11.5-14.5 Platelet Count (test code = PLTCT) 224 K/cumm 140-440 MPV (test code = MPV) 8.5 fL Diff Method (test code = DIFFM) Auto Neutrophil (test code = NEUT) 49.4 % 36-70 Lymphocyte (test code = LYMPH) 39.9 % 12-44 Monocyte (test code = MONO) 7.1 % 0-11 Eosinophil (test code = EOS) 3.3 % 0-7 Basophil (test code = BASO) 0.3 % 0-2 Neutro Abs (test code = ANEUT) 2.5 K/cumm 1.6-7.4 Lymph Abs (test code = ALYMPH) 2.0 K/cumm 0.5-4.6 Yolo Abs (test code = AMONO) 0.4 K/cumm 0.0-1.2 Eos Abs (test code = AEOS) 0.17 K/cumm 0.00-0.74 Baso Abs (test code = ABASO) 0.0 K/cumm 0.00-0.21
[2020-03-08] MEDS ORDERED: SODIUM CHLORIDE 0.9% 500ML 500 ML IV ONE (10:45)
[2020-03-08 10:48] LABS: LIPASE < 4 U/L (8-78)
[2020-03-08 10:58] LABS: COLOR,URINE ORANGE (YELLOW)
[2020-03-08 10:59] LABS: BILIRUBIN,URINE SMALL (NEGATIVE); CLARITY,URINE CLOUDY (CLEAR); KETONES,URINE NEGATIVE (NEGATIVE); LEUKOCYTE ESTERASE ,URINE SMALL (NEGATIVE); NITRITE,URINE NEGATIVE (NEGATIVE); PROTEIN,URINE DIPSTICK 1+ (NEGATIVE); URINE UROBILINOGEN 0.2 mg/dL (0.2 - 1)
[2020-03-08 11:11] LABS: BACTERIA,URINE MANY /HPF; EPITHELIAL CELLS,URINE FEW /LPF; WBC,URINE (MAN) >50 /HPF (0-5)
--- NOTE | 2020-03-08 12:03 | Diagnostic Imaging Report ---
X-ray chest AP portable Comparison: None History: C5 paraplegia. Ordered mental status. Findings: Central airways unremarkable. Heart size normal. No pleural effusion. No pneumothorax. Left lower lung zone atelectasis. Otherwise lung wolff unremarkable. A thin curvilinear opacity in the right midlung zone of uncertain significance. Skeletal structures unremarkable for acute abnormality. Gaseous distention of the visualized bowel loops. Impression: No acute cardiopulmonary disease of significance on this exam. There is presence of large gas distended loops of bowel. An abdominal x-ray might be helpful. Signed by: Maurice Driscoll MD on 03/08/2020 11:59 AM
--- NOTE | 2020-03-08 12:12 | Diagnostic Imaging Report ---
Exam: Head CT without contrast History: History TBI, C5 paraplegia, fever Comparison studies: None Technique: Axial images were obtained from the skull base to the vertex. Coronal and sagittal images reconstructed from the axial data. Dose modulation, iterative reconstruction, and/or weight based adjustment of the mA/kV was utilized to reduce the radiation dose to as low as reasonably achievable. Radiation dose: Total DLP: 1844 mGy*cm. Estimated effective dose: DLP x 0.015 Intravenous contrast: None Findings: Scalp: No abnormalities. Bones: No fractures, blastic or lytic lesions. Brain sulci: Appropriate for age. Ventricles: Normal in size and configuration. No hydrocephalus. Extra-axial spaces: No masses, no fluid collection. Parenchyma: No abnormal densities. No masses, acute hemorrhage, acute or chronic vascular insults. Sellar/suprasellar region: No abnormalities. Craniocervical junction: Patent foramen magnum. No Chiari one malformation. Middle ear mastoid cavities: Clear. Incidental findings: Atherosclerotic calcifications in the carotid siphons. Right maxillary sinuses partially opacified and contains layering fluid/secretions. IMPRESSION: 1. No acute intracranial abnormalities. 2. Right maxillary sinus fluid level could be correlated for acute sinusitis. Signed by: Dr. Adrien Greer M.D. on 03/08/2020 12:09 PM
[2020-03-08] MEDS ORDERED: SOD PHOSPHATE/SOD BIPHOSPHATE ENEMA 132 ML BTL PR SCH (13:00)
[2020-03-08 13:04] LABS: OSMOLALITY,SERUM 248 mOsm/kg (278-305)
--- NOTE | 2020-03-08 13:20 | Diagnostic Imaging Report ---
CT of the abdomen and pelvis. Comparison: None Clinical History: Abdominal distention. Fever. Technique: Helical CT scan of the abdomen and pelvis was performed. Intravenous contrast administration was utilized. Oral contrast administration was not utilized. Coronal and sagittal reconstructions were generated from the raw data. Multiple images were submitted for interpretation. This exam was performed according to our departmental dose-optimization program which includes automated exposure control, adjustment of the mA and/or kV according to patient size Discussion: Inferior chest: Minimal dependent atelectasis. Motion artifact. A few subpleural blebs. Heart size normal. Pericardium unremarkable. The mediastinal structures unremarkable.. Liver: Unremarkable. No mass, biliary dilatation, cyst. Normal size. Patent main portal vein and its branches. Spleen: Unremarkable Pancreas: Unremarkable Biliary tree and gallbladder: Unremarkable Adrenal glands: Unremarkable Kidneys and ureters: Multiple tiny cortical cysts bilaterally otherwise unremarkable Vasculature: Aorta and its major branches unremarkable except for minimal atherosclerosis. IVC and its tributaries unremarkable. Main portal vein and its territories unremarkable. Lymph nodes: No lymphadenopathy Bowel: There is abnormal distention involving almost the entire colon extending from cecum to the rectum and also involving the anal canal. This is most pronounced in the distal descending colon and sigmoid colon. It is associated with wall thickening in the distal sigmoid colon and rectum and anal canal. There is presence of intraluminal air-fluid levels at multiple levels. The transition point seems to be at or beyond the cecal valve. There is also diffuse mesenteric stranding. There is no pneumatosis. There is no free intraperitoneal air. There is trace amount of free peritoneal fluid. There is enhancement of the bowel mucosa. There is no diverticulosis. Esophagus and stomach are unremarkable. Duodenum is unremarkable. The jejunum and ileum are unremarkable. Pelvis: Urinary bladder is unremarkable. There is a Kim catheter in place. Prostate unremarkable. Seminal vesicles unremarkable. Pelvic wall unremarkable. Peritoneum: As above Perineal compartments: unremarkable. Fluid: As above Bones: No aggressive lytic or blastic lesions visualized. Body wall: Dependent edema and also nondependent edema in the gluteal and thigh regions along with sacrococcygeal decubitus ulcer. Minimal gynecomastia bilateral. Impression: Gaseous distention of the entire colon along with the distal colonic wall thickening involving the distal sigmoid colon and rectum as described. The differential diagnosis would include infection and inflammation such as inflammatory bowel disease, C. difficile colitis, among other causes. Dr. Driscoll discussed the findings with the ER referring doctor. Signed by: Maurice Driscoll MD on 03/08/2020 1:16 PM
--- NOTE | 2020-03-08 13:44 | NUR ---
midline access done by picc line nurse. ordered ok pt had large copious amounts of stool, pt cleaned and linens changed. pt wound care all done by wound care nurse with dressing all done.
[2020-03-08] MEDS ORDERED: PIPER-TAZ 3.375 GM 50 ML IV SCH (15:00)
[2020-03-08] MEDS ORDERED: MIDAZOLAM HCL 2 MG/2 ML VIAL IV STA (15:06)
[2020-03-08] MEDS ORDERED: MIDAZOLAM HCL 2 MG/2 ML VIAL ONE (15:07)
[2020-03-08] MEDS ORDERED: NOREPINEPHRINE 8 MG/D5W 250 ML 250 ML ONE (15:38)
[2020-03-08] MEDS: HYDROMORPHONE 1MG/1ML INJ IV PRN ×2 (15:45→19:52)
[2020-03-08] MEDS ORDERED: IOPAMIDOL 370 MG/ML 200 ML INFUS..BTL INJ ONE (15:53)
--- NOTE | 2020-03-08 15:56 | Diagnostic Imaging Report ---
TECHNIQUE: Computed tomography imaging of the PELVIS was performed WITHOUT injected contrast using standard departmental protocols. HISTORY: Pain, evaluate for osteomyelitis COMPARISON: None. FINDINGS: Sacral decubitus ulceration posterior to the sacrum and coccyx extending to the underlying bone. Erosive change and bone destruction involving the coccyx with probable involvement of the inferior sacrum. No drainable abscess. The sacroiliac joints are unremarkable. Generalized disc disease L5-S1. IMPRESSION: Sacral decubitus ulceration with osteomyelitis of the coccyx and probable involvement of the inferior sacrum. Signed by: Dr. Harshal Oconnor M.D. on 03/08/2020 3:53 PM
[2020-03-08] MEDS ORDERED: METRONIDAZOLE 750MG/NS 150ML 150 ML IV ONE (16:00)
[2020-03-08] MEDS ORDERED: ACETAMINOPHEN 1000 MG/100 ML IV PRN (16:00)
[2020-03-08] MEDS ORDERED: CEFEPIME HCL 1 GM VIAL IV SCH (16:15)
--- NOTE | 2020-03-08 17:34 | Diagnostic Imaging Report ---
EXAMINATION: CHEST SINGLE (PORTABLE) COMPARISON: Chest x-ray 1116 hours INDICATION: ^line placement ^[id number] ^1640 DISCUSSION: Frontal view of the chest obtained at 1654 hours. HEART AND MEDIASTINUM: The heart is top normal in size LINES: Right IJ catheter terminates in the SVC without pneumothorax. Midline catheter in the upper left arm has been placed. LUNGS/PLEURA: Stable upper lung zone hyperlucency suggestive of emphysema. A thin-walled bleb measuring 7.2 x 4.5 cm in the lateral aspect of the right upper lobe is stable. Left basilar airspace opacities are similar, either atelectasis or pneumonia. No vascular congestion. No pleural effusion or pneumothorax. BONES AND SOFT TISSUES: Stable. IMPRESSION: Right IJ catheter terminates in the SVC without pneumothorax. Midline catheter in the upper left arm. Other findings as described above are stable. Signed by: Dr. Akbar Hubbard MD on 03/08/2020 5:31 PM
--- NOTE | 2020-03-08 17:36 | Diagnostic Imaging Report ---
Ankle complete CPT CODE: 60312 HISTORY: Ankle wound TECHNIQUE: Three portable images of the right ankle obtained COMPARISON: None. FINDINGS: The bones are diffusely demineralized. The distal tibia and fibula appear intact. Small ossicle arising from the inferior aspect of the fibula. Ankle mortise remains symmetric. The calcaneus appears intact with a small plantar spur. The visualized portions of the midfoot and forefoot are intact. No evidence of periosteal new bone formation or focal demineralization. Soft tissues: Focal skin ulcer at the lateral aspect of the distal fibula. There are arterial calcifications throughout the ankle. No radiopaque foreign bodies. IMPRESSION: No radiographic evidence of osteomyelitis. Diffuse demineralization. Signed by: Dr. Akbar Hubbard MD on 03/08/2020 5:33 PM
[2020-03-08] MEDS ORDERED: ALBUMIN 25% 25GM 100ML 0.25 GM/ML BTL IV SCH (18:00)
[2020-03-08] MEDS: CEFEPIME 1GM/NS 0.9% 50 ML 50 ML IV SCH (18:07)
[2020-03-08] MEDS: ALBUMIN 25% 25GM 100ML 100 ML IV SCH ×2 (18:07→23:05)
[2020-03-08] MEDS: VANCOMYCIN 250MG/5ML ORAL SOLN PO SCH ×2 (18:08→23:43)
--- NOTE | 2020-03-08 18:53 | Operative Report ---
DATE OF PROCEDURE: SURGEON: Cedric Kennedy MD PROCEDURE: Central line placement under ultrasound guidance. PREOPERATIVE DIAGNOSIS: Acute kidney injury. POSTOPERATIVE DIAGNOSIS: Acute kidney injury. ANESTHESIA: 1% lidocaine for local anesthesia. CONSENT: Consent was deemed emergent to the patient's hypotension, low sodium, and decreased urine output. DESCRIPTION OF PROCEDURE: The patient was placed in a supine position. The right neck was prepped sterilely with chlorhexidine. A full length drape, sterile gown, mask and gloves were used. An ultrasound machine was used to locate the right internal jugular vein. The vein was cannulated under direct visualization with a 16-gauge needle. A wire was then passed through the needle. A dilator was used to open the skin. A triple-lumen catheter was placed over the wire by the Seldinger technique. All the ports flushed. COMPLICATIONS: None. ESTIMATED BLOOD LOSS: None. Cedric Kennedy MD [facility]/MODL /[id number]
--- NOTE | 2020-03-08 19:00 | NUR ---
Cameron SMITH at the beside with the pt. Pt has BM and cleaned at this time. Pt refusing NGT and Dr. Kennedy has been notified of his refusal. Pt HR is [address] his [address] to see the pt.
--- NOTE | 2020-03-08 19:04 | Consultation ---
DATE OF CONSULTATION: REASON FOR CONSULTATION: Sepsis, colitis. HISTORY OF PRESENT ILLNESS: This patient, who is a 54-year-old male, who comes into the emergency room because he was not doing well. The patient was seen and examined. Discussed with Dr. Kennedy. The patient is lethargic at present time, who apparently has history of hypertension, history of C5 quadriplegia, schizophrenia disorder, frequent UTI, Kim catheter. He was recently on Zosyn, but he also have chronic megacolon and decubitus ulcer, comes in with altered mental status. CAT scan showed dilation of the colon. I was asked to see him. The patient is getting a central line. He is getting Ativan. LABORATORY DATA: White count 19.6 and hemoglobin 9.1. His sodium 118, potassium 4.2 with creatinine 1.32. PHYSICAL EXAMINATION: GENERAL: He is lethargic. VITAL SIGNS: Stable, currently afebrile. HEENT: He is not icteric. NECK: Supple. CHEST: Few crackles. COR: S1 and S2. No S3, S4, or murmurs. ABDOMEN: Soft. IMPRESSION: 1. Colitis, megacolon. We will put an NG to low intermittent suction. Start him on vancomycin 250 mg p.o. q.6 and Flagyl 500 IV q.6. We will put him on cefepime in the meantime to make a diagnosis if it is ischemic colitis versus Clostridium difficile colitis versus other. 2. Hyponatremia. 3. Sepsis. 4. We will follow with you. Further recommendation depending on clinical progress. Discussed with the medical team. Discussed with Dr. Kennedy. Discussed with Dr. Heart. MD VLADIMIR [place]/MIKI /[id number]
--- NOTE | 2020-03-08 19:10 | NUR ---
Dr. Kennedy present and assessing the pt. 12 lead EKG completed by RT and states it is is afib and ordered a cardizem bolus of 10mg and to start a cardizem gtt at 5mg/hr.
--- NOTE | 2020-03-08 19:29 | Consultation ---
DATE OF CONSULTATION: Pulmonary Critical Care Consultation. CHIEF COMPLAINT: Decreased responsiveness, distended abdomen and leukocytosis in a patient with quadriplegia. CONSULTING PHYSICIAN: Darell White MD. HISTORY OF PRESENT ILLNESS: The patient is a 54-year-old man. He has a history of traumatic brain injury and quadriplegia. He uses pain medication on a chronic basis. He also has a history of recurrent UTIs. He required hospitalization for extended spectrum beta-lactamase producing Proteus UTI in late December. The patient now complains of worsening abdominal distention. Apparently he has a history of some prior megacolon. He also complains of pain in his back. When he came from the nursing facility he was noted to have decreased mental status. He also had an elevated white blood cell count. He required 3 L of fluid. He also was started on antibiotics. PAST SURGICAL HISTORY: 1. Status post traumatic spine injury leading to quadriplegia. 2. Status post traumatic brain injury. 3. History of facial fractures. PAST MEDICAL HISTORY: 1. Decubitus ulcers. 2. Recurrent urinary tract infections. 3. Quadriplegia. 4. Aaron colon. SOCIAL HISTORY: The patient stays at [facility]. He is not an active smoker. He is not an active drinker. FAMILY HISTORY: Noncontributory. REVIEW OF SYSTEMS: The patient is afebrile. The patient did have decreased responsiveness. He has no headache. He does not complain of chest pain or difficulty breathing. He does have some abdominal distention. He also complains of back pain. He has no leg edema. PHYSICAL EXAMINATION: VITAL SIGNS: The blood pressure is 90/60 with a heart rate of 80 to 90. He is saturating 100% on nasal cannula. HEENT: No facial swelling or erythema. CARDIAC: Reveals regular rate and rhythm with normal S1, S2. LUNGS: Auscultation of the lungs reveals decreased breath sounds at the bases. There is no wheezing. ABDOMEN: Soft, nontender. There is no rebound or guarding. The abdomen is distended. It is not tender. EXTREMITIES: There is no leg edema. NEUROLOGIC: Shows an incomplete quadriplegia. He has a decubitus ulcer. LABORATORY DATA: White blood cell count is 19.6 and hemoglobin is 9.1. The platelet count is 487,000. The BUN to creatinine ratio is 39 to 1.32. The sodium is 118. The carbon dioxide is 15. PT is 16.3. Urinalysis shows greater than 50 white blood cells. Chest x-ray shows no active disease. CT scan of the abdomen and pelvis shows diffuse gaseous distention in the entire colon with distal colonic wall thickening. CT scan of the brain shows no acute abnormalities. There is some right maxillary sinusitis. IMPRESSION: 1. Colonic pseudo-obstruction, probably related to neurological injury, electrolyte abnormalities, and narcotic use. 2. Elevated white count and sepsis. 3. Urinary tract infection. 4. Hyponatremia. 5. Hypovolemia. 6. Incomplete quadriplegia. 7. Acute kidney injury. 8. Moderate protein-calorie malnutrition. PLAN: 1. Continue IV hydration. 2. Broad spectrum antibiotics including coverage for healthcare-associated organisms. 3. Stool for C diff and prophylactic treatment with oral vancomycin. 4. GI and surgical consultation. 5. Pain control. 6. Monitor electrolytes and renal function. 7. Long-term prognosis remains poor. 8. Wound care. MD ALEX Serrano/MODL /[id number]
[2020-03-08] MEDS ORDERED: DILTIAZEM HCL IV 5MG/ML 25 ML VIAL ONE (19:36)
[2020-03-08] MEDS ORDERED: SODIUM CHLORIDE 0.9% 0 ML ONE (19:37)
--- NOTE | 2020-03-08 20:10 | NUR ---
called and gave him pts vital signs after receiving cardizem bolus and start of cardizem gtt. He asked me to call and remind him that the consult is urgent. Addendum: 03/08/20 at 2030 by Marilou Webster RN ordered to keep the cardizem gtt rate at 5mg/hr.
[2020-03-08] MEDS ORDERED: DILTIAZEM HCL 125 ML IV SCH (20:15)
--- NOTE | 2020-03-08 20:19 | NUR ---
Spoke with Dr. Heart at this time (per request of ) and notified him that the consult is urgent and requests he see the pt.
[2020-03-08 20:38] LABS: CREATINE KINASE MB 0.6 ng/mL (0-5.0)
[2020-03-08] MEDS: NOREPINEPHRINE INJ 4MG/4ML 8 MG in DEXTROSE 5% 250ML 250 ML IV SCH (20:42)
[2020-03-08] MEDS: METRONIDAZOLE 500MG/NS 100ML 100 ML IV SCH (20:48)
--- NOTE | 2020-03-08 20:55 | NUR ---
Dr. Heart present and assessing the pt. New order received that it is okay for the pt to have ice water and ice chips only at this time.
--- NOTE | 2020-03-08 21:00 | NUR ---
Pt provided and drank 1 full white cup of ice water at this time.
--- NOTE | 2020-03-08 21:20 | NUR ---
Pt requested, provided, and drank 1 full white (styrofoam) cup of ice water at this time.
--- NOTE | 2020-03-08 22:05 | NUR ---
Pt requested, provided, and drank 1 full (styrofoam) cup of ice water at this time and then stated he will be calling for some more in a few minutes.
[2020-03-08] MEDS ORDERED: SOD PHOSPHATE/SOD BIPHOSPHATE ENEMA 132 ML BTL PR ONE ×2 (22:45→23:15)
--- NOTE | 2020-03-08 22:46 | NUR ---
Spoke with Dr.M. Wood and he ordered that the pt receive a Fleet enema.
--- NOTE | 2020-03-08 22:55 | NUR ---
Pt refusing emema at this time. Pt says he wants to talk to the doctor first. Dr. Maegan Wood said he will be rounding on the pt tonight.
--- NOTE | 2020-03-08 23:30 | NUR ---
Pt requested, provided, and drank 2 cups of water at this time.
[2020-03-09] VITALS (21 sets, daily range): BP systolic 90–147; BP diastolic 54–93
--- NOTE | 2020-03-09 00:04 | Consultation ---
DATE OF CONSULTATION: 03/08/2020 CHIEF COMPLAINT: Abdominal pain. HISTORY OF PRESENT ILLNESS: The patient is a 54-year-old male, admitted for altered mental status with lethargy and weakness. He was found to have hypotension and dehydration in the emergency room setting. The patient admits to some abdominal discomfort and distention more than his usual self. He also has some loose stool. He denies fever or chills. PAST MEDICAL HISTORY: Significant for traumatic brain injury with quadriplegia, history of megacolon and recurrent UTI. PAST SURGICAL HISTORY: Positive for traumatic spine injury and traumatic brain injury with facial fracture. ALLERGIES: HE HAS ALLERGIC REACTION TO HALOPERIDOL AND FLUPHENAZINE. REVIEW OF SYSTEMS: He denies chest pain. Mild shortness of breath. PHYSICAL EXAMINATION: VITAL SIGNS: The patient is tachycardic with a heart rate 150, blood pressure 100/72. He is afebrile with T-max of 100. GENERAL: The patient is awake, responsive, and oriented to self only. HEENT: Sclerae nonicteric. NECK: Supple. LUNGS: Clear. HEART: Tachycardia. No murmurs. ABDOMEN: Distended, but compressible. No rebound tenderness. EXTREMITIES: No cyanosis or edema. LABORATORY DATA: White cell count is 19, hemoglobin of 9, platelet count 487. INR 1.2. Lactic acid is 2.1. CT of the abdomen did show diffuse colonic distention with thickening of the distal sigmoid and rectum. ASSESSMENT: Toxic megacolon in patients who is hypertensive on rather pressor. Antibiotic has been initiated. Workup including Clostridium difficile colitis. PLAN: Continue supportive care. The patient may need total colectomy with ileostomy. Adrien Heart MD DNL/MODL /[id number]
[2020-03-09] MEDS: HYDROMORPHONE 1MG/1ML INJ IV PRN ×4 (00:19→17:02)
--- NOTE | 2020-03-09 00:59 | NUR ---
Pt requested, provided, and drank 1 cup of water at this time.
--- NOTE | 2020-03-09 01:10 | NUR ---
Pt refusing turning only allowed one pillow under his side and arms.
--- NOTE | 2020-03-09 02:05 | NUR ---
Spoke with Dr. Maegan Wood and notified him that the pt is refusing the fleet enema until he talks to him. Dr. Wood state that he will assess the pt shortly.
--- NOTE | 2020-03-09 02:58 | NUR ---
Dr. Maegan Wood present at the bedside and assessing the pt. New order received, (refer to order clerk).
[2020-03-09] MEDS ORDERED: CITRATE OF MAGNESIA 300ML BOTTLE PO ONE ×2 (03:00→04:15)
--- NOTE | 2020-03-09 03:10 | NUR ---
First bottle of magnesium citrate administered per Dr. Maegan Wood's order.
[2020-03-09] MEDS ORDERED: SOD PHOSPHATE/SOD BIPHOSPHATE ENEMA 132 ML BTL PR PRN (03:15)
--- NOTE | 2020-03-09 04:10 | NUR ---
Pt given second bottle of magnesium citrate per Dr. Maegan Wood's order. Pt also request and drank 3 cups of water.
--- NOTE | 2020-03-09 04:20 | NUR ---
Pt requested another sip of water.
[2020-03-09] MEDS: METRONIDAZOLE 500MG/NS 100ML 100 ML IV SCH ×4 (04:36→23:58)
[2020-03-09] MEDS: ONDANSETRON HCL INJ 2MG/ML 2ML 2 MG/ML VIAL IV PRN ×3 (04:36→16:44)
--- NOTE | 2020-03-09 04:36 | NUR ---
Pt reported nausea and vomited small amount of clear liquid. Pt wiped with towel and give Zofran per prn order.
--- NOTE | 2020-03-09 05:00 | NUR ---
Pt screaming out for water. Provided pt water at this request. He then reported return of nausea.
--- NOTE | 2020-03-09 05:23 | NUR ---
Pt continues to yell out for water but also report nausea. Spoonful of ice chips only given to the pt at this time. Then he continued to yell out for water.
--- NOTE | 2020-03-09 05:52 | NUR ---
AM blood specimen collected and delivered to lab.
[2020-03-09] MEDS: VANCOMYCIN 250MG/5ML ORAL SOLN PO SCH ×3 (06:00→12:27)
[2020-03-09 06:05] LABS: BASOPHILS # (AUTO) 0.2 (0.0-0.1); BASOPHILS % 0.8 % (0.0-1.0); HEMATOCRIT 31.1 % (38.2-49.6); HEMOGLOBIN 9.9 g/dL (14.0-18.0); LYMPHOCYTES # (AUTO) 0.7 (1.0-3.2); LYMPHOCYTES % 2.8 % (18.0-39.1); MEAN CORPUSCULAR HEMOGLOBIN 25.7 pg (28-32); MEAN CORPUSCULAR HGB CONC 31.8 g/dL (31-35); MEAN CORPUSCULAR VOLUME 80.8 fL (81-99); MONOCYTES # (AUTO) 0.9 (0.2-0.8); MONOCYTES % 3.7 % (4.4-11.3); NEUTROPHILS # (AUTO) 21.7 (2.1-6.9); NEUTROPHILS % 89.1 % (38.7-80.0); PLATELET COUNT 630 x10e3/uL (140-360); RED BLOOD COUNT 3.85 x10e6/uL (4.3-5.7); RED CELL DISTRIBUTION WIDTH 17.2 % (11.7-14.4)
--- NOTE | 2020-03-09 06:05 | NUR ---
Pt requested and give sips of ice water. Pt then stated, "I will be needing more water again in about 20 minutes so 620am."
[2020-03-09] MEDS: ALBUMIN 25% 25GM 100ML 100 ML IV SCH ×3 (06:24→18:05)
--- NOTE | 2020-03-09 06:24 | NUR ---
0600 dose of albumin spiked and hung a this time.
[2020-03-09 06:26] LABS: ALANINE AMINOTRANSFERASE 11 IU/L (0-55); ALBUMIN 2.4 g/dL (3.5-5.0); ALBUMIN/GLOBULIN RATIO 0.5 (0.8-2.0); ALKALINE PHOSPHATASE 95 IU/L (40-150); ANION GAP 13.4 mmol/L (8-16); BLOOD UREA NITROGEN 34 mg/dL (7-26); BUN/CREATININE RATIO 40 (6-25); CALCIUM 7.6 mg/dL (8.4-10.2); CARBON DIOXIDE 14 mmol/L (22-29); CHLORIDE 99 mmol/L (98-107); CREATININE, SERUM 0.86 mg/dL (0.72-1.25); EST GLOMERULAR FILTRATION RATE > 60 ML/MIN (60-); GLUCOSE 141 mg/dL (74-118); POTASSIUM 3.4 mmol/L (3.5-5.1); SODIUM 123 mmol/L (136-145)
--- NOTE | 2020-03-09 06:38 | NUR ---
Made notation on nursing report sheet that there is a pending cdiff stool sample needed and to verify ok to administer cefepime now that it is known the pt has a pcn allergy.
[2020-03-09 07:49] LABS: CREATINE KINASE MB 0.4 ng/mL (0-5.0)
--- NOTE | 2020-03-09 08:00 | NUR ---
Notified Dr. Kennedy patient persists to ask to drink water, per offgoing report patient drank 2 liters water and mag citrate on previous shift. Pt activitely vomiting dark brown, coffee ground emesis
[2020-03-09 08:21] LABS: ANISOCYTOSIS SLIGHT; BAND NEUTROPHILS % (MANUAL) 11 %; LYMPHOCYTES % (MANUAL) 7 % (19-48); METAMYELOCYTES % (MANUAL) 5 % (0-0); MICROCYTOSIS SLIGHT; MONOCYTES % (MANUAL) 1 % (3.4-9.0); MYELOCYTES % (MANUAL) 1 % (0-0); NEUTROPHILS % (MANUAL) 75 % (40-74); PLATELET ESTIMATE MODERATELY INCREASED; PLATELET MORPHOLOGY COMMENT NORMAL; RBC MORPHOLOGY COMMENT ABNORMAL; TOXIC GRANULATION MODERATE
[2020-03-09] MEDS: CEFEPIME 1GM/NS 0.9% 50 ML 50 ML IV SCH (08:24)
[2020-03-09] MEDS: COLLAGENASE 5 GM TUBE TOP SCH (08:58)
--- NOTE | 2020-03-09 09:15 | NUR ---
Dr. Heart present, notified of pt having dark emesis, pt still refusing NG tube. Continues to ask for water. Dr Heart reports pt can have ice chips.
--- NOTE | 2020-03-09 09:26 | Diagnostic Imaging Report ---
EXAM: Abdomen 1 View INDICATION: ^cecum measure diameter, distended bowel ^[id number] ^0815 ^Y COMPARISON: CT dated 03/08/2020 FINDINGS: Again seen significantly dilated gas-filled large bowel. Cecum measures approximately 12.1 cm in diameter. Moderate amount of stool in left colon. No definite evidence of pneumoperitoneum, considering limitations of single view exam. No acute osseous abnormality. IMPRESSION: Again seen significantly dilated gas-filled large bowel. Cecum measures approximately 12.1 cm in diameter. Signed by: Dr. Nick Schofield MD on 03/09/2020 9:22 AM
--- NOTE | 2020-03-09 10:16 | Progress Note ---
DATE: Pulmonary Critical Care Progress Note SUBJECTIVE: The patient was seen by General Surgery last night and felt to have a toxic megacolon. He remains on antibiotics. He had a T-max this morning of 102. He required Cardizem last night for tachycardia. He is still on Cardizem at 5 mg an hour this morning. The patient is receiving albumin as well as normal saline. He remains hypotensive and is requiring Levophed. He is asking for water. He did drink previously, but started to vomit. PHYSICAL EXAMINATION: VITAL SIGNS: The patient is febrile to 102. Blood pressure is 90/70 and saturation 97% on 2 L. He is tachycardic to 120. HEENT: Shows no facial swelling or erythema. CARDIAC: Reveals regular rate and rhythm with normal S1 and S2. LUNGS: Auscultation of lungs reveals decreased breath sounds at the bases. ABDOMEN: Distended. She is nontender. There is no rebound or guarding. EXTREMITIES: Show no leg edema or calf tenderness. There is no cyanosis or clubbing. SKIN: Shows no rashes. NEUROLOGIC: Shows an incomplete quadriplegia with some partial movement of the upper extremities. LABORATORY DATA: Sodium is 123. BUN to creatinine ratio is 34 to 0.86. Albumin is 2.4. White blood cell count is 24.4 and hemoglobin is 9.9. The platelet count is 630. IMPRESSION: 1. Toxic megacolon with severe sepsis, present on admission. 2. Hyponatremia. 3. Moderate protein-calorie malnutrition. 4. Sacral decubitus wound, present on admission. 5. Urinary tract infection. 6. Incomplete quadriplegia related to prior cervical spine injury. 7. Acute kidney injury. PLAN: 1. Continue intravenous volume. 2. Continue current antibiotics. 3. Wean and Levophed. 4. Continue to monitor electrolytes and blood counts. 5. Await culture and C. diff results. 6. Discuss surgical options with General Surgery. 7. NG tube, if the patient is agreeable. 8. Wound care. 9. DVT prophylaxis. 10. Consider TPN. 11. Case discussed with warehouse worker 2nd shift Nursing, dayshift Nursing, General Surgery, Infectious Disease, and Internal Medicine. 12. Case also discussed with the patient. Greater than 35 minutes in direct critical care time. MD ALEX Serrano/MODL /[id number]
[2020-03-09 11:59] LABS: CREATINE KINASE MB 0.6 ng/mL (0-5.0)
[2020-03-09] MEDS: BACLOFEN 10 MG TAB PO PRN (12:27)
--- NOTE | 2020-03-09 12:34 | NUR ---
Spoke to Dr. Wood, notified of coffee ground emesis, notified Colostomy with decompression. Catie, oil field pipeline supervisor notified.
--- NOTE | 2020-03-09 13:37 | NUR ---
Dr. Heart notified that patient is now agreeable to abdominal surgery. Consent for surgery witnessed by this RN and Cameron Sharif RN. Pt now reports increasing abdominal pain. Abdomen has increased in size since 0700. Firm to touch and distended.
[2020-03-09] MEDS ORDERED: FENTANYL CITRATE/PF 100MCG/2 ML INJ ONE (13:49)
--- NOTE | 2020-03-09 14:25 | NUR ---
Patient escorted by this RN to endoscopy suite with RN and health care sanitary technician. Dr. Wood and Anesthesia present. Levophed continues to infuse.
[2020-03-09] MEDS ORDERED: SODIUM CHLORIDE 0.9% 50ML 50 ML ONE ×2 (14:29→18:52)
[2020-03-09] MEDS ORDERED: NOREPINEPHRINE INJ 4MG/4ML 4 ML ONE ×2 (14:29→18:52)
[2020-03-09] MEDS ORDERED: GLUCAGON FOR INJ 1 MG VIAL ONE (15:03)
--- NOTE | 2020-03-09 15:06 | Progress Note ---
DATE: SUBJECTIVE: Mr. Mathew refused NG tubing, but he is throwing up stool type of material. He was seen by Surgery. His abdomen remained distended. The patient has no new complaints. PHYSICAL EXAMINATION: GENERAL: Alert. VITAL SIGNS: Stable, febrile. HEENT: Not icteric. NECK: Supple. CHEST: Clear. ABDOMEN: Distended. LABS: His wound culture shows Gram-negative bacilli. Urine culture shows Gram-negative bacilli. X-ray of the abdomen showed dilated gas-filled large bowel. IMPRESSION AND PLAN: Megacolon, not sure if it is C. diff, still pending. Covid-19 is negative. Currently, on metronidazole, cefepime and p.o. vancomycin, may need surgery. His white count went up to 24. I am really concerned about Clostridium difficile. I think we had to stop the cefepime for now, continue monitoring his CBC. Discussed with the patient, he really needs an NG with gut rest. He may end up with surgery. Should he end up with surgery, we will restart Gram-negative. I do not think he has peritonitis at the present time, but I am watching closely. MD VLADIMIR [place]/MIKI /[id number]
--- NOTE | 2020-03-09 15:41 | Diagnostic Imaging Report ---
EXAM: Abdomen 1 Views INDICATION: ^emergent surgery ^[id number] ^1400 COMPARISON: Same day abdominal radiograph IMPRESSION: Persistent significant dilatation of large bowel throughout the abdomen. Evaluation is very limited due to body habitus and single supine view. Within this context, no definite pneumoperitoneum visualized. Signed by: Dr. Nick Schofield MD on 03/09/2020 3:37 PM
--- NOTE | 2020-03-09 15:50 | NUR ---
Nutrition Intervention Note RD Recommendation(s) for Physician: -Advance to GI soft diet when medically appropriate -When diet is advanced, recommend Ensure Enlive BID for added nutrition and Waqar BID to promote wound healing -Recommend zinc and Vitamin C to promote wound healing -If pt is expected to be NPO >5 days, consider TPN Plan of Care: RD following, monitoring for tolerance and adequacy Nutrition reason for involvement: Nutrition Risk Trigger MST [address] Assessment (03/09/20) Pt is a 54 year old male admitted with decubitus ulcer, hyponatremia, quadriplegia, schizophrenia, sepsis, TBI, and UTI. Per nursing notes, pt is having dark brown, coffee-ground emesis and is refusing NG tube. Attempted to speak to pt, but he was agitated at time of visit. Pt is currently NPO and there are no previous weights in chart; therefore, unable to gather nutrition history at this time. Will continue to monitor unless consulted sooner Principal Problems/Diagnoses: decubitus ulcer, hyponatremia, quadriplegia, schizophrenia, sepsis, TBI, and UTI PMH: TBI with quadriplegia, megacolon, recurrent UTI I/O: 7315/3870 GI: distended, puffy, tender abdomen, liquid stool Skin: stage 4 pressure ulcer right and left sacrum, stage 3 pressure ulcer to left buttock, stage 4 pressure ulcer left lateral ankle per wound care note Labs: (03/09/20) Na 123, K 3.4, BUN 34, Cr 0.86, Glu 141, Ca 7.6 Meds: dilaudid, zofran, norepinephrine, vancomycin, lovenox Ht: 74 inches Wt: 170 lbs BMI: 21.8 kg/m2 IBW: 162-171 lbs (10-15% IBW quadriplegia) Malnutrition Evaluation (03/09/20) Unable to assess. Will re-evaluate at follow-up as appropriate. Nutrition Prescription (Diet Order): NPO Estimated Nutritional Needs: 6118-5164 calories/day (25-35 kcal/kg CBW) 77-115 g protein/day (1-1.5 g pro/kg CBW) Diet Adequacy: Not meeting calorie needs, Not meeting protein needs Tolerance: N/A Diet Education Needs Assessment: Diet education not indicated, patient on temporary/transition diet. Nutrition Care Level: low Nutrition Diagnosis: Increased nutrient needs related to increased demand for protein and kcal as evidenced by multiple pressure ulcers. Goal: Patient will meet 75-100% of estimated needs by follow up Progress: N/A Interventions: -fiber-modified diet, Commercial beverage, Multivitamin/mineral supplement therapy Monitoring/Evaluation: -Total energy intake, Total protein intake, Modified diet, Liquid supplement, Weight change Signed: Carmita Taylor RD, LD
--- NOTE | 2020-03-09 16:20 | Diagnostic Imaging Report ---
EXAM: Abdomen 1 Views INDICATION: ^NGT placement COMPARISON: Earlier same day. IMPRESSION: Questionable tip of nasogastric tube projects above the diaphragm. Recommend advancement. Persistent gaseous distention of large bowel. Triangular loculation air in right abdomen, concerning for pneumoperitoneum. Signed by: Dr. Nick Schofield MD on 03/09/2020 4:17 PM
[2020-03-09] MEDS ORDERED: VANCOMYCIN 250MG/5ML ORAL SOLN NG ONE (16:30)
[2020-03-09] MEDS: ENOXAPARIN 30 MG/0.3 ML SYR SC SCH (17:00)
--- NOTE | 2020-03-09 17:09 | NUR ---
Notified Abril Rodriguez NP that sm pleural effusion was found during echo.
[2020-03-09 18:06] LABS: BASOPHILS # (AUTO) 0.1 (0.0-0.1); BASOPHILS % 0.2 % (0.0-1.0); HEMATOCRIT 27.5 % (38.2-49.6); LYMPHOCYTES # (AUTO) 0.8 (1.0-3.2); LYMPHOCYTES % 3.1 % (18.0-39.1); MEAN CORPUSCULAR HEMOGLOBIN 25.4 pg (28-32); MEAN CORPUSCULAR HGB CONC 32.7 g/dL (31-35); MEAN CORPUSCULAR VOLUME 77.5 fL (81-99); MONOCYTES # (AUTO) 0.7 (0.2-0.8); NEUTROPHILS # (AUTO) 21.6 (2.1-6.9); NEUTROPHILS % 89.6 % (38.7-80.0); PLATELET COUNT 583 x10e3/uL (140-360); RED BLOOD COUNT 3.55 x10e6/uL (4.3-5.7); RED CELL DISTRIBUTION WIDTH 17.1 % (11.7-14.4)
[2020-03-09 18:57] LABS: BAND NEUTROPHILS % (MANUAL) 8 %; LYMPHOCYTES % (MANUAL) 1 % (19-48); MONOCYTES % (MANUAL) 3 % (3.4-9.0); NEUTROPHILS % (MANUAL) 88 % (40-74)
[2020-03-09 18:58] LABS: ANISOCYTOSIS SLIGHT; MICROCYTOSIS SLIGHT; PLATELET ESTIMATE ADEQUATE; PLATELET MORPHOLOGY COMMENT NORMAL; RBC MORPHOLOGY COMMENT NORMAL; TOXIC GRANULATION SLIGHT
[2020-03-09] MEDS: NOREPINEPHRINE INJ 4MG/4ML 8 MG in DEXTROSE 5% 250ML 250 ML IV SCH (19:00)
[2020-03-09] MEDS ORDERED: SODIUM CHLORIDE 0.9% 500ML 500 ML ONE ×2 (19:00→19:04)
--- NOTE | 2020-03-09 19:00 | NUR ---
Report received. Assumed care. Assessment done. See interventions. Charo @ [facility] [place].
[2020-03-09] MEDS ORDERED: PROPOFOL IV EMULSION 10 MG/ML 20 ML VIAL ONE ×2 (19:18→19:19)
[2020-03-09] MEDS ORDERED: DEXAMETHASONE SOD PHOS INJ 4 MG/ML VIAL ONE (19:19)
[2020-03-09] MEDS ORDERED: GLYCOPYRROLATE INJ 0.2 MG/ML VIAL ONE (19:19)
[2020-03-09] MEDS ORDERED: DESFLURANE 240 ML BTL INH ONE (19:19)
[2020-03-09] MEDS ORDERED: ROCURONIUM BROMIDE 10 MG/ML 5ML VIAL IV ONE (19:19)
[2020-03-09] MEDS ORDERED: ONDANSETRON HCL INJ 2MG/ML 2ML 2 MG/ML VIAL ONE (19:19)
[2020-03-09] MEDS ORDERED: NEOSTIGMINE 1 MG/ML 10ML VIAL ONE (19:19)
--- NOTE | 2020-03-09 19:45 | NUR ---
To OR for colon resection & colostomy.
[2020-03-09] MEDS: QUETIAPINE FUMARATE 100 MG TAB PO SCH (21:00)
[2020-03-09] MEDS: ROPINIROLE HCL 1 MG TAB PO SCH (21:00)
--- NOTE | 2020-03-09 21:39 | Operative Report ---
DATE OF PROCEDURE: 03/09/2020 SURGEON: Marcial Wodo MD PROCEDURE: Decompression colonoscopy. INDICATIONS FOR COLONOSCOPY: Megacolon. MEDICATIONS: The patient was done under MAC. Please see anesthesiologist's note. PROCEDURE IN DETAIL: With the patient in left lateral decubitus position, a flexible fiberoptic Olympus colonoscope was inserted into the rectum and advanced all the way to ? hepatic flexure. A large amount of retained liquid fecal material was noted in the colon. Also diffuse pseudomembranous colitis was noted and the area examined. Whatever was visualized the mucosa of the colon overall looked pink and viable, was some scattered dusky areas. The subsequently. The scope was subsequently withdrawn. The patient tolerated the procedure well. IMPRESSION: 1. Unprepped colonoscopy to ? hepatic flexure. 2. Diffuse pseudomembranous colitis with visualized mucosa appearing viable with some patchy dusky areas. PLAN: Continue current therapy. Add vancomycin 500 mg and 100 mL of normal saline now q.6 hours, retention enemas. Continue vancomycin 500 mg p.o. q.6 hours. Flagyl 500 mg IV every 6 hours. Marcial Wood MD [facility] [place][id number] cc: Adrien Heart MD Dr. Hadley Henry MD
[2020-03-09] MEDS: VANCOMYCIN 250MG/5ML ORAL SOLN NG SCH ×2 (22:00→23:58)
--- NOTE | 2020-03-09 23:05 | NUR ---
Returned to room from OR. Art line to right radial. Levophed @ 10mcg/min.
[2020-03-09] MEDS ORDERED: SODIUM CHLORIDE 0.9% 1000ML 1,000 ML ONE (23:21)
[2020-03-10] VITALS (24 sets, daily range): BP systolic 73–167; BP diastolic 26–83
[2020-03-10] MEDS: LACTATED RINGER'S 1,000 ML INJ SCH ×4 (00:41→23:48)
--- NOTE | 2020-03-10 00:41 | NUR ---
IV changed to LR @ 125ml/hr.
--- NOTE | 2020-03-10 00:59 | Operative Report ---
DATE OF PROCEDURE: 03/09/2020 SURGEON: Adrien Heart MD PREOPERATIVE DIAGNOSIS: Toxic megacolon with fulminant Clostridium difficile colitis. POSTOPERATIVE DIAGNOSIS: Toxic megacolon with fulminant Clostridium difficile colitis. OPERATIVE PROCEDURE: Total abdominal colectomy and ileostomy. ANESTHESIA: General, Dr. Fajardo. INDICATION: 54-year-old male with history of abdominal distention with C diff toxin essay positive. The patient developed worsening abdominal distention with leukocytosis. The patient has underwent colonoscopic decompression. He also developed pneumoperitoneum on the abdominal x-ray. At this point, the decision was made to perform a total abdominal colectomy. DESCRIPTION OF PROCEDURE: The patient was brought to the OR and intubated. The abdomen was then prepped with ChloraPrep and draped in a sterile fashion. A midline incision was made extending from xiphoid toward the pubic symphysis entering the peritoneal cavity. Adhesions from prior surgery encountered and taken down with cautery. The entire colon is massively dilated with the most dilated part in the sigmoid as well as the cecum. There is an evidence of microperforation at the cecum with no fecal spillage. At this point, we proceeded to mobilize the cecum 1st by dividing the white line of Toldt with cautery. The appendix also mobilized along with the terminal ileum. The hepatic flexure is taken down from both direction along the ascending colon as well as the transverse colon. The dissection continued toward the transverse colon. As we approached the splenic flexure using the LigaSure, the colon splenic ligaments taken down under direct visions. The patient has a very long and tortuous colon from chronic megacolon requiring meticulous dissection and hemostasis achieved using the LigaSure. The mesentery to the colon was taken close to the mesenteric border of the colon to minimize blood loss. As we proceed towards the sigmoid colon, the diameter is significantly dilated with the mesentery and bowel wall significantly edematous and thickened. At the rectosigmoid junction. We used an Endo-SANDY stapler green load to divide the distal sigmoid colon. Plantaris abdominal colon was removed. Operative field was then irrigated with copious saline solution. Hemostasis achieved. We then selected the right paraumbilical ileostomy site. A circular piece of skin and subcutaneous tissue was removed in that area approximately 6 cm lateral to the umbilicus. Dissection was carried down to the anterior fascia was opened in a cruciate direction. The underlying rectus muscle was split and posterior fascia was entered transversely. Two fingerbreadths, these inserted through the ostomy opening and the terminal ileum, which has been staple was then delivered through that opening using a Jany clamp. We then proceeded to drape the omentum on top of the bowel as we closed the midline fascia with a running #1 PDS and skin was closed with valery. The ostomy was matured by everting the bowels edge to the skin with 3-0 Vicryl stitches. The ostomy appliance inserted. The patient was then transported after extubation to ICU in guarded condition. BLOOD LOSS: 50 mL. MD YURI Sarmiento/MODL /[id number]
[2020-03-10] MEDS: METRONIDAZOLE 500MG/NS 100ML 100 ML IV SCH ×4 (04:11→21:30)
[2020-03-10] MEDS: HYDROMORPHONE 1MG/1ML INJ IV PRN (04:44)
--- NOTE | 2020-03-10 04:44 | NUR ---
Blood drawn for lab. Medicated for c/o pain.
[2020-03-10 05:17] LABS: BASOPHILS # (AUTO) 0.1 (0.0-0.1); BASOPHILS % 0.8 % (0.0-1.0); EOSINOPHILS % 0.1 % (0.0-6.0); HEMOGLOBIN 7.8 g/dL (14.0-18.0); LYMPHOCYTES # (AUTO) 0.4 (1.0-3.2); LYMPHOCYTES % 3.1 % (18.0-39.1); MEAN CORPUSCULAR HEMOGLOBIN 26.4 pg (28-32); MEAN CORPUSCULAR HGB CONC 32.5 g/dL (31-35); MEAN CORPUSCULAR VOLUME 81.4 fL (81-99); MONOCYTES # (AUTO) 0.4 (0.2-0.8); MONOCYTES % 2.8 % (4.4-11.3); NEUTROPHILS # (AUTO) 12.7 (2.1-6.9); NEUTROPHILS % 87.7 % (38.7-80.0); PLATELET COUNT 466 x10e3/uL (140-360); RED BLOOD COUNT 2.95 x10e6/uL (4.3-5.7); RED CELL DISTRIBUTION WIDTH 16.9 % (11.7-14.4)
[2020-03-10 05:50] LABS: ALANINE AMINOTRANSFERASE 7 IU/L (0-55); ALBUMIN 2.1 g/dL (3.5-5.0); ALBUMIN/GLOBULIN RATIO 0.7 (0.8-2.0); ALKALINE PHOSPHATASE 58 IU/L (40-150); ANION GAP 12.1 mmol/L (8-16); BLOOD UREA NITROGEN 21 mg/dL (7-26); BUN/CREATININE RATIO 38 (6-25); CARBON DIOXIDE 16 mmol/L (22-29); CHLORIDE 103 mmol/L (98-107); CREATININE, SERUM 0.55 mg/dL (0.72-1.25); EST GLOMERULAR FILTRATION RATE > 60 ML/MIN (60-); GLUCOSE 119 mg/dL (74-118); POTASSIUM 3.1 mmol/L (3.5-5.1); SODIUM 128 mmol/L (136-145)
[2020-03-10 05:53] LABS: CALCIUM 6.5 mg/dL (8.4-10.2)
[2020-03-10 08:24] LABS: BAND NEUTROPHILS % (MANUAL) 9 %; LYMPHOCYTES % (MANUAL) 2 % (19-48); MONOCYTES % (MANUAL) 3 % (3.4-9.0); NEUTROPHILS % (MANUAL) 86 % (40-74)
[2020-03-10 08:25] LABS: ANISOCYTOSIS SLIGHT; MICROCYTOSIS SLIG; TOXIC GRANULATION SLIGHT
[2020-03-10 08:26] LABS: PLATELET ESTIMATE ADEQUATE; PLATELET MORPHOLOGY COMMENT NORMAL; RBC MORPHOLOGY COMMENT NORMAL
--- NOTE | 2020-03-10 08:28 | Diagnostic Imaging Report ---
Examination: Single AP view of the chest. COMPARISON: March 08, 2020 INDICATION: Sepsis DISCUSSION: Lines/tubes: Right IJ catheter stable. Enteric tube with the distal tip not visualized out of the [id number]. Lungs: Right upper lung bulla. Emphysematous change. Lung base atelectasis. Pleura: No effusion or pneumothorax. Heart and mediastinum: The heart and the mediastinum are unremarkable. Bones and soft tissues: No acute bony abnormalities. IMPRESSION: Lung base atelectasis Signed by: Dr. Harshal Oconnor M.D. on 03/10/2020 8:24 AM
--- NOTE | 2020-03-10 09:10 | NUR ---
Patient requested pain medication, brought pain medication (dilaudid 1mg) to patient's bedside, then patient reports to this RN that the medication is not doing anything for pain and he wants morphine. Patient continues to be very rude, demanding, and continues to tell staff that no matter what care is provided, that it is not good enough. Pt verbally abusive towards this RN multiple times over last 2 days while attempting to console and keep patient comfortable. Abril Rodriguez SLIP [employer]ESSER called regarding pain medicaion, V/O given 2mg morphine iv q4prn for pain.
[2020-03-10] MEDS ORDERED: MORPHINE SULFATE 2 MG/ML SYR 1ML IV PRN (09:45)
[2020-03-10] MEDS: COLLAGENASE 5 GM TUBE TOP SCH (10:52)
[2020-03-10] MEDS: QUETIAPINE FUMARATE 100 MG TAB PO SCH ×2 (11:02→21:17)
[2020-03-10] MEDS: DULOXETINE HCL 20 MG DELAYED RELEASE PO SCH (11:02)
[2020-03-10] MEDS: NOREPINEPHRINE INJ 4MG/4ML 8 MG in DEXTROSE 5% 250ML 250 ML IV SCH (11:10)
--- NOTE | 2020-03-10 11:20 | NUR ---
Levophed gtt restarted titrating to keep SBP >90. Pt currently resting, after medicated with 2mg morphine IV.
[2020-03-10] MEDS: VANCOMYCIN 250MG/5ML ORAL SOLN NG SCH ×2 (11:34→17:37)
[2020-03-10] MEDS ORDERED: ALBUMIN 25% 25GM 100ML 0.25 GM/ML BTL IV ONE ×2 (12:45→14:00)
--- NOTE | 2020-03-10 13:05 | Progress Note ---
DATE: SUBJECTIVE: The patient went for a colonoscopy and cecal decompression yesterday. At the procedure, he had some possible pneumoperitoneum. He subsequently went for a partial colectomy and diverting ileostomy. His abdomen is less distended at this time. He has an NG tube in place. His C. diff came back positive and he is receiving oral vancomycin as well as IV Flagyl. PHYSICAL EXAMINATION: VITAL SIGNS: The blood pressure is 106/57, saturation is 99% on 8 L. GENERAL: He has a nasogastric tube in place. He is off Levophed. He is on Ringer's lactate at 125 mL an hour. There is a right IJ line in good position. The site looks clean. There is no drainage. CARDIAC: Reveals regular rate and rhythm with a normal S1 and S2. LUNGS: Auscultation of the lungs shows decreased breath sounds at the bases. There is no wheezing. ABDOMEN: Soft, nontender. There is an ileostomy stoma with a PEG. EXTREMITIES: Show no leg edema or calf tenderness. There is an incomplete quadriplegia with some arm movement. LABORATORY DATA: White blood cell count is 14.4 and hemoglobin is 7.8. The platelet count is 466. Though sodium is 128 and the potassium is 3.1, the BUN to creatinine ratio is normal. Other electrolytes are within normal limits. The albumin is 2.1. Urinalysis shows greater than 50 white blood cells. MICROBIOLOGICAL DATA: Wound culture shows extended-spectrum beta-lactamase resistant E. coli and extended-spectrum beta-lactamase Proteus. Serology for C. diff is positive. Blood cultures have coag-negative Staph, which probably represents a contaminant. IMPRESSION: 1. Toxic megacolon, secondary to Clostridium difficile colitis. 2. Severe, sepsis to secondary to Clostridium difficile colitis present on admission. 3. Moderate protein-calorie malnutrition. 4. Hyponatremia. 5. Sacral decubitus wound. 6. Urinary tract infection. 7. Acute kidney injury. 8. Incomplete quadriplegia. PLAN: 1. Continue IV fluids. 2. Continue vancomycin and Flagyl. 3. Continue to monitor electrolytes and blood counts. 4. Continue NG tube with suction. 5. Wound care. 6. Case discussed with nursing staff, Internal Medicine, and Infectious Disease. Greater than 35 minutes in direct critical care time. MD ALEX Serrano/MIKI /[id number]
[2020-03-10] MEDS: MORPHINE SULFATE INJ 4 MG/ML INJ 1ML IV PRN ×3 (13:12→21:18)
[2020-03-10] MEDS: MEROPENEM 500MG/ NS 50ML 50 ML IV SCH ×2 (13:50→21:30)
[2020-03-10 14:09] LABS: OSMOLALITY,SERUM OSMOMETER 264 mOsmol/kg (275-295)
[2020-03-10] MEDS: ENOXAPARIN 30 MG/0.3 ML SYR SC SCH (16:32)
--- NOTE | 2020-03-10 18:27 | NUR ---
Intermittently attempted to stop levophed gtt throughout day, Arterial BP continued to drop with sbp in 60's. Levophed currently @ 5ml/hr.
--- NOTE | 2020-03-10 19:00 | NUR ---
Report received. Assumed care. Assessment done. See interventions. Levophed @ 5mcg & LR @ 125ml/hr. Sips of H2O given. Became very agitated when I told him he couldn't give him coffee. Verbally abusive to staff.
[2020-03-10] MEDS: ROPINIROLE HCL 1 MG TAB PO SCH (21:17)
--- NOTE | 2020-03-10 21:22 | NUR ---
Medicated for c/o pain.
[2020-03-11] VITALS (24 sets, daily range): BP systolic 62–127; BP diastolic 48–91
[2020-03-11] MEDS: MORPHINE SULFATE INJ 4 MG/ML INJ 1ML IV PRN ×3 (01:30→21:00)
[2020-03-11] MEDS: METRONIDAZOLE 500MG/NS 100ML 100 ML IV SCH ×4 (04:15→21:30)
[2020-03-11 05:16] LABS: BASOPHILS % 0.2 % (0.0-1.0); EOSINOPHILS % 0.1 % (0.0-6.0); LYMPHOCYTES # (AUTO) 0.7 (1.0-3.2); LYMPHOCYTES % 4.2 % (18.0-39.1); MEAN CORPUSCULAR HEMOGLOBIN 25.3 pg (28-32); MEAN CORPUSCULAR HGB CONC 32.8 g/dL (31-35); MEAN CORPUSCULAR VOLUME 77.1 fL (81-99); MONOCYTES # (AUTO) 0.8 (0.2-0.8); MONOCYTES % 4.5 % (4.4-11.3); NEUTROPHILS # (AUTO) 14.4 (2.1-6.9); NEUTROPHILS % 83.7 % (38.7-80.0); PLATELET COUNT 411 x10e3/uL (140-360); RED BLOOD COUNT 2.45 x10e6/uL (4.3-5.7); RED CELL DISTRIBUTION WIDTH 17.2 % (11.7-14.4)
[2020-03-11 05:38] LABS: ALANINE AMINOTRANSFERASE 6 IU/L (0-55); ALBUMIN 2.3 g/dL (3.5-5.0); ALBUMIN/GLOBULIN RATIO 0.8 (0.8-2.0); ALKALINE PHOSPHATASE 50 IU/L (40-150); ANION GAP 10.6 mmol/L (8-16); BLOOD UREA NITROGEN 8 mg/dL (7-26); BUN/CREATININE RATIO 16 (6-25); CARBON DIOXIDE 22 mmol/L (22-29); CHLORIDE 103 mmol/L (98-107); CREATININE, SERUM 0.49 mg/dL (0.72-1.25); EST GLOMERULAR FILTRATION RATE > 60 ML/MIN (60-); GLUCOSE 90 mg/dL (74-118); SODIUM 133 mmol/L (136-145)
[2020-03-11 05:47] LABS: CALCIUM 7.6 mg/dL (8.4-10.2)
[2020-03-11 05:48] LABS: POTASSIUM 2.6 mmol/L (3.5-5.1)
[2020-03-11 05:56] LABS: HEMATOCRIT 18.9 % (38.2-49.6)
[2020-03-11 05:57] LABS: HEMOGLOBIN 6.2 g/dL (14.0-18.0)
[2020-03-11] MEDS ORDERED: POTASSIUM CHLORIDE 20MEQ/100ML 400 ML IV ONE (06:45)
[2020-03-11] MEDS: VANCOMYCIN 250MG/5ML ORAL SOLN NG SCH ×4 (07:10→17:11)
[2020-03-11] MEDS: COLLAGENASE 5 GM TUBE TOP SCH (07:14)
[2020-03-11] MEDS ORDERED: SODIUM CHLORIDE 0.9% 250ML 250 ML IV ONE (07:15)
[2020-03-11] MEDS: MEROPENEM 500MG/ NS 50ML 50 ML IV SCH ×3 (07:25→22:06)
--- NOTE | 2020-03-11 08:30 | NUR ---
PATIENT REFUSED TO BE REPOSITIONED, STATES " I DONT KNOW HOW MUCH MORE COMFORTABLE I CAN GET" EXPLAINED IMPORTANCE OF REPOSITIONING AND ROTATING OFF SACRUM DUE TO CURRENT PRESSURE WOUNDS, STILL REFUSES AT THIS TIME, WILL CONTINUE TO MONITOR.
[2020-03-11 08:40] LABS: LYMPHOCYTES % (MANUAL) 3 % (19-48); MONOCYTES % (MANUAL) 3 % (3.4-9.0); MYELOCYTES % (MANUAL) 2 % (0-0); NEUTROPHILS % (MANUAL) 92 % (40-74)
[2020-03-11 08:41] LABS: ANISOCYTOSIS SLIGHT; PLATELET ESTIMATE SLIGHTLY INCREASED; PLATELET MORPHOLOGY COMMENT NORMAL; SCHISTOCYTES RARE
[2020-03-11 08:42] LABS: MICROCYTOSIS SLIGHT; POIKILOCYTOSIS SLIGHT; RBC MORPHOLOGY COMMENT ABNORMAL
[2020-03-11] MEDS: LACTATED RINGER'S 1,000 ML INJ SCH ×3 (08:52→21:30)
[2020-03-11] MEDS: DULOXETINE HCL 20 MG DELAYED RELEASE PO SCH (09:00)
[2020-03-11] MEDS: QUETIAPINE FUMARATE 100 MG TAB PO SCH ×3 (09:00→21:00)
--- NOTE | 2020-03-11 13:34 | Progress Note ---
DATE: SUBJECTIVE: The patient is off Levophed. His hemoglobin was 6.2 this morning and he is awaiting packed red blood cells. His potassium was low and he is awaiting replete potassium. He is having less distention and less pain. OBJECTIVE: VITAL SIGNS: Blood pressure is 122/91 and saturation is 98% on 3 L. HEENT: Shows no facial swelling or erythema. CARDIAC: Reveals regular rate and rhythm with normal S1 and S2. LUNGS: Auscultation of lungs reveals an increased breath sounds at the bases. There is no wheezing. ABDOMEN: Much less distended. There is an ostomy bag in place. He has incomplete quadriplegia. ASSESSMENT: 1. Anemia secondary to chronic blood loss. 2. Hypokalemia. 3. Toxic megacolon secondary to Clostridium difficile. 4. Clostridium difficile colitis. 5. Incomplete quadriplegia. PLAN: 1. Continue current treatment for C difficile. 2. Continue to replete potassium. 3. Advance diet as tolerated. 4. Packed red blood cells. 5. Ostomy care. 6. DVT prophylaxis. 7. Case discussed with Internal Medicine and Nursing. Cedric Kennedy MD [facility]/MIKI /[id number]
[2020-03-11] MEDS ORDERED: SODIUM CHLORIDE 0.9% 250ML 250 ML ONE (14:27)
--- NOTE | 2020-03-11 15:47 | NUR ---
oral mason for [id number] 2019 patient was seen and examined s/p colectomy remains in ICU intubated sedated INDICATION: 54-year-old male with history of abdominal distention with C diff toxin essay positive. The patient developed worsening abdominal distention with leukocytosis. The patient has underwent colonoscopic decompression. He also developed pneumoperitoneum on the abdominal x-ray. At this point, the decision was made to perform a total abdominal colectomy. His C. diff came back positive and he is receiving oral vancomycin as well as IV Flagyl. PHYSICAL EXAMINATION: VITAL SIGNS: The blood pressure is 106/57, saturation is 99% on 8 L. GENERAL: He has a nasogastric tube in place. He is off Levophed. He is on Ringer's lactate at 125 mL an hour. There is a right IJ line in good position. The site looks clean. There is no drainage. CARDIAC: Reveals regular rate and rhythm with a normal S1 and S2. LUNGS: Auscultation of the lungs shows decreased breath sounds at the bases. There is no wheezing. ABDOMEN: Soft, nontender. There is an ileostomy stoma with a PEG. EXTREMITIES: Show no leg edema or calf tenderness. There is an incomplete quadriplegia with some arm movement. LABORATORY DATA: White blood cell count is 14.4 and hemoglobin is 7.8. The platelet count is 466. Though sodium is 128 and the potassium is 3.1, the BUN to creatinine ratio is normal. Other electrolytes are within normal limits. The albumin is 2.1. Urinalysis shows greater than 50 white blood cells. MICROBIOLOGICAL DATA: Wound culture shows extended-spectrum beta-lactamase resistant E. coli and extended-spectrum beta-lactamase Proteus. Serology for C. diff is positive. Blood cultures have coag-negative Staph, which probably represents a contaminant. IMPRESSION: 1. Toxic megacolon, secondary to Clostridium difficile colitis. 2. Severe, sepsis to secondary to Clostridium difficile colitis present on admission. 3. Moderate protein-calorie malnutrition. 4. Hyponatremia. 5. Sacral decubitus wound. 6. Urinary tract infection. 7. Acute kidney injury. 8. Incomplete quadripleg
--- NOTE | 2020-03-11 16:55 | Progress Note ---
DATE: SUBJECTIVE: Mr. Mathew remains in intensive care unit. He is off vasopressors. Hemoglobin was 6.1, receiving blood. REVIEW OF SYSTEMS: Noncommunicative. PHYSICAL EXAMINATION: GENERAL: Noncommunicative. VITAL SIGNS: Stable, afebrile. HEENT: He is not icteric. NECK: Supple. CHEST: Few crackles. COR: S1 and S2. No S3, S4, or murmur. ABDOMEN: Soft. Bowel sounds present. No tenderness. No hepatosplenomegaly. EXTREMITIES: No edema. LABORATORY DATA: Cultures reviewed. His white count is 17.2 and hemoglobin 6.0. Sodium 133, potassium 2.6, and creatinine 0.49. The patient is currently on meropenem, oral vancomycin and Flagyl. Blood cultures coagulase negative Staph on admission. IMPRESSION: 1. Paraplegic. 2. Incomplete quadriplegia. 3. Sepsis on admission, status post total abdominal colectomy and ileostomy. Discontinue meropenem. Continue Flagyl. Continue oral vancomycin. Recheck CBC. Recheck chem panel. Continue supportive care. MD VLADIMIR Washington/MODL /[id number]
[2020-03-11] MEDS: ENOXAPARIN 30 MG/0.3 ML SYR SC SCH (17:11)
--- NOTE | 2020-03-11 20:41 | Consultation ---
DATE OF CONSULTATION: Wound Consultation HISTORY OF PRESENT ILLNESS: A 54-year-old male patient, admitted to hospital on 03/08/2020, from [facility], with sepsis secondary to toxic megacolon, the patient underwent total colectomy and ileostomy. He has chronic nonhealing pressure ulcers, multiple Wound consult was called. The patient is quadriplegic, bed-bound state. PAST MEDICAL HISTORY: Traumatic C5 spine injury with quadriplegia, traumatic brain injury with quadriplegia, recurrent urinary tract infection. ALLERGIES: FLUPHENAZINE. PHYSICAL EXAMINATION: GENERAL: Awake, alert. Unrestrained. HEAD AND ENT: Normal. Has a nasogastric tube. LUNGS: Diminished at both bases. CVS: Normal. ABDOMEN: Soft. Colostomy in place. Postsurgically, wound noted, no infection. EXTREMITIES: Lower extremities, no edema contracted. SKIN: Right lateral ankle malleolus area, the patient has stage IV pressure ulcer with 50% necrotic eschar, and 50% wound with the exposed malleolus bone with purulent drainage. Left lateral malleolus wound healing with a dry eschar, dry scab. Sacral area. The patient has a wound measuring 10 x 10 cm with undermining . Left ischium, the patient has stage III pressure ulcer with exposed subcutaneous tissue measuring 3.5 x 3.5 cm with a periwound laceration and stage II. ASSESSMENT: Sacral and the right lateral malleolus clinical osteomyelitis stage IV pressure ulcer, left ischium stage III pressure ulcers, sacral area necrotic with exposed bone. Right lateral malleolus draining seropurulent necrotic area. PLAN: Apply Dakin's moistened 4 x 4 to sacrum and left ischium on the right lateral malleolus. Change dressing daily care. Thank you for consultation. MD FRANK Carreon/MODL /[id number]
[2020-03-11] MEDS: BACLOFEN 10 MG TAB PO PRN (21:00)
[2020-03-11] MEDS: NOREPINEPHRINE INJ 4MG/4ML 8 MG in DEXTROSE 5% 250ML 250 ML IV SCH (21:00)
[2020-03-11] MEDS: ROPINIROLE HCL 1 MG TAB PO SCH (21:00)
--- NOTE | 2020-03-11 21:00 | NUR ---
REFUSES TO BE REPOSITIONED
[2020-03-12] VITALS (23 sets, daily range): BP systolic 83–139; BP diastolic 61–90
[2020-03-12] MEDS: VANCOMYCIN 250MG/5ML ORAL SOLN NG SCH ×4 (00:12→17:22)
--- NOTE | 2020-03-12 01:00 | NUR ---
Patient given bath and repositioned
[2020-03-12] MEDS: HYDROMORPHONE 1MG/1ML INJ IV PRN ×4 (01:44→20:35)
[2020-03-12] MEDS: METRONIDAZOLE 500MG/NS 100ML 100 ML IV SCH ×4 (04:30→21:39)
[2020-03-12] MEDS: MORPHINE SULFATE INJ 4 MG/ML INJ 1ML IV PRN ×2 (05:30→17:22)
[2020-03-12 05:45] LABS: BASOPHILS # (AUTO) 0.1 (0.0-0.1); BASOPHILS % 0.5 % (0.0-1.0); EOSINOPHILS # (AUTO) 0.1 (0.0-0.4); EOSINOPHILS % 0.5 % (0.0-6.0); HEMATOCRIT 28.2 % (38.2-49.6); HEMOGLOBIN 9.5 g/dL (14.0-18.0); LYMPHOCYTES # (AUTO) 1.2 (1.0-3.2); LYMPHOCYTES % 7.8 % (18.0-39.1); MEAN CORPUSCULAR HEMOGLOBIN 26.6 pg (28-32); MEAN CORPUSCULAR HGB CONC 33.7 g/dL (31-35); MONOCYTES # (AUTO) 0.9 (0.2-0.8); MONOCYTES % 5.7 % (4.4-11.3); NEUTROPHILS # (AUTO) 11.9 (2.1-6.9); NEUTROPHILS % 76.3 % (38.7-80.0); PLATELET COUNT 520 x10e3/uL (140-360); RED BLOOD COUNT 3.57 x10e6/uL (4.3-5.7); RED CELL DISTRIBUTION WIDTH 16.6 % (11.7-14.4)
[2020-03-12] MEDS: MEROPENEM 500MG/ NS 50ML 50 ML IV SCH ×3 (05:59→21:39)
[2020-03-12] MEDS: BACLOFEN 10 MG TAB PO PRN ×2 (06:01→13:08)
[2020-03-12 06:07] LABS: ALANINE AMINOTRANSFERASE 6 IU/L (0-55); ALBUMIN 2.3 g/dL (3.5-5.0); ALBUMIN/GLOBULIN RATIO 0.7 (0.8-2.0); ALKALINE PHOSPHATASE 56 IU/L (40-150); ANION GAP 12.2 mmol/L (8-16); BLOOD UREA NITROGEN < 5 mg/dL (7-26); CALCIUM 7.7 mg/dL (8.4-10.2); CARBON DIOXIDE 25 mmol/L (22-29); CHLORIDE 103 mmol/L (98-107); CREATININE, SERUM 0.47 mg/dL (0.72-1.25); EST GLOMERULAR FILTRATION RATE > 60 ML/MIN (60-); GLUCOSE 92 mg/dL (74-118); MAGNESIUM 1.6 MG/DL (1.3-2.1); POTASSIUM 3.2 mmol/L (3.5-5.1); SODIUM 137 mmol/L (136-145)
[2020-03-12 06:11] LABS: BUN/CREATININE RATIO 11 (6-25)
[2020-03-12] MEDS: LACTATED RINGER'S 1,000 ML INJ SCH ×3 (07:15→21:39)
[2020-03-12 07:43] LABS: CREATINE KINASE 15 IU/L (30-200)
[2020-03-12] MEDS: COLLAGENASE 5 GM TUBE TOP SCH (07:43)
[2020-03-12] MEDS: DULOXETINE HCL 20 MG DELAYED RELEASE PO SCH (07:43)
[2020-03-12] MEDS: ONDANSETRON HCL INJ 2MG/ML 2ML 2 MG/ML VIAL IV PRN ×3 (07:43→17:22)
[2020-03-12] MEDS ORDERED: SODIUM HYPOCHLORITE 0.25% 480 ML SOLN IR ONE (10:15)
--- NOTE | 2020-03-12 12:43 | Progress Note ---
DATE: SUBJECTIVE: Mr. Mathew is doing better, lying in bed comfortably, status post surgery. No complaints. Awake. PHYSICAL EXAMINATION: GENERAL: He is currently alert. VITAL SIGNS: Stable, afebrile. HEENT: He is not icteric. NECK: Supple. CHEST: Clear. HEART: S1 and S2. No S3, S4, or murmurs. ABDOMEN: Soft. IMPRESSION: The patient is status post colostomy, status post total colectomy, status post ileostomy, multiple pressure wounds on the sacral area, right malleolus, left ischial area. Concern underlying osteomyelitis. However, he just recently recovered from colitis, toxic megacolon, Clostridium difficile colitis and complete quadriplegic. Clinically, seems to be doing good with metronidazole and oral vancomycin. Continue supportive care and local care. We will address tissue of these wounds and osteo once clinically better. MD VLADIMIR Washington/MIKI /[id number]
[2020-03-12] MEDS ORDERED: POTASSIUM CHLORIDE 20MEQ/100ML 200 ML IV ONE (13:30)
--- NOTE | 2020-03-12 13:30 | Progress Note ---
DATE: SUBJECTIVE: The patient had his NG tube removed today. He has less abdominal distention and pain. He remains on Levophed at 10 mcg. He remains on Ringer's lactate. PHYSICAL EXAMINATION: VITAL SIGNS: The blood pressure is 94/85 and the saturation is 96% on 3 L. Heart rate is 75 and the respiratory rate is 16. HEENT: Shows no facial swelling or erythema. CARDIAC: Reveals regular rate and rhythm with a normal S1 and S2. There are no murmurs or rubs heard. LUNGS: Auscultation of the lungs reveals clear breath sounds. ABDOMEN: Soft, nontender. There is an ostomy in place. The patient has incomplete quadriplegia. LABORATORY DATA: The white blood cell count is 15.5 and his hemoglobin is 9.5. The platelet count is 520. The BUN to creatinine ratio is 5 to 0.47, potassium is 3.2, and albumin is 2.3. IMPRESSION: 1. Toxic megacolon, secondary to Clostridium difficile colitis. 2. Status post partial colectomy and diverting ileostomy. 3. Anemia, secondary to chronic blood loss. 4. Hypokalemia. 5. Possible osteomyelitis. 6. Incomplete quadriplegia. PLAN: 1. Continue current antibiotics. 2. Replace potassium. 3. Pain control. 4. Wound care. 5. Advance diet as tolerated. MD ALEX Serrano/LAISHAL /[id number]
[2020-03-12 17:22] LABS: CREATINE KINASE MB 0.5 ng/mL (0-5.0)
[2020-03-12] MEDS: ENOXAPARIN 30 MG/0.3 ML SYR SC SCH (17:22)
[2020-03-12] MEDS: QUETIAPINE FUMARATE 100 MG TAB PO SCH (20:55)
[2020-03-12] MEDS: ROPINIROLE HCL 1 MG TAB PO SCH (20:55)
[2020-03-12] MEDS: ZOLPIDEM TARTRATE 10 MG TAB PO PRN (21:30)
[2020-03-12] MEDS: NOREPINEPHRINE INJ 4MG/4ML 8 MG in DEXTROSE 5% 250ML 250 ML IV SCH (21:41)
[2020-03-13] VITALS (16 sets, daily range): BP systolic 83–125; BP diastolic 49–94
[2020-03-13] MEDS: VANCOMYCIN 250MG/5ML ORAL SOLN NG SCH ×4 (00:03→17:06)
[2020-03-13] MEDS: HYDROMORPHONE 1MG/1ML INJ IV PRN ×5 (00:37→22:39)
[2020-03-13] MEDS: METRONIDAZOLE 500MG/NS 100ML 100 ML IV SCH ×4 (03:42→22:39)
[2020-03-13] MEDS: ONDANSETRON HCL INJ 2MG/ML 2ML 2 MG/ML VIAL IV PRN (04:05)
[2020-03-13] MEDS: MEROPENEM 500MG/ NS 50ML 50 ML IV SCH ×2 (05:23→13:39)
[2020-03-13 05:31] LABS: ALANINE AMINOTRANSFERASE 6 IU/L (0-55); ALBUMIN 2.3 g/dL (3.5-5.0); ALBUMIN/GLOBULIN RATIO 0.6 (0.8-2.0); ALKALINE PHOSPHATASE 50 IU/L (40-150); ANION GAP 11.3 mmol/L (8-16); BLOOD UREA NITROGEN < 5 mg/dL (7-26); CALCIUM 7.4 mg/dL (8.4-10.2); CARBON DIOXIDE 27 mmol/L (22-29); CHLORIDE 99 mmol/L (98-107); CREATININE, SERUM 0.46 mg/dL (0.72-1.25); EST GLOMERULAR FILTRATION RATE > 60 ML/MIN (60-); GLUCOSE 111 mg/dL (74-118); POTASSIUM 3.3 mmol/L (3.5-5.1); SODIUM 134 mmol/L (136-145)
[2020-03-13 05:33] LABS: BUN/CREATININE RATIO 11 (6-25)
[2020-03-13 06:18] LABS: AMYLASE 104 U/L (25-125); LIPASE 72 U/L (8-78)
[2020-03-13 06:39] LABS: MAGNESIUM 1.5 MG/DL (1.3-2.1); PHOSPHORUS 1.1 MG/DL (2.3-4.7)
--- NOTE | 2020-03-13 06:48 | Diagnostic Imaging Report ---
EXAM: Abdomen Radiograph 1 View(s) INDICATION: Nausea and vomiting COMPARISON: 03/09/2020 FINDINGS: Gaseous distention of multiple loops of bowel throughout the abdomen. Distended small bowel measures up to 5.3 cm in caliber. The stomach is distended with gas. No definite free intraperitoneal air. Midline abdominal surgical clips. No abnormal soft tissue calcification. IMPRESSION: Diffuse gaseous distention of bowel. Differential considerations include postoperative ileus and distal small bowel obstruction. Signed by: Sami Mays MD on 03/13/2020 6:35 AM
[2020-03-13 06:49] LABS: BASOPHILS % 0.2 % (0.0-1.0); EOSINOPHILS # (AUTO) 0.1 (0.0-0.4); EOSINOPHILS % 0.4 % (0.0-6.0); HEMATOCRIT 32.1 % (38.2-49.6); HEMOGLOBIN 10.6 g/dL (14.0-18.0); LYMPHOCYTES # (AUTO) 1.5 (1.0-3.2); LYMPHOCYTES % 7.9 % (18.0-39.1); MEAN CORPUSCULAR HEMOGLOBIN 26.3 pg (28-32); MEAN CORPUSCULAR VOLUME 79.7 fL (81-99); MONOCYTES # (AUTO) 0.8 (0.2-0.8); MONOCYTES % 4.5 % (4.4-11.3); NEUTROPHILS # (AUTO) 15.2 (2.1-6.9); NEUTROPHILS % 81.6 % (38.7-80.0); PLATELET COUNT 531 x10e3/uL (140-360); RED BLOOD COUNT 4.03 x10e6/uL (4.3-5.7); RED CELL DISTRIBUTION WIDTH 17.1 % (11.7-14.4)
[2020-03-13] MEDS: COLLAGENASE 5 GM TUBE TOP SCH (07:53)
[2020-03-13] MEDS: LACTATED RINGER'S 1,000 ML INJ SCH ×3 (07:56→23:56)
[2020-03-13] MEDS: DULOXETINE HCL 20 MG DELAYED RELEASE PO SCH (09:00)
[2020-03-13] MEDS: PANTOPRAZOLE 40 MG 10ML VIAL IV SCH (09:08)
--- NOTE | 2020-03-13 11:28 | Diagnostic Imaging Report ---
Exam: KUB - 2 views Indication: NG tube placement Comparison: KUB of 03/13/2020 Findings: NG tube terminates in the distal stomach. Dilated loops of small bowel measure up to 4.2 cm, consistent with known bowel obstruction. No free air. Impression: NG tube terminates in the distal stomach. Unchanged findings of bowel obstruction. No free air. Signed by: Abdulaziz Martinez MD on 03/13/2020 11:15 AM
[2020-03-13] MEDS: QUETIAPINE FUMARATE 100 MG TAB PO SCH ×2 (11:40→20:52)
[2020-03-13] MEDS: SODIUM CHLORIDE 0.9% 250ML IRRIG IR SCH ×4 (11:40→22:39)
[2020-03-13] MEDS ORDERED: MAGNESIUM SULFATE 2GM/50ML 50 ML IV ONE (11:45)
--- NOTE | 2020-03-13 11:55 | NUR ---
PROGRESS NOTE [id number]
[2020-03-13] MEDS ORDERED: POTASSIUM PHOSPHATE 30 MM in SODIUM CHLORIDE 0.9% 250ML 250 ML IV ONE (13:45)
--- NOTE | 2020-03-13 14:49 | Progress Note ---
DATE: SUBJECTIVE: The patient is requiring very small amounts of Levophed. He did have some nausea and vomiting. His NG tube had to be replaced. PHYSICAL EXAMINATION: VITAL SIGNS: The patient is afebrile. The blood pressure is 108/60 and saturation is 96% on 3 L. HEENT: Shows no facial swelling or erythema. CARDIAC: Reveals a regular rate and rhythm with normal S1 and S2. LUNGS: Auscultation of lungs reveals clear breath sounds bilaterally. There is no wheezing. ABDOMEN: Soft and nontender. There is some distention. EXTREMITIES: There is no leg edema. NEUROLOGIC: Shows an incomplete quadriplegia. LABORATORY DATA: BUN to creatinine ratio is normal. Sodium is 134 and the potassium is 3.3. White blood cell count is 18.5 and the hemoglobin is 10.6. The platelet count is 531. RADIOGRAPHIC DATA: Abdominal x-ray shows dilated loops of small bowel. IMPRESSION: 1. Toxic megacolon secondary to Clostridium difficile colitis. 2. Hypokalemia. 3. Anemia secondary to chronic blood loss. 4. Possible osteomyelitis. 5. Incomplete quadriplegia. PLAN: 1. Continue current antibiotics. 2. Continue NG tube suction. 3. Pain control. 4. Wound care. 5. Wean off Levophed. Cedric Kennedy MD [facility]/MODL /[id number]
[2020-03-13] MEDS: ENOXAPARIN 30 MG/0.3 ML SYR SC SCH (16:49)
--- NOTE | 2020-03-13 16:49 | Progress Note ---
DATE: 03/13/2020 CONSULTING PHYSICIANS: Include: 1. Dr. Aisha Finnegan With Infectious Disease. 2. Dr. Cedric Kennedy with Pulmonology/Critical Care Medicine. 3. Dr. Wood with Gastroenterology. 4. Dr. Heart, angela with Surgery. 5. Dr. Cordero with Wound Care. SUBJECTIVE: The patient states he has abdominal pain, 7 to 10 on a scale of 0 to 10. He did have some nausea and vomiting this morning around 9:00 a.m. when the NG tube was placed. Per the RN, he has had gas in his ileostomy bag. He is not eating anything from his full liquid diet at present, given his recent vomiting. He is receiving pain medications, often drowsy, had his eyes closed and relaxed when I entered the room. OBJECTIVE: VITAL SIGNS: Temperature 98.5, T-max 98.9, heart rate 75, blood pressure 109/84, respirations 13, oxygen saturation 96%. GENERAL: Supine in bed. LUNGS: Generally, clear to auscultation with diminished bases. HEENT: EOMI. NECK: Supple. CARDIOVASCULAR: Regular rate and rhythm. No murmur. Currently not on Levophed drip. He is receiving potassium phosphate. Electrolyte repletion IV as a right radial arterial line, good waveform. ABDOMEN: Distended with good bowel sounds. He has a right naris NG tube continuous wall suction and dressing is covering his abdominal incision and ileostomy bag is in place. EXTREMITIES: Left foot drop. SCDs, heel protectors. Trace edema. No clubbing, cyanosis, or notable signs of DVT. NEUROLOGIC: GCS 14, eye 3, verbal 5, motor 6. Incomplete quadriplegia with gross bilateral upper extremity movement. LABORATORY DATA: Sodium 134, potassium 3.3, chloride 99, CO2 of 27. BUN less than 5, creatinine 0.46, estimated GFR greater than 60, glucose 111, calcium 7.4, phosphorus 1.1, magnesium 1.5, total protein 0.3. AST 14, ALT 6, alkaline phosphatase 50, total protein 5.9, albumin 2.3. Amylase 104, lipase 72. WBC 18.58, hemoglobin 10.6, hematocrit 32.1, platelets 531. No new microbiology results. Imaging, abdominal x-ray at about 06:35 in the morning showed diffuse gaseous distention of bowel. Differential consideration including postoperative ileus and distal small-bowel obstruction. Followup abdominal x-ray at about 11 o'clock in the morning showed NG tube terminating in the distal stomach. Unchanged findings of bowel obstruction. No free air. ASSESSMENT AND PLAN: 1. Status post total colectomy and diverting ileostomy on 03/09/2020 for full minute Clostridium difficile colitis with toxic megacolon. GI Surgery and Infectious Disease are following. Continue Flagyl and oral vancomycin. Levophed is being used intermittently. Vomiting has improved since NG tube placed. Monitor abdominal distention and KUB results. WBC 18.5 and platelet 531 with upward trend. 2. Extended-spectrum beta-lactamase Escherichia coli, urinary tract infection, POA. Per Infectious Disease, Merrem is to be discontinued. Appreciate recs. 3. Necrotic stage IV sacral decubitus ulcer with exposed bone. 4. and possible osteomyelitis. Right malleolus pressure ulcer, left lateral ischial stage 3 pressure ulcer, all POA. Wound care MD following. Dakin's solution being used with daily dressing changes. 5. Acute blood loss anemia due to gastrointestinal bleeding, status post 2 units PRBCs on or about 03/12. Hemoglobin has improved to 10.6 from 6.2. 6. Acute hypokalemia. Potassium 3.3, potassium phosphate 30 millimoles IV once today. Reassess level in a.m. 7. Hypophosphatemia. Thirty millimoles potassium phosphate today. Reassess level in a.m. 8. Hypomagnesemia. Magnesium level 1.5, 2 g magnesium sulfate IV today. Reassess level in a.m. 9. Incomplete quadriplegia, DALE hourly while awake. Turn every 2 hours. 10. Prophylaxis. Protonix, SCDs. Time spent 35 minutes. Billing code 24222. Dictated by Rell Madrid, [employer] MD ELSA HarryP/MODL /[id number]
--- NOTE | 2020-03-13 16:59 | Progress Note ---
DATE: 03/13/2020 ADDENDUM: Aceing code 31538. Dictated by Rell Madrid, [employer] MD ISRRAEL Harry/LAISHAL /[id number]
--- NOTE | 2020-03-13 17:39 | Progress Note ---
DATE: SUBJECTIVE: Mr. Mathew continue to improve. There are no new complaints. He remains in intensive care unit, weak, but no complaints. He is on a small amount of Levophed. NG tube had to be replaced. PHYSICAL EXAMINATION: GENERAL: He is alert. Does not seem to be in acute distress. VITAL SIGNS: Stable, afebrile. HEENT: He is not icteric. NECK: Supple. CHEST: Clear. COR: S1 and S2. No S3, S4, or murmurs. ABDOMEN: Soft. IMPRESSION: 1. Sepsis on admission, C difficile colitis on admission, toxic megacolon, status post colectomy. 2. Status post colostomy. Colonization with drug resistant, concerned about osteomyelitis. Currently continue oral vancomycin. Continue Flagyl. Discontinue meropenem. Recheck CBC. Recheck Chem panel. MD VLADIMIR [place]/MIKI /[id number]
[2020-03-13] MEDS: NOREPINEPHRINE INJ 4MG/4ML 8 MG in DEXTROSE 5% 250ML 250 ML IV SCH (19:25)
[2020-03-13] MEDS: MORPHINE SULFATE INJ 4 MG/ML INJ 1ML IV PRN (19:40)
[2020-03-13] MEDS: ROPINIROLE HCL 1 MG TAB PO SCH (20:52)
[2020-03-14] VITALS (25 sets, daily range): BP systolic 81–150; BP diastolic 50–99
[2020-03-14] MEDS: VANCOMYCIN 250MG/5ML ORAL SOLN NG SCH ×4 (01:00→18:00)
--- NOTE | 2020-03-14 01:17 | Diagnostic Imaging Report ---
EXAM: CT Abdomen and Pelvis WITHOUT contrast INDICATION: Abdominal pain COMPARISON: None. TECHNIQUE: Abdomen and pelvis were scanned utilizing a multidetector helical scanner from the lung base to the pubic symphysis without administration of IV contrast. Absence of intravenous contrast decreases sensitivity for detection of focal lesions and vascular pathology. Coronal and sagittal reformations were obtained. Routine protocol was performed. IV CONTRAST: None ORAL CONTRAST: None COMPLICATIONS: None RADIATION DOSE: Total DLP: 762 mGy*cm Estimated effective dose: (DLP x 0.015 x size factor) mSv CTDIvol has been reviewed. It is below the limits set by the Radiation Protocol Committee (RPC). Dose modulation, iterative reconstruction, and/or weight based adjustment of the mA/kV was utilized to reduce the radiation dose to as low as reasonably achievable. FINDINGS: LINES and TUBES: An enteric tube terminates within the proximal duodenum. LOWER THORAX: Atelectasis of the lung bases. Small bilateral pleural effusions. HEPATOBILIARY: No gross hepatic lesion. No biliary duct dilatation. GALLBLADDER: No radio-opaque stones or sludge. No wall thickening. SPLEEN: No splenomegaly. PANCREAS: No focal masses or ductal dilatation. ADRENALS: No adrenal nodules KIDNEYS/URETERS: Suboptimally evaluated. No gross hydronephrosis. GI TRACT: Extensive dilated fluid-filled loops of small bowel measure up to 4.2 cm in maximum thickness. The majority of the colon is not distinctly identified. Rectal surgical change with apparent blind ending rectal pouch. Circumferential wall thickening of the residual rectum. Right lower quadrant ileostomy. PELVIC ORGANS/BLADDER: The urinary bladder is decompressed by Kim catheter. LYMPH NODES: The optimal evaluated. No gross abnormalities. VESSELS: Grossly unremarkable. PERITONEUM / RETROPERITONEUM: Scattered free intraperitoneal air, notably in the anterior abdomen. Moderate free intraperitoneal fluid. Diffuse mesenteric edema. BONES: No acute osseous abnormality. SOFT TISSUES: Moderate soft tissue edema. [Laparotomy skin valery. IMPRESSION: 1. Extensive dilated loops of fluid-filled small bowel most suggestive of adynamic ileus. Distal small bowel obstruction may appear similar. Continued follow-up is recommended. 2. Scattered free intraperitoneal air and moderate free intraperitoneal fluid. While this may be postsurgical, changes from a perforated viscus may appear similar. Continued follow-up is recommended. 3. The normal colon is not distinctly identified and is likely surgical removed. Moderate circumferential wall thickening of the residual rectum may be postsurgical or inflammatory in etiology. 4. Volume overload. Signed by: Sami Mays MD on 03/14/2020 1:13 AM
[2020-03-14] MEDS: MORPHINE SULFATE INJ 4 MG/ML INJ 1ML IV PRN ×4 (01:51→22:28)
[2020-03-14] MEDS: HYDROMORPHONE 1MG/1ML INJ IV PRN ×5 (02:21→20:39)
[2020-03-14] MEDS: SODIUM CHLORIDE 0.9% 250ML IRRIG IR SCH ×6 (02:27→21:15)
[2020-03-14] MEDS: METRONIDAZOLE 500MG/NS 100ML 100 ML IV SCH ×4 (04:26→21:16)
[2020-03-14 05:07] LABS: BASOPHILS % 0.2 % (0.0-1.0); EOSINOPHILS # (AUTO) 0.2 (0.0-0.4); EOSINOPHILS % 1.2 % (0.0-6.0); LYMPHOCYTES # (AUTO) 1.3 (1.0-3.2); MEAN CORPUSCULAR HEMOGLOBIN 26.3 pg (28-32); MEAN CORPUSCULAR VOLUME 79.6 fL (81-99); MONOCYTES # (AUTO) 0.8 (0.2-0.8); MONOCYTES % 5.4 % (4.4-11.3); NEUTROPHILS % 78.9 % (38.7-80.0); PLATELET COUNT 436 x10e3/uL (140-360); RED BLOOD COUNT 3.39 x10e6/uL (4.3-5.7); RED CELL DISTRIBUTION WIDTH 17.5 % (11.7-14.4)
[2020-03-14 05:32] LABS: ALANINE AMINOTRANSFERASE 6 IU/L (0-55); ALBUMIN/GLOBULIN RATIO 0.6 (0.8-2.0); ALKALINE PHOSPHATASE 42 IU/L (40-150); ANION GAP 8.4 mmol/L (8-16); BLOOD UREA NITROGEN < 5 mg/dL (7-26); CALCIUM 7.3 mg/dL (8.4-10.2); CARBON DIOXIDE 26 mmol/L (22-29); CHLORIDE 102 mmol/L (98-107); EST GLOMERULAR FILTRATION RATE > 60 ML/MIN (60-); GLUCOSE 87 mg/dL (74-118); MAGNESIUM 1.6 MG/DL (1.3-2.1); PHOSPHORUS 1.9 MG/DL (2.3-4.7); POTASSIUM 3.4 mmol/L (3.5-5.1); SODIUM 133 mmol/L (136-145)
[2020-03-14 05:34] LABS: BUN/CREATININE RATIO 13 (6-25)
[2020-03-14 05:36] LABS: HEMOGLOBIN 8.9 g/dL (14.0-18.0)
[2020-03-14] MEDS: MEROPENEM 1GM 100 ML IV SCH ×2 (05:49→14:52)
[2020-03-14] MEDS: COLLAGENASE 5 GM TUBE TOP SCH (07:00)
[2020-03-14] MEDS: LACTATED RINGER'S 1,000 ML INJ SCH ×3 (07:45→23:15)
[2020-03-14] MEDS: PANTOPRAZOLE 40 MG 10ML VIAL IV SCH (09:00)
[2020-03-14] MEDS: QUETIAPINE FUMARATE 100 MG TAB PO SCH ×2 (09:00→21:15)
[2020-03-14] MEDS ORDERED: MAGNESIUM SULFATE 2GM/50ML 50 ML IV ONE ×2 (10:30→15:15)
[2020-03-14] MEDS ORDERED: POTASSIUM PHOSPHATE 20 MM in SODIUM CHLORIDE 0.9% 250ML 250 ML IV ONE (12:30)
[2020-03-14] MEDS: DULOXETINE HCL 20 MG DELAYED RELEASE PO SCH (14:44)
--- NOTE | 2020-03-14 14:45 | Progress Note ---
DATE: SUBJECTIVE: The patient is n.p.o. His NG tube is to suction. He is receiving some intermittent pain medication. PHYSICAL EXAMINATION: VITAL SIGNS: The blood pressure is 133/90, saturation is 100% on 3 L, and the pulse is 94. The respiratory rate is 18. HEENT: Shows no facial swelling or erythema. CARDIAC: Reveals regular rate and rhythm with normal S1 and S2. LUNGS: Auscultation of lungs reveals rhonchorous breath sounds bilaterally. There is no wheezing. ABDOMEN: Soft. There is some distention. There is no rebound or guarding. There is a colostomy bag in position. LABORATORY DATA: White blood cell count is 13.8 and the hemoglobin is 8.9. The platelet count is 436. The BUN to creatinine ratio is 5 to 0.4. The phosphorus is 1.9. CT scan of the abdomen from yesterday shows extensive dilated loops of air and fluid-filled small bowel. It is consistent with an ileus. IMPRESSION: 1. Toxic megacolon with severe sepsis, secondary to Clostridium difficile colitis, present on admission. 2. Anemia secondary to chronic blood loss. 3. Persistent ileus. 4. Possible osteomyelitis. 5. Incomplete quadriplegia. 6. Moderate protein-calorie malnutrition. PLAN: 1. Continue NG suction. 2. Low-dose Levophed. 3. Fluids as needed. 4. Consider TPN. 5. Wound care. 6. Continue current antibiotics. Cedric Kennedy MD [facility]/LAISHAL /[id number]
--- NOTE | 2020-03-14 16:05 | Progress Note ---
DATE: SUBJECTIVE: Mr. Mathew remains in intensive care unit. He is now better. He is a little bit uncooperative. REVIEW OF SYSTEMS: Beside the weakness, he denies any. PHYSICAL EXAMINATION: GENERAL: Alert, comfortable. VITAL SIGNS: Stable, currently afebrile. HEENT: He is not icteric. NECK: Supple. CHEST: Few crackles at the bases. COR: S1 and S2. No S3, S4, or murmurs. ABDOMEN: Soft. Distended. EXTREMITIES: No edema. NO: Skin rash. LABORATORY DATA: CAT scan of abdomen and pelvis was done. Discussed with Surgery. Extensive dilated loops of fluid small bowel suggestive of adynamic ileus. IMPRESSION: 1. Clostridium difficile colitis sepsis, present on admission, status post colectomy. 2. Ileus. 3. Malnutrition. 4. Anemia of chronic disease. 5. Osteomyelitis, bilateral lower extremities. 6. Colonization of multidrug-resistant, incomplete quadriplegic. Continue with current choice of antibiotic. Discontinue meropenem. MD VLADIMIR [place]/[facility] /[id number]
--- NOTE | 2020-03-14 16:20 | Progress Note ---
DATE: 03/14/2020 SUBJECTIVE: The patient is supine in bed. States his pain level is about the same. He has had no vomiting. He is drinking water off and on and still has NG tube to continuous suction. Argumentative with staff at times. OBJECTIVE: VITAL SIGNS: Temperature 98.1, T-max 98.5, heart rate 90, blood pressure 115/72, respirations 11, and oxygen saturation 99%. GENERAL: Supine. LUNGS: Clear with diminished bases. HEENT: EOMI. NECK: Supple. CARDIOVASCULAR: Regular rate and rhythm without murmur. Not currently on Levophed drip. Right IJ triple-lumen central line. Right radial arterial line. ABDOMEN: Distended with bowel sounds. Right naris NG tube continuous wall suction, dressing covering the abdominal incision, ileostomy bag. EXTREMITIES: Left foot drop, trace edema. No clubbing, cyanosis, or obvious DVT. Heel protectors and SCDs. NEUROLOGIC: GCS 14, eye 3, verbal 5, motor 6. Incomplete quadriplegia with gross bilateral upper extremity movement. LABORATORY DATA: WBC 13.9, hemoglobin 8.9, hematocrit 27, and platelets 436. Sodium 133, potassium 3.4, chloride 102, CO2 26, BUN less than 5, creatinine 0.4, GFR greater than 60, and glucose 87. Lactic acid 0.7, calcium 7.3, phosphorus 1.9, and magnesium 1.7. Total bilirubin 0.2, AST 12, ALT 6, and alkaline phosphatase 42. Total protein 5.2 and albumin 2.0. Last night, a CT of the abdomen and pelvis was done. Per radiologist, showed extensive dilated loops of fluid-filled small bowel, most suggestive of adynamic ileus. Distal small bowel obstruction may appear similar. Scattered free intraperitoneal air and moderate free intraperitoneal fluid. This could be postsurgical, but changes from a perforated viscus, may appear similar, colon likely surgically removed. Moderate circumferential wall thickening of the residual rectum, may be postsurgical or inflammatory in etiology. Volume overload. ASSESSMENT AND PLAN: 1. Status post total colectomy and diverting ileostomy on 03/09/2020 for fulminant Clostridium difficile colitis with toxic megacolon and now possible ileus. GI, Surgery as well as Infectious Disease are following. Continue IV Flagyl and oral vancomycin as per ID recommendations. RN states Levophed off around 2 p.m. today. WBC 13.8, platelets 436, down from yesterday. 2. Protein-calorie malnutrition. We will start a standard TPN formula today. Case was discussed with Dr. Henry, Dr. Kennedy, Dr. Heart, and Dr. Wood. We will ask dietitian for recommendations and whether malnutrition is mild, moderate, or severe. 3. Extended-spectrum beta-lactamases Escherichia coli urinary tract infection, POA. Merrem has been discontinued. Monitor. 4. Necrotic stage IV sacral decubitus ulcer with exposed bone and possible osteomyelitis, right malleolus pressure ulcer, left lateral ischial stage III pressure ulcer, all POA. Wound care MD and Infectious Disease following. Dakin solution being used with daily dressing changes. 5. Acute blood loss anemia due to gastrointestinal bleed, status post 2 units PRBCs on or about 03/12. Hemoglobin 8.9, but previously 10.6, still an improvement from 6.2. 6. Acute hypokalemia, potassium 3.4. Potassium phosphate 20 mmol IV once a today. Reassess in a.m. 7. Acute hypophosphatemia. Phosphorus 1.9 (1.1). Potassium phosphate 20 mmol IV once a today. Reassess in a.m. 8. Acute hypomagnesemia. Magnesium level 1.6 (1.5), 2 g magnesium sulfate IV today. Reassess in a.m. 9. Incomplete quadriplegia. Incentive spirometry hourly while awake. Turn every 2 hours. Supportive care. The patient is very argumentative with staff at times. Today, he told the nurse that he wanted a new nurse and he told me to leave and not come back. 10. Prophylaxis. IV Protonix, SCDs. Time spent 35 minutes. Billing code [id number]. Dictated by Rell Madrid, BRIGID Hadley Henry MD [facility] /[id number]
[2020-03-14] MEDS: ENOXAPARIN 30 MG/0.3 ML SYR SC SCH (17:20)
[2020-03-14] MEDS ORDERED: CENTRAL TPN FORMULA 1 BAG IV SCH (20:00)
[2020-03-14] MEDS: NOREPINEPHRINE INJ 4MG/4ML 8 MG in DEXTROSE 5% 250ML 250 ML IV SCH (20:05)
[2020-03-14] MEDS: ZOLPIDEM TARTRATE 10 MG TAB PO PRN (21:00)
[2020-03-14] MEDS: ROPINIROLE HCL 1 MG TAB PO SCH (21:15)
[2020-03-15] VITALS (16 sets, daily range): BP systolic 97–144; BP diastolic 55–99
[2020-03-15] MEDS: SODIUM CHLORIDE 0.9% 250ML IRRIG IR SCH ×6 (01:45→21:25)
[2020-03-15] MEDS: HYDROMORPHONE 1MG/1ML INJ IV PRN ×5 (01:45→23:04)
[2020-03-15] MEDS: MORPHINE SULFATE INJ 4 MG/ML INJ 1ML IV PRN ×4 (04:15→20:10)
[2020-03-15] MEDS: METRONIDAZOLE 500MG/NS 100ML 100 ML IV SCH ×4 (04:15→21:25)
[2020-03-15] MEDS: BACLOFEN 10 MG TAB PO PRN (04:20)
[2020-03-15 05:27] LABS: BASOPHILS % 0.1 % (0.0-1.0); EOSINOPHILS # (AUTO) 0.2 (0.0-0.4); HEMATOCRIT 27.3 % (38.2-49.6); HEMOGLOBIN 8.7 g/dL (14.0-18.0); LYMPHOCYTES # (AUTO) 1.1 (1.0-3.2); LYMPHOCYTES % 9.1 % (18.0-39.1); MEAN CORPUSCULAR HEMOGLOBIN 26.4 pg (28-32); MEAN CORPUSCULAR HGB CONC 31.9 g/dL (31-35); MONOCYTES # (AUTO) 0.6 (0.2-0.8); NEUTROPHILS # (AUTO) 9.4 (2.1-6.9); NEUTROPHILS % 80.3 % (38.7-80.0); PLATELET COUNT 380 x10e3/uL (140-360); RED BLOOD COUNT 3.29 x10e6/uL (4.3-5.7); RED CELL DISTRIBUTION WIDTH 17.7 % (11.7-14.4)
[2020-03-15] MEDS ORDERED: VANCOMYCIN 250MG/5ML ORAL SOLN ONE (05:43)
[2020-03-15] MEDS: VANCOMYCIN 250MG/5ML ORAL SOLN NG SCH ×4 (06:16→17:25)
[2020-03-15 06:41] LABS: ALBUMIN 1.9 g/dL (3.5-5.0); ALBUMIN/GLOBULIN RATIO 0.6 (0.8-2.0); ALKALINE PHOSPHATASE 40 IU/L (40-150); ANION GAP 8.4 mmol/L (8-16); BLOOD UREA NITROGEN < 5 mg/dL (7-26); CARBON DIOXIDE 26 mmol/L (22-29); CHLORIDE 105 mmol/L (98-107); CREATININE, SERUM 0.38 mg/dL (0.72-1.25); EST GLOMERULAR FILTRATION RATE > 60 ML/MIN (60-); GLUCOSE 110 mg/dL (74-118); MAGNESIUM 1.8 MG/DL (1.3-2.1); POTASSIUM 3.4 mmol/L (3.5-5.1); SODIUM 136 mmol/L (136-145)
[2020-03-15 06:42] LABS: ALANINE AMINOTRANSFERASE < 6 IU/L (0-55); BUN/CREATININE RATIO 13 (6-25)
[2020-03-15 06:55] LABS: PHOSPHORUS 2.2 MG/DL (2.3-4.7)
[2020-03-15] MEDS: COLLAGENASE 5 GM TUBE TOP SCH (07:41)
[2020-03-15] MEDS: LACTATED RINGER'S 1,000 ML INJ SCH (07:45)
[2020-03-15] MEDS ORDERED: MAGNESIUM SULF 1GRAM/DEXTROSE 100 ML IV ONE (08:15)
[2020-03-15] MEDS: QUETIAPINE FUMARATE 100 MG TAB PO SCH ×2 (08:16→21:25)
[2020-03-15] MEDS: DULOXETINE HCL 20 MG DELAYED RELEASE PO SCH (08:17)
[2020-03-15] MEDS: PANTOPRAZOLE 40 MG 10ML VIAL IV SCH (09:09)
[2020-03-15] MEDS ORDERED: POTASSIUM PHOSPHATE 20 MM in SODIUM CHLORIDE 0.9% 250ML 250 ML IV ONE (09:15)
--- NOTE | 2020-03-15 14:16 | NUR ---
Nutrition Intervention Note RD Recommendation(s) for Physician: The patient meets criteria for unspecified SEVERE protein-calorie malnutrition. Recommend Standard TPN @ goal of 100 mL/hr and 25 gm/day lipids (360 g dextrose, 30% 500 mL), 120 g amino acids, 10% 500 mL), 25 gm/day lipids, total volume 2400 mL) provides 1929 kcal and 120 g protein -Advance to GI soft diet when medically appropriate -When diet is advanced, recommend Ensure Enlive BID for added nutrition and Waqar BID to promote wound healing -Recommend zinc and Vitamin C to promote wound healing when diet is advanced Plan of Care: RD following, monitoring for tolerance and adequacy Nutrition reason for involvement: follow up and consult from [facility] Assessment 03/15: Follow up and received consult from [facility]. Pt is s/p colectomy and diverting ileostomy on 03/09. TPN was started yesterday and pt has NG tube for suctioning. Pt has been mainly NPO or on a liquid diet since admission. Prior to admission, pt reports he was eating about 50% of his meals for 1 month. Pt also mentioned he had lost weight and had weighed 200 lbs 2 months ago. This is considered significant weight loss based on pts weights in chart. No N/V reported at this time. No chewing/swallowing issues. Recommendations provided. Will continue to monitor. (03/09/20) Pt is a 54 year old male admitted with decubitus ulcer, hyponatremia, quadriplegia, schizophrenia, sepsis, TBI, and UTI. Per nursing notes, pt is having dark brown, coffee-ground emesis and is refusing NG tube. Attempted to speak to pt, but he was agitated at time of visit. Pt is currently NPO and there are no previous weights in chart; therefore, unable to gather nutrition history at this time. Will continue to monitor unless consulted sooner Principal Problems/Diagnoses: decubitus ulcer, hyponatremia, quadriplegia, schizophrenia, sepsis, TBI, and UTI PMH: TBI with quadriplegia, megacolon, recurrent UTI I/O: 3882/3500 GI: large, round, firm, distended, tender, abdomen, liquid stools Skin: stage 4 pressure ulcer right and left sacrum, stage 3 pressure ulcer to left buttock, stage 4 pressure ulcer left lateral ankle per wound care note on 03/08 Labs: (03/15) Na 136. K 3.4, BUN <5, Cr 0.38, Ca 7.0, Phos 2.2 (03/09/20) Na 123, K 3.4, BUN 34, Cr 0.86, Glu 141, Ca 7.6 Meds: protonix, lovenox, zofran, vancomycin, norepinephrine Ht: 74 inches Wt: 184 lbs (03/15) 170 lbs (03/09) BMI: 23.6 kg/m2 IBW: 162-171 lbs (10-15% IBW quadriplegia) Malnutrition Evaluation (03/15) The patient meets criteria for unspecified SEVERE protein-calorie malnutrition. Energy intake: <75% of estimated energy requirements for 1 month Weight loss: >7.5% in 2 months Fat loss: unable to evaluate (pt declined NFPE) Muscle loss: unable to evaluate (pt declined NFPE) Supporting Evidence: Fluid accumulation: unable to evaluate Functional Status: unable to evaluate Nutrition Prescription (Diet Order): NPO Standard TPN @ 42 mL/hr and lipids of 25 gm lipids for 3 days/week (provides 812 kcal and 50 g protein) Estimated Nutritional Needs: 2913-4240 calories/day (25-30 kcal/kg CBW) Weight used: 170 lbs 93-155 g protein/day (1.2-2 g pro/kg CBW) Weight used: 170 lbs Diet Adequacy: Not meeting calorie needs, Not meeting protein needs Tolerance: N/A Diet Education Needs Assessment: Diet education not indicated, patient on temporary/transition diet. Nutrition Care Level: high Nutrition Diagnosis: Increased nutrient needs related to increased demand for protein and kcal as evidenced by multiple pressure ulcers. Goal: Patient will meet 75-100% of estimated needs by follow up Progress: progressing (TPN was started yesterday) Interventions: -Composition, Rate, Route, fiber-modified diet, Commercial beverage, Multivitamin/mineral supplement therapy Monitoring/Evaluation: -Total energy intake, Total protein intake, Formula/Solution, Modified diet, Liquid supplement, Weight change Signed: Carmita Taylor RD, LD
--- NOTE | 2020-03-15 16:19 | Progress Note ---
DATE: SUBJECTIVE: The patient still has an NG tube in place. He is off the Levophed. He is receiving TPN. PHYSICAL EXAMINATION: VITAL SIGNS: The blood pressure is 107/87. Saturation is 100%. HEENT: Shows no facial swelling or erythema. CARDIAC: Reveals regular rate and rhythm with normal S1 and S2. LUNGS: Auscultation of lungs reveals decreased breath sounds at the bases. There is no wheezing. ABDOMEN: Soft, nontender. There is no rebound or guarding. EXTREMITIES: There is distention. There is no leg edema. LABORATORY DATA: White blood cell count is 11.7 and hemoglobin 8.7. The platelet count is 380. The BUN to creatinine ratio is 5 to 0.38. Phosphorus is 2.2 and the albumin is 1.9. Other electrolytes are within normal limits. IMPRESSION: 1. Toxic megacolon, secondary to Clostridium difficile colitis. 2. Persistent ileus. 3. Moderate protein-calorie malnutrition. 4. Extended-spectrum beta-lactamase producing Escherichia coli. 5. Urinary tract infection. 6. Possible osteomyelitis. 7. Anemia. 8. Incomplete quadriplegia. PLAN: 1. Continue TPN. 2. Continue NG tube. 3. Continue IV fluids. 4. Continue current antibiotics. 5. Possible transfer out of intensive care unit. Cedric Kennedy MD [facility] /[id number]
[2020-03-15] MEDS: ENOXAPARIN 30 MG/0.3 ML SYR SC SCH (16:34)
--- NOTE | 2020-03-15 18:20 | NUR ---
pt arrived to unit resp even and unlabored at this time no distress noted pt NGT connected to liws,saha to gravity,pt oriented to room and call light.
[2020-03-15] MEDS: CENTRAL TPN FORMULA 1 BAG IV SCH (20:00)
--- NOTE | 2020-03-15 20:45 | Progress Note ---
DATE: SUBJECTIVE: Mr. Mathew remains in intensive care unit, comfortable. PHYSICAL EXAMINATION: VITAL SIGNS: Stable. Currently afebrile. GENERAL: He is currently alert, oriented. HEENT: Not icteric. NECK: Supple. CHEST: Clear. COR: S1 and S2. ABDOMEN: Soft. Bowel sounds present. No tenderness. EXTREMITIES: No edema. LABORATORY VALUES: His white count 11.7, hemoglobin 8.7. IMPRESSION: Status post sepsis, status post toxic megacolon, status post Clostridium difficile colitis, ileus, Moderate protein-calorie malnutrition, anemia, incomplete quadriplegia, currently on TPN, oral vancomycin. Leukocytosis is improving. Continue supportive care. Discussed with the medical team. Aisha Finnegan MD [facility] /[id number]
[2020-03-15] MEDS: ROPINIROLE HCL 1 MG TAB PO SCH (21:25)
[2020-03-15] MEDS: ZOLPIDEM TARTRATE 10 MG TAB PO PRN (21:25)
[2020-03-16] VITALS (8 sets, daily range): BP systolic 108–140; BP diastolic 83–102
[2020-03-16] MEDS: VANCOMYCIN 250MG/5ML ORAL SOLN NG SCH ×4 (00:08→18:10)
[2020-03-16] MEDS: MORPHINE SULFATE INJ 4 MG/ML INJ 1ML IV PRN ×3 (01:47→22:45)
[2020-03-16] MEDS: SODIUM CHLORIDE 0.9% 250ML IRRIG IR SCH ×5 (01:47→18:10)
--- NOTE | 2020-03-16 02:21 | Progress Note ---
DATE: 03/15/2020 SUBJECTIVE: The patient is supine in bed, asleep and is easily arousable. His pain level is about the same. No vomiting today. OBJECTIVE: VITAL SIGNS: Temperature 98.7, heart rate 89, blood pressure 107/87, respirations 16, oxygen saturation 100%. GENERAL: Supine, asleep. LUNGS: Clear with diminished bases. HEENT: EOMI. NECK: Supple. CARDIOVASCULAR: Regular rate and rhythm. Right IJ triple-lumen central line. Right radial arterial line was discontinued. ABDOMEN: Distended with bowel sounds. Right nares NG tube to intermittent low wall suction. Dressing covering the abdominal incision. Ileostomy bag. EXTREMITIES: Left foot drop, trace edema. No clubbing, cyanosis. Heel protectors and SCDs in place. NEUROLOGIC: GCS 14, eye 3, verbal 5, motor 6. Incomplete quadriplegia with gross bilateral upper extremity movement. LABORATORY DATA: Sodium 136, potassium 3.4, chloride 105, CO2 26, BUN less than 5, creatinine 0.38, GFR greater than 60, glucose 110, calcium 7.0, phosphorus 2.2, magnesium 1.8, total bilirubin 0.2, AST 11, ALT less than 6, alkaline phosphatase 40, total protein 5.2, albumin 1.9. No new imaging studies. IMPRESSION AND PLAN: 1. Status post total colectomy and diverting ileostomy on 03/09/2020 for fulminant Clostridium difficile colitis with toxic megacolon and now persistent ileus. GI, Surgery as well as Infectious Disease following. Continue IV Flagyl and oral vancomycin as per ID recommendations. He is no longer on Levophed and has been moved out of the ICU and was seen in room 215. WBC 11.7 (13.8), platelets 380 (436). 2. Severe protein-calorie malnutrition. TPN was started yesterday and renewed today. The patient is now on clear liquid diet per Surgery. 3. Extended spectrum beta-lactamases Escherichia coli urinary tract infection, present on admission. Merrem has been discontinued. Monitor. 4. Necrotic stage IV sacral decubitus ulcer with exposed bone and possible osteomyelitis, right malleolus pressure ulcer, left lateral ischial stage III pressure ulcer, all present on admission. Wound care MD and Infectious Disease following. Dakin solutions with daily dressing changes. 5. Acute blood loss anemia due to GI bleed, status post 2 units PRBCs on or about 03/12, hemoglobin 8.7 and in the past was 6.2. 6. Acute hypokalemia, potassium 3.4 (3.4), potassium phosphate 20 mmol IV once today and reassess in a.m. 7. Acute hypophosphatemia, phosphorus 2.2 (1.9), potassium phosphate 20 mmol IV once today and reassess in a.m. 8. Acute hypomagnesemia. Magnesium level 1.8 (1.6), 1 g of magnesium sulfate IV today and reassess in a.m. 9. Incomplete quadriplegia. Incentive spirometry hourly while awake. Turn every 2 hours. Supportive care. 10. Prophylaxis IV Protonix, SCDs. Time spent 35 minutes. Billing code [id number]. Time of encounter: 2345. Dictated by Rell Madrid NP Hadley Henry MD [facility]/LAISHAL /[id number]
[2020-03-16] MEDS: METRONIDAZOLE 500MG/NS 100ML 100 ML IV SCH ×4 (04:00→21:25)
[2020-03-16] MEDS: HYDROMORPHONE 1MG/1ML INJ IV PRN ×3 (04:15→19:45)
[2020-03-16 05:00] LABS: BASOPHILS % 0.2 % (0.0-1.0); EOSINOPHILS # (AUTO) 0.3 (0.0-0.4); EOSINOPHILS % 2.4 % (0.0-6.0); HEMATOCRIT 27.5 % (38.2-49.6); HEMOGLOBIN 8.8 g/dL (14.0-18.0); LYMPHOCYTES # (AUTO) 1.5 (1.0-3.2); LYMPHOCYTES % 11.3 % (18.0-39.1); MEAN CORPUSCULAR HEMOGLOBIN 26.5 pg (28-32); MEAN CORPUSCULAR VOLUME 82.8 fL (81-99); MONOCYTES # (AUTO) 0.6 (0.2-0.8); MONOCYTES % 4.2 % (4.4-11.3); NEUTROPHILS # (AUTO) 10.5 (2.1-6.9); NEUTROPHILS % 79.6 % (38.7-80.0); PLATELET COUNT 359 x10e3/uL (140-360); RED BLOOD COUNT 3.32 x10e6/uL (4.3-5.7)
[2020-03-16 05:32] LABS: ALANINE AMINOTRANSFERASE 7 IU/L (0-55); ALBUMIN 1.9 g/dL (3.5-5.0); ALBUMIN/GLOBULIN RATIO 0.5 (0.8-2.0); ALKALINE PHOSPHATASE 45 IU/L (40-150); ANION GAP 8.9 mmol/L (8-16); BLOOD UREA NITROGEN < 5 mg/dL (7-26); CALCIUM 7.7 mg/dL (8.4-10.2); CARBON DIOXIDE 25 mmol/L (22-29); CHLORIDE 104 mmol/L (98-107); CREATININE, SERUM 0.45 mg/dL (0.72-1.25); EST GLOMERULAR FILTRATION RATE > 60 ML/MIN (60-); GLUCOSE 107 mg/dL (74-118); MAGNESIUM 1.8 MG/DL (1.3-2.1); POTASSIUM 3.9 mmol/L (3.5-5.1); SODIUM 134 mmol/L (136-145)
[2020-03-16 05:45] LABS: BUN/CREATININE RATIO 11 (6-25)
--- NOTE | 2020-03-16 07:00 | NUR ---
BEDSIDE SHIFT REPORT RECEIVED FROM PRIMER BOXER RN. PT DENIES NEEDS AT THIS TIME.
[2020-03-16] MEDS: QUETIAPINE FUMARATE 100 MG TAB PO SCH ×2 (09:20→21:25)
[2020-03-16] MEDS: DULOXETINE HCL 20 MG DELAYED RELEASE PO SCH (09:20)
[2020-03-16] MEDS: COLLAGENASE 5 GM TUBE TOP SCH (09:20)
[2020-03-16] MEDS: PANTOPRAZOLE 40 MG 10ML VIAL IV SCH (09:20)
--- NOTE | 2020-03-16 15:08 | Progress Note ---
DATE: SUBJECTIVE: The patient was moved out of the intensive care unit today. He does have a low-grade temperature of 100.5. PHYSICAL EXAMINATION: VITAL SIGNS: The patient is afebrile. The blood pressure is now 140/102. Pulse is 95. HEENT: No facial swelling or erythema. CARDIAC: Regular rate and rhythm with normal S1 and S2. LUNGS: Auscultation of the lungs shows decreased breath sounds. ABDOMEN: Mildly distended. There is no rebound or guarding. EXTREMITIES: No leg edema. NEUROLOGIC: Incomplete quadriplegia. LABORATORY DATA: White blood cell count is 13.2 and hemoglobin is 8.8. The platelet count is 359,000. BUN to creatinine ratio is normal. Other electrolytes are within normal limits and the albumin is 1.9. IMPRESSION: 1. Toxic megacolon secondary to C difficile colitis. 2. Ileus. 3. Incomplete quadriplegia. 4. Moderate protein-calorie malnutrition. PLAN: 1. Continue current antibiotic regimen. 2. Continue TPN. 3. Wound care. 4. Monitor blood counts. Cedric Kennedy MD [facility] /[id number]
[2020-03-16] MEDS: CENTRAL TPN FORMULA 1 BAG IV SCH (19:45)
--- NOTE | 2020-03-16 20:20 | NUR ---
NGT REMOVED PATIENT TOLERATED WELL. RIGHT IJ CENTRAL LINE DRESSING CHANGE, SOILED.
[2020-03-16] MEDS: ACETAMINOPHEN 325 MG TAB PO PRN (21:07)
[2020-03-16] MEDS: ZOLPIDEM TARTRATE 10 MG TAB PO PRN (21:25)
[2020-03-16] MEDS: ROPINIROLE HCL 1 MG TAB PO SCH (21:25)
[2020-03-17] VITALS (8 sets, daily range): BP systolic 112–168; BP diastolic 90–119
[2020-03-17] MEDS: HYDROMORPHONE 1MG/1ML INJ IV PRN ×2 (01:45→08:29)
[2020-03-17] MEDS: METRONIDAZOLE 500MG/NS 100ML 100 ML IV SCH ×4 (04:00→21:56)
[2020-03-17] MEDS: MORPHINE SULFATE INJ 4 MG/ML INJ 1ML IV PRN (05:30)
[2020-03-17] MEDS: VANCOMYCIN 250MG/5ML ORAL SOLN PO SCH ×4 (05:52→23:50)
[2020-03-17 06:21] LABS: BASOPHILS % 0.2 % (0.0-1.0); EOSINOPHILS # (AUTO) 0.2 (0.0-0.4); EOSINOPHILS % 1.4 % (0.0-6.0); HEMATOCRIT 28.1 % (38.2-49.6); LYMPHOCYTES # (AUTO) 2.3 (1.0-3.2); LYMPHOCYTES % 14.4 % (18.0-39.1); MEAN CORPUSCULAR HEMOGLOBIN 26.5 pg (28-32); MEAN CORPUSCULAR VOLUME 82.9 fL (81-99); MONOCYTES # (AUTO) 0.8 (0.2-0.8); MONOCYTES % 5.1 % (4.4-11.3); NEUTROPHILS # (AUTO) 12.3 (2.1-6.9); NEUTROPHILS % 77.1 % (38.7-80.0); PLATELET COUNT 329 x10e3/uL (140-360); RED BLOOD COUNT 3.39 x10e6/uL (4.3-5.7); RED CELL DISTRIBUTION WIDTH 18.6 % (11.7-14.4)
[2020-03-17 06:46] LABS: ALANINE AMINOTRANSFERASE 7 IU/L (0-55); ALBUMIN/GLOBULIN RATIO 0.5 (0.8-2.0); ALKALINE PHOSPHATASE 45 IU/L (40-150); BLOOD UREA NITROGEN < 5 mg/dL (7-26); BUN/CREATININE RATIO 11 (6-25); CALCIUM 8.1 mg/dL (8.4-10.2); CARBON DIOXIDE 23 mmol/L (22-29); CHLORIDE 106 mmol/L (98-107); CREATININE, SERUM 0.44 mg/dL (0.72-1.25); EST GLOMERULAR FILTRATION RATE > 60 ML/MIN (60-); GLUCOSE 98 mg/dL (74-118); MAGNESIUM 1.7 MG/DL (1.3-2.1); PHOSPHORUS 2.3 MG/DL (2.3-4.7); SODIUM 135 mmol/L (136-145)
--- NOTE | 2020-03-17 07:00 | NUR ---
BEDSIDE SHIFT REPORT RECEIVED FROM CASH APPLICATION CLERK RN. PT DENIES NEEDS AT THIS TIME.
[2020-03-17] MEDS: COLLAGENASE 5 GM TUBE TOP SCH (07:50)
[2020-03-17] MEDS: DULOXETINE HCL 20 MG DELAYED RELEASE PO SCH (08:29)
[2020-03-17] MEDS: QUETIAPINE FUMARATE 100 MG TAB PO SCH ×2 (08:29→20:02)
[2020-03-17] MEDS: PANTOPRAZOLE 40 MG 10ML VIAL IV SCH (08:29)
[2020-03-17] MEDS ORDERED: MORPHINE SULFATE INJ 4 MG/ML INJ 1ML IV PRN (09:45)
[2020-03-17] MEDS ORDERED: MORPHINE SULFATE 2 MG/ML SYR 1ML IV PRN (10:15)
[2020-03-17] MEDS: ONDANSETRON HCL INJ 2MG/ML 2ML 2 MG/ML VIAL IV PRN (17:05)
[2020-03-17] MEDS: HYDROMORPHONE HCL 2 MG TAB PO PRN (18:34)
--- NOTE | 2020-03-17 19:03 | Progress Note ---
DATE: SUBJECTIVE: The patient is afebrile. He still has some abdominal distention. He does not have fevers. PHYSICAL EXAMINATION: VITAL SIGNS: The blood pressure is 115/95 and pulse is 104. CARDIAC: Reveals regular rate and rhythm with normal S1 and S2. LUNGS: Auscultation of lungs reveals decreased breath sounds at the bases. There is no wheezing. ABDOMEN: Soft and nontender. There is no rebound or guarding. EXTREMITIES: Shows no leg edema or calf tenderness. NEUROLOGIC: Shows incomplete quadriplegia. LABORATORY DATA: White blood cell count is 15.9 and hemoglobin is 9. The platelet count is 329. BUN to creatinine ratio is normal. Other electrolytes within normal limits. Albumin is 2.0. IMPRESSION: 1. Toxic megacolon secondary to Clostridium difficile colitis. 2. Status post diverting ileostomy. 3. Ileus. 4. Incomplete quadriplegia. 5. Moderate protein-calorie malnutrition. PLAN: 1. Wean off TPN. 2. Advance feedings as tolerated. 3. Complete antibiotic treatment for C. difficile. 4. Wound care. Cedric Kennedy MD [facility] /[id number]
[2020-03-17] MEDS: BACLOFEN 10 MG TAB PO PRN (20:02)
[2020-03-17] MEDS: ZOLPIDEM TARTRATE 10 MG TAB PO PRN (20:02)
[2020-03-17] MEDS: ROPINIROLE HCL 1 MG TAB PO SCH (20:02)
[2020-03-17] MEDS: HYDROCODONE/APAP 5MG-325MG TAB PO PRN (21:56)
[2020-03-17] MEDS: ACETAMINOPHEN 325 MG TAB PO PRN (21:57)
[2020-03-17 22:20] LABS: CLARITY,URINE CLOUDY (CLEAR); COLOR,URINE YELLOW (YELLOW)
[2020-03-17 22:21] LABS: BILIRUBIN,URINE NEGATIVE (NEGATIVE); KETONES,URINE 2+ (NEGATIVE); LEUKOCYTE ESTERASE ,URINE SMALL (NEGATIVE); NITRITE,URINE NEGATIVE (NEGATIVE); PROTEIN,URINE DIPSTICK 2+ (NEGATIVE); URINE UROBILINOGEN 0.2 mg/dL (0.2 - 1)
--- NOTE | 2020-03-17 22:25 | Diagnostic Imaging Report ---
EXAM: Abdomen Radiograph 1 View(s) INDICATION: ^NAUSEA/VOMITING COMPARISON: CT abdomen pelvis 03/13/2020 FINDINGS: Persistent multiple loops of dilated air-filled bowel. For example, air-filled small bowel in the right upper abdomen measure up to 4.2 cm in caliber. No discrete formed stool. No definite free intraperitoneal air. Skin valery. IMPRESSION: Persistent diffusely dilated air-filled bowel loops again suggestive of adynamic ileus. A distal small bowel obstruction may appear similar. Signed by: Sami Mays MD on 03/17/2020 10:22 PM
[2020-03-17 22:31] LABS: AMYLASE 129 U/L (25-125); LIPASE 96 U/L (8-78)
[2020-03-17 22:39] LABS: BACTERIA,URINE FEW /HPF; EPITHELIAL CELLS,URINE RARE /LPF
[2020-03-17 22:40] LABS: YEAST,URINE MODERATE
--- NOTE | 2020-03-17 22:45 | NUR ---
PATIENT VOMITED GREEN BILE X 7 FROM 7PM-10:30P. SPOKE TO DR. Maegan GARCIA. NEW ORDERS RECEIVED. PATIENT NOW NPO.
[2020-03-18] VITALS (10 sets, daily range): BP systolic 105–148; BP diastolic 72–103
[2020-03-18] MEDS: HYDROMORPHONE HCL 2 MG TAB PO PRN ×4 (00:49→18:59)
[2020-03-18] MEDS: METRONIDAZOLE 500MG/NS 100ML 100 ML IV SCH ×3 (04:00→16:52)
[2020-03-18] MEDS: HYDROCODONE/APAP 5MG-325MG TAB PO PRN ×4 (04:00→22:46)
[2020-03-18] MEDS: LACTATED RINGER'S 1,000 ML INJ SCH ×2 (04:00→12:05)
[2020-03-18 04:28] LABS: BASOPHILS % 0.2 % (0.0-1.0); HEMATOCRIT 27.7 % (38.2-49.6); HEMOGLOBIN 8.9 g/dL (14.0-18.0); LYMPHOCYTES # (AUTO) 1.6 (1.0-3.2); LYMPHOCYTES % 9.4 % (18.0-39.1); MEAN CORPUSCULAR HEMOGLOBIN 26.3 pg (28-32); MEAN CORPUSCULAR HGB CONC 32.1 g/dL (31-35); MEAN CORPUSCULAR VOLUME 81.7 fL (81-99); MONOCYTES # (AUTO) 0.7 (0.2-0.8); MONOCYTES % 4.3 % (4.4-11.3); NEUTROPHILS # (AUTO) 14.3 (2.1-6.9); PLATELET COUNT 310 x10e3/uL (140-360); RED BLOOD COUNT 3.39 x10e6/uL (4.3-5.7); RED CELL DISTRIBUTION WIDTH 18.5 % (11.7-14.4)
[2020-03-18 04:51] LABS: ALANINE AMINOTRANSFERASE 7 IU/L (0-55); ALBUMIN 2.4 g/dL (3.5-5.0); ALBUMIN/GLOBULIN RATIO 0.5 (0.8-2.0); ALKALINE PHOSPHATASE 49 IU/L (40-150); ANION GAP 13.9 mmol/L (8-16); BLOOD UREA NITROGEN 5 mg/dL (7-26); BUN/CREATININE RATIO 10 (6-25); CALCIUM 8.6 mg/dL (8.4-10.2); CARBON DIOXIDE 20 mmol/L (22-29); CHLORIDE 105 mmol/L (98-107); EST GLOMERULAR FILTRATION RATE > 60 ML/MIN (60-); GLUCOSE 102 mg/dL (74-118); MAGNESIUM 1.7 MG/DL (1.3-2.1); POTASSIUM 3.9 mmol/L (3.5-5.1); SODIUM 135 mmol/L (136-145)
[2020-03-18] MEDS: VANCOMYCIN 250MG/5ML ORAL SOLN PO SCH (06:16)
--- NOTE | 2020-03-18 06:36 | Diagnostic Imaging Report ---
EXAM: Abdomen Radiograph 1 View(s) INDICATION: ^VOMITING/ILEUS ^[id number] ^[id number] COMPARISON: 03/17/2020 FINDINGS/IMPRESSION: No interval change in multiple loops of dilated air-filled small bowel again most suggestive of adynamic ileus. Distal small bowel obstruction may appear similar. Suboptimal examination for evaluation of free intraperitoneal air due to supine positioning. Unchanged bladder catheter and skin valery. Signed by: Sami Mays MD on 03/18/2020 6:33 AM
[2020-03-18] MEDS: COLLAGENASE 5 GM TUBE TOP SCH (07:00)
--- NOTE | 2020-03-18 08:13 | Progress Note ---
DATE: SUBJECTIVE: Mr. Mathew is feeling better. He is out of ICU in medical floor. REVIEW OF SYSTEMS: GENERAL: He is just weak. HEENT: Negative. PULMONARY: Negative. CARDIAC: Negative. PHYSICAL EXAMINATION: GENERAL: Currently alert, oriented, does not seem in acute distress. VITAL SIGNS: Stable, afebrile. LABORATORY DATA: His white count is 15.9, hemoglobin 9.9. Sodium 135. IMPRESSION: C difficile colitis, slowly better, status post toxic megacolon with suction incomplete, quadriplegia, anemia of chronic disease. Continue with supportive care, ileus. Continue PT/OT. We will follow. Aisha Finnegan MD [facility] /[id number]
[2020-03-18] MEDS: ONDANSETRON HCL INJ 2MG/ML 2ML 2 MG/ML VIAL IV PRN (09:10)
[2020-03-18] MEDS: PANTOPRAZOLE 40 MG 10ML VIAL IV SCH (09:19)
--- NOTE | 2020-03-18 12:10 | Progress Note ---
DATE: SUBJECTIVE: The patient is seen and evaluated. Available labs and notes reviewed. Discussed with Dr. Finnegan. The patient is comfortable in bed. No acute distress. No new complaints. OBJECTIVE: VITAL SIGNS: Temperature is 98.7 with a maximum temperature of 100.9 last night, pulse is 101, respiration 18, blood pressure 123/87. GENERAL: Comfortable in bed, no acute distress. HEENT: Moist. No pallor. No JVD. CV: S1, S2. CHEST: Equal expansion. Clear to auscultation. No acute distress. ABDOMEN: Soft, nontender. No distention. EXTREMITIES: No significant edema and is weak. MEDICATIONS/ANTIBIOTIC: The patient is on vancomycin p.o., Flagyl IV. LABORATORY STUDIES: White count 16.84, hemoglobin 8.9, platelets 310. Sodium 135, potassium 3.9 creatinine 0.5. Serology; C diff positive on 03/08/2020. [place] virus PCR not detected on 03/08/2020. MICROBIOLOGY: No new microbiology studies. RADIOLOGY STUDIES: Abdominal x-ray from today showed unchanged bladder catheter and skin valery. No interval change in the multiple loops of dilated air-filled small bowel. Again most suggestive of adynamic ileus, distal small bowel obstruction may appear similar. ASSESSMENT AND PLAN: 1. C difficile colitis. 2. Toxic megacolon. 3. Quadriplegic. 4. Anemia of chronic disease. Continue with Flagyl IV and vancomycin/per PEG and vancomycin oral. Monitor leukocytosis. Clinically, no acute distress. Discussed with staff. Further management of this patient is based on daily findings on laboratory and physical examination. Thank you for this dictation. Dictated by Elias Xiong PA-C (Al) Aisha Finnegan MD /MODL /[id number]
--- NOTE | 2020-03-18 12:48 | NUR ---
Nutrition Intervention Note RD Recommendation(s) for Physician: - Recommend Standard TPN at 45 mL/hr (162 gm Dextrose/day, 54 gm protein/day), add 25 gm/day lipids, MVI, trace, and thiamine (to provide 1017 kcal and 54 gm protein). - If labs WNL and pt tolerating TPN, advance TPN to rate of 85 ml/hr (to provide 1698 kcal and 102 gm protein). - Advance to GI soft diet when medically appropriate - When diet is advanced, recommend Ensure Enlive BID for added nutrition and Waqar BID to promote wound healing - Recommend zinc and Vitamin C to promote wound healing when diet is advanced The patient meets criteria for unspecified SEVERE protein-calorie malnutrition. Plan of Care: RD following, monitoring for tolerance and adequacy. TPN, diet, and supplement rec's. Nutrition reason for involvement: follow up RD Assessment 03/18: Follow up. Pt discussed during am MDR. TPN discontinued over the weekend and diet advanced to GI Soft. Pt NPO as of today 2/2 poor diet tolerance with vomiting yesterday. Pt currently with high volume liquid stools. Spoke with RN regarding need for TPN, plan for abdominal CT with contrast today to rule out obstruction vs ileus. TPN rec's provided pending pt status and POC. Will continue to monitor. 03/15: Follow up and received consult from WOODYARD OPERATOR. Pt is s/p colectomy and diverting ileostomy on 03/09. TPN was started yesterday and pt has NG tube for suctioning. Pt has been mainly NPO or on a liquid diet since admission. Prior to admission, pt reports he was eating about 50% of his meals for 1 month. Pt also mentioned he had lost weight and had weighed 200 lbs 2 months ago. This is considered significant weight loss based on pts weights in chart. No N/V reported at this time. No chewing/swallowing issues. Recommendations provided. Will continue to monitor. (03/09/20) Pt is a 54 year old male admitted with decubitus ulcer, hyponatremia, quadriplegia, schizophrenia, sepsis, TBI, and UTI. Per nursing notes, pt is having dark brown, coffee-ground emesis and is refusing NG tube. Attempted to speak to pt, but he was agitated at time of visit. Pt is currently NPO and there are no previous weights in chart; therefore, unable to gather nutrition history at this time. Will continue to monitor unless consulted sooner Principal Problems/Diagnoses: decubitus ulcer, hyponatremia, quadriplegia, schizophrenia, sepsis, TBI, and UTI PMH: TBI with quadriplegia, megacolon, recurrent UTI GI: large, round, firm, distended, tender, abdomen Skin: stage 4 pressure ulcer right and left sacrum, stage 3 pressure ulcer to left buttock, stage 4 pressure ulcer left lateral ankle per wound care note on 03/08 Labs: 03/18: Na 135, K 3.9, Cl 105, CO2 20, BUN 5, Cr 0.5, Gluc 102, Phos 3.1, Ca 8.6, Mg 1.7 (03/15) Na 136. K 3.4, BUN <5, Cr 0.38, Ca 7.0, Phos 2.2 (03/09/20) Na 123, K 3.4, BUN 34, Cr 0.86, Glu 141, Ca 7.6 Meds: norco, abx, zofran, protonix, dilauoid, seroquel, micafungin Ht: 74 inches Wt: 184 lbs (03/15) 170 lbs (03/09) BMI: 23.6 kg/m2 IBW: 162-171 lbs (10-15% IBW quadriplegia) Malnutrition Evaluation (03/15) The patient meets criteria for unspecified SEVERE protein-calorie malnutrition. Energy intake: <75% of estimated energy requirements for 1 month Weight loss: >7.5% in 2 months Fat loss: unable to evaluate (pt declined NFPE) Muscle loss: unable to evaluate (pt declined NFPE) Supporting Evidence: Fluid accumulation: unable to evaluate Functional Status: unable to evaluate Nutrition Prescription (Diet Order): NPO Estimated Nutritional Needs: 8064-0723 calories/day (25-30 kcal/kg CBW) Weight used: 170 lbs 93-155 g protein/day (1.2-2 g pro/kg CBW) Weight used: 170 lbs Diet Adequacy: Not meeting calorie needs, Not meeting protein needs Tolerance: did not tolerate po, possible ileus vs obstruction Diet Education Needs Assessment: Diet education not indicated, patient on temporary/transition diet. Nutrition Care Level: high Nutrition Diagnosis: Increased nutrient needs related to increased demand for protein and kcal as evidenced by multiple pressure ulcers. Goal: Patient will meet 75-100% of estimated needs by follow up Progress: not progressing Interventions: -Composition, Rate, Route, fiber-modified diet, Commercial beverage, Multivitamin/mineral supplement therapy, Recommend modifications Monitoring/Evaluation: -Total energy intake, Total protein intake, Formula/Solution, Modified diet, Liquid supplement, Weight change Signed: Camila Rawls RD, LD, [facility]
--- NOTE | 2020-03-18 13:20 | Progress Note ---
DATE: Pulmonary Critical Care Progress Note SUBJECTIVE: The patient had some vomiting today. He does not complain of abdominal pain. He did have a fever yesterday, but is not febrile today. PHYSICAL EXAMINATION: VITAL SIGNS: The blood pressure is 123/87, saturation is 97%. HEENT: Shows no facial swelling or erythema. CARDIAC: Reveals regular rate and rhythm with normal S1 and S2. LUNGS: Auscultation of lungs reveals decreased breath sounds at the bases. There is no wheezing. ABDOMEN: Soft. There is no rebound or guarding. EXTREMITIES: Show no leg edema or calf tenderness. NEUROLOGICAL: Shows some incomplete quadriplegia. LABORATORY DATA: White blood cell count is 16.8 and hemoglobin is 8.9. The platelet count is 310. The BUN to creatinine ratio is 5 to 0.5 and sodium is 135. The carbon dioxide is 20. Albumin is 2.4. IMPRESSION: 1. Toxic megacolon secondary to C difficile colitis. 2. Intestinal ileus. 3. Moderate protein-calorie malnutrition. 4. Incomplete quadriplegia. 5. Anemia, unspecified. PLAN: 1. Continue current antibiotic regimen for C diff as recommended by ID. 2. Ostomy and wound care. 3. IV fluids. 4. Pain control. 5. Antiemetics. 6. Advance diet as tolerated. Cedric Kennedy MD [facility]/MODL /[id number]
[2020-03-18] MEDS: MICAFUNGIN SODIUM 100 ML IV SCH (13:34)
[2020-03-18] MEDS ORDERED: DIATRIZOATE MEGL/DIATRIZOA SOD 30 ML BTL PO ONE (14:11)
[2020-03-18] MEDS: VANCOMYCIN HCL RC SCH ×4 (15:00→20:00)
[2020-03-18] MEDS: [UNRECOGNIZED DRUG - OTHER] RC SCH ×4 (15:00→20:00)
[2020-03-18] MEDS: DULOXETINE HCL 20 MG DELAYED RELEASE PO SCH (16:52)
[2020-03-18] MEDS: QUETIAPINE FUMARATE 100 MG TAB PO SCH ×2 (16:52→21:14)
--- NOTE | 2020-03-18 17:11 | Diagnostic Imaging Report ---
CT of the abdomen and pelvis, without contrast, 03/18/2020. History: Vomiting. Comparison: CT abdomen 03/13/2020. Technique: Multidetector CT scanning of the abdomen and pelvis was performed from the level of the lung bases to the inferior pubic rami without intravenous contrast. Oral contrast was administered. Coronal and sagittal multiplanar reformations were obtained. RADIATION DOSE: Total DLP: 804 mGy*cm Dose modulation, iterative reconstruction, and/or weight based adjustment of the mA/kV was utilized to reduce the radiation dose to as low as reasonably achievable. Discussion: Examination is limited without contrast. Lung bases: There is bibasilar atelectasis with a small left pleural effusion. Abdomen: Oral contrast is visualized within the stomach and proximal small bowel. There is diffuse air and fluid-filled small bowel dilatation, measuring up to 5 cm in diameter. A majority of the colon is absent. Distal rectosigmoid colon is present with suture material noted. Right lower quadrant ostomy is present. Midline anterior surgical skin valery are noted. The liver, gallbladder, biliary tree, spleen, pancreas, adrenal glands, and kidneys are unremarkable. The abdominal aorta is within normal limits. There is a minimal amount of free fluid. There is mild diffuse anasarca. Pelvis: A Kim catheter is present within the bladder which is decompressed. Prostate is unremarkable. There is no evidence of free fluid or adenopathy. Bones and soft tissues: Degenerative changes are present throughout the lumbar spine without evidence of lytic or sclerotic lesion. IMPRESSION: Worsening of diffuse small bowel dilatation concerning for distal small bowel obstruction rather than just ileus. Status post near total colectomy. Signed by: Rafiq Forrest on 03/18/2020 5:08 PM
--- NOTE | 2020-03-18 17:48 | NUR ---
CT abdomen results called to Dr. Heart. Orders received for clear liquid diet as long as patient can tolerate.
--- NOTE | 2020-03-18 17:48 | NUR ---
Per Dr. Heart rectum was closed with valery but is OK to give rectal Vancomycin.
[2020-03-18] MEDS: ROPINIROLE HCL 1 MG TAB PO SCH (21:14)
[2020-03-18] MEDS: BACLOFEN 10 MG TAB PO PRN (21:15)
[2020-03-19] VITALS (8 sets, daily range): BP systolic 105–167; BP diastolic 76–110
[2020-03-19] MEDS: LACTATED RINGER'S 1,000 ML INJ SCH ×2 (01:25→11:45)
[2020-03-19] MEDS: [UNRECOGNIZED DRUG - OTHER] RC SCH ×8 (02:00→21:07)
[2020-03-19] MEDS: VANCOMYCIN HCL RC SCH ×8 (02:00→21:07)
[2020-03-19] MEDS: HYDROMORPHONE HCL 2 MG TAB PO PRN ×4 (05:07→21:15)
[2020-03-19 05:49] LABS: BASOPHILS % 0.3 % (0.0-1.0); EOSINOPHILS # (AUTO) 0.1 (0.0-0.4); EOSINOPHILS % 1.3 % (0.0-6.0); HEMOGLOBIN 9.2 g/dL (14.0-18.0); LYMPHOCYTES # (AUTO) 1.2 (1.0-3.2); LYMPHOCYTES % 13.7 % (18.0-39.1); MEAN CORPUSCULAR HEMOGLOBIN 26.3 pg (28-32); MEAN CORPUSCULAR HGB CONC 30.7 g/dL (31-35); MEAN CORPUSCULAR VOLUME 85.7 fL (81-99); MONOCYTES # (AUTO) 0.6 (0.2-0.8); MONOCYTES % 6.4 % (4.4-11.3); NEUTROPHILS # (AUTO) 6.7 (2.1-6.9); NEUTROPHILS % 77.5 % (38.7-80.0); PLATELET COUNT 251 x10e3/uL (140-360)
--- NOTE | 2020-03-19 06:07 | Diagnostic Imaging Report ---
Exam: KUB - 2 views Clinical History: Ileus, small bowel obstruction. Comparison: CT abdomen/pelvis 03/18/2020 and KUB 03/18/2020. Findings/Impression: The left hemiabdomen is partially excluded from the [id number]. There is persistent dilatation of small bowel loops, which may represent small bowel obstruction. Postsurgical changes status post near-total colectomy with right lower quadrant ostomy. No evidence of free intraperitoneal air. Surgical valery overlie the right hemiabdomen and pelvis. Catheter overlies the bladder. No acute bony abnormality. Signed by: Dr. Darrion Garcia MD on 03/19/2020 6:04 AM
--- NOTE | 2020-03-19 06:16 | NUR ---
Pt ileostomy changed x2 during this shift due to leaking. Pt rt arm appears to be resting on site which could be causing pressure and and opening for leakage. Rue elevated at this time.
[2020-03-19 06:17] LABS: ALANINE AMINOTRANSFERASE 7 IU/L (0-55); ALBUMIN 2.4 g/dL (3.5-5.0); ALBUMIN/GLOBULIN RATIO 0.5 (0.8-2.0); ALKALINE PHOSPHATASE 49 IU/L (40-150); ANION GAP 12.6 mmol/L (8-16); BLOOD UREA NITROGEN < 5 mg/dL (7-26); CALCIUM 8.5 mg/dL (8.4-10.2); CARBON DIOXIDE 19 mmol/L (22-29); CHLORIDE 108 mmol/L (98-107); CREATININE, SERUM 0.47 mg/dL (0.72-1.25); EST GLOMERULAR FILTRATION RATE > 60 ML/MIN (60-); GLUCOSE 71 mg/dL (74-118); MAGNESIUM 1.5 MG/DL (1.3-2.1); POTASSIUM 3.6 mmol/L (3.5-5.1); SODIUM 136 mmol/L (136-145)
[2020-03-19 06:18] LABS: BUN/CREATININE RATIO 11 (6-25)
[2020-03-19 06:35] LABS: PHOSPHORUS 2.2 MG/DL (2.3-4.7)
--- NOTE | 2020-03-19 07:00 | NUR ---
Received bedside shift report from off going nurse. Patient in stable condition, no s/s of distress noted. no pain voiced. Telemetry applied and working. Bed in lowest position and working. Call light within reach.
[2020-03-19] MEDS: BACLOFEN 10 MG TAB PO PRN (07:30)
--- NOTE | 2020-03-19 08:18 | NUR ---
KUB results were given to Dr. Heart. No new orders received at this time.
[2020-03-19] MEDS: PANTOPRAZOLE 40 MG 10ML VIAL IV SCH (09:06)
[2020-03-19] MEDS: DULOXETINE HCL 20 MG DELAYED RELEASE PO SCH (09:07)
[2020-03-19] MEDS: QUETIAPINE FUMARATE 100 MG TAB PO SCH ×2 (09:07→21:08)
[2020-03-19] MEDS: HYDROCODONE/APAP 5MG-325MG TAB PO PRN ×3 (09:35→22:55)
--- NOTE | 2020-03-19 11:24 | Progress Note ---
DATE: SUBJECTIVE: The patient is seen and evaluated. Available labs and notes reviewed. Discussed with Dr. Finnegan. Discussed with staff. REVIEW OF SYSTEMS: The patient is more alert and awake today and responded that he is doing fine and has no complaint. No nausea, vomiting, fever, chills, chest pain, or shortness of breath. PHYSICAL EXAMINATION: VITAL SIGNS: Temperature 98, improved from 100.9, pulse is 87, respiration 20, and blood pressure 125/95. GENERAL: Alert and oriented, in no acute distress. CV: S1 and S2. CHEST: Equal expansion. Clear to auscultation. No acute distress. ABDOMEN: Soft and nontender. No distention. HEENT: Moist. No pallor. No JVD. EXTREMITIES: The patient is quadriplegic. MEDICATIONS: Medication list reviewed and as far as Infectious Disease point of view, the patient is on vancomycin p.o., micafungin, and Flagyl IV. LABORATORY STUDIES: White count 8.63 from 16.84, hemoglobin 9.2, and platelet 251. Sodium 136, potassium 3.6, and creatinine 0.47. Serology; C. difficile is positive on 03/08/2020. Coronavirus PCR was negative on 03/08/2020. MICROBIOLOGY: Recheck blood culture from 03/18 is pending. RADIOLOGY STUDIES: KUB two-view showed persistent dilatation of small bowel loops, which may represent small bowel obstruction and postsurgical changes, status post near-total colectomy with right lower quadrant ostomy. No evidence of free intraperitoneal air. ASSESSMENT AND PLAN: 1. Clostridium difficile colitis. 2. Toxic megacolon. 3. Leukocytosis, resolved. 4. Fever, resolved. 5. Quadriplegic. 6. Anemia of chronic disease. 7. The patient is started on micafungin yesterday secondary to having history of TPN. Leukocytosis is resolved with a sharp drop into within normal limit. Clinically, seems to be more alert and oriented. Continue with micafungin, vancomycin p.o., and Flagyl IV. Discussed with Dr. Finnegan in details. Please refer to chart for more information. Dictated by Elias Xiong PA-C (Al) Aisha Finnegan MD /MODL /[id number]
[2020-03-19] MEDS: COLLAGENASE 5 GM TUBE TOP SCH (11:42)
[2020-03-19] MEDS: MICAFUNGIN SODIUM 100 ML IV SCH (13:06)
--- NOTE | 2020-03-19 19:21 | NUR ---
Completed bedside shift report and rounding. Patient in stable condition, no s/s of distress noted. No pain voiced. Telemetry applied and working. Bed in lowest position and locked. Call light within reach.
--- NOTE | 2020-03-19 20:10 | Diagnostic Imaging Report ---
Exam: Abdominal film Clinical History: Follow-up small bowel obstruction/ileus Comparison: KUB 03/19/2020 DISCUSSION: Frontal view of the abdomen shows no significant interval change in several air-filled dilated loops of small bowel in the central aspect of the abdomen, with maximal measurement of 4.4 cm. No abnormal calcifications. No acute bone abnormality. Multiple metallic valery project in the midline. Partially visualized catheter in the lower mid pelvis. IMPRESSION: 1. No significant interval change in small bowel dilation, likely reflecting postoperative ileus. The staff physician below has personally reviewed this exam on the date of dictation. Signed by: Dr. Frederick Culp M.D. on 03/19/2020 8:06 PM
[2020-03-19] MEDS: ROPINIROLE HCL 1 MG TAB PO SCH (21:07)
[2020-03-19] MEDS: METOCLOPRAMIDE HCL 10 MG/2ML VIAL IV SCH (21:07)
[2020-03-20] MEDS: LACTATED RINGER'S 1,000 ML INJ SCH ×2 (01:10→16:48)
[2020-03-20] MEDS: ACETAMINOPHEN 325 MG TAB PO PRN (01:26)
[2020-03-20] MEDS: BACLOFEN 10 MG TAB PO PRN ×3 (01:26→22:40)
[2020-03-20] MEDS: VANCOMYCIN HCL RC SCH ×10 (02:35→20:28)
[2020-03-20] MEDS: [UNRECOGNIZED DRUG - OTHER] RC SCH ×10 (02:35→20:28)
[2020-03-20] MEDS: HYDROMORPHONE HCL 2 MG TAB PO PRN ×2 (03:31→10:10)
[2020-03-20 04:59] VITALS: BP 131/91
[2020-03-20 05:36] LABS: BASOPHILS % 0.2 % (0.0-1.0); EOSINOPHILS # (AUTO) 0.1 (0.0-0.4); EOSINOPHILS % 1.2 % (0.0-6.0); HEMATOCRIT 26.5 % (38.2-49.6); HEMOGLOBIN 8.1 g/dL (14.0-18.0); LYMPHOCYTES # (AUTO) 1.6 (1.0-3.2); LYMPHOCYTES % 16.7 % (18.0-39.1); MEAN CORPUSCULAR HEMOGLOBIN 26.3 pg (28-32); MEAN CORPUSCULAR HGB CONC 30.6 g/dL (31-35); MONOCYTES # (AUTO) 0.7 (0.2-0.8); MONOCYTES % 7.3 % (4.4-11.3); NEUTROPHILS # (AUTO) 7.1 (2.1-6.9); PLATELET COUNT 296 x10e3/uL (140-360); RED BLOOD COUNT 3.08 x10e6/uL (4.3-5.7); RED CELL DISTRIBUTION WIDTH 18.5 % (11.7-14.4)
[2020-03-20 06:04] LABS: ALANINE AMINOTRANSFERASE 6 IU/L (0-55); ALBUMIN 2.1 g/dL (3.5-5.0); ALBUMIN/GLOBULIN RATIO 0.5 (0.8-2.0); ALKALINE PHOSPHATASE 40 IU/L (40-150); ANION GAP 8.2 mmol/L (8-16); BLOOD UREA NITROGEN < 5 mg/dL (7-26); CALCIUM 7.9 mg/dL (8.4-10.2); CARBON DIOXIDE 22 mmol/L (22-29); CHLORIDE 109 mmol/L (98-107); CREATININE, SERUM 0.47 mg/dL (0.72-1.25); EST GLOMERULAR FILTRATION RATE > 60 ML/MIN (60-); GLUCOSE 80 mg/dL (74-118); LIPASE 114 U/L (8-78); MAGNESIUM 1.3 MG/DL (1.3-2.1); POTASSIUM 3.2 mmol/L (3.5-5.1); SODIUM 136 mmol/L (136-145)
[2020-03-20 06:06] LABS: BUN/CREATININE RATIO 11 (6-25)
[2020-03-20] MEDS: COLLAGENASE 5 GM TUBE TOP SCH (07:00)
--- NOTE | 2020-03-20 07:10 | NUR ---
RCD PT AT BED PT IS ALERT AND ORIENTED RESTING ON BED IV PATENT BED LOW AND LOCKED CALL LIGHT IN REACH
[2020-03-20] MEDS: METOCLOPRAMIDE HCL 10 MG/2ML VIAL IV SCH ×4 (07:30→20:28)
--- NOTE | 2020-03-20 08:00 | NUR ---
PT REQUESTED SOLID FOOD PAGED AND NOTIFIED DR EGAN GOT THE ORDER TO REGULAR DIET
[2020-03-20 08:52] VITALS: BP 141/100
[2020-03-20] MEDS: DULOXETINE HCL 20 MG DELAYED RELEASE PO SCH (09:00)
[2020-03-20] MEDS: PANTOPRAZOLE 40 MG 10ML VIAL IV SCH (09:00)
[2020-03-20] MEDS: QUETIAPINE FUMARATE 100 MG TAB PO SCH ×2 (09:00→20:28)
--- NOTE | 2020-03-20 09:00 | NUR ---
DRESSING CHANGED AND COLOSTOMY BAG CHANGED AND CHANGED THE POSITION
[2020-03-20] MEDS: HYDROCODONE/APAP 5MG-325MG TAB PO PRN ×2 (10:15→16:15)
--- NOTE | 2020-03-20 10:50 | NUR ---
Spoke to patient regarding discharge plan. Pt wants to return to his correction - [facility]. Pt unable to sign. LUIS Robbins witnessed pt's decision. Choice letter placed in front of chart. Clinicals faxed to [facility] at [phone]. Spoke with Jj with [facility] and notified him of anticipated dc for tomorrow.
--- NOTE | 2020-03-20 11:13 | Progress Note ---
DATE: SUBJECTIVE: The patient is seen and evaluated. Available labs and notes reviewed. Discussed with the patient. Discussed with the nurse. REVIEW OF SYSTEMS: The patient states that he is waiting for his pain medication and also wants something to drink. Other than that, no complaints of nausea, vomiting, fever, chills, chest pain, or shortness of breath. PHYSICAL EXAMINATION: VITAL SIGNS: Temperature is 98.2 with a pulse of 96, respiration 20, and blood pressure 141/100. GENERAL: Alert and oriented, in comfort with quadriplegic. Moves his upper extremities, however, not able to feed himself. CV: S1 and S2. CHEST: Equal expansion. Clear to auscultation. No acute distress. ABDOMEN: Soft, nontender, not distention. HEENT: Moist. No pallor. No JVD. EXTREMITIES: As above. MEDICATIONS: Medication list reviewed and as far as Infectious Disease point of view, the patient is on Flagyl IV, micafungin, and vancomycin p.o. LABORATORY STUDIES: White count of 9.64, hemoglobin 8.1, and platelet 296. Sodium 136, potassium 3.2, and creatinine 0.47. MICROBIOLOGY: Recheck blood culture negative on 03/18. IMAGING: Abdominal x-ray showed no specific interval change in small bowel and dilation, likely reflecting postoperative ileus. ASSESSMENT AND PLAN: 1. Clostridium difficile. 2. Toxic megacolon. 3. Leukocytosis, resolved. 4. Incomplete quadriplegic. 5. Fever, improved, blood cultures negative so far. 6. Anemia of chronic disease. 7. Chronic pain syndrome. 8. Continue micafungin, vancomycin p.o., and Flagyl. Continue to monitor the patient clinically and follow up with the labs. Ostomy bag seems to functional. 9. Continue with current care. 10. PT/OT per others. Please refer to chart for more information. Dictated by Elias Xiong PA-C (Al) Aisha Finnegan MD /MODL /[id number]
[2020-03-20] MEDS ORDERED: POTASSIUM CHLORIDE 20 MEQ TAB CR PO ONE (11:15)
--- NOTE | 2020-03-20 12:00 | NUR ---
EMPTIED COLOSTOMY BAG ABOUT 500 ML LIQUID STOOL
[2020-03-20 12:50] VITALS: BP 105/70
[2020-03-20] MEDS: MICAFUNGIN SODIUM 100 ML IV SCH (14:00)
--- NOTE | 2020-03-20 15:12 | NUR ---
EMPTIED COLOSTOMY BAG ABOUT 700 ML LIQUID STOOL
[2020-03-20 16:03] VITALS: BP 124/94
--- NOTE | 2020-03-20 16:42 | NUR ---
Nutrition Intervention Note RD Recommendation(s) for Physician: - Recommend GI soft diet - Ensure Enlive BID for added nutrition and Waqar BID to promote wound healing - Recommend zinc and Vitamin C to promote wound healing The patient meets criteria for unspecified SEVERE protein-calorie malnutrition. Plan of Care: RD following, monitoring for tolerance and adequacy.. Nutrition reason for involvement: follow up RD Assessment 03/20: Follow up. Pt was started on a regular diet today and pt stated he is tolerating the diet. Pt stated he consumed a little over half of his meal today. No N/V reported at this time. Will continue to monitor. 03/18: Follow up. Pt discussed during am MDR. TPN discontinued over the weekend and diet advanced to GI Soft. Pt NPO as of today 2/2 poor diet tolerance with vomiting yesterday. Pt currently with high volume liquid stools. Spoke with RN regarding need for TPN, plan for abdominal CT with contrast today to rule out obstruction vs ileus. TPN rec's provided pending pt status and POC. Will continue to monitor. 03/15: Follow up and received consult from POLITICAL SCIENCE RESEARCH ASSISTANT. Pt is s/p colectomy and diverting ileostomy on 03/09. TPN was started yesterday and pt has NG tube for suctioning. Pt has been mainly NPO or on a liquid diet since admission. Prior to admission, pt reports he was eating about 50% of his meals for 1 month. Pt also mentioned he had lost weight and had weighed 200 lbs 2 months ago. This is considered significant weight loss based on pts weights in chart. No N/V reported at this time. No chewing/swallowing issues. Recommendations provided. Will continue to monitor. (03/09/20) Pt is a 54 year old male admitted with decubitus ulcer, hyponatremia, quadriplegia, schizophrenia, sepsis, TBI, and UTI. Per nursing notes, pt is having dark brown, coffee-ground emesis and is refusing NG tube. Attempted to speak to pt, but he was agitated at time of visit. Pt is currently NPO and there are no previous weights in chart; therefore, unable to gather nutrition history at this time. Will continue to monitor unless consulted sooner Principal Problems/Diagnoses: decubitus ulcer, hyponatremia, quadriplegia, schizophrenia, sepsis, TBI, and UTI PMH: TBI with quadriplegia, megacolon, recurrent UTI GI: round, soft, tender abdomen, colostomy Skin: stage 4 pressure ulcer right and left sacrum, stage 3 pressure ulcer to left buttock, stage 4 pressure ulcer left lateral ankle per wound care note on 03/08 Labs: 03/20: Na 136, K 3.2, Cl 109, BUN <5, Cr 0.47, Ca 7.9 03/18: Na 135, K 3.9, Cl 105, CO2 20, BUN 5, Cr 0.5, Gluc 102, Phos 3.1, Ca 8.6, Mg 1.7 (03/15) Na 136. K 3.4, BUN <5, Cr 0.38, Ca 7.0, Phos 2.2 (03/09/20) Na 123, K 3.4, BUN 34, Cr 0.86, Glu 141, Ca 7.6 Meds: Reglan, KCl, lactate ringers, zofran, antibiotic Ht: 74 inches Wt: 185 lbs (03/17) 184 lbs (03/15) 170 lbs (03/09) BMI: 23.8 kg/m2 IBW: 162-171 lbs (10-15% IBW quadriplegia) Malnutrition Evaluation (03/15) The patient meets criteria for unspecified SEVERE protein-calorie malnutrition. Energy intake: <75% of estimated energy requirements for 1 month Weight loss: >7.5% in 2 months Muscle loss: moderate depletion in temporal and lower extremities Supporting Evidence: Fluid accumulation: unable to evaluate Functional Status: unable to evaluate Nutrition Prescription (Diet Order): NPO Estimated Nutritional Needs: 2337-8127 calories/day (25-30 kcal/kg CBW) Weight used: 170 lbs 93-155 g protein/day (1.2-2 g pro/kg CBW) Weight used: 170 lbs Diet Adequacy: Not meeting calorie needs, Not meeting protein needs Tolerance: tolerating per pt Diet Education Needs Assessment: patient is on a regular diet Nutrition Care Level: high Nutrition Diagnosis: Increased nutrient needs related to increased demand for protein and kcal as evidenced by multiple pressure ulcers. Goal: Patient will meet 75-100% of estimated needs by follow up Progress: progressing Interventions: -fiber-modified diet, Commercial beverage, Multivitamin/mineral supplement therapy, Recommend modifications Monitoring/Evaluation: -Total energy intake, Total protein intake, Liquid supplement, Weight change Signed: Carmita Taylor RD, LD
--- NOTE | 2020-03-20 18:00 | NUR ---
emptied colostomy bag 500 ml liquid stool
--- NOTE | 2020-03-20 18:52 | NUR ---
PT RESTING ON BED BED SIDE REPORT GIVEN TO ONCOMING NURSE
[2020-03-20 20:00] VITALS: BP_SYST 141; BP_SYST 155; BP_DIAS 114; BP_DIAS 98
--- NOTE | 2020-03-20 20:25 | NUR ---
patient refuse vancomycin via rectum, stating "No sir I dont want that", care given, colostomy bag detached, feces leaked out of bag unto patient abdomen, back and genital area, lower abdomen surgical wound valery noted open to air, skin cleanse with soap and water, new ostomy bag placed, stoma pink, brown liquid fecal matter noted, coccyx wound care given foam dressing C/D/I, patient requested "sandwich or something to eat", total assist wtih meals/snacks, eat two pudding cups w/o difficulty, no nausea vomiting noted, repositioned for comfort, call light within reach
[2020-03-20] MEDS: ROPINIROLE HCL 1 MG TAB PO SCH (20:28)
[2020-03-20 23:42] VITALS: BP 155/114
[2020-03-21] VITALS (7 sets, daily range): BP systolic 99–139; BP diastolic 76–99
--- NOTE | 2020-03-21 00:20 | NUR ---
EDUCATION DEAN Soni and myself attempted to empty saha and colostomy bag, patient became upset stating "no no no leave me alone", attempted to educate patient on why colostomy bag and saha bag should be emptied in timely manner, saha bag emptied with over 1500cc yellow urine noted, colostomy bag emptied with protest from patient 400cc brown liquid stool noted, patient stated "Dont bring your ass back up in here I am not playing", advised patient that I can get my merchandise supervisor to come and talk to him about saha and colostomy bag needing to be dump, he stated "FUCK YOU AND FUCK YOUR BOSS" "Im trying to sleep dont come back up in here, no I dont want my vitals taken get out"
[2020-03-21] MEDS: [UNRECOGNIZED DRUG - OTHER] RC SCH ×4 (02:00→09:11)
[2020-03-21] MEDS: VANCOMYCIN HCL RC SCH ×4 (02:00→09:11)
[2020-03-21] MEDS: COLLAGENASE 5 GM TUBE TOP SCH (05:25)
[2020-03-21] MEDS: LACTATED RINGER'S 1,000 ML INJ SCH (05:25)
[2020-03-21] MEDS: HYDROCODONE/APAP 5MG-325MG TAB PO PRN (05:31)
--- NOTE | 2020-03-21 05:41 | NUR ---
patient awake alert, no distress, vitals taken, SBP 98, patient requesting pain medication at this time, education given about hypotension and narcotic effects, pt states "I dont care I need something for pain, patient given care, saha and ileostomy emptied, sacrum stage IV wound cleansed, repacked dry clean dressing in place, prn pain medication given as requested will continue to monitor blood pressure and pain level, call light within reach, remains on special contact precautions for CDIFF and ESBL of urine
[2020-03-21 06:30] LABS: BASOPHILS % 0.2 % (0.0-1.0); EOSINOPHILS # (AUTO) 0.1 (0.0-0.4); EOSINOPHILS % 0.5 % (0.0-6.0); HEMATOCRIT 27.9 % (38.2-49.6); HEMOGLOBIN 8.8 g/dL (14.0-18.0); LYMPHOCYTES # (AUTO) 2.2 (1.0-3.2); LYMPHOCYTES % 17.3 % (18.0-39.1); MEAN CORPUSCULAR HEMOGLOBIN 26.6 pg (28-32); MEAN CORPUSCULAR HGB CONC 31.5 g/dL (31-35); MEAN CORPUSCULAR VOLUME 84.3 fL (81-99); MONOCYTES # (AUTO) 0.7 (0.2-0.8); MONOCYTES % 5.4 % (4.4-11.3); NEUTROPHILS # (AUTO) 9.8 (2.1-6.9); NEUTROPHILS % 76.2 % (38.7-80.0); PLATELET COUNT 347 x10e3/uL (140-360); RED BLOOD COUNT 3.31 x10e6/uL (4.3-5.7); RED CELL DISTRIBUTION WIDTH 18.6 % (11.7-14.4)
[2020-03-21 06:34] LABS: ALANINE AMINOTRANSFERASE 6 IU/L (0-55); ALBUMIN 2.4 g/dL (3.5-5.0); ALBUMIN/GLOBULIN RATIO 0.5 (0.8-2.0); ALKALINE PHOSPHATASE 47 IU/L (40-150); ANION GAP 10.6 mmol/L (8-16); BLOOD UREA NITROGEN < 5 mg/dL (7-26); CALCIUM 8.5 mg/dL (8.4-10.2); CARBON DIOXIDE 22 mmol/L (22-29); CHLORIDE 109 mmol/L (98-107); EST GLOMERULAR FILTRATION RATE > 60 ML/MIN (60-); GLUCOSE 88 mg/dL (74-118); LIPASE 234 U/L (8-78); POTASSIUM 3.6 mmol/L (3.5-5.1); SODIUM 138 mmol/L (136-145)
[2020-03-21 06:35] LABS: BUN/CREATININE RATIO 10 (6-25)
--- NOTE | 2020-03-21 06:40 | NUR ---
BSSR GIVEN TO ONCOMING SHIFT VERBALLY, NO DISTRESS NOTED, CALL LIGHT WITHIN REACH UPDATED WITH CURRENT LABS AND PLAN OF CARE
--- NOTE | 2020-03-21 07:00 | NUR ---
BEDSIDE SHIFT REPORT RECEIVED FROM BABYSITTER RN. PT DENIES NEEDS AT THIS TIME.
[2020-03-21] MEDS: METOCLOPRAMIDE HCL 10 MG/2ML VIAL IV SCH ×2 (09:10→12:35)
[2020-03-21] MEDS: QUETIAPINE FUMARATE 100 MG TAB PO SCH (09:11)
[2020-03-21] MEDS: DULOXETINE HCL 20 MG DELAYED RELEASE PO SCH (09:11)
[2020-03-21] MEDS: PANTOPRAZOLE 40 MG 10ML VIAL IV SCH (09:11)
--- NOTE | 2020-03-21 09:52 | NUR ---
[facility] DISCHARGE INFORMATION PATIENT HAS BEEN ACCEPTED TO: [facility] [address] [place] [address] ACCEPTING CYCLE COUNTER: Rachel Osborn ACCEPTING MD: Dr. Allen ROOM: 160 NURSE CALL REPORT TO: [phone] IMM SIGNED AND OBTAINED (if applicable): n/a THE FOLLOWING DOCUMENTS MUST ACCOMPANY PATIENT FOR TRANSFER: copy of chart. transfer MAR COPIED CHART: Kelley, equal opportunity director RTF: completed and placed with packet at nurses station [id number] DNR: n/a LUIS Bowling notified of bed. Addendum: 03/21/20 at 1015 by Minerva Mane CM Room changed to [id number]
--- NOTE | 2020-03-21 11:53 | Progress Note ---
DATE: SUBJECTIVE: The patient is seen and evaluated. Available labs and notes reviewed. Discussed with staff. REVIEW OF SYSTEMS: No specific complaint today. Comfortable in bed. No acute distress. Pain management per others. MEDICATIONS: Medication list reviewed. Infectious disease point of view, the patient is on vancomycin p.o. and Micafungin. PHYSICAL EXAMINATION: VITAL SIGNS: Temperature 98.1, pulse is 99, respirations 22, and blood pressure 109/91. GENERAL: Alert and oriented, in no acute distress. The patient denied cough, diarrhea, shortness of breath, or any new medical complaints. CV: S1-S2. CHEST: Equal expansion. Clear to auscultation. No acute distress. ABDOMEN: Soft and nontender. No distention. HEENT: Moist. No pallor. No JVD. EXTREMITIES: Incomplete quadriplegic. Moves his upper extremities. Somehow unable to feed himself or use his hands. LABORATORY STUDIES: White blood cells 12.89, hemoglobin 8.8, and platelets 347. Sodium 138, potassium 3.6, and creatinine 0.5. ASSESSMENT AND PLAN: 1. Clostridium difficile colitis. 2. Toxic megacolon. 3. Leukocytosis. 4. Incomplete quadriplegia. 5. Low fever, resolved. 6. Debility-patient is an incomplete quadriplegic. Continue with vancomycin p.o. and micafungin. The patient can be discharged with Diflucan and Flagyl for 2 weeks when he is ready for discharge. Continue to monitor the patient clinically. Follow up with the labs. Refer to chart please for more information. Discussed with Dr. Finnegan in details. Dictated by Elias Xiong PA-C (Al) Aisha Finnegan MD /MODL /[id number]
[2020-03-21] MEDS ORDERED: REGLAN10 MG PO (13:03)
[2020-03-21] MEDS ORDERED: METRONIDAZOLE500 MG PO (13:03)
[2020-03-21] MEDS ORDERED: Collagenase TOP (13:03)
[2020-03-21] MEDS ORDERED: DIFLUCAN100 MG PO (13:03)
[2020-03-21] MEDS ORDERED: PANTOPRAZOLE SO40 MG PO (13:03)
[2020-03-21] MEDS ORDERED: METRONIDAZOLE 500 MG TAB PO SCH (14:00)
--- NOTE | 2020-03-21 14:54 | NUR ---
REPORT CALLED TO LISA AT [facility]. [facility] CALLED FOR TRANSPORTATION.
--- NOTE | 2020-03-21 16:20 | NUR ---
EMS HERE TO TRANSPORT PT TO [facility]. PT'S RT IJ DC'D WITH TIP INTACT AND BLEEDING STOPPED WITH PRESSURE DRESSING IN PLACE WELL THE LEFT EJ AND LUE MID-LINE. PT'S VITALS WNL. PT DENIES FURTHER NEEDS AT THIS TIME.
[2020-03-21] MEDS ORDERED: METOCLOPRAMIDE HCL 10 MG TAB PO SCH (16:30)
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
[2020-03-22] MEDS ORDERED: PANTOPRAZOLE SOD 40 MG TABEC PO SCH (07:30)
[2020-03-22] MEDS ORDERED: FLUCONAZOLE 100 MG TAB PO SCH (09:00)
== END 2020-03-21 16:17 | disposition home or self-care (01) | DRG 853 ==
LOC: ER 08:00 → ERHOLD 09:35 → ICU 14:54 → MED/SURG2 03-15 17:28
PROVIDERS: ADMIT Internal Medicine; ATTEND Internal Medicine
PROC: B548ZZA Ultrasonography of Superior Vena Cava, Guidance (ICD-10-PCS; principal; 2020-03-08)
PROC: 02HV33Z Insertion of Infusion Device into Superior Vena Cava, Percutaneous Approach (ICD-10-PCS; principal; 2020-03-08)
PROC: 0D7L8ZZ Dilation of Transverse Colon, Via Natural or Artificial Opening Endoscopic (ICD-10-PCS; 2020-03-09)
PROC: 0DTE0ZZ Resection of Large Intestine, Open Approach (ICD-10-PCS; 2020-03-09)
PROC: 0D1B0Z4 Bypass Ileum to Cutaneous, Open Approach (ICD-10-PCS; 2020-03-09)
PROC: 30233N1 Transfusion of Nonautologous Red Blood Cells into Peripheral Vein, Percutaneous Approach (ICD-10-PCS; 2020-03-11)
PROC: 3E0436Z Introduction of Nutritional Substance into Central Vein, Percutaneous Approach (ICD-10-PCS; 2020-03-14)
DX: A41.89 Other specified sepsis (principal); L89.154 Pressure ulcer of sacral region, stage 4; L89.514 Pressure ulcer of right ankle, stage 4; L89.323 Pressure ulcer of left buttock, stage 3; R65.21 Severe sepsis with septic shock; G93.41 Metabolic encephalopathy; J96.00 Acute respiratory failure, unspecified whether with hypoxia or hypercapnia; G82.54 Quadriplegia, C5-C7 incomplete; E43 Unspecified severe protein-calorie malnutrition; T83.511A Infection and inflammatory reaction due to indwelling urethral catheter, initial encounter; N30.00 Acute cystitis without hematuria; A04.72 Enterocolitis due to Clostridium difficile, not specified as recurrent; E87.1 Hypo-osmolality and hyponatremia; N17.9 Acute kidney failure, unspecified; Z16.12 Extended spectrum beta lactamase (ESBL) resistance; M86.8X8 Other osteomyelitis, other site; D62 Acute posthemorrhagic anemia; K56.7 Ileus, unspecified; A41.9 Sepsis, unspecified organism; I10 Essential (primary) hypertension; Z87.820 Personal history of traumatic brain injury; F20.9 Schizophrenia, unspecified; Z87.440 Personal history of urinary (tract) infections; G25.81 Restless legs syndrome; Z88.0 Allergy status to penicillin; Z88.8 Allergy status to other drugs, medicaments and biological substances; E86.1 Hypovolemia; B95.8 Unspecified staphylococcus as the cause of diseases classified elsewhere; Z11.59 Encounter for screening for other viral diseases; E87.6 Hypokalemia; Z68.20 Body mass index [BMI] 20.0-20.9, adult; E83.39 Other disorders of phosphorus metabolism; E83.42 Hypomagnesemia; G89.4 Chronic pain syndrome
CPT/HCPCS: 36415; 36600; 45378; 51700; 70450; 71045; 74018; 74019; 74176; 74177; 80053; 81001; 82150; 82550; 82553; 82947; 83605; 83690; 83735; 83880; 83930; 83935; 84100; 84295; 84300; 84484; 84520; 85025; 85610; 85730; 86850; 86900; 86920; 87040; 87071; 87075; 87086; 87186; 87205; 87493; 87635; 88307; 93005; 93306; 99251; 99285; J0692; J1100; J1170; J1610; J1650; J2248; J2250; J2270; J2405; J2543; J2710; J2765; J3010; J3370; J3475; J3480; J7030; J7040; J7050; J7121; P9016; P9047; Q9967